=== PATIENT | male | born 1940 | race Caucasian/White ===

== ENCOUNTER 2017-01-05 07:19 | Inpatient (IN) | payer OTHER ==
[~2017-01-05] VITALS: Ht 172.7 cm; Wt 103.6 kg
[2017-01-05] VITALS (10 sets, daily range): BP systolic 135–153; BP diastolic 66–75; PULSE 73–107; TEMP 36.3–36.9; O2SAT 92–98; Ht 172.7 cm; Wt 103.6 kg
[~2017-01-05 07:19] MED LIST: ALLO100T PO; ASPI81TA28 PO; AZIT-57 PO; AZITTAB PO; CHOL100010 PO; GLIP-197 PO; HYDR25TA4 PO; IPRA1AER2 INH; IPRASOL4 INH; LEVE500T13 PO; LISI10TA PO; METO50TA16 PO; OMEP20CA9 PO; PRED10TA PO; SIMV20TA5 PO; SITA1TAB27 PO; SYMIN/8045 INH
[2017-01-05] MEDS ORDERED: DILTIAZEM HCL 5 MG/ML 5 ML VIAL ONE (07:28)
[2017-01-05] MEDS ORDERED: ALBUT/IPRATROP 3MG/0.5MG NEB 3 ML VIAL INH STA (07:29)
[2017-01-05] MEDS ORDERED: DILTIAZEM HCL 5 MG/ML 5 ML VIAL IV STA (07:39)
[2017-01-05] MEDS ORDERED: ASPIRIN 81 MG CHEW PO STA (07:39)
--- NOTE | 2017-01-05 07:42 | EMERGENCY ROOM VISIT NOTE ---
History Report prepared by Jack: Tamara Cortes Under the Supervision of: Dr. Cassandra Bocanegra M.D. 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 He typically wears O2 at night. He is feeling short of breath despite wearing oxygen. He called an ambulance and was brought to the ED for further evaluation. He received 7 nitro en route. He is still feeling short of breath. The patient denies any chest pain. He denies any history of previous AL. 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 A total of 10 systems reviewed and were otherwise negative. Past Medical & Surgical Medical Problems: (1) CKD (chronic kidney disease), stage III (2) COPD, moderate (3) CVA (cerebral vascular accident) (4) Diabetes mellitus (5) GERD (gastroesophageal reflux disease) (6) Gout (7) HTN (hypertension) (8) New onset atrial fibrillation (9) Seizure Surgical Problems: (1) Aneurysm of common iliac artery (2) Hx of appendectomy (3) Left renal thromboendarterectomy (4) S/P AAA repair Family History Non-pertinent due to advanced age. Social History Smoking Status: Current Every Day Smoker Marital Status: Housing Status: lives with family Occupation Status: retired Current/Historical Medications Scheduled Allopurinol (Zyloprim), 100 MG PO DAILY Aspirin (Aspirin Ec), 81 MG PO DAILY Furosemide (Furosemide), 20 MG PO DAILY Glipizide (Glipizide Er), 10 MG PO DAILYBB Glipizide (Glipizide), 5 MG PO DAILYBD Levetiracetam (Keppra), 500 MG PO BID Lisinopril (Prinivil), 10 MG PO DAILY Metoprolol Tartrate (Lopressor), 0.5 TAB PO DAILY Omeprazole (Prilosec), 20 MG PO BID Potassium Chloride Microencaps (Potassium Chloride Er), 10 MEQ PO DAILY Simvastatin (Zocor), 20 MG PO QPM Sitagliptin (Januvia), 100 MG PO QAM Scheduled PRN Ipratropium-Albuterol (Duoneb), 1 VIAL INH QID PRN for SOB/Wheezing Ipratropium-Albuterol (Combivent Respimat), 1 PUFFS INH QID PRN for SOB/Wheezing Allergies Coded Allergies: Sulfa Antibiotics (Verified Allergy, Unknown, HIVES, 01/05/17) Physical Exam Vital Signs Date Time Temp Pulse Resp B/P (MAP) Pulse Ox O2 Delivery O2 Flow Rate FiO2 01/05/17 10:16 135/67 BiPAP 01/05/17 10:11 96 25 98 01/05/17 10:01 116/61 01/05/17 09:56 99 22 98 BiPAP 01/05/17 09:46 136/63 01/05/17 09:41 103 19 99 01/05/17 09:36 105 26 98 BiPAP 01/05/17 09:31 134/73 BiPAP 01/05/17 09:21 98 29 97 01/05/17 09:16 123/64 01/05/17 09:06 106 27 89 BiPAP 01/05/17 09:01 126/65 01/05/17 08:51 98 23 99 01/05/17 08:46 131/56 01/05/17 08:36 94 24 98 BiPAP 01/05/17 08:31 125/60 01/05/17 08:21 101 25 98 01/05/17 08:16 132/52 BiPAP 01/05/17 08:14 102 30 98 BiPAP 01/05/17 08:09 104 33 99 01/05/17 08:05 107 18 98 BiPAP/CPAP 60 01/05/17 08:04 92 20 98 01/05/17 08:01 118/71 BiPAP 01/05/17 07:59 107 27 98 01/05/17 07:55 105 98 60 01/05/17 07:54 112 19 94 01/05/17 07:49 120 26 93 01/05/17 07:46 184/71 01/05/17 07:44 112 24 89 01/05/17 07:41 168/81 01/05/17 07:40 87 Room Air 01/05/17 07:40 121 01/05/17 07:40 91 Nasal Cannula 4.0 01/05/17 07:39 90 Nasal Cannula 4.0 01/05/17 07:39 115 35 91 01/05/17 07:36 90 Nasal Cannula 4.0 01/05/17 07:36 182/86 01/05/17 07:34 105 30 88 01/05/17 07:33 163/84 01/05/17 07:29 139 32 93 01/05/17 07:24 121 43 95 01/05/17 07:24 36.7 148 40 150/91 90 Nasal Cannula 01/05/17 07:19 150/91 Physical Exam Vital signs reviewed. General: Chronically ill appearing 76 year old male, in some respiratory discomfort HEENT: No scleral icterus, PERRLA, neck supple. Atraumatic. Cardiovascular: Regular rate and rhythm, no extra sounds. Pulmonary: Diminished air movement bilaterally with occasional wheezing. Increased work of breathing, tachypnea Abdomen: Soft, nontender, nondistended, positive bowel sounds. Musculoskeletal: Atraumatic, no peripheral edema. Neurologic: Patient awake alert and oriented x 3 Skin: Warm, dry, no rash Medical Decision & Procedures ER Provider Diagnostic Interpretation: Radiology results as stated below per my review and radiologist interpretation: CHEST ONE VIEW PORTABLE HISTORY: Short of breath. COMPARISON: Chest 02/27/2015. FINDINGS: No pneumothorax. The heart is mildly enlarged. Diffuse interstitial and vascular thickening has slightly progressed. This consistent with mild pulmonary edema. Trace bilateral pleural effusions. Left basilar calcified pleural plaque, unchanged. IMPRESSION: Slight progression of the mild interstitial pulmonary edema, cardiomegaly, trace bilateral pleural effusions. Electronically signed by: Chris Garcia M.D. 01/05/2017 8:03 AM Dictated Date/Time: 01/05/2017 7:53 AM Laboratory Results 01/05/17 06:40 Red Blood Count 5.09, Mean Corpuscular Volume 92.9, Mean Corpuscular Hemoglobin 28.5, Mean Corpuscular Hemoglobin Concent 30.7, Mean Platelet Volume 10.0, Neutrophils (%) (Auto) 79.5, Lymphocytes (%) (Auto) 8.7, Monocytes (%) (Auto) 10.1, Eosinophils (%) (Auto) 1.1, Basophils (%) (Auto) 0.2, Neutrophils # (Auto ) 10.92, Lymphocytes # (Auto) 1.20, Monocytes # (Auto) 1.39, Eosinophils # (Auto ) 0.15, Basophils # (Auto) 0.03 01/05/17 06:40 Test 01/05/17 06:40 01/05/17 09:37 White Blood Count 13.75 K/uL (4.8-10.8) Red Blood Count 5.09 M/uL (4.7-6.1) Hemoglobin 14.5 g/dL (14.0-18.0) Hematocrit 47.3 % (42-52) Mean Corpuscular Volume 92.9 fL (80-100) Mean Corpuscular Hemoglobin 28.5 pg (25-34) Mean Corpuscular Hemoglobin Concent 30.7 g/dl (32-36) Platelet Count 158 K/uL (130-400) Mean Platelet Volume 10.0 fL (7.4-10.4) Neutrophils (%) (Auto) 79.5 % Lymphocytes (%) (Auto) 8.7 % Monocytes (%) (Auto) 10.1 % Eosinophils (%) (Auto) 1.1 % Basophils (%) (Auto) 0.2 % Neutrophils # (Auto) 10.92 K/uL (1.4-6.5) Lymphocytes # (Auto) 1.20 K/uL (1.2-3.4) Monocytes # (Auto) 1.39 K/uL (0.11-0.59) Eosinophils # (Auto) 0.15 K/uL (0-0.5) Basophils # (Auto) 0.03 K/uL (0-0.2) RDW Standard Deviation 53.1 fL (36.4-46.3) RDW Coefficient of Variation 15.6 % (11.5-14.5) Immature Granulocyte % (Auto) 0.4 % Immature Granulocyte # (Auto) 0.06 K/uL (0.00-0.02) Prothrombin Time 11.5 SECONDS (9.0-12.0) Prothromb Time International Ratio 1.1 (0.9-1.1) Activated Partial Thromboplast Time 29.7 SECONDS (21.0-31.0) Partial Thromboplastin Ratio 1.1 Anion Gap 3.0 mmol/L (3-11) Est Creatinine Clear Calc Drug Dose 55.5 ml/min Estimated GFR () 58.8 Estimated GFR (Non- 50.7 BUN/Creatinine Ratio 14.8 (10-20) Calcium Level 8.7 mg/dl (8.5-10.1) Magnesium Level 2.1 mg/dl (1.8-2.4) Total Bilirubin 0.6 mg/dl (0.2-1) Direct Bilirubin 0.1 mg/dl (0-0.2) Aspartate Amino Transf (AST/SGOT) 25 U/L (15-37) Alanine Aminotransferase (ALT/SGPT) 31 U/L (12-78) Alkaline Phosphatase 89 U/L (45-117) Total Creatine Kinase 179 U/L (39-308) Creatine Kinase MB 5.2 ng/ml (0.5-3.6) Creatine Kinase MB Ratio 2.9 (0-3.0) Total Protein 7.9 gm/dl (6.4-8.2) Albumin 4.1 gm/dl (3.4-5.0) Thyroid Stimulating Hormone (TSH) 1.270 uIu/ml (0.300-4.500) Arterial Blood pH 7.30 (7.35-7.45) Arterial Blood Partial Pressure CO2 75 mmHg (35-46) Arterial Blood Partial Pressure O2 146 mm/Hg (80-95) Arterial Blood HCO3 36 mmol/L (19-24) Arterial Blood Oxygen Saturation 98.8 % (90-95) Arterial Blood Base Excess 6.4 mEq/L (-9-1.8) Arterial Blood Gas Delivery 60% Isra Test POS (POS) Laboratory results per my review. Medications Administered Medications (Trade) Dose Ordered Sig/Naeem Route Start Time Stop Time Status Last Admin Dose Admin Diltiazem HCl (Cardizem Inj) 25 mg STK-MED ONCE .ROUTE 01/05/17 07:28 01/05/17 07:29 DC 01/05/17 07:31 10 MG Albuterol/ Ipratropium (Duoneb) 3 ml NOW STAT INH 01/05/17 07:29 01/05/17 07:32 DC 01/05/17 07:33 3 ML Aspirin (Aspirin Chew) 324 mg NOW STAT PO 01/05/17 07:39 01/05/17 07:41 DC 01/05/17 07:49 324 MG Methylprednisolone Sodium Succinate (Solu-Medrol IV) 125 mg NOW STAT IV 01/05/17 07:46 01/05/17 07:49 DC 01/05/17 07:55 125 MG Albuterol/ Ipratropium (Duoneb) 12 ml ONE ONCE INH 01/05/17 08:00 01/05/17 08:01 DC 01/05/17 07:55 12 ML ECG Indication: SOB/dyspnea Rate (beats per minute): 126 Rhythm: atrial fibrillation (with RVR) Findings: nonspecific-ST abn, other (poor quality baseline) Comparison ECG Date: Repeat ECG after BiPAP 01/05/2017 Change: Repeat ECG reveals A-fib 88 BPM no ectopy no ischemia. ED Course 0721: Past medical records reviewed. The patient was evaluated in room B7. A complete history and physical examination was performed. 0728: Cardizem 10 mg IV 0729: Duoneb 3 ml INH 0739: Aspirin 324 mg PO 0746: Solu-Medrol 125 mg IV 0800: DuoNeb 12 ml INH 0819: I reassessed the patient at this time and he is doing better with BiPAP. 0918: I spoke with Hetal Soto PA-C. We discussed the patients case. The patient will be evaluated by the [facility] for further management. 0927: I reassessed the patient at this time. He is feeling better and resting comfortably. I discussed the results and treatment plan with the patient. I answered all pertaining questions that he had. He expressed understanding and verbalized agreement. Medical Decision The patient is a 76 year old male who presents to the ED with complaints of shortness of breath. Differentials include infections, reactive airway disease , pneumonia, pneumothorax, COPD, CHF, cardiac ischemia, pulmonary embolism, musculoskeletal, gastrointestinal, as well as others were entertained. This patient was evaluated and appeared to be in significant respiratory discomfort. Patient was given DuoNeb treatment with little improvement. IV Cardizem 10 mg was given with significant improvement in heart rate. The patient was placed on BiPAP with a continuous nebulizer treatment. He had significant resolution of his symptoms in a much calmer work of breathing. Laboratory work is fairly unrevealing. Chest x-ray reveals mild congestive change. Patient was given 125 mg of IV Solu-Medrol. At this time I suspect the patient's issues are twofold with rapid atrial fibrillation and a COPD exacerbation. He is case was discussed with the hospitalist service will evaluate the patient for further management. Medication Reconcilliation Current Medication List: was personally reviewed by me Blood Pressure Screening Patient's blood pressure: Elevated blood pressure Blood pressure disposition: Elevated BP felt to be situational Consults Time Called: 914 Consulting Physician: Hetal Soto PA-C Returned Call: 917 I spoke with Hetal Soto PA-C. We discussed the patients case. [facility]. Impression Primary Impression: COPD exacerbation Additional Impression: Rapid atrial fibrillation Critical Care I have personally spent greater than 35 minutes of critical care time in the direct management of this patient. This includes bedside care, interpretation of diagnostic studies, and testing, discussion with consultants, patient, and family members, and other required patient management activities. This 35 minutes is in excess of all separately billable procedures. Scribe Attestation The scribe's documentation has been prepared under my direction and personally reviewed by me in its entirety. I confirm that the note above accurately reflects all work, treatment, procedures, and medical decision making performed by me. Departure Information Dispostion Being Evaluated By Hospitalist Referrals Richar Lopez M.D. (PCP) Patient Instructions My [facility] Problem Qualifiers
[2017-01-05] MEDS ORDERED: METHYLPREDNISOLONE 125 MG VIAL IV STA (07:46)
[2017-01-05 07:51] LABS: BASO % 0.2 %; BASO ABS # 0.03 K/uL (0-0.2); COMPLETE YES; EOS % 1.1 %; HEMATOCRIT 47.3 % (42-52); IG% 0.4 %; LYMPH % 8.7 %; MEAN CELL VOLUME 92.9 fL (80-100); MEAN CORPUSCULAR HEMOGLOBIN 28.5 pg (25-34); MEAN CORPUSCULAR HGB CONC 30.7 g/dl (32-36); MONO % 10.1 %; NEUT % 79.5 %; PLATELET COUNT 158 K/uL (130-400); RED BLOOD COUNT 5.09 M/uL (4.7-6.1); WHITE BLOOD COUNT 13.75 K/uL (4.8-10.8)
[2017-01-05 08:00] LABS: INR 1.1 (0.9-1.1); PARTIAL THROMBOPLASTIN RATIO 1.1; PROTHROMBIN TIME (PATIENT) 11.5 SECONDS (9.0-12.0)
[2017-01-05] MEDS ORDERED: ALBUT/IPRATROP 3MG/0.5MG NEB 3 ML VIAL INH ONE (08:00)
--- NOTE | 2017-01-05 08:04 | DIAGNOSTIC IMAGING REPORT ---
CHEST ONE VIEW PORTABLE HISTORY: Short of breath. COMPARISON: Chest 02/27/2015. FINDINGS: No pneumothorax. The heart is mildly enlarged. Diffuse interstitial and vascular thickening has slightly progressed. This consistent with mild pulmonary edema. Trace bilateral pleural effusions. Left basilar calcified pleural plaque, unchanged. IMPRESSION: Slight progression of the mild interstitial pulmonary edema, cardiomegaly, trace bilateral pleural effusions. Electronically signed by: Chris Garcia M.D. 01/05/2017 8:03 AM Dictated Date/Time: 01/05/2017 7:53 AM
[2017-01-05 08:10] LABS: BUN/CREATININE RATIO 14.8 (10-20); CALCIUM 8.7 mg/dl (8.5-10.1); CREATININE 1.34 mg/dl (0.60-1.40); MAGNESIUM 2.1 mg/dl (1.8-2.4); POTASSIUM 4.4 mmol/L (3.5-5.1)
[2017-01-05 08:20] LABS: CKMB/CK RATIO 2.9 (0-3.0); THYROID STIMULATING HORMONE 1.27 uIu/ml (0.300-4.500)
[2017-01-05] MEDS ORDERED: LSX20 PO (09:36)
[2017-01-05] MEDS ORDERED: POTA10TA32 PO (09:36)
[2017-01-05 09:57] LABS: ARTERIAL BLD GAS O2 SATURATION 98.8 % (90-95); ARTERIAL BLOOD GAS BASE EXCESS 6.4 mEq/L (-9-1.8); ARTERIAL BLOOD GAS HCO3 36 mmol/L (19-24); ARTERIAL BLOOD GAS PO2 146 mm/Hg (80-95)
[2017-01-05] MEDS ORDERED: GLC5 PO (10:05)
[2017-01-05] MEDS ORDERED: GLUCOSE 40% GEL 15 GM TUBE PO PRN (10:30)
[2017-01-05] MEDS ORDERED: ONDANSETRON INJ 2 MG/ML 2 ML VIAL IV PRN (10:30)
[2017-01-05] MEDS ORDERED: GLUCOSE 10 TABS/TUBE PO PRN (10:30)
[2017-01-05] MEDS ORDERED: GLUCAGON FOR INJ 1 MG VIAL SQ PRN (10:30)
[2017-01-05] MEDS ORDERED: DEXTROSE 50% 50 ML SYR IV PRN (10:30)
[2017-01-05 10:31] LABS: ALLEN TEST POS (POS); O2 ADMINISTRATION 60%
[2017-01-05] MEDS ORDERED: METO-551 PO (10:51)
[2017-01-05] MEDS ORDERED: HEPARIN IV LOW DOSE NO BOLUS SCH (10:56)
[2017-01-05] MEDS ORDERED: METOPROLOL TARTRATE 25 MG TAB PO SCH (11:00)
--- NOTE | 2017-01-05 11:43 | History and Physical ---
History & Physical Date & Time of Service: Jan 05, 2017 at 11:19 Chief Complaint: Shortness Of Breath Primary Care Physician: Richar Lopez M.D. History of Present Illness Source: patient, clinic records, hospital records This is a 76yo M with a PMH of COPD, DM II, HTN, CKD III and remote h/o CVA who presents with worsening shortness of breath beginning last night. Patient wears O2 at night but started to notice SOB while ambulating around his home, which is not his baseline. This morning, patient was SOB at rest, despite wearing O2 and called an ambulance to come to ER for further evaluation. Patient endorses URI symptoms that started 5 days ago, including subjective fever, chills, nasal congestion and productive sputum with white/adams sputum. Was found to be hypoxic in high 80s on 4L O2, so bipap was initiated. Patient's respiratory status has improved and he is alert and conversational, with an O2 saturation of 98%. In the ER, patient was found to be in A Fib with RVR at a rate of 126bpm. Denies any history of A Fib, arrhythmias or heart disease but states that sometimes his heart "skips beats". Is unsure whether or not he takes Lopressor 25mg at home (on his med list), because his manages his medications and she is currently admitted at the hospital. Was given 10mg IV Lopressor in the ER and rate reduced to 90s. Endorses SOB, nasal congestion, cough and fatigue. Denies lightheadedness, headache, visual changes, rhinorrhea, sore throat, palpitations, CP, abd pain, nausea, vomiting or worsening LE swelling. Had a large MCA stroke in 1989. Denies any residual deficits. Takes baby aspirin. Denies any history of DVT/PE or abnormal bleeding. Did not take any of his medications this morning prior to arrival. Past Medical/Surgical History Medical Problems: (1) CKD (chronic kidney disease), stage III Status: Chronic (2) COPD, moderate Status: Chronic (3) CVA (cerebral vascular accident) Status: Chronic (4) Diabetes mellitus Status: Chronic (5) GERD (gastroesophageal reflux disease) Status: Chronic (6) Gout Status: Chronic (7) HTN (hypertension) Status: Chronic (8) Seizure Status: Chronic Surgical Problems: (1) Aneurysm of common iliac artery Permanent Comment: left, s/p repair Status: Chronic (2) Hx of appendectomy Status: Chronic (3) Left renal thromboendarterectomy Status: Chronic (4) S/P AAA repair Status: Chronic Family History Patient unsure of family history. Social History Smoking Status: Current Every Day Smoker (Currently smokes less than 1/2 ppd. Endorses >50 pack years.) Alcohol Use: none Marital Status: Housing status: lives with family Occupational Status: retired Immunizations History of Influenza Vaccine: Yes Influenza Vaccine Date: Nov 13, 2014 History of Tetanus Vaccine?: Yes Tetanus Immunization Date: Aug 20, 2012 History of Pneumococcal: Yes Pneumococcal Date: Jan 12, 2006 Allergies Coded Allergies: Sulfa Antibiotics (Verified Allergy, Unknown, HIVES, 01/05/17) Home Medications Scheduled Allopurinol (Zyloprim), 100 MG PO DAILY Aspirin (Aspirin Ec), 81 MG PO DAILY Furosemide (Furosemide), 20 MG PO DAILY Glipizide (Glipizide Er), 10 MG PO DAILYBB Glipizide (Glipizide), 5 MG PO DAILYBD Levetiracetam (Keppra), 500 MG PO BID Lisinopril (Prinivil), 10 MG PO DAILY Metoprolol Tartrate (Lopressor), 0.5 TAB PO DAILY Omeprazole (Prilosec), 20 MG PO BID Potassium Chloride Microencaps (Potassium Chloride Er), 10 MEQ PO DAILY Simvastatin (Zocor), 20 MG PO QPM Sitagliptin (Januvia), 100 MG PO QAM Scheduled PRN Ipratropium-Albuterol (Duoneb), 1 VIAL INH QID PRN for SOB/Wheezing Ipratropium-Albuterol (Combivent Respimat), 1 PUFFS INH QID PRN for SOB/Wheezing Review of Systems Ten systems reviewed and negative except as noted in the HPI. Physical Exam Vital Signs Date Time Temp Pulse Resp B/P (MAP) Pulse Ox O2 Delivery O2 Flow Rate FiO2 01/05/17 10:44 91 01/05/17 10:41 107 30 99 BiPAP 01/05/17 10:31 141/79 01/05/17 10:26 108 22 01/05/17 10:16 135/67 BiPAP 01/05/17 10:11 96 25 98 01/05/17 10:01 116/61 01/05/17 09:56 99 22 98 BiPAP 01/05/17 09:46 136/63 01/05/17 09:41 103 19 99 01/05/17 09:36 105 26 98 BiPAP 01/05/17 09:31 134/73 BiPAP 01/05/17 09:21 98 29 97 01/05/17 09:16 123/64 01/05/17 09:06 106 27 89 BiPAP 01/05/17 09:01 126/65 01/05/17 08:51 98 23 99 01/05/17 08:46 131/56 01/05/17 08:36 94 24 98 BiPAP 01/05/17 08:31 125/60 01/05/17 08:21 101 25 98 01/05/17 08:16 132/52 BiPAP 01/05/17 08:14 102 30 98 BiPAP 01/05/17 08:09 104 33 99 01/05/17 08:05 107 18 98 BiPAP/CPAP 60 01/05/17 08:04 92 20 98 01/05/17 08:01 118/71 BiPAP 01/05/17 07:59 107 27 98 01/05/17 07:55 105 98 60 01/05/17 07:54 112 19 94 01/05/17 07:49 120 26 93 01/05/17 07:46 184/71 01/05/17 07:44 112 24 89 01/05/17 07:41 168/81 01/05/17 07:40 87 Room Air 01/05/17 07:40 121 01/05/17 07:40 91 Nasal Cannula 4.0 01/05/17 07:39 90 Nasal Cannula 4.0 01/05/17 07:39 115 35 91 01/05/17 07:36 90 Nasal Cannula 4.0 01/05/17 07:36 182/86 01/05/17 07:34 105 30 88 01/05/17 07:33 163/84 01/05/17 07:29 139 32 93 01/05/17 07:24 121 43 95 01/05/17 07:24 36.7 148 40 150/91 90 Nasal Cannula 01/05/17 07:19 150/91 General Appearance: + mild distress (on bipap ) Head: normocephalic, atraumatic Eyes: normal inspection, PERRL, EOMI, sclerae normal (conjunctiva normal ) ENT: hearing grossly normal, + nasal congestion Neck: supple, trachea midline Respiratory/Chest: chest non-tender, no respiratory distress, no accessory muscle use, + decreased breath sounds, + wheezing (Diffiuse wheezing bilaterally ) Cardiovascular: + irregularly irregular, + pertinent finding (Diminished DP and PT pulses ) Abdomen/GI: normal bowel sounds, non tender, soft, no organomegaly Extremities/Musculoskelatal: no calf tenderness, non-tender, + swelling (Trace edema bilateral to knee (chronic). No skin breakdown.) Neurologic/Psych: no motor/sensory deficits, alert, normal mood/affect, oriented x 3 Skin: normal color, warm/dry, no rash Diagnostics Laboratory Results Results Past 24 Hours Test 01/05/17 06:40 01/05/17 09:37 Range/Units White Blood Count 13.75 4.8-10.8 K/uL Red Blood Count 5.09 4.7-6.1 M/uL Hemoglobin 14.5 14.0-18.0 g/dL Hematocrit 47.3 42-52 % Mean Corpuscular Volume 92.9 80-100 fL Mean Corpuscular Hemoglobin 28.5 25-34 pg Mean Corpuscular Hemoglobin Concent 30.7 32-36 g/dl Platelet Count 158 130-400 K/uL Mean Platelet Volume 10.0 7.4-10.4 fL Neutrophils (%) (Auto) 79.5 % Lymphocytes (%) (Auto) 8.7 % Monocytes (%) (Auto) 10.1 % Eosinophils (%) (Auto) 1.1 % Basophils (%) (Auto) 0.2 % Neutrophils # (Auto) 10.92 1.4-6.5 K/uL Lymphocytes # (Auto) 1.20 1.2-3.4 K/uL Monocytes # (Auto) 1.39 0.11-0.59 K/uL Eosinophils # (Auto) 0.15 0-0.5 K/uL Basophils # (Auto) 0.03 0-0.2 K/uL RDW Standard Deviation 53.1 36.4-46.3 fL RDW Coefficient of Variation 15.6 11.5-14.5 % Immature Granulocyte % (Auto) 0.4 % Immature Granulocyte # (Auto) 0.06 0.00-0.02 K/uL Prothrombin Time 11.5 9.0-12.0 SECONDS Prothromb Time International Ratio 1.1 0.9-1.1 Activated Partial Thromboplast Time 29.7 21.0-31.0 SECONDS Partial Thromboplastin Ratio 1.1 Sodium Level 139 136-145 mmol/L Potassium Level 4.4 3.5-5.1 mmol/L Chloride Level 101 98-107 mmol/L Carbon Dioxide Level 35 21-32 mmol/L Anion Gap 3.0 3-11 mmol/L Blood Urea Nitrogen 20 7-18 mg/dl Creatinine 1.34 0.60-1.40 mg/dl Est Creatinine Clear Calc Drug Dose 55.5 ml/min Estimated GFR () 58.8 Estimated GFR (Non- 50.7 BUN/Creatinine Ratio 14.8 10-20 Random Glucose 165 70-99 mg/dl Calcium Level 8.7 8.5-10.1 mg/dl Magnesium Level 2.1 1.8-2.4 mg/dl Total Bilirubin 0.6 0.2-1 mg/dl Direct Bilirubin 0.1 0-0.2 mg/dl Aspartate Amino Transf (AST/SGOT) 25 15-37 U/L Alanine Aminotransferase (ALT/SGPT) 31 12-78 U/L Alkaline Phosphatase 89 45-117 U/L Total Creatine Kinase 179 39-308 U/L Creatine Kinase MB 5.2 0.5-3.6 ng/ml Creatine Kinase MB Ratio 2.9 0-3.0 Total Protein 7.9 6.4-8.2 gm/dl Albumin 4.1 3.4-5.0 gm/dl Thyroid Stimulating Hormone (TSH) 1.270 0.300-4.500 uIu/ml Arterial Blood pH 7.30 7.35-7.45 Arterial Blood Partial Pressure CO2 75 35-46 mmHg Arterial Blood Partial Pressure O2 146 80-95 mm/Hg Arterial Blood HCO3 36 19-24 mmol/L Arterial Blood Oxygen Saturation 98.8 90-95 % Arterial Blood Base Excess 6.4 -9-1.8 mEq/L Arterial Blood Gas Delivery 60% Isra Test POS POS Diagnostic Radiology CXR: IMPRESSION: Slight progression of the mild interstitial pulmonary edema, cardiomegaly, trace bilateral pleural effusions. EKG Initial EKG: Atrial fibrillation with rapid ventricular response with premature ventricular or aberrantly conducted complexes at [address] abnormality Repeat EKG: Atrial fibrillation at 88 bpm. Impression Assessment and Plan This is a 76yo M with a PMH of COPD, DM II, HTN, CKD III and remote h/o CVA who presents with worsening shortness of breath beginning last night. Acute on chronic hypoxic and hypercapnic respiratory failure: -2/2 COPD exacerbation -Respiratory acidosis with appropriate compensation pH of 7.3, pco2 of 75, HCO3 of 36 -Respiratory status improved on bipap -O2 saturation in high 90s -Switch to high flow O2 when able to tolerate COPD exacerbation: -Likely from recent URI -Solu-medrol 60mg Q6 -Scheduled Xopenex/Atrovent nebs -Doxycycline -Supplemental O2 -Pulm consult if respiratory status worsens A fib with RVR: improving -Unclear if new onset or not; patient poor historian -No previous diagnosis of A fib -No CP, palpitations, lightheadedness -Initially in A fib with RVR--> given 10mg IV diltiazem --> rate down to 80s-90s -CHADvasc score of 6 -Initiated low dose IV heparin -Continued home dose Lopressor 25mg daily -Cardio consult DM II: -A1c of 6.8 on 09/12 -Repeat hgb a1c -Held home agents -SSI while in-patient -BSG checks AC HS HTN: -Continue home lisinopril, lasix, metoprolol CKD III: -Cr 1.34, GFR 50.7 -At baseline HLD: -Continue statin H/o seizures: -Stable -Cont home keppra H/o CVA: -Large MCA in 1989 -No residual deficits Tobacco use disorder: -Currently smokes ~ 1/2 ppd -Over 50 pack years -Smoking cessation consult -Nicotine patch GERD: -Cont PPI DVT Ppx: Low dose heparin Code status: FULL PCP: Jessica Dispo: Admitted to tele. Patient seen in collaboration with Dr. Lomeli. Please see addendum. Level of Care Telemetry Resuscitation Status FULL RESUSCITATION VTE Prophylaxis VTE Risk Assessment Done? Y/N: Yes Risk Level: Moderate Given or contraindicated: Other Anticoagulation (On low dose heparin )
[2017-01-05] MEDS: HEPARIN 25,000 UNIT/500ML D5W 500 ML IV PRN (13:48)
[2017-01-05] MEDS: INSULIN ASPART 100 UNITS/ML 3 ML PEN SC SCH ×3 (13:49→20:10)
[2017-01-05] MEDS: LEVETIRACETAM 500 MG TAB PO SCH ×2 (13:50→20:11)
[2017-01-05] MEDS: POTASSIUM CHLORIDE 10 MEQ TABCR PO SCH (13:54)
[2017-01-05] MEDS: FUROSEMIDE 20 MG TAB PO SCH (13:57)
[2017-01-05] MEDS: LISINOPRIL 10 MG TAB PO SCH (13:58)
[2017-01-05] MEDS: ALLOPURINOL 100 MG TAB PO SCH (13:59)
[2017-01-05] MEDS: DOXYCYCLINE HYCLATE 100 MG CAP PO SCH ×2 (13:59→20:12)
[2017-01-05] MEDS: METHYLPREDNISOLONE IV 60 MG in SYRINGE 0 ML IV SCH ×2 (14:00→20:04)
[2017-01-05] MEDS: IPRATROPIUM BROMIDE NEB SOLN 0.02% 2.5 ML VIAL INH SCH ×2 (14:14→19:44)
[2017-01-05] MEDS: LEVALBUTEROL 1.25MG/0.5ML NEB INH SCH ×2 (14:14→19:44)
[2017-01-05] MEDS ORDERED: LEVALBUTEROL/IPRATROPIUM NEB INH SCH (15:00)
[2017-01-05] MEDS ORDERED: FUROSEMIDE INJ 20 MG in SYRINGE 0 ML IV ONE (16:00)
--- NOTE | 2017-01-05 16:04 | CARDIOLOGY CONSULTATION ---
DATE OF CONSULTATION: 01/05/2017 DATE OF CONSULTATION: 01/05/2017 REFERRING: Dr. Lomeli. PRIMARY CARE PHYSICIAN: Dr. Lopez. INDICATIONS: Newly noted atrial fibrillation, COPD exacerbation. HISTORY OF PRESENT ILLNESS: The patient is a 76-year-old male whose past medical history per discussion with the patient and review of records is notable for chronic obstructive lung disease, history of Shabazz esophagus, history of remote TIA/stroke, history of type 2 diabetes mellitus, hypertension, atherosclerotic peripheral vascular disease with prior abdominal aortic aneurysm and left common iliac aneurysm repair, history of dyslipidemia. The patient presents this admission noting having felt poorly for approximately 3-4 days prior to presentation with worsening wheezing, cough and shortness of breath. Symptoms progressed to the point where he was markedly dyspneic despite wearing usual oxygen available for nocturnal use only. He was found to be hypoxic on initial presentation. He was begun on BiPAP and patient clinically improved. Initially in ER, patient was found to be in atrial fibrillation with rapid ventricular response, was given a single dose of IV diltiazem. The patient denies any prior history of atrial arrhythmias other than skipping heartbeats. Notes no prior history of myocardial infarction, angina or congestive heart failure. Notes no exertional angina or claudication. He is limited slightly by dyspneic at home, though remains moderately active by his description. Appetite and weight have been stable. He denies any difficulty with bleeding or abdominal pain or back pain. Notes no dysuria or hematuria. Appetite is generally good. He does continue to smoke approximately 2-4 cigarettes per day. Does wear his oxygen at night. Notes no signs or symptoms to suggest he has been aware of atrial fibrillation or irregular heart rate prior to complaints. Notes no recent neurologic events though carries a history of middle cerebral artery stroke in 1989 per records. Last hospitalization at [facility] was in January 2015 with chronic obstructive pulmonary disease exacerbation at that time. REVIEW OF SYSTEMS: As per HPI and otherwise negative. ALLERGIES: SULFA. MEDICATIONS: Prior to hospitalization were allopurinol 100 mg daily, aspirin 81 mg daily, furosemide 20 grams p.o. daily, glipizide 10 mg p.o. daily, DuoNeb nebulizers p.r.n., Keppra 500 mg b.i.d., lisinopril 10 mg p.o. day, metoprolol 25 mg daily, Prilosec 20 mg p.o. daily, potassium chloride 10 mg daily, simvastatin 20 grams p.o. daily, Januvia 100 mg p.o. every day. PAST SURGICAL HISTORY: Notable for as described. Status post abdominal aortic aneurysm repair, left internal iliac aneurysm repair and left renal artery thromboendarterectomy on 05/24/2012, past appendectomy, cholecystectomy, blepharoplasty. FAMILY HISTORY: Not specifically notable for cardiac disease. 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 He does carry approximately [id number]-vifs history of tobacco use, continues to smoke 2-10 cigarettes per day. Uses no significant alcohol or over the counter medications. PHYSICAL EXAMINATION: GENERAL: The patient appears relatively comfortable at time of exam. VITAL SIGNS: Heart rates 94, blood pressure is 136/73 and equal in both arms. HEAD, EYES, EARS, NOSE, AND THROAT: Normocephalic, atraumatic. Nares without discharge. Throat was clear. NECK: Supple without thyromegaly or lymphadenopathy. There are no carotid bruits audible. LUNGS: Reveal diffuse wheezing and markedly diminished breath sounds in all lung garcia. CARDIOVASCULAR EXAMINATION: Irregular, irregular. There is a grade 2/6 holosystolic murmur at the apex. There is no diastolic murmur. There is no distinct S3 gallop. ABDOMEN: Soft with moderate distention. EXTREMITIES: Without cyanosis or clubbing. There is 1-2+ pedal edema. NEUROLOGIC: The patient is answering questions appropriately. DATA: EKG reveals atrial fibrillation with elevated ventricular response rate. No acute ST segment changes or Q-waves. Chest x-ray reveals diffuse increase in interstitial markings. Cardiac silhouette upper limits of normal in size. LABORATORY DATA: White cell count 13.7, hemoglobin is 14.5, hematocrit is 47.3. Sodium is 139, potassium is 4.4, chloride is 101, bicarb is 35, BUN is 20, creatinine is 1.3. CK-MB notable for mild elevation of MB fraction. TSH is 1.27. AST and ALT are normal. Review of the EKG on patient initially presented demonstrated atrial fibrillation, rate [address] segment changes, poor baseline. Review of outpatient data last echocardiogram was done in June of 2013 which demonstrated normal left ventricular systolic function with mild aortic stenosis and mild aortic insufficiency and mild mitral insufficiency. IMPRESSION: 1. A 76-year-old male presented with acute respiratory distress and underlying history of known obstructive lung disease, hypercarbia, marked worsening dyspnea over several days and newly observed atrial fibrillation, duration of onset uncertain. Issues are as follows, respiratory distress appears to be secondary obstructive lung disease. Chest x-ray does demonstrate diffuse increased interstitial markings. Will give single dose of IV furosemide as part of initial management. I agree with antibiotic and corticosteroid usage. 2. Atrial fibrillation with elevated ventricular response rate, uncertain duration and newly observed. PLAN: Echocardiogram will be ordered to assess valvular structures and cardiac function. Will increase metoprolol to 25 mg a day for rate control. Agree with anticoagulation with heparin. I have discussed this in detail with the patient. He is leery of ongoing chronic anticoagulation but by history is extremely high risk for embolic stroke with high CHADS2-VASc score with risk factors including age greater than 75, prior history of stroke, hypertension, diabetes mellitus and vascular disease. Will continue IV heparin with initiation of oral anticoagulation after further assessment obtained. Will continue to follow patient in the hospital. Plans and recommendations discussed in detail with the patient.
[2017-01-05] MEDS: METOPROLOL TARTRATE 25 MG TAB PO SCH (16:25)
[2017-01-05 17:28] LABS: CKMB/CK RATIO 2.5 (0-3.0)
[2017-01-05] MEDS: SIMVASTATIN 20 MG TAB PO SCH (20:11)
[2017-01-05] MEDS: PANTOprazole SOD 40 MG TAB PO SCH (20:11)
[2017-01-05 21:20] LABS: PARTIAL THROMBOPLASTIN RATIO 1.3
[2017-01-05] MEDS ORDERED: HEPARIN IV BOLUS 4,500 UNIT in SYRINGE 0 ML IV SCH (22:00)
[2017-01-06] VITALS (12 sets, daily range): BP systolic 104–137; BP diastolic 61–73; PULSE 76–112; TEMP 36.4–36.9; O2SAT 90–96
[2017-01-06 00:02] LABS: CKMB/CK RATIO 2.2 (0-3.0)
[2017-01-06] MEDS: METHYLPREDNISOLONE IV 60 MG in SYRINGE 0 ML IV SCH ×4 (01:26→21:06)
[2017-01-06] MEDS: IPRATROPIUM BROMIDE NEB SOLN 0.02% 2.5 ML VIAL INH SCH ×4 (01:37→20:35)
[2017-01-06] MEDS: LEVALBUTEROL 1.25MG/0.5ML NEB INH SCH ×4 (01:38→20:35)
[2017-01-06 04:38] LABS: PARTIAL THROMBOPLASTIN RATIO 1.6
[2017-01-06 04:53] LABS: CKMB/CK RATIO 2.6 (0-3.0)
[2017-01-06] MEDS ORDERED: HEPARIN IV BOLUS 3,000 UNIT in SYRINGE 0 ML IV ONE ×2 (05:15→19:15)
[2017-01-06 06:16] LABS: ESTIMATED AVERAGE GLUCOSE 154 mg/dl; HA1C FLAG Normal (Normal)
[2017-01-06] MEDS: LISINOPRIL 10 MG TAB PO SCH (07:29)
[2017-01-06] MEDS: POTASSIUM CHLORIDE 10 MEQ TABCR PO SCH (07:29)
[2017-01-06] MEDS: LEVETIRACETAM 500 MG TAB PO SCH ×2 (07:29→21:06)
[2017-01-06] MEDS: FUROSEMIDE 20 MG TAB PO SCH (07:30)
[2017-01-06] MEDS: ALLOPURINOL 100 MG TAB PO SCH (07:30)
[2017-01-06] MEDS: ASPIRIN 81 MG ECTAB PO SCH (07:30)
[2017-01-06] MEDS: METOPROLOL TARTRATE 25 MG TAB PO SCH ×2 (07:31→18:13)
[2017-01-06] MEDS: PANTOprazole SOD 40 MG TAB PO SCH ×2 (07:32→21:07)
[2017-01-06] MEDS: NICOTINE 14 MG/24 HR TDSY TD SCH (07:33)
[2017-01-06] MEDS: INSULIN ASPART 100 UNITS/ML 3 ML PEN SC SCH ×4 (07:36→21:09)
[2017-01-06] MEDS: DOXYCYCLINE HYCLATE 100 MG CAP PO SCH ×2 (09:01→21:07)
--- NOTE | 2017-01-06 10:50 | ECHOCARDIOGRAM REPORT ---
*NOTICE TO RECEIVING LIBERTARIAN AGENCY This information is strictly Confidential and protected under [place] law. [place] law prohibits you from making any further disclosure of this information unless further disclosure is expressly permitted by the written consent of the person to whom it pertains or is authorized by law. A general authorization for the release of medical or other information is not sufficient for this purpose. Hospital accepts no responsibility if the information is made available to any other person, INCLUDING THE PATIENT. Interpretation Summary * Name: JACKI DUNLAP Study Date: 01/06/2017 06:28 AM BP: 123/65 mmHg * Patient Location: [facility] HR: 88 * : 1940 (M/d/yyyy) Gender: Male Height: 68 in * Age: 76 yrs Ethnicity: CA Weight: 231 lb * Ordering Physician: Alexis Gupta MD, [facility] * Performed By: Mayi Hess RDCS * * Reason For Study: A-FIB * BSA: 2.2 m2 * -- Conclusions -- * The left ventricle is normal in size. * There is moderate concentric left ventricular hypertrophy. * No regional wall motion abnormalities noted. * Ejection Fraction = 55-60%. * Moderate valvular aortic stenosis. * Mild aortic regurgitation. * There is moderate sclerocalcifc changes of the mitral valve leaflets. * There is mild mitral regurgitation. Procedure Details * A complete two-dimensional transthoracic echocardiogram was performed (2D, M-mode, Doppler and color flow Doppler). * A contrast injection of Definity was performed to improve assessment of LV function. * Contrast was injected into an intravenous site in the left arm. * One vial of Definity ultrasound contrast was diluted in normal saline to a total volume of 10 ml. A total of '3' ml of solution was administered during imaging. * Lot # [id number] of Definity utilized for procedure. * Expiration date 02/13. Left Ventricle * The left ventricle is normal in size. * There is moderate concentric left ventricular hypertrophy. * Ejection Fraction = 55-60%. * Left ventricular systolic function is normal. * No regional wall motion abnormalities noted. Right Ventricle * The right ventricle is normal in size and function. Atria * The left atrium is moderately dilated. * Right atrial size is normal. * No ASD detected; PFO is not assessed. Mitral Valve * There is mild to moderate mitral annular calcification. * There is moderate sclerocalcifc changes of the mitral valve leaflets. * There is no mitral valve stenosis. * There is mild mitral regurgitation. Tricuspid Valve * The tricuspid valve anatomy is normal. * There is no tricuspid stenosis. * There is trace tricuspid regurgitation. Aortic Valve * The aortic valve is trileaflet. * Moderate valvular aortic stenosis. * Mild aortic regurgitation. Pulmonic Valve * The pulmonic valve is not well visualized. Great Vessels * The aortic root is normal size. Pericardium/Pleural * There is no pericardial effusion. Great Vessels * Normal inferior vena cava diameter and respiratory variation suggests normal central venous pressure. MMode 2D Measurements and Calculations IVSd 1.4 cm IVSs 2.4 cm LVIDd 5.6 cm LVIDs 3.9 cm LVPWd 1.2 cm LVPWs 1.6 cm IVS/LVPW 1.2 FS 30.2 % EDV(Teich) 152.6 ml ESV(Teich) 65.8 ml EF(Teich) 56.9 % EDV(cubed) 174.0 ml ESV(cubed) 59.2 ml EF(cubed) 66.0 % % IVS thick 75.3 % % LVPW thick 38.8 % LV mass(C)d 299.9 grams LV mass(C)dI 138.0 grams/m\S\2 LV mass(C)s 361.9 grams LV mass(C)sI 166.6 grams/m\S\2 SV(Teich) 86.8 ml SI(Teich) 39.9 ml/m\S\2 SV(cubed) 114.8 ml SI(cubed) 52.8 ml/m\S\2 ACS 1.2 cm LA dimension 4.5 cm asc Aorta Diam 3.3 cm LVOT diam 2.5 cm LVOT area 4.8 cm\S\2 LVAd ap4 44.2 cm\S\2 LVLd ap4 9.6 cm EDV(MOD-sp4) 163.3 ml EDV(sp4-el) 173.2 ml LVAs ap4 26.7 cm\S\2 LVLs ap4 8.0 cm ESV(MOD-sp4) 72.1 ml ESV(sp4-el) 75.3 ml EF(MOD-sp4) 55.8 % EF(sp4-el) 56.5 % LVAd ap2 40.1 cm\S\2 LVLd ap2 9.6 cm EDV(MOD-sp2) 137.9 ml EDV(sp2-el) 142.5 ml LVAs ap2 23.3 cm\S\2 LVLs ap2 7.7 cm ESV(MOD-sp2) 59.4 ml ESV(sp2-el) 59.8 ml EF(MOD-sp2) 56.9 % EF(sp2-el) 58.0 % LVLd %diff 0.02 % EDV(MOD-bp) 152.0 ml LVLs %diff -4.25 % ESV(MOD-bp) 66.8 ml EF(MOD-bp) 56.1 % SV(MOD-sp4) 91.2 ml SI(MOD-sp4) 42.0 ml/m\S\2 SV(MOD-sp2) 78.5 ml SI(MOD-sp2) 36.1 ml/m\S\2 SV(MOD-bp) 85.2 ml SI(MOD-bp) 39.2 ml/m\S\2 SV(sp4-el) 97.9 ml SI(sp4-el) 45.1 ml/m\S\2 SV(sp2-el) 82.7 ml SI(sp2-el) 38.0 ml/m\S\2 Doppler Measurements and Calculations MV E max neymar 197.2 cm/sec MV dec time 0.22 sec Ao V2 max 243.6 cm/sec Ao max PG 23.7 mmHg Ao max PG (full) 20.1 mmHg PERLA(V,A) 1.9 cm\S\2 PERLA(V,D) 1.9 cm\S\2 AI max neymar 347.2 cm/sec AI max PG 48.4 mmHg AI dec slope 248.5 cm/sec\S\2 AI P1/2t 409.2 msec LV V1 max PG 3.6 mmHg LV V1 max 95.3 cm/sec MR max neymar 446.1 cm/sec MR max PG 79.7 mmHg PA V2 max 62.3 cm/sec PA max PG 1.6 mmHg PI end-d neymar 90.6 cm/sec TR max neymar 266.6 cm/sec
[2017-01-06] MEDS ORDERED: SIMETHICONE 80 MG CHEW PO PRN (11:00)
[2017-01-06 11:20] LABS: PARTIAL THROMBOPLASTIN RATIO 1.6
[2017-01-06] MEDS: HEPARIN 25,000 UNIT/500ML D5W 500 ML IV PRN ×3 (11:20→19:22)
[2017-01-06] MEDS ORDERED: FUROSEMIDE 40 MG TAB PO ONE (12:15)
[2017-01-06] MEDS ORDERED: HEPARIN IV BOLUS 4,500 UNIT in SYRINGE 0 ML IV ONE (12:30)
--- NOTE | 2017-01-06 13:52 | CARDIOLOGY PROGRESS NOTE ---
DATE: 01/06/2017 DATE: 01/06/2017 The patient seen and examined. Chart, medications, telemetry reviewed. SUBJECTIVE: The patient clinically appears improved this morning, did have transient hypoxia overnight when off oxygen supplementation. Denies any chest pains. Not aware of any tachypalpitations. Heart rate has improved to the 80s and 90s on current dosing of therapies. He is frustrated by frequent blood draws. Notes breathing has improved. Notes no productive cough. OBJECTIVE: VITAL SIGNS: Heart rate is 83, blood pressure is 137/66. HEAD, EYES, EARS, NOSE, AND THROAT: Normocephalic, atraumatic. NECK: Thick. There is no distinct jugular venous distention. LUNGS: Reveals fine crackles bibasilar, with diffuse wheezes. CARDIOVASCULAR: Irregularly irregular with a grade 2/6 systolic murmur heard best at the lower left sternal border. There is no S3 gallop. ABDOMEN: Obese, soft. EXTREMITIES: Reveal 1+ lower extremity edema. NEUROLOGIC: The patient is answering questions appropriately. DATA: Echocardiogram this morning demonstrates moderate left ventricular hypertrophy without wall motion abnormalities. Estimated ejection fraction 55-60%. There is calcific disease of the aortic valve with moderate aortic stenosis and mild aortic insufficiency and mild tricuspid insufficiency. IMPRESSION: A 76-year-old male presented with chronic obstructive pulmonary disease exacerbation, worsening wheeze and cough now responding to clinical therapies. Did receive additional dose of furosemide by myself yesterday. Has mild signs of volume overload noted. His underlying history is notable for aortic valve disease now documented as moderate aortic stenosis and mild aortic insufficiency with preserved LV systolic function. Rhythms continue to demonstrate newly observed atrial fibrillation. Rates are coming under better control with current therapy. RECOMMENDATIONS: Would continue metoprolol 25 mg twice per day. Would continue IV heparin. I would recommend transitioning to warfarin on this patient, though uncertain whether he would be willing to do this as long-term management. Will resume furosemide, he previously took this 20 mg once daily. Would increase that dose to 40 mg per day at least while in the hospital. Would follow electrolytes with lab work ordered to be performed next PTT draw.
[2017-01-06 18:28] LABS: PARTIAL THROMBOPLASTIN RATIO 1.7
--- NOTE | 2017-01-06 19:26 | Progress Note ---
Medicine Progress Note Date & Time of Visit: Jan 06, 2017 at 19:20. Subjective Patient reports feeling some improvement in his breathing, but does not feel back to baseline yet. Still requiring oxygen supplement. No overnight events noted. Tolerating medications. No complaints other than cough/SOB/chest tightness. Objective Last 8 Hrs Date Time Temp Pulse Resp B/P (MAP) Pulse Ox O2 Delivery O2 Flow Rate FiO2 01/06/17 18:14 88 134/67 (89) 01/06/17 15:28 36.9 85 19 104/61 (75) 92 Nasal Cannula 3.0 01/06/17 14:54 95 20 95 Nasal Cannula 3.0 01/06/17 13:16 36.7 97 18 113/67 (82) 96 01/06/17 12:00 Nasal Cannula 5.0 Physical Exam: GENERAL: Patient is in no acute distress. HEENT: No acute trauma, normocephalic, mucous membranes moist, no nasal congestion, no scleral icterus. Conjunctivae clear NECK: No stridor, trachea is midline. LUNGS: Bilateral wheeze, diminished breath sounds bilaterally, no rhonchi, breath sounds equal. HEART: Without murmurs gallops or rubs, irregularly irregular ABDOMEN: Soft, nontender, bowel sounds positive. EXTREMITIES: No cyanosis; B/L LE edema, full range of motion of all the joints without pain or difficulty, no signs for acute trauma. NEUROLOGIC: Oriented x 3, no acute motor or sensory deficits, no focal weakness. SKIN: No rash, no jaundice, no diaphoresis. Laboratory Results: Last 24 Hours Test 01/05/17 20:01 01/05/17 20:17 01/05/17 23:30 01/06/17 04:13 Bedside Glucose 238 mg/dl Activated Partial Thromboplast Time 32.5 SECONDS 42.6 SECONDS Partial Thromboplastin Ratio 1.3 1.6 Total Creatine Kinase 238 U/L 213 U/L Creatine Kinase MB 5.3 ng/ml 5.5 ng/ml Creatine Kinase MB Ratio 2.2 2.6 Troponin I 0.050 ng/ml 0.032 ng/ml Estimated Average Glucose 154 mg/dl Hemoglobin A1c 7.0 % Test 01/06/17 06:48 01/06/17 10:54 01/06/17 11:27 01/06/17 16:23 Bedside Glucose 229 mg/dl 236 mg/dl 271 mg/dl Activated Partial Thromboplast Time 40.6 SECONDS Partial Thromboplastin Ratio 1.6 Test 01/06/17 17:26 Activated Partial Thromboplast Time 43.9 SECONDS Partial Thromboplastin Ratio 1.7 Assessment & Plan Acute on chronic hypoxic and hypercapnic respiratory failure: -likely secondary to COPD exacerbation and probable bronchitis -Respiratory acidosis with appropriate compensation pH of 7.3, pco2 of 75, HCO3 of 36 -improved on bipap, then switched to NC -O2 saturation in high 90s now; wean oxygen as tolerated -continued on Lasix as well COPD exacerbation: -Likely from recent URI -Solu-medrol 60mg Q6 for now, taper tomorrow -Scheduled Xopenex/Atrovent nebs -Doxycycline day#2 -Supplemental O2 -Pulm consult if respiratory status worsens A fib with RVR: improving -unclear onset; patient poor historian, but no prior history of a fib per records -no CP, palpitations, lightheadedness -Initially in A fib with RVR--> given 10mg IV diltiazem --> rate down to 80s- 90s where it has remained -on low dose IV heparin drip -continued home dose Lopressor 25mg daily -Cardio consulted, appreciate recs -TTE: EF 55-60%, moderate DM Type II: -HbA1c: 7% -hold home PO meds -SSI while in hospital -BSG AC HS -add lantus as well HTN: -Continue home lisinopril, lasix, metoprolol CKD Stage III: -Cr 1-1.5 at baseline -currently at baseline HYPERLIPIDEMIA: -continue statin Hx of Seizures: -stable -continue keppra Prior CVA: -Large MCA territory ischemic CVA in 1989 -No residual deficits Tobacco use disorder: -Currently smokes ~ 1/2 ppd -Over 50 pack years -Smoking cessation consult -Nicotine patch GERD: -continue PPI Current Inpatient Medications: Current Inpatient Medications Medications (Trade) Dose Ordered Sig/Naeem Route Start Time Stop Time Status Last Admin Dose Admin Ondansetron HCl (Zofran Inj) 4 mg Q6H PRN IV 01/05/17 10:30 02/04/17 10:29 Insulin Aspart (novoLOG ASPART) SLIDING SCALE If C... ACHS SC 01/05/17 16:15 02/04/17 16:14 01/06/17 18:11 12 UNITS Glucose (Glucose 40% Gel) 15-30 GRAMS 15 GRAMS... UD PRN PO 01/05/17 10:30 02/04/17 10:29 Glucose (Glucose Chew Tab) 4-8 Tablets 4 Tabl... UD PRN PO 01/05/17 10:30 02/04/17 10:29 Dextrose (Dextrose 50% 50ML Syringe) 25-50ML OF 50% DW IV FOR... UD PRN IV 01/05/17 10:30 02/04/17 10:29 Glucagon (Glucagon Inj) 1 mg UD PRN SQ 01/05/17 10:30 02/04/17 10:29 Methylprednisolone Sodium Succinate 60 mg/Syringe 0.96 ml @ 1.5 mls/min Q6H IV 01/05/17 14:00 02/04/17 13:59 01/06/17 13:58 1.5 MLS/MIN Nicotine (Nicoderm Cq 14MG Patch) 1 patch QAM TD 01/06/17 09:00 02/05/17 08:59 Miscellaneous (Remove Nicoderm Patch) 1 ea HS N/A 01/05/17 21:00 02/04/17 20:59 Doxycycline Hyclate (Vibramycin Cap) 100 mg BID PO 01/05/17 14:00 01/12/17 13:59 01/06/17 09:01 100 MG Allopurinol (Zyloprim Tab) 100 mg DAILY PO 01/05/17 11:00 02/04/17 10:59 01/06/17 07:30 100 MG Aspirin (Ecotrin Tab) 81 mg DAILY PO 01/06/17 09:00 02/05/17 08:59 01/06/17 07:30 81 MG Levetiracetam (Keppra Tab) 500 mg BID PO 01/05/17 11:00 02/04/17 10:59 01/06/17 07:29 500 MG Lisinopril (Zestril Tab) 10 mg DAILY PO 01/05/17 11:00 02/04/17 10:59 01/06/17 07:29 10 MG Potassium Chloride (Klor-Con M10) 10 meq DAILY PO 01/05/17 11:00 02/04/17 10:59 01/06/17 07:29 10 MEQ Simvastatin (Zocor Tab) 20 mg QPM PO 01/05/17 21:00 02/04/17 20:59 01/05/17 20:11 20 MG Pantoprazole Sodium (Protonix Tab) 40 mg BID PO 01/05/17 21:00 02/04/17 20:59 01/06/17 07:32 40 MG Ipratropium Arnett (Atrovent 0.02% 0.5MG/2.5ML Neb) 0.5 mg Q6R INH 01/05/17 15:00 02/04/17 14:59 01/06/17 14:54 0.5 MG Levalbuterol (Xopenex 1.25MG/ 0.5ML Neb) 1.25 mg Q6R INH 01/05/17 15:00 02/04/17 14:59 01/06/17 14:54 1.25 MG Heparin Sodium/ Dextrose 500 ml @ 30 mls/hr [id number] PRN IV 01/05/17 13:30 02/04/17 13:29 01/06/17 12:36 28 MLS/HR Metoprolol Tartrate (Lopressor Tab) 25 mg BID17 PO 01/05/17 17:00 02/04/17 10:59 01/06/17 18:13 25 MG Simethicone (Mylicon Chew Tab) 80 mg Q6H PRN PO 01/06/17 11:00 02/05/17 10:59 Furosemide (Lasix Tab) 40 mg QAM PO 01/07/17 09:00 02/06/17 08:59
[2017-01-06] MEDS: SIMVASTATIN 20 MG TAB PO SCH (21:07)
[2017-01-07] VITALS (14 sets, daily range): BP systolic 109–144; BP diastolic 54–74; PULSE 64–103; TEMP 36.3–36.6; O2SAT 91–97
[2017-01-07] MEDS: LEVALBUTEROL 1.25MG/0.5ML NEB INH SCH ×4 (02:16→20:09)
[2017-01-07] MEDS: IPRATROPIUM BROMIDE NEB SOLN 0.02% 2.5 ML VIAL INH SCH ×4 (02:16→20:08)
[2017-01-07] MEDS: METHYLPREDNISOLONE IV 60 MG in SYRINGE 0 ML IV SCH ×3 (02:34→20:58)
[2017-01-07] MEDS: HEPARIN 25,000 UNIT/500ML D5W 500 ML IV PRN ×4 (05:48→23:14)
[2017-01-07] MEDS: PANTOprazole SOD 40 MG TAB PO SCH ×2 (07:48→20:59)
[2017-01-07] MEDS: INSULIN ASPART 100 UNITS/ML 3 ML PEN SC SCH ×4 (07:48→21:08)
[2017-01-07] MEDS: NICOTINE 14 MG/24 HR TDSY TD SCH (07:49)
[2017-01-07] MEDS: LISINOPRIL 10 MG TAB PO SCH (07:49)
[2017-01-07] MEDS: POTASSIUM CHLORIDE 10 MEQ TABCR PO SCH (07:49)
[2017-01-07] MEDS: ASPIRIN 81 MG ECTAB PO SCH (07:49)
[2017-01-07] MEDS: ALLOPURINOL 100 MG TAB PO SCH (07:49)
[2017-01-07] MEDS: METOPROLOL TARTRATE 25 MG TAB PO SCH ×2 (07:49→17:37)
[2017-01-07] MEDS: LEVETIRACETAM 500 MG TAB PO SCH ×2 (07:49→20:59)
[2017-01-07] MEDS: DOXYCYCLINE HYCLATE 100 MG CAP PO SCH ×2 (07:49→20:59)
[2017-01-07] MEDS: FUROSEMIDE 40 MG TAB PO SCH (07:50)
[2017-01-07 08:07] LABS: INR 1.1 (0.9-1.1); PARTIAL THROMBOPLASTIN RATIO 1.1; PROTHROMBIN TIME (PATIENT) 11.8 SECONDS (9.0-12.0)
[2017-01-07] MEDS ORDERED: HEPARIN IV BOLUS 4,500 UNIT in SYRINGE 0 ML IV SCH (09:00)
[2017-01-07 09:26] LABS: HEMATOCRIT 43.3 % (42-52); MEAN CELL VOLUME 91.5 fL (80-100); MEAN CORPUSCULAR HEMOGLOBIN 28.3 pg (25-34); MEAN CORPUSCULAR HGB CONC 30.9 g/dl (32-36); MEAN PLATELET VOLUME 10.8 fL (7.4-10.4); PLATELET COUNT 154 K/uL (130-400); RED BLOOD COUNT 4.73 M/uL (4.7-6.1); WHITE BLOOD COUNT 16.56 K/uL (4.8-10.8)
[2017-01-07 10:03] LABS: BUN/CREATININE RATIO 27.2 (10-20); CALCIUM 8.9 mg/dl (8.5-10.1); CREATININE 1.76 mg/dl (0.60-1.40); POTASSIUM 4.4 mmol/L (3.5-5.1)
--- NOTE | 2017-01-07 12:13 | Cardiology Follow-Up ---
Subjective Subjective Date of Service: Jan 07, 2017. Pt evaluation today including: conversation w/ patient, physical exam, chart review, lab review, review of studies, review of inpatient medication list Additional Details: Pt seen and examined, ambulating in room. States that breathing has improved with addition of oxygen. Denies cp, palpitations, lightheadedness or dizziness. Tele reviewed: atrial fibrillation, rates relatively well controlled. Problem List Medical Problems: (1) Acute bronchitis Status: Acute (2) COPD exacerbation Status: Acute (3) COPD exacerbation Status: Acute (4) Hypoxia Status: Acute (5) Rapid atrial fibrillation Status: Acute Review of Systems Respiratory: + shortness of breath, + dyspnea on exertion, No see HPI, No cough , No sputum, No wheezing, No dyspnea at rest, No hemoptysis, No problem reported Cardiac: No see HPI, No chest pain, No orthopnea, No PND, No edema, No claudication, No palpitations, No problem reported Objective Vital Signs Last Vital Signs Documentation Date Time Temp Pulse Resp B/P (MAP) Pulse Ox O2 Delivery O2 Flow Rate FiO2 01/07/17 12:00 95 Nasal Cannula 3.0 01/07/17 07:41 36.4 96 18 144/74 (97) 01/05/17 11:21 60 Physical Exam: General Appearance: WD/WN, no apparent distress Eyes: bilateral eyes normal inspection, bilateral eyes PERRL, bilateral eyes EOMI ENT: normal ENT inspection, hearing grossly normal, pharynx normal Neck: supple, no adenopathy, thyroid normal, no JVD, no carotid bruits, trachea midline Respiratory/Chest: chest non-tender, + crackles, + rhonchi Cardiovascular: no JVD, no murmur, + irregularly irregular Abdomen: normal bowel sounds, non tender, soft, no organomegaly Extremities: normal inspection, no pedal edema, no calf tenderness Neurologic/Psychiatric: demo specialist II-XII nml as tested, no motor/sensory deficits, alert, normal mood/affect, oriented x 3 Skin: normal color, warm/dry, no rash Lymphatic: no adenopathy Assessment and Plan 1. atrial fibrillation rates improving tolerating heparin well will start coumadin cont metoprolol succinate 25mg bid 2. acute decompensated diastolic dysfunction diuresing cont lasix 40mg po
[2017-01-07] MEDS: WARFARIN SOD 5 MG TAB PO SCH (15:53)
--- NOTE | 2017-01-07 19:04 | Progress Note ---
Medicine Progress Note Date & Time of Visit: Jan 07, 2017 at 19:04. Subjective Patient reports feeling his cough and breathing are improving. Is anxious to go home. Is agreeable to taking coumadin but does not want to wait in the hospital just for the INR to become therapeutic. No overnight events noted. No other complaints at this time. Objective Last 8 Hrs Date Time Temp Pulse Resp B/P (MAP) Pulse Ox O2 Delivery O2 Flow Rate FiO2 01/07/17 17:35 64 131/63 (85) 01/07/17 15:57 36.3 103 18 109/63 (78) 94 Nasal Cannula 3.0 01/07/17 15:45 95 Nasal Cannula 2.0 01/07/17 14:14 85 18 95 Nasal Cannula 3.0 01/07/17 12:00 95 Nasal Cannula 3.0 01/07/17 12:00 36.6 95 18 113/61 (78) 95 Nasal Cannula 2.0 Physical Exam: GENERAL: Patient is in no acute distress. HEENT: No acute trauma, normocephalic, mucous membranes moist, no nasal congestion, no scleral icterus. Conjunctivae clear NECK: No stridor, trachea is midline. LUNGS: Diminished breath sounds bilaterally, no rhonchi, breath sounds equal. HEART: Without murmurs gallops or rubs, irregularly irregular ABDOMEN: Soft, nontender, bowel sounds positive. EXTREMITIES: No cyanosis; B/L LE edema, full range of motion of all the joints without pain or difficulty, no signs for acute trauma. NEUROLOGIC: Oriented x 3, no acute motor or sensory deficits, no focal weakness. SKIN: No rash, no jaundice, no diaphoresis. Laboratory Results: Last 24 Hours Test 01/06/17 20:12 01/07/17 07:08 01/07/17 07:36 01/07/17 09:17 Bedside Glucose 280 mg/dl 249 mg/dl Prothrombin Time 11.8 SECONDS Prothromb Time International Ratio 1.1 Activated Partial Thromboplast Time 28.9 SECONDS Partial Thromboplastin Ratio 1.1 White Blood Count 16.56 K/uL Red Blood Count 4.73 M/uL Hemoglobin 13.4 g/dL Hematocrit 43.3 % Mean Corpuscular Volume 91.5 fL Mean Corpuscular Hemoglobin 28.3 pg Mean Corpuscular Hemoglobin Concent 30.9 g/dl RDW Standard Deviation 52.1 fL RDW Coefficient of Variation 15.5 % Platelet Count 154 K/uL Mean Platelet Volume 10.8 fL Sodium Level 135 mmol/L Potassium Level 4.4 mmol/L Chloride Level 97 mmol/L Carbon Dioxide Level 32 mmol/L Anion Gap 7.0 mmol/L Blood Urea Nitrogen 48 mg/dl Creatinine 1.76 mg/dl Est Creatinine Clear Calc Drug Dose 41.3 ml/min Estimated GFR () 42.3 Estimated GFR (Non- 36.5 BUN/Creatinine Ratio 27.2 Random Glucose 299 mg/dl Calcium Level 8.9 mg/dl Test 01/07/17 11:39 01/07/17 16:52 01/07/17 19:00 Bedside Glucose 268 mg/dl 293 mg/dl Assessment & Plan Acute on chronic hypoxic and hypercapnic respiratory failure: -likely secondary to COPD exacerbation and probable bronchitis -ABG on admission: pH: 7.3, pCO2: 75, HCO3: 36 pO2: 146 -improved on bipap, then switched to NC; now weaning down to 3 L today -O2 saturation in high 90s now; wean oxygen as tolerated -continued on Lasix as well COPD exacerbation: -Likely from recent URI -Solu-medrol 60mg Q6, will taper to q12 hours -Scheduled Xopenex/Atrovent nebs -Doxycycline day#3 -Supplemental O2 -less wheezing/coughing today A fib with RVR: improving -unclear onset; patient poor historian, but no prior history of a fib per records -no CP, palpitations, lightheadedness -Initially in A fib with RVR--> given 10mg IV diltiazem --> rate down to 80s- 90s where it has remained -on low dose IV heparin drip -continued home dose Lopressor 25mg daily -Cardio consulted, appreciate recs -TTE: EF 55-60%, moderate DM Type II: -HbA1c: 7% -hold home PO meds -SSI while in hospital -BSG AC HS -add lantus as well HTN: -Continue home lisinopril, lasix, metoprolol CKD Stage III: -Cr 1-1.5 at baseline -currently at baseline Hyperlipidemia: -continue statin Hx of Seizures: -stable -continue keppra Prior CVA: -Large MCA territory ischemic CVA in 1989 -No residual deficits Tobacco use disorder: -Currently smokes ~ 1/2 ppd -Over 50 pack years -Smoking cessation consult -Nicotine patch GERD: -continue PPI Current Inpatient Medications: Current Inpatient Medications Medications (Trade) Dose Ordered Sig/Naeem Route Start Time Stop Time Status Last Admin Dose Admin Ondansetron HCl (Zofran Inj) 4 mg Q6H PRN IV 01/05/17 10:30 02/04/17 10:29 Insulin Aspart (novoLOG ASPART) SLIDING SCALE If C... ACHS SC 01/05/17 16:15 02/04/17 16:14 01/07/17 16:58 16 UNITS Glucose (Glucose 40% Gel) 15-30 GRAMS 15 GRAMS... UD PRN PO 01/05/17 10:30 02/04/17 10:29 Glucose (Glucose Chew Tab) 4-8 Tablets 4 Tabl... UD PRN PO 01/05/17 10:30 02/04/17 10:29 Dextrose (Dextrose 50% 50ML Syringe) 25-50ML OF 50% DW IV FOR... UD PRN IV 01/05/17 10:30 02/04/17 10:29 Glucagon (Glucagon Inj) 1 mg UD PRN SQ 01/05/17 10:30 02/04/17 10:29 Nicotine (Nicoderm Cq 14MG Patch) 1 patch QAM TD 01/06/17 09:00 02/05/17 08:59 Miscellaneous (Remove Nicoderm Patch) 1 ea HS N/A 01/05/17 21:00 02/04/17 20:59 01/06/17 21:06 1 EA Doxycycline Hyclate (Vibramycin Cap) 100 mg BID PO 01/05/17 14:00 01/12/17 13:59 01/07/17 07:49 100 MG Allopurinol (Zyloprim Tab) 100 mg DAILY PO 01/05/17 11:00 02/04/17 10:59 01/07/17 07:49 100 MG Aspirin (Ecotrin Tab) 81 mg DAILY PO 01/06/17 09:00 02/05/17 08:59 01/07/17 07:49 81 MG Levetiracetam (Keppra Tab) 500 mg BID PO 01/05/17 11:00 02/04/17 10:59 01/07/17 07:49 500 MG Lisinopril (Zestril Tab) 10 mg DAILY PO 01/05/17 11:00 02/04/17 10:59 01/07/17 07:49 10 MG Potassium Chloride (Klor-Con M10) 10 meq DAILY PO 01/05/17 11:00 02/04/17 10:59 01/07/17 07:49 10 MEQ Simvastatin (Zocor Tab) 20 mg QPM PO 01/05/17 21:00 02/04/17 20:59 01/06/17 21:07 20 MG Pantoprazole Sodium (Protonix Tab) 40 mg BID PO 01/05/17 21:00 02/04/17 20:59 01/07/17 07:48 40 MG Ipratropium [place] (Atrovent 0.02% 0.5MG/2.5ML Neb) 0.5 mg Q6R INH 01/05/17 15:00 02/04/17 14:59 01/07/17 14:14 0.5 MG Levalbuterol (Xopenex 1.25MG/ 0.5ML Neb) 1.25 mg Q6R INH 01/05/17 15:00 02/04/17 14:59 01/07/17 14:14 1.25 MG Heparin Sodium/ Dextrose 500 ml @ 33 mls/hr [id number] PRN IV 01/05/17 13:30 02/04/17 13:29 01/07/17 09:30 33 MLS/HR Metoprolol Tartrate (Lopressor Tab) 25 mg BID17 PO 01/05/17 17:00 02/04/17 10:59 01/07/17 17:37 25 MG Simethicone (Mylicon Chew Tab) 80 mg Q6H PRN PO 01/06/17 11:00 02/05/17 10:59 Furosemide (Lasix Tab) 40 mg QAM PO 01/07/17 09:00 02/06/17 08:59 01/07/17 07:50 40 MG Warfarin Sodium (Coumadin Tab) 5 mg DAILY@16 PO 01/07/17 16:00 02/06/17 15:59 01/07/17 15:53 5 MG Methylprednisolone Sodium Succinate 60 mg/Syringe 0.96 ml @ 1.5 mls/min Q12 IV 01/07/17 21:00 02/04/17 13:59 Insulin Glargine (Lantus Solostar Pen) 7 units BID SC 01/07/17 21:00 02/06/17 20:59
[2017-01-07 19:44] LABS: PARTIAL THROMBOPLASTIN RATIO 1.8
[2017-01-07] MEDS ORDERED: HEPARIN IV BOLUS 3,000 UNIT in SYRINGE 0 ML IV ONE (20:30)
[2017-01-07] MEDS: SIMVASTATIN 20 MG TAB PO SCH (20:59)
[2017-01-07] MEDS: INSULIN GLARGINE SOLOSTAR 100 UNITS/ML 3 ML PEN SC SCH (21:08)
[2017-01-08] VITALS (10 sets, daily range): BP systolic 125–144; BP diastolic 64–78; PULSE 80–94; TEMP 36.2–36.6; O2SAT 94–97
[2017-01-08] MEDS: IPRATROPIUM BROMIDE NEB SOLN 0.02% 2.5 ML VIAL INH SCH ×4 (02:22→19:30)
[2017-01-08] MEDS: LEVALBUTEROL 1.25MG/0.5ML NEB INH SCH ×4 (02:22→19:30)
[2017-01-08] MEDS: INSULIN ASPART 100 UNITS/ML 3 ML PEN SC SCH ×4 (07:52→21:12)
[2017-01-08] MEDS: INSULIN GLARGINE SOLOSTAR 100 UNITS/ML 3 ML PEN SC SCH ×2 (07:53→21:11)
[2017-01-08] MEDS: METHYLPREDNISOLONE IV 60 MG in SYRINGE 0 ML IV SCH ×2 (08:08→21:07)
[2017-01-08] MEDS: NICOTINE 14 MG/24 HR TDSY TD SCH ×2 (08:08→08:16)
[2017-01-08] MEDS: LEVETIRACETAM 500 MG TAB PO SCH ×2 (08:08→21:07)
[2017-01-08] MEDS: FUROSEMIDE 40 MG TAB PO SCH (08:09)
[2017-01-08] MEDS: LISINOPRIL 10 MG TAB PO SCH (08:09)
[2017-01-08] MEDS: ASPIRIN 81 MG ECTAB PO SCH (08:09)
[2017-01-08] MEDS: DOXYCYCLINE HYCLATE 100 MG CAP PO SCH ×2 (08:09→21:06)
[2017-01-08] MEDS: METOPROLOL TARTRATE 25 MG TAB PO SCH ×2 (08:09→16:37)
[2017-01-08] MEDS: POTASSIUM CHLORIDE 10 MEQ TABCR PO SCH (08:09)
[2017-01-08] MEDS: PANTOprazole SOD 40 MG TAB PO SCH ×2 (08:09→21:06)
[2017-01-08] MEDS: ALLOPURINOL 100 MG TAB PO SCH (08:10)
[2017-01-08 11:10] LABS: MEAN CELL VOLUME 91.6 fL (80-100); MEAN CORPUSCULAR HEMOGLOBIN 28.1 pg (25-34); MEAN CORPUSCULAR HGB CONC 30.7 g/dl (32-36); MEAN PLATELET VOLUME 10.5 fL (7.4-10.4); PLATELET COUNT 153 K/uL (130-400); RED BLOOD COUNT 4.91 M/uL (4.7-6.1); WHITE BLOOD COUNT 12.38 K/uL (4.8-10.8)
[2017-01-08 11:37] LABS: BUN/CREATININE RATIO 29.7 (10-20); CALCIUM 8.9 mg/dl (8.5-10.1); CREATININE 1.42 mg/dl (0.60-1.40); POTASSIUM 4.2 mmol/L (3.5-5.1)
[2017-01-08 11:41] LABS: INR 1.1 (0.9-1.1); PARTIAL THROMBOPLASTIN RATIO 2.1
[2017-01-08] MEDS: HEPARIN 25,000 UNIT/500ML D5W 500 ML IV PRN (14:49)
--- NOTE | 2017-01-08 15:57 | Progress Note ---
Medicine Progress Note Date & Time of Visit: Jan 08, 2017 at 15:57. Subjective Patient is unsure about being on coumadin, is frustrated by the frequent blood draws in the hospital and about having to be here. He is adamant about going home. No overnight events noted. Breathing has improved. Had a long discussion with the patient and his daughter in the evening regarding the anticoagulation, the risks, the benefits, and the alternatives. The patient is angry about being here but says "fine, I'll stay, but only for 3 days!" Objective Last 8 Hrs Date Time Temp Pulse Resp B/P (MAP) Pulse Ox O2 Delivery O2 Flow Rate FiO2 01/08/17 14:28 90 18 96 Nasal Cannula 3.0 01/08/17 12:27 36.2 87 20 134/64 (87) 95 Room Air 01/08/17 12:00 Nasal Cannula 2.0 01/08/17 08:00 Nasal Cannula 2.0 Physical Exam: GENERAL: Patient is in no acute distress. HEENT: No acute trauma, normocephalic, mucous membranes moist, no nasal congestion, no scleral icterus. Conjunctivae clear NECK: No stridor, trachea is midline. LUNGS: Diminished breath sounds bilaterally, no wheezes, no rhonchi, breath sounds equal. HEART: Without murmurs gallops or rubs, irregularly irregular ABDOMEN: Soft, nontender, bowel sounds positive. EXTREMITIES: No cyanosis; B/L LE edema, full range of motion of all the joints without pain or difficulty, no signs for acute trauma. NEUROLOGIC: Oriented x 3, no acute motor or sensory deficits, no focal weakness. SKIN: No rash, no jaundice, no diaphoresis. Laboratory Results: Last 24 Hours Test 01/07/17 16:52 01/07/17 19:00 01/07/17 20:50 01/08/17 06:47 Bedside Glucose 293 mg/dl 259 mg/dl 270 mg/dl Activated Partial Thromboplast Time 46.1 SECONDS Partial Thromboplastin Ratio 1.8 Test 01/08/17 11:00 01/08/17 11:13 White Blood Count 12.38 K/uL Red Blood Count 4.91 M/uL Hemoglobin 13.8 g/dL Hematocrit 45.0 % Mean Corpuscular Volume 91.6 fL Mean Corpuscular Hemoglobin 28.1 pg Mean Corpuscular Hemoglobin Concent 30.7 g/dl RDW Standard Deviation 52.0 fL RDW Coefficient of Variation 15.5 % Platelet Count 153 K/uL Mean Platelet Volume 10.5 fL Prothrombin Time 12.0 SECONDS Prothromb Time International Ratio 1.1 Activated Partial Thromboplast Time 55.3 SECONDS Partial Thromboplastin Ratio 2.1 Sodium Level 137 mmol/L Potassium Level 4.2 mmol/L Chloride Level 98 mmol/L Carbon Dioxide Level 34 mmol/L Anion Gap 5.0 mmol/L Blood Urea Nitrogen 42 mg/dl Creatinine 1.42 mg/dl Est Creatinine Clear Calc Drug Dose 51.4 ml/min Estimated GFR () 54.8 Estimated GFR (Non- 47.3 BUN/Creatinine Ratio 29.7 Random Glucose 234 mg/dl Calcium Level 8.9 mg/dl Bedside Glucose 222 mg/dl Assessment & Plan Acute on chronic hypoxic and hypercapnic respiratory failure: -likely secondary to COPD exacerbation and probable bronchitis -ABG on admission: pH: 7.3, pCO2: 75, HCO3: 36 pO2: 146 -improved on bipap, then switched to NC; now weaning down to 2-3 L -O2 saturation in high 90s now; wean oxygen as tolerated; was 85% at rest without oxygen -continued on Lasix as well COPD exacerbation: -Likely from recent URI -Solu-medrol 60mg Q6, will taper to q12 hours -Scheduled Xopenex/Atrovent nebs -Doxycycline day#4 -Supplemental O2 -less wheezing/coughing A fib with RVR: improving -unclear onset; patient poor historian, but no prior history of a fib per records -no CP, palpitations, lightheadedness -Initially in A fib with RVR--> given 10mg IV diltiazem --> rate down to 80s- 90s where it has remained -on low dose IV heparin drip -continued home dose Lopressor 25mg daily -Cardio consulted, appreciate recs -TTE: EF 55-60%, moderate DM Type II: -HbA1c: 7% -hold home PO meds -SSI while in hospital -BSG AC HS -add lantus as well HTN: -Continue home lisinopril, lasix, metoprolol CKD Stage III: -Cr 1-1.5 at baseline -currently at baseline Hyperlipidemia: -continue statin Hx of Seizures: -stable -continue keppra Prior CVA: -Large MCA territory ischemic CVA in 1989 -No residual deficits Tobacco use disorder: -Currently smokes ~ 1/2 ppd -Over 50 pack years -Smoking cessation consult -Nicotine patch GERD: -continue PPI Current Inpatient Medications: Current Inpatient Medications Medications (Trade) Dose Ordered Sig/Naeem Route Start Time Stop Time Status Last Admin Dose Admin Ondansetron HCl (Zofran Inj) 4 mg Q6H PRN IV 01/05/17 10:30 02/04/17 10:29 Insulin Aspart (novoLOG ASPART) SLIDING SCALE If C... ACHS SC 01/05/17 16:15 02/04/17 16:14 01/08/17 11:56 10 UNITS Glucose (Glucose 40% Gel) 15-30 GRAMS 15 GRAMS... UD PRN PO 01/05/17 10:30 02/04/17 10:29 Glucose (Glucose Chew Tab) 4-8 Tablets 4 Tabl... UD PRN PO 01/05/17 10:30 02/04/17 10:29 Dextrose (Dextrose 50% 50ML Syringe) 25-50ML OF 50% DW IV FOR... UD PRN IV 01/05/17 10:30 02/04/17 10:29 Glucagon (Glucagon Inj) 1 mg UD PRN SQ 01/05/17 10:30 02/04/17 10:29 Nicotine (Nicoderm Cq 14MG Patch) 1 patch QAM TD 01/06/17 09:00 02/05/17 08:59 Miscellaneous (Remove Nicoderm Patch) 1 ea HS N/A 01/05/17 21:00 02/04/17 20:59 01/06/17 21:06 1 EA Doxycycline Hyclate (Vibramycin Cap) 100 mg BID PO 01/05/17 14:00 01/12/17 13:59 01/08/17 08:09 100 MG Allopurinol (Zyloprim Tab) 100 mg DAILY PO 01/05/17 11:00 02/04/17 10:59 01/08/17 08:10 100 MG Aspirin (Ecotrin Tab) 81 mg DAILY PO 01/06/17 09:00 02/05/17 08:59 01/08/17 08:09 81 MG Levetiracetam (Keppra Tab) 500 mg BID PO 01/05/17 11:00 02/04/17 10:59 01/08/17 08:08 500 MG Lisinopril (Zestril Tab) 10 mg DAILY PO 01/05/17 11:00 02/04/17 10:59 01/08/17 08:09 10 MG Potassium Chloride (Klor-Con M10) 10 meq DAILY PO 01/05/17 11:00 02/04/17 10:59 01/08/17 08:09 10 MEQ Simvastatin (Zocor Tab) 20 mg QPM PO 01/05/17 21:00 02/04/17 20:59 01/07/17 20:59 20 MG Pantoprazole Sodium (Protonix Tab) 40 mg BID PO 01/05/17 21:00 02/04/17 20:59 01/08/17 08:09 40 MG Ipratropium [place] (Atrovent 0.02% 0.5MG/2.5ML Neb) 0.5 mg Q6R INH 01/05/17 15:00 02/04/17 14:59 01/08/17 14:28 0.5 MG Levalbuterol (Xopenex 1.25MG/ 0.5ML Neb) 1.25 mg Q6R INH 01/05/17 15:00 02/04/17 14:59 01/08/17 14:28 1.25 MG Heparin Sodium/ Dextrose 500 ml @ 35 mls/hr [id number] PRN IV 01/05/17 13:30 02/04/17 13:29 01/08/17 14:49 35 MLS/HR Metoprolol Tartrate (Lopressor Tab) 25 mg BID17 PO 01/05/17 17:00 02/04/17 10:59 01/08/17 08:09 25 MG Simethicone (Mylicon Chew Tab) 80 mg Q6H PRN PO 01/06/17 11:00 02/05/17 10:59 Furosemide (Lasix Tab) 40 mg QAM PO 01/07/17 09:00 02/06/17 08:59 01/08/17 08:09 40 MG Warfarin Sodium (Coumadin Tab) 5 mg DAILY@16 PO 01/07/17 16:00 02/06/17 15:59 01/07/17 15:53 5 MG Methylprednisolone Sodium Succinate 60 mg/Syringe 0.96 ml @ 1.5 mls/min Q12 IV 01/07/17 21:00 02/04/17 13:59 01/08/17 08:08 1.5 MLS/MIN Insulin Glargine (Lantus Solostar Pen) 7 units BID SC 01/07/17 21:00 02/06/17 20:59 01/08/17 07:53 7 UNITS
[2017-01-08] MEDS ORDERED: SODIUM CHLORIDE 0.65% NA SOLN 45 ML (OCEAN) ONE (16:18)
[2017-01-08] MEDS: WARFARIN SOD 5 MG TAB PO SCH (16:37)
[2017-01-08] MEDS: SIMVASTATIN 20 MG TAB PO SCH (21:06)
[2017-01-09] VITALS (9 sets, daily range): BP systolic 121–138; BP diastolic 62–78; PULSE 74–89; TEMP 36.3–36.7; O2SAT 92–98
[2017-01-09 05:34] LABS: INR 1.3 (0.9-1.1); PROTHROMBIN TIME (PATIENT) 13.7 SECONDS (9.0-12.0)
[2017-01-09] MEDS: HEPARIN 25,000 UNIT/500ML D5W 500 ML IV PRN ×2 (05:40→21:40)
[2017-01-09] MEDS: LEVALBUTEROL 1.25MG/0.5ML NEB INH SCH ×3 (06:57→20:25)
[2017-01-09] MEDS: IPRATROPIUM BROMIDE NEB SOLN 0.02% 2.5 ML VIAL INH SCH ×3 (06:57→20:25)
[2017-01-09 07:28] LABS: PARTIAL THROMBOPLASTIN RATIO 2.4
[2017-01-09] MEDS: INSULIN ASPART 100 UNITS/ML 3 ML PEN SC SCH ×4 (07:54→20:26)
[2017-01-09] MEDS: INSULIN GLARGINE SOLOSTAR 100 UNITS/ML 3 ML PEN SC SCH ×2 (07:55→20:27)
[2017-01-09] MEDS: METHYLPREDNISOLONE IV 60 MG in SYRINGE 0 ML IV SCH (07:58)
[2017-01-09] MEDS: LEVETIRACETAM 500 MG TAB PO SCH ×2 (07:58→20:23)
[2017-01-09] MEDS: DOXYCYCLINE HYCLATE 100 MG CAP PO SCH ×2 (07:58→20:23)
[2017-01-09] MEDS: LISINOPRIL 10 MG TAB PO SCH (07:58)
[2017-01-09] MEDS: FUROSEMIDE 40 MG TAB PO SCH (07:59)
[2017-01-09] MEDS: ALLOPURINOL 100 MG TAB PO SCH (07:59)
[2017-01-09] MEDS: PANTOprazole SOD 40 MG TAB PO SCH ×2 (07:59→20:23)
[2017-01-09] MEDS: ASPIRIN 81 MG ECTAB PO SCH (07:59)
[2017-01-09] MEDS: METOPROLOL TARTRATE 25 MG TAB PO SCH ×2 (08:00→16:12)
[2017-01-09] MEDS: POTASSIUM CHLORIDE 10 MEQ TABCR PO SCH (08:00)
[2017-01-09] MEDS: NICOTINE 14 MG/24 HR TDSY TD SCH (08:01)
--- NOTE | 2017-01-09 12:32 | Clinical Documentation Query ---
CLINICAL DOCUMENTATION QUERY 76yo M with a PMH of COPD, DM II, HTN, CKD III and remote h/o CVA who presents with worsening shortness of breath beginning last night In your clinical opinion is this patient being managed for: ( ) Acute kidney failure, resolving ( ) Not Agree ( ) Other explanation of clinical findings (Please Explain) ( ) Unable to determine (Please Define) ( ) Need to Discuss The medical record reflects the following clinical findings, treatment, and risk factors. Clinical Indicators: Creatinine 1.34 trending up to 1.76, GFR 50.7 trending down to 36.5 Treatment: IV hydration, I&O, PRPs Risk Factors: Age, CKD 3, HTN, acute respiratory failure Please clarify and document your clinical opinion in the progress notes and discharge summary. Terms such as "probable", "suspected", "likely", "questionable", "possible", or "still to be ruled out" are acceptable. IF IN AGREEMENT, YOU MUST DOCUMENT ABOVE DIAGNOSTIC STATEMENT IN DAILY PROGRESS NOTES AND DISCHARGE SUMMARY. This document is not part of the patient's record. Thank You, Yesenia Garcia RN [phone]
[2017-01-09] MEDS: WARFARIN SOD 5 MG TAB PO SCH (16:12)
--- NOTE | 2017-01-09 17:02 | Progress Note ---
Medicine Progress Note Date & Time of Visit: Jan 09, 2017 at 17:02. Subjective Patient states his breathing has improved, denies any new symptoms. Cough is improving. Is dissatisfied with the food. No overnight events noted. States he slept better last night. Objective Last 8 Hrs Date Time Temp Pulse Resp B/P (MAP) Pulse Ox O2 Delivery O2 Flow Rate FiO2 01/09/17 15:56 36.4 85 20 129/64 (85) 92 Nasal Cannula 2.0 01/09/17 15:05 Nasal Cannula 2.0 01/09/17 14:17 74 18 96 Nasal Cannula 2.0 01/09/17 12:28 36.7 83 20 129/66 (87) 95 Nasal Cannula 2.0 01/09/17 12:00 Nasal Cannula 2.0 Physical Exam: GENERAL: Patient is in no acute distress. HEENT: No acute trauma, normocephalic, mucous membranes moist, no nasal congestion, no scleral icterus. Conjunctivae clear NECK: No stridor, trachea is midline. LUNGS: Diminished breath sounds bilaterally, no wheezes, no rhonchi, breath sounds equal. HEART: Without murmurs gallops or rubs, irregularly irregular ABDOMEN: Soft, nontender, bowel sounds positive. EXTREMITIES: No cyanosis; B/L LE edema, full range of motion of all the joints without pain or difficulty, no signs for acute trauma. NEUROLOGIC: Oriented x 3, no acute motor or sensory deficits, no focal weakness. SKIN: No rash, no jaundice, no diaphoresis. Laboratory Results: Last 24 Hours Test 01/08/17 20:26 01/09/17 05:09 01/09/17 06:50 Bedside Glucose 215 mg/dl 228 mg/dl Prothrombin Time 13.7 SECONDS Prothromb Time International Ratio 1.3 Activated Partial Thromboplast Time 62.4 SECONDS Partial Thromboplastin Ratio 2.4 Assessment & Plan Acute on chronic hypoxic and hypercapnic respiratory failure: -likely secondary to COPD exacerbation and probable bronchitis -ABG on admission: pH: 7.3, pCO2: 75, HCO3: 36 pO2: 146 -improved on bipap, then switched to NC; now weaning down to 2-3 L -O2 saturation in high 90s now; wean oxygen as tolerated; was 85% at rest without oxygen -continued on Lasix as well -will need a 2 step evaluation prior to discharge COPD exacerbation: -Likely from recent URI -Solu-medrol 60mg Q6, will taper to q12 hours, and switch to PO in AM -Scheduled Xopenex/Atrovent nebs -Doxycycline day#5 -Supplemental O2 -less wheezing/coughing A fib with RVR: improving -unclear onset; patient poor historian, but no prior history of a fib per records -no CP, palpitations, lightheadedness -Initially in A fib with RVR--> given 10mg IV diltiazem --> rate down to 80s- 90s where it has remained -on low dose IV heparin drip -continued home dose Lopressor 25mg daily -Cardio consulted, appreciate recs -TTE: EF 55-60%, moderate -patient started on coumadin, INR 1.3, continue bridging with IV heparin until INR > 2 DM Type II: -HbA1c: 7% -hold home PO meds -SSI while in hospital -BSG AC HS -add lantus as well HTN: -Continue home lisinopril, lasix, metoprolol CKD Stage III: -Cr 1-1.5 at baseline -currently at baseline Hyperlipidemia: -continue statin Hx of Seizures: -stable -continue keppra Prior CVA: -Large MCA territory ischemic CVA in 1989 -No residual deficits Tobacco use disorder: -Currently smokes ~ 1/2 ppd -Over 50 pack years -Smoking cessation consult -Nicotine patch GERD: -continue PPI Current Inpatient Medications: Current Inpatient Medications Medications (Trade) Dose Ordered Sig/Naeem Route Start Time Stop Time Status Last Admin Dose Admin Ondansetron HCl (Zofran Inj) 4 mg Q6H PRN IV 01/05/17 10:30 02/04/17 10:29 Insulin Aspart (novoLOG ASPART) SLIDING SCALE If C... ACHS SC 01/05/17 16:15 02/04/17 16:14 01/09/17 11:50 14 UNITS Glucose (Glucose 40% Gel) 15-30 GRAMS 15 GRAMS... UD PRN PO 01/05/17 10:30 02/04/17 10:29 Glucose (Glucose Chew Tab) 4-8 Tablets 4 Tabl... UD PRN PO 01/05/17 10:30 02/04/17 10:29 Dextrose (Dextrose 50% 50ML Syringe) 25-50ML OF 50% DW IV FOR... UD PRN IV 01/05/17 10:30 02/04/17 10:29 Glucagon (Glucagon Inj) 1 mg UD PRN SQ 01/05/17 10:30 02/04/17 10:29 Nicotine (Nicoderm Cq 14MG Patch) 1 patch QAM TD 01/06/17 09:00 02/05/17 08:59 Miscellaneous (Remove Nicoderm Patch) 1 ea HS N/A 01/05/17 21:00 02/04/17 20:59 01/06/17 21:06 1 EA Doxycycline Hyclate (Vibramycin Cap) 100 mg BID PO 01/05/17 14:00 01/12/17 13:59 01/09/17 07:58 100 MG Allopurinol (Zyloprim Tab) 100 mg DAILY PO 01/05/17 11:00 02/04/17 10:59 01/09/17 07:59 100 MG Aspirin (Ecotrin Tab) 81 mg DAILY PO 01/06/17 09:00 02/05/17 08:59 01/09/17 07:59 81 MG Levetiracetam (Keppra Tab) 500 mg BID PO 01/05/17 11:00 02/04/17 10:59 01/09/17 07:58 500 MG Lisinopril (Zestril Tab) 10 mg DAILY PO 01/05/17 11:00 02/04/17 10:59 01/09/17 07:58 10 MG Potassium Chloride (Klor-Con M10) 10 meq DAILY PO 01/05/17 11:00 02/04/17 10:59 01/09/17 08:00 10 MEQ Simvastatin (Zocor Tab) 20 mg QPM PO 01/05/17 21:00 02/04/17 20:59 01/08/17 21:06 20 MG Pantoprazole Sodium (Protonix Tab) 40 mg BID PO 01/05/17 21:00 02/04/17 20:59 01/09/17 07:59 40 MG Ipratropium [place] (Atrovent 0.02% 0.5MG/2.5ML Neb) 0.5 mg Q6R INH 01/05/17 15:00 02/04/17 14:59 01/09/17 14:16 0.5 MG Levalbuterol (Xopenex 1.25MG/ 0.5ML Neb) 1.25 mg Q6R INH 01/05/17 15:00 02/04/17 14:59 01/09/17 14:17 1.25 MG Heparin Sodium/ Dextrose 500 ml @ 35 mls/hr [id number] PRN IV 01/05/17 13:30 02/04/17 13:29 01/09/17 05:40 35 MLS/HR Metoprolol Tartrate (Lopressor Tab) 25 mg BID17 PO 01/05/17 17:00 02/04/17 10:59 01/09/17 16:12 25 MG Simethicone (Mylicon Chew Tab) 80 mg Q6H PRN PO 01/06/17 11:00 02/05/17 10:59 Furosemide (Lasix Tab) 40 mg QAM PO 01/07/17 09:00 02/06/17 08:59 01/09/17 07:59 40 MG Insulin Glargine (Lantus Solostar Pen) 7 units BID SC 01/07/17 21:00 02/06/17 20:59 01/09/17 07:55 7 UNITS Warfarin Sodium (Coumadin Tab) 7.5 mg DAILY@16 PO 01/09/17 16:00 02/06/17 15:59 01/09/17 16:12 7.5 MG Prednisone (PredniSONE TAB) 40 mg DAILY PO 01/10/17 09:00 02/09/17 08:59
[2017-01-09] MEDS: SIMVASTATIN 20 MG TAB PO SCH (20:23)
[2017-01-10] MEDS: LEVALBUTEROL 1.25MG/0.5ML NEB INH SCH ×4 (03:00→19:39)
[2017-01-10] MEDS: IPRATROPIUM BROMIDE NEB SOLN 0.02% 2.5 ML VIAL INH SCH ×4 (03:00→19:39)
[2017-01-10 04:43] LABS: MEAN CELL VOLUME 90.2 fL (80-100); MEAN CORPUSCULAR HEMOGLOBIN 28.1 pg (25-34); MEAN CORPUSCULAR HGB CONC 31.1 g/dl (32-36); MEAN PLATELET VOLUME 10.8 fL (7.4-10.4); PLATELET COUNT 147 K/uL (130-400); RED BLOOD COUNT 4.88 M/uL (4.7-6.1)
[2017-01-10 05:01] LABS: BUN/CREATININE RATIO 28.6 (10-20); CALCIUM 8.6 mg/dl (8.5-10.1); CREATININE 1.36 mg/dl (0.60-1.40)
[2017-01-10 05:08] LABS: INR 1.7 (0.9-1.1); PARTIAL THROMBOPLASTIN RATIO 3.2; PROTHROMBIN TIME (PATIENT) 19.1 SECONDS (9.0-12.0)
[2017-01-10] MEDS: HEPARIN 25,000 UNIT/500ML D5W 500 ML IV PRN (06:01)
[2017-01-10 06:59] VITALS: BP 127/65; PULSE 83; TEMP 36.7; O2SAT 98
[2017-01-10 07:10] VITALS: PULSE 72; O2SAT 97
[2017-01-10] MEDS: POTASSIUM CHLORIDE 10 MEQ TABCR PO SCH (08:51)
[2017-01-10] MEDS: ASPIRIN 81 MG ECTAB PO SCH (08:51)
[2017-01-10] MEDS: LEVETIRACETAM 500 MG TAB PO SCH ×2 (08:51→21:11)
[2017-01-10] MEDS: NICOTINE 14 MG/24 HR TDSY TD SCH (08:51)
[2017-01-10] MEDS: LISINOPRIL 10 MG TAB PO SCH (08:52)
[2017-01-10] MEDS: ALLOPURINOL 100 MG TAB PO SCH (08:52)
[2017-01-10] MEDS: PANTOprazole SOD 40 MG TAB PO SCH ×2 (08:52→21:12)
[2017-01-10] MEDS: METOPROLOL TARTRATE 25 MG TAB PO SCH ×2 (08:52→16:25)
[2017-01-10] MEDS: FUROSEMIDE 40 MG TAB PO SCH (08:52)
[2017-01-10] MEDS: DOXYCYCLINE HYCLATE 100 MG CAP PO SCH (08:52)
[2017-01-10] MEDS: INSULIN GLARGINE SOLOSTAR 100 UNITS/ML 3 ML PEN SC SCH ×2 (08:55→21:17)
[2017-01-10] MEDS: INSULIN ASPART 100 UNITS/ML 3 ML PEN SC SCH ×5 (08:55→21:17)
[2017-01-10 14:18] VITALS: PULSE 96; O2SAT 80
--- NOTE | 2017-01-10 15:10 | Progress Note ---
Subjective Date of Service: Jan 10, 2017. Subjective Pt evaluation today including: conversation w/ patient, physical exam, lab review, review of studies, review of inpatient medication list Saw/examined the patient in room 461 refusing IV heparin this morning wants to get out of the hospital by tomorrow tells me he has no shortness of breath or chest pain/palpitations saturating in the 80s after exertion Problem List Medical Problems: (1) Acute bronchitis Status: Acute (2) COPD exacerbation Status: Acute (3) COPD exacerbation Status: Acute (4) Hypoxia Status: Acute (5) Rapid atrial fibrillation Status: Acute Review of Systems Constitutional: No fever, No chills Respiratory: No cough, No sputum, No wheezing, No shortness of breath, No dyspnea on exertion, No dyspnea at rest Cardiac: No chest pain, No edema, No palpitations Medications Current Inpatient Medications Medications (Trade) Dose Ordered Sig/Naeem Route Start Time Stop Time Status Last Admin Dose Admin Ondansetron HCl (Zofran Inj) 4 mg Q6H PRN IV 01/05/17 10:30 02/04/17 10:29 Insulin Aspart (novoLOG ASPART) SLIDING SCALE If C... ACHS SC 01/05/17 16:15 02/04/17 16:14 01/10/17 12:57 7 UNITS Glucose (Glucose 40% Gel) 15-30 GRAMS 15 GRAMS... UD PRN PO 01/05/17 10:30 02/04/17 10:29 Glucose (Glucose Chew Tab) 4-8 Tablets 4 Tabl... UD PRN PO 01/05/17 10:30 02/04/17 10:29 Dextrose (Dextrose 50% 50ML Syringe) 25-50ML OF 50% DW IV FOR... UD PRN IV 01/05/17 10:30 02/04/17 10:29 Glucagon (Glucagon Inj) 1 mg UD PRN SQ 01/05/17 10:30 02/04/17 10:29 Nicotine (Nicoderm Cq 14MG Patch) 1 patch QAM TD 01/06/17 09:00 02/05/17 08:59 Miscellaneous (Remove Nicoderm Patch) 1 ea HS N/A 01/05/17 21:00 02/04/17 20:59 01/09/17 20:27 1 EA Doxycycline Hyclate (Vibramycin Cap) 100 mg BID PO 01/05/17 14:00 01/12/17 13:59 01/10/17 08:52 100 MG Allopurinol (Zyloprim Tab) 100 mg DAILY PO 01/05/17 11:00 02/04/17 10:59 01/10/17 08:52 100 MG Aspirin (Ecotrin Tab) 81 mg DAILY PO 01/06/17 09:00 02/05/17 08:59 01/10/17 08:51 81 MG Levetiracetam (Keppra Tab) 500 mg BID PO 01/05/17 11:00 02/04/17 10:59 01/10/17 08:51 500 MG Lisinopril (Zestril Tab) 10 mg DAILY PO 01/05/17 11:00 02/04/17 10:59 01/10/17 08:52 10 MG Potassium Chloride (Klor-Con M10) 10 meq DAILY PO 01/05/17 11:00 02/04/17 10:59 01/10/17 08:51 10 MEQ Simvastatin (Zocor Tab) 20 mg QPM PO 01/05/17 21:00 02/04/17 20:59 01/09/17 20:23 20 MG Pantoprazole Sodium (Protonix Tab) 40 mg BID PO 01/05/17 21:00 02/04/17 20:59 01/10/17 08:52 40 MG Ipratropium [place] (Atrovent 0.02% 0.5MG/2.5ML Neb) 0.5 mg Q6R INH 01/05/17 15:00 02/04/17 14:59 01/10/17 14:18 0.5 MG Levalbuterol (Xopenex 1.25MG/ 0.5ML Neb) 1.25 mg Q6R INH 01/05/17 15:00 02/04/17 14:59 01/10/17 14:18 1.25 MG Heparin Sodium/ Dextrose 500 ml @ 32 mls/hr [id number] PRN IV 01/05/17 13:30 02/04/17 13:29 01/10/17 06:01 32 MLS/HR Metoprolol Tartrate (Lopressor Tab) 25 mg BID17 PO 01/05/17 17:00 02/04/17 10:59 01/10/17 08:52 25 MG Simethicone (Mylicon Chew Tab) 80 mg Q6H PRN PO 01/06/17 11:00 02/05/17 10:59 Furosemide (Lasix Tab) 40 mg QAM PO 01/07/17 09:00 02/06/17 08:59 01/10/17 08:52 40 MG Insulin Glargine (Lantus Solostar Pen) 7 units BID SC 01/07/17 21:00 02/06/17 20:59 01/10/17 08:55 7 UNITS Warfarin Sodium (Coumadin Tab) 7.5 mg DAILY@16 PO 01/09/17 16:00 02/06/17 15:59 01/09/17 16:12 7.5 MG Prednisone (PredniSONE TAB) 40 mg DAILY PO 01/10/17 08:00 02/09/17 08:59 01/10/17 08:52 40 MG Objective Vital Signs Date Time Temp Pulse Resp B/P (MAP) Pulse Ox O2 Delivery O2 Flow Rate FiO2 01/10/17 14:18 96 18 80 Room Air 01/10/17 08:00 Room Air 01/10/17 07:10 72 18 97 Nasal Cannula 2.0 01/10/17 06:59 36.7 83 20 127/65 (85) 98 Nasal Cannula 2.0 01/10/17 01:00 Nasal Cannula 1.0 01/09/17 20:25 85 18 98 Nasal Cannula 2.0 01/09/17 20:18 36.3 84 20 138/67 (90) 97 Nasal Cannula 2.0 01/09/17 19:34 36.4 85 20 92 2.0 01/09/17 15:56 36.4 85 20 129/64 (85) 92 Nasal Cannula 2.0 01/09/17 15:05 Nasal Cannula 2.0 Physical Exam General Appearance: no apparent distress Respiratory/Chest: chest non-tender, lungs clear, normal breath sounds, no respiratory distress, no accessory muscle use Cardiovascular: no murmur, + irregularly irregular Abdomen: normal bowel sounds, non tender, soft Extremities: + pertinent finding (trace LE edema) Laboratory Results Last 24 Hours Test 01/09/17 16:16 01/09/17 20:17 01/10/17 04:33 01/10/17 07:23 Bedside Glucose 261 mg/dl 196 mg/dl 149 mg/dl White Blood Count 11.90 K/uL Red Blood Count 4.88 M/uL Hemoglobin 13.7 g/dL Hematocrit 44.0 % Mean Corpuscular Volume 90.2 fL Mean Corpuscular Hemoglobin 28.1 pg Mean Corpuscular Hemoglobin Concent 31.1 g/dl RDW Standard Deviation 50.4 fL RDW Coefficient of Variation 15.3 % Platelet Count 147 K/uL Mean Platelet Volume 10.8 fL Prothrombin Time 19.1 SECONDS Prothromb Time International Ratio 1.7 Activated Partial Thromboplast Time 84.3 SECONDS Partial Thromboplastin Ratio 3.2 Sodium Level 137 mmol/L Potassium Level 4.0 mmol/L Chloride Level 95 mmol/L Carbon Dioxide Level 38 mmol/L Anion Gap 4.0 mmol/L Blood Urea Nitrogen 39 mg/dl Creatinine 1.36 mg/dl Est Creatinine Clear Calc Drug Dose 53.4 ml/min Estimated GFR () 57.8 Estimated GFR (Non- 49.8 BUN/Creatinine Ratio 28.6 Random Glucose 191 mg/dl Calcium Level 8.6 mg/dl Test 01/10/17 11:23 01/10/17 12:00 Bedside Glucose 152 mg/dl Assessment and Plan Acute on chronic hypoxic and hypercapnic respiratory failure: 01/10 patient denies shortness of breath still saturating in the low 80s after exertion will continue Prednisone for the COPD exacerbation can stop abx. -likely secondary to COPD exacerbation and probable bronchitis -ABG on admission: pH: 7.3, pCO2: 75, HCO3: 36 pO2: 146 -improved on bipap, then switched to NC; now weaning down to 2-3 L -O2 saturation in high 90s now; wean oxygen as tolerated; was 85% at rest without oxygen -continued on Lasix as well -will need a 2 step evaluation prior to discharge COPD exacerbation: -Likely from recent URI -Solu-medrol 60mg Q6, will taper to q12 hours, and switch to PO in AM -Scheduled Xopenex/Atrovent nebs -Doxycycline day#5 -Supplemental O2 -less wheezing/coughing A fib with RVR: improving 01/10 refusing IV heparin will continue Coumadin, recheck in AM with goal INR of 2-3, currently it is 1.7 he knows risks of stroke is higher, but refuses the IV heparin anyway -unclear onset; patient poor historian, but no prior history of a fib per records -no CP, palpitations, lightheadedness -Initially in A fib with RVR--> given 10mg IV diltiazem --> rate down to 80s- 90s where it has remained -on low dose IV heparin drip -continued home dose Lopressor 25mg daily -Cardio consulted, appreciate recs -TTE: EF 55-60%, moderate -patient started on coumadin, INR 1.3, continue bridging with IV heparin until INR > 2 DM Type II: -HbA1c: 7% -hold home PO meds -SSI while in hospital -BSG AC HS -add lantus as well HTN: -Continue home lisinopril, lasix, metoprolol CKD Stage III: -Cr 1-1.5 at baseline -currently at baseline Hyperlipidemia: -continue statin Hx of Seizures: -stable -continue keppra Prior CVA: -Large MCA territory ischemic CVA in 1989 -No residual deficits Tobacco use disorder: -Currently smokes ~ 1/2 ppd -Over 50 pack years -Smoking cessation consult -Nicotine patch GERD: -continue PPI
[2017-01-10 15:28] VITALS: BP 141/72; PULSE 97; TEMP 36.5; O2SAT 96
[2017-01-10] MEDS: WARFARIN SOD 5 MG TAB PO SCH (16:26)
[2017-01-10 16:30] VITALS: O2SAT 96
[2017-01-10] MEDS ORDERED: NURSING VERBAL MED ORDER ONE (18:00)
[2017-01-10] MEDS ORDERED: INSULIN ASPART 100 UNITS/ML 3 ML PEN SC ONE (18:15)
[2017-01-10 19:39] VITALS: PULSE 84; O2SAT 93
[2017-01-10] MEDS: SIMVASTATIN 20 MG TAB PO SCH (21:11)
[2017-01-11] MEDS: IPRATROPIUM BROMIDE NEB SOLN 0.02% 2.5 ML VIAL INH SCH ×3 (03:00→14:04)
[2017-01-11] MEDS: LEVALBUTEROL 1.25MG/0.5ML NEB INH SCH ×3 (03:00→14:05)
[2017-01-11 05:09] LABS: HEMATOCRIT 46.1 % (42-52); MEAN CORPUSCULAR HEMOGLOBIN 28.4 pg (25-34); MEAN CORPUSCULAR HGB CONC 31.9 g/dl (32-36); MEAN PLATELET VOLUME 10.6 fL (7.4-10.4); PLATELET COUNT 136 K/uL (130-400); RED BLOOD COUNT 5.18 M/uL (4.7-6.1)
[2017-01-11 05:20] LABS: INR 2.8 (0.9-1.1); PARTIAL THROMBOPLASTIN RATIO 1.3; PROTHROMBIN TIME (PATIENT) 31.6 SECONDS (9.0-12.0)
[2017-01-11 05:34] LABS: BUN/CREATININE RATIO 30.4 (10-20); CALCIUM 8.7 mg/dl (8.5-10.1); CREATININE 1.31 mg/dl (0.60-1.40); MAGNESIUM 2.3 mg/dl (1.8-2.4); POTASSIUM 3.9 mmol/L (3.5-5.1)
[2017-01-11 06:55] VITALS: PULSE 68; O2SAT 97
[2017-01-11 06:56] VITALS: BP 136/57; PULSE 86; TEMP 36.3; O2SAT 97
[2017-01-11] MEDS: NICOTINE 14 MG/24 HR TDSY TD SCH (08:35)
[2017-01-11] MEDS: ASPIRIN 81 MG ECTAB PO SCH (08:38)
[2017-01-11] MEDS: ALLOPURINOL 100 MG TAB PO SCH (08:38)
[2017-01-11] MEDS: POTASSIUM CHLORIDE 10 MEQ TABCR PO SCH (08:38)
[2017-01-11] MEDS: FUROSEMIDE 40 MG TAB PO SCH (08:38)
[2017-01-11] MEDS: PANTOprazole SOD 40 MG TAB PO SCH (08:38)
[2017-01-11] MEDS: LEVETIRACETAM 500 MG TAB PO SCH (08:38)
[2017-01-11] MEDS: LISINOPRIL 10 MG TAB PO SCH (08:38)
[2017-01-11] MEDS: METOPROLOL TARTRATE 25 MG TAB PO SCH (08:38)
[2017-01-11] MEDS: INSULIN ASPART 100 UNITS/ML 3 ML PEN SC SCH ×2 (08:40→12:36)
[2017-01-11] MEDS: INSULIN GLARGINE SOLOSTAR 100 UNITS/ML 3 ML PEN SC SCH (08:41)
--- NOTE | 2017-01-11 11:58 | Progress Note ---
Subjective Date of Service: Jan 11, 2017. Subjective Pt evaluation today including: conversation w/ patient, physical exam, lab review, review of studies, review of inpatient medication list Saw/examined the patient in room 461 Patient is doing well, denies shortness of breath/chest pain/palpitations Problem List Medical Problems: (1) Acute bronchitis Status: Acute (2) COPD exacerbation Status: Acute (3) COPD exacerbation Status: Acute (4) Hypoxia Status: Acute (5) Rapid atrial fibrillation Status: Acute Review of Systems Constitutional: No fever, No chills Respiratory: No cough, No sputum, No wheezing, No shortness of breath, No dyspnea on exertion, No dyspnea at rest, No hemoptysis Cardiac: No chest pain, No edema, No palpitations Medications Current Inpatient Medications Medications (Trade) Dose Ordered Sig/Naeem Route Start Time Stop Time Status Last Admin Dose Admin Ondansetron HCl (Zofran Inj) 4 mg Q6H PRN IV 01/05/17 10:30 02/04/17 10:29 Insulin Aspart (novoLOG ASPART) SLIDING SCALE If C... ACHS SC 01/05/17 16:15 02/04/17 16:14 01/11/17 08:40 7 UNITS Glucose (Glucose 40% Gel) 15-30 GRAMS 15 GRAMS... UD PRN PO 01/05/17 10:30 02/04/17 10:29 Glucose (Glucose Chew Tab) 4-8 Tablets 4 Tabl... UD PRN PO 01/05/17 10:30 02/04/17 10:29 Dextrose (Dextrose 50% 50ML Syringe) 25-50ML OF 50% DW IV FOR... UD PRN IV 01/05/17 10:30 02/04/17 10:29 Glucagon (Glucagon Inj) 1 mg UD PRN SQ 01/05/17 10:30 02/04/17 10:29 Nicotine (Nicoderm Cq 14MG Patch) 1 patch QAM TD 01/06/17 09:00 02/05/17 08:59 Miscellaneous (Remove Nicoderm Patch) 1 ea HS N/A 01/05/17 21:00 02/04/17 20:59 01/09/17 20:27 1 EA Allopurinol (Zyloprim Tab) 100 mg DAILY PO 01/05/17 11:00 02/04/17 10:59 01/11/17 08:38 100 MG Aspirin (Ecotrin Tab) 81 mg DAILY PO 01/06/17 09:00 02/05/17 08:59 01/11/17 08:38 81 MG Levetiracetam (Keppra Tab) 500 mg BID PO 01/05/17 11:00 02/04/17 10:59 01/11/17 08:38 500 MG Lisinopril (Zestril Tab) 10 mg DAILY PO 01/05/17 11:00 02/04/17 10:59 01/11/17 08:38 10 MG Potassium Chloride (Klor-Con M10) 10 meq DAILY PO 01/05/17 11:00 02/04/17 10:59 01/11/17 08:38 10 MEQ Simvastatin (Zocor Tab) 20 mg QPM PO 01/05/17 21:00 02/04/17 20:59 01/10/17 21:11 20 MG Pantoprazole Sodium (Protonix Tab) 40 mg BID PO 01/05/17 21:00 02/04/17 20:59 01/11/17 08:38 40 MG Ipratropium [place] (Atrovent 0.02% 0.5MG/2.5ML Neb) 0.5 mg Q6R INH 01/05/17 15:00 02/04/17 14:59 01/11/17 06:51 0.5 MG Levalbuterol (Xopenex 1.25MG/ 0.5ML Neb) 1.25 mg Q6R INH 01/05/17 15:00 02/04/17 14:59 01/11/17 06:51 1.25 MG Heparin Sodium/ Dextrose 500 ml @ 32 mls/hr [id number] PRN IV 01/05/17 13:30 02/04/17 13:29 01/10/17 06:01 32 MLS/HR Metoprolol Tartrate (Lopressor Tab) 25 mg BID17 PO 01/05/17 17:00 02/04/17 10:59 01/11/17 08:38 25 MG Simethicone (Mylicon Chew Tab) 80 mg Q6H PRN PO 01/06/17 11:00 02/05/17 10:59 Furosemide (Lasix Tab) 40 mg QAM PO 01/07/17 09:00 02/06/17 08:59 01/11/17 08:38 40 MG Insulin Glargine (Lantus Solostar Pen) 7 units BID SC 01/07/17 21:00 02/06/17 20:59 01/11/17 08:41 7 UNITS Warfarin Sodium (Coumadin Tab) 7.5 mg DAILY@16 PO 01/09/17 16:00 02/06/17 15:59 01/10/17 16:26 7.5 MG Prednisone (PredniSONE TAB) 40 mg DAILY PO 01/10/17 08:00 02/09/17 08:59 01/11/17 08:38 40 MG Objective Vital Signs Date Time Temp Pulse Resp B/P (MAP) Pulse Ox O2 Delivery O2 Flow Rate FiO2 01/11/17 08:00 Nasal Cannula 2.0 01/11/17 06:56 36.3 86 20 136/57 (83) 97 Nasal Cannula 2.0 01/11/17 06:55 68 16 97 Nasal Cannula 2.0 01/11/17 00:00 Room Air 2.0 Nasal Cannula Humidified Oxygen 01/10/17 19:39 84 18 93 Room Air 01/10/17 16:30 96 Nasal Cannula 2.0 01/10/17 15:28 36.5 97 20 141/72 (95) 96 Nasal Cannula 2.0 01/10/17 14:18 96 18 80 Room Air Physical Exam General Appearance: no apparent distress Respiratory/Chest: lungs clear, normal breath sounds, no respiratory distress, no accessory muscle use Cardiovascular: + irregularly irregular Abdomen: normal bowel sounds, non tender, soft Extremities: normal inspection, no pedal edema Neurologic/Psychiatric: no motor/sensory deficits, alert, normal mood/affect Laboratory Results Last 24 Hours Test 01/10/17 16:33 01/10/17 20:06 01/11/17 04:53 Bedside Glucose 266 mg/dl 239 mg/dl White Blood Count 9.90 K/uL Red Blood Count 5.18 M/uL Hemoglobin 14.7 g/dL Hematocrit 46.1 % Mean Corpuscular Volume 89.0 fL Mean Corpuscular Hemoglobin 28.4 pg Mean Corpuscular Hemoglobin Concent 31.9 g/dl RDW Standard Deviation 49.3 fL RDW Coefficient of Variation 15.1 % Platelet Count 136 K/uL Mean Platelet Volume 10.6 fL Prothrombin Time 31.6 SECONDS Prothromb Time International Ratio 2.8 Activated Partial Thromboplast Time 32.6 SECONDS Partial Thromboplastin Ratio 1.3 Sodium Level 139 mmol/L Potassium Level 3.9 mmol/L Chloride Level 98 mmol/L Carbon Dioxide Level 36 mmol/L Anion Gap 5.0 mmol/L Blood Urea Nitrogen 40 mg/dl Creatinine 1.31 mg/dl Est Creatinine Clear Calc Drug Dose 55.2 ml/min Estimated GFR () 60.4 Estimated GFR (Non- 52.1 BUN/Creatinine Ratio 30.4 Random Glucose 125 mg/dl Calcium Level 8.7 mg/dl Magnesium Level 2.3 mg/dl Assessment and Plan Acute on chronic hypoxic and hypercapnic respiratory failure: Secondary to COPD exacerbation 01/11 prednisone taper on discharge two step done, no supplemental oxygen needed 01/10 patient denies shortness of breath still saturating in the low 80s after exertion will continue Prednisone for the COPD exacerbation can stop abx. -likely secondary to COPD exacerbation and probable bronchitis -ABG on admission: pH: 7.3, pCO2: 75, HCO3: 36 pO2: 146 -improved on bipap, then switched to NC; now weaning down to 2-3 L -O2 saturation in high 90s now; wean oxygen as tolerated; was 85% at rest without oxygen -continued on Lasix as well -will need a 2 step evaluation prior to discharge COPD exacerbation: -Likely from recent URI -Solu-medrol 60mg Q6, will taper to q12 hours, and switch to PO in AM -Scheduled Xopenex/Atrovent nebs -Doxycycline day#5 -Supplemental O2 -less wheezing/coughing A fib with RVR: improving 01/11 continue Coumadin, INR is 2.8 to see Coumadin clinic in AM 01/10 refusing IV heparin will continue Coumadin, recheck in AM with goal INR of 2-3, currently it is 1.7 he knows risks of stroke is higher, but refuses the IV heparin anyway -unclear onset; patient poor historian, but no prior history of a fib per records -no CP, palpitations, lightheadedness -Initially in A fib with RVR--> given 10mg IV diltiazem --> rate down to 80s- 90s where it has remained -on low dose IV heparin drip -continued home dose Lopressor 25mg daily -Cardio consulted, appreciate recs -TTE: EF 55-60%, moderate -patient started on coumadin, INR 1.3, continue bridging with IV heparin until INR > 2 DM Type II: -HbA1c: 7% -hold home PO meds -SSI while in hospital -BSG AC HS -add lantus as well HTN: -Continue home lisinopril, lasix, metoprolol CKD Stage III: -Cr 1-1.5 at baseline -currently at baseline Hyperlipidemia: -continue statin Hx of Seizures: -stable -continue keppra Prior CVA: -Large MCA territory ischemic CVA in 1989 -No residual deficits Tobacco use disorder: -Currently smokes ~ 1/2 ppd -Over 50 pack years -Smoking cessation consult -Nicotine patch GERD: -continue PPI
[2017-01-11] MEDS ORDERED: PRED10TA PO (12:01)
[2017-01-11] MEDS ORDERED: CMD5 PO (12:01)
[2017-01-11] MEDS ORDERED: LSX40 PO (12:01)
[2017-01-11] MEDS ORDERED: NICO14DI5 TD (12:01)
--- NOTE | 2017-01-11 12:10 | Discharge Instructions ---
Discharge Instructions Date of Service Jan 11, 2017. Admission Reason for Admission: Copd Excerbation,New Onset Afib Discharge Discharge Diagnosis / Problem: Acute COPD Exacerbation, new Onset A. Fib Discharge Goals Goal(s): Decrease discomfort, Improve function, Diagnostic testing, Therapeutic intervention Activity Recommendations Activity Limitations: resume your previous activity . Instructions / Follow-Up Instructions / Follow-Up Please follow-up with Dr. Lopez on January 18 at 11:00AM * You will be on prednisone (steroids) * Take 4 tablets on 01/12 and 01/13 * Take 3 tablets on 01/14 and 01/15 * Take 2 tablets on 01/16 and 01/17 * Take 1 tablet on 01/18 and 01/19 * You are started on Coumadin (blood thinner) - take 5mg today and see the Coumadin clinic either or Monday to recheck blood work (INR) Current Hospital Diet Patient's current hospital diet: Diabetes Type 2 Diet, AHA Diet (Heart Healthy) Discharge Diet Recommended Diet: AHA Diet (Heart Healthy), Diabetes Type 2 Diet Pending Studies Studies pending at discharge: no Laboratory Results Hemoglobin A1c Test 01/06/17 04:13 Range/Units Estimated Average Glucose 154 mg/dl Hemoglobin A1c 7.0 H 4.5-5.6 % Medical Emergencies . Who to Call and When: Medical Emergencies: If at any time you feel your situation is an emergency, please call 911 immediately. . Non-Emergent Contact Non-Emergency issues call your: Primary Care Provider . . "Provider Documentation" section prepared by Binta Kent. . VTE Core Measure Inpt VTE Proph given/why not?: Other Anticoagulation (On low dose heparin )
--- NOTE | 2017-01-11 12:12 | Discharge Summary ---
Discharge Summary Date of Service Jan 11, 2017. Discharge Summary Admission Date: Jan 05, 2017 at 10:17 Discharge Date: Jan 11, 2017 Discharge Disposition: Home Principal Diagnosis: Acute Respiratory Failure secondary to Acute COPD exacerbation New Onset A. Fib Medication Reconciliation New Medications: Prednisone Tab (Prednisone) 10 Mg Tab 10 MG PO UD for 8 Days, #20 TAB Furosemide (Furosemide) 40 Mg Tab 40 MG PO QAM for 30 Days, #30 TAB Nicotine (Nicoderm Cq 14MG Patch) 14 Mg/24 Hr Dis 14 MG TD QAM, #1 BOX Warfarin Sod (Coumadin) 5 Mg Tab 5 MG PO DAILY@16 for 30 Days, #30 TAB Continued Medications: Allopurinol (Zyloprim) 100 Mg Tab 100 MG PO DAILY for 30 Days, #30 TAB 5 Refills Aspirin (Aspirin Ec) 81 Mg Tab 81 MG PO DAILY Glipizide (Glipizide Er) 5 Mg Tab 10 MG PO DAILYBB, TAB TAKE THIS MEDICATION ONCE DAILY 30 MINUTES BEFORE A MEAL. Glipizide (Glipizide) 5 Mg Tab 5 MG PO DAILYBD Ipratropium-Albuterol (Duoneb) 3 Ml Nebu 1 VIAL INH QID PRN for SOB/Wheezing, INHA Ipratropium-Albuterol (Combivent Respimat) 1 Aer Aer 1 PUFFS INH QID PRN for SOB/Wheezing, INH Levetiracetam (Keppra) 500 Mg Tab 500 MG PO BID, TAB Lisinopril (Prinivil) 10 Mg Tab 10 MG PO DAILY, TAB Metoprolol Tartrate (Lopressor) 50 Mg Tab 0.5 TAB PO DAILY for 30 Days, #15 TAB 5 Refills Omeprazole (Prilosec) 20 Mg Cap 20 MG PO BID, CAP Potassium Chloride Microencaps (Potassium Chloride Er) 10 Meq Tab 10 MEQ PO DAILY Simvastatin (Zocor) 20 Mg Tab 20 MG PO QPM, TAB Sitagliptin (Januvia) 100 Mg Tab 100 MG PO QAM, TAB Discontinued Medications: Furosemide (Furosemide) 20 Mg Tab 20 MG PO DAILY Admission Information HPI (per Admitting provider): This is a 76yo M with a PMH of COPD, DM II, HTN, CKD III and remote h/o CVA who presents with worsening shortness of breath beginning last night. Patient wears O2 at night but started to notice SOB while ambulating around his home, which is not his baseline. This morning, patient was SOB at rest, despite wearing O2 and called an ambulance to come to ER for further evaluation. Patient endorses URI symptoms that started 5 days ago, including subjective fever, chills, nasal congestion and productive sputum with white/adams sputum. Was found to be hypoxic in high 80s on 4L O2, so bipap was initiated. Patient's respiratory status has improved and he is alert and conversational, with an O2 saturation of 98%. In the ER, patient was found to be in A Fib with RVR at a rate of 126bpm. Denies any history of A Fib, arrhythmias or heart disease but states that sometimes his heart "skips beats". Is unsure whether or not he takes Lopressor 25mg at home (on his med list), because his manages his medications and she is currently admitted at the hospital. Was given 10mg IV Lopressor in the ER and rate reduced to 90s. Endorses SOB, nasal congestion, cough and fatigue. Denies lightheadedness, headache, visual changes, rhinorrhea, sore throat, palpitations, CP, abd pain, nausea, vomiting or worsening LE swelling. Had a large MCA stroke in 1989. Denies any residual deficits. Takes baby aspirin. Denies any history of DVT/PE or abnormal bleeding. Did not take any of his medications this morning prior to arrival. Physical Exam (per Admitting): General Appearance: + mild distress (on bipap ) Head: normocephalic, atraumatic Eyes: normal inspection, PERRL, EOMI, sclerae normal (conjunctiva normal ) ENT: hearing grossly normal, + nasal congestion Neck: supple, trachea midline Respiratory/Chest: chest non-tender, no respiratory distress, no accessory muscle use, + decreased breath sounds, + wheezing (Diffiuse wheezing bilaterally ) Cardiovascular: + irregularly irregular, + pertinent finding (Diminished DP and PT pulses ) Abdomen/GI: normal bowel sounds, non tender, soft, no organomegaly Extremities/Musculoskelatal: no calf tenderness, non-tender, + swelling ( Trace edema bilateral to knee (chronic). No skin breakdown.) Neurologic/Psych: no motor/sensory deficits, alert, normal mood/affect, oriented x 3 Skin: normal color, warm/dry, no rash Hospital Course Acute on chronic hypoxic and hypercapnic respiratory failure: 11/14 patient denies shortness of breath still saturating in the low 80s after exertion will continue Prednisone for the COPD exacerbation can stop abx. -likely secondary to COPD exacerbation and probable bronchitis -ABG on admission: pH: 7.3, pCO2: 75, HCO3: 36 pO2: 146 -improved on bipap, then switched to NC; now weaning down to 2-3 L -O2 saturation in high 90s now; wean oxygen as tolerated; was 85% at rest without oxygen -continued on Lasix as well -will need a 2 step evaluation prior to discharge COPD exacerbation: -Likely from recent URI -Solu-medrol 60mg Q6, will taper to q12 hours, and switch to PO in AM -Scheduled Xopenex/Atrovent nebs -Doxycycline day#5 -Supplemental O2 -less wheezing/coughing A fib with RVR: improving 01/10 refusing IV heparin will continue Coumadin, recheck in AM with goal INR of 2-3, currently it is 1.7 he knows risks of stroke is higher, but refuses the IV heparin anyway -unclear onset; patient poor historian, but no prior history of a fib per records -no CP, palpitations, lightheadedness -Initially in A fib with RVR--> given 10mg IV diltiazem --> rate down to 80s- 90s where it has remained -on low dose IV heparin drip -continued home dose Lopressor 25mg daily -Cardio consulted, appreciate recs -TTE: EF 55-60%, moderate -patient started on coumadin, INR 1.3, continue bridging with IV heparin until INR > 2 DM Type II: -HbA1c: 7% -hold home PO meds -SSI while in hospital -BSG AC HS -add lantus as well HTN: -Continue home lisinopril, lasix, metoprolol CKD Stage III: -Cr 1-1.5 at baseline -currently at baseline Hyperlipidemia: -continue statin Hx of Seizures: -stable -continue keppra Prior CVA: -Large MCA territory ischemic CVA in 1989 -No residual deficits Tobacco use disorder: -Currently smokes ~ 1/2 ppd -Over 50 pack years -Smoking cessation consult -Nicotine patch GERD: -continue PPI Total time spent on discharge = 45 minutes This includes examination of the patient, discharge planning, medication reconciliation, and communication with other providers. Discharge Instructions Please follow-up with Dr. Lopez on January 18 at 11:00AM * You will be on prednisone (steroids) * Take 4 tablets on 01/12 and 01/13 * Take 3 tablets on 01/14 and 01/15 * Take 2 tablets on 01/16 and 01/17 * Take 1 tablet on 01/18 and 01/19 * You are started on Coumadin (blood thinner) - take 5mg today and see the Coumadin clinic either or Monday to recheck blood work (INR)
[2017-01-11 13:18] VITALS: BP 136/57; PULSE 86; TEMP 36.3; O2SAT 97
== END 2017-01-11 14:40 | disposition home or self-care (01) | DRG 308 ==
LOC: EDBD 07:19 → C.EDB 07:19 → C.2T 10:17 → ENRESERV 11:11 → C.MS4W 01-09 18:29 → ENRESERV 01-09 19:22
PROVIDERS: ADMIT Internal Medicine; ATTEND Family Medicine
DX: I48.91 Unspecified atrial fibrillation (principal); J96.21 Acute and chronic respiratory failure with hypoxia; J96.22 Acute and chronic respiratory failure with hypercapnia; J44.1 Chronic obstructive pulmonary disease with (acute) exacerbation; J40 Bronchitis, not specified as acute or chronic; N18.3 Chronic kidney disease, stage 3 (moderate); E11.22 Type 2 diabetes mellitus with diabetic chronic kidney disease; I12.9 Hypertensive chronic kidney disease with stage 1 through stage 4 chronic kidney disease, or unspecified chronic kidney disease; K21.9 Gastro-esophageal reflux disease without esophagitis; M10.9 Gout, unspecified; R56.9 Unspecified convulsions; F17.210 Nicotine dependence, cigarettes, uncomplicated; Z51.81 Encounter for therapeutic drug level monitoring; Z79.899 Other long term (current) drug therapy; Z79.84 Long term (current) use of oral hypoglycemic drugs; Z79.82 Long term (current) use of aspirin; Z86.73 Personal history of transient ischemic attack (TIA), and cerebral infarction without residual deficits

== ENCOUNTER 2019-12-01 19:01 | Inpatient (IN) ==
[~2019-12-01 19:01] MED LIST changes: -ALLO100T PO; -ASPI81TA28 PO; -AZIT-57 PO; -AZITTAB PO; -CHOL100010 PO; +ETOMIDATE 2 MG/ML 20 ML VIAL IV ONE; -GLIP-197 PO; -HYDR25TA4 PO; -IPRA1AER2 INH; -IPRASOL4 INH; -LEVE500T13 PO; -LISI10TA PO; -METO50TA16 PO; -OMEP20CA9 PO; -PRED10TA PO; -SIMV20TA5 PO; -SITA1TAB27 PO; +SUCCINYLCHOLINE CHLORIDE 20 MG/ML 10 ML VIAL IV ONE; -SYMIN/8045 INH
--- OUTSIDE RECORDS SUMMARY | 2019-12-01 19:08 | External Medical Summary | Continuity of Care Document ---
:1940 Author Name Agusto Johnson, Provider Address Unavailable Unavailable , Care Team Providers Name Role Phone Mayi Escalona M.D. Unavailable [email or web address] MAI DIXON Unavailable Unavailable Problems Active medical history not documented Allergies and Adverse Reactions Allergy history not documented Medications Medications not documented Procedures Procedures not documented Immunizations Immunizations not documented Plan of Treatment Planned Observations Planned Goals not documented Results No Known Results Results not documented
[2019-12-01] MEDS ORDERED: ALBUT/IPRATROP 3MG/0.5MG NEB 3 ML VIAL INH STA (19:21)
[2019-12-01] MEDS ORDERED: methylPREDNISolone 125 MG/2 ML VIAL IV STA (19:21)
[2019-12-01] MEDS ORDERED: dilTIAZem HCl 5 MG/ML 5 ML VIAL IV ONE (19:23)
[2019-12-01] MEDS ORDERED: dilTIAZem HCl 5 MG/ML 5 ML VIAL IV STA (19:23)
--- NOTE | 2019-12-01 19:34 | Emergency Department Note ---
History of Present Illness General Chief complaint: Shortness of Breath/Dyspnea Stated complaint: BREATHING DIFF. Time Seen by Provider: 12/01/19 19:06 Source: EMS Mode of arrival: EMS Limitations: clinical acuity History of Present Illness Provider complaint: Shortness of breath Onset (ago): day(s) Location: chest Severity: severe Pain Consistency: + constant Quality: + other (Shortness of breath) Relieved By: + none Associated symptoms: no fever/chills This is an 79-year-old male brought in by EMS for shortness of breath. They state that he has been short of breath for a few days without any fevers. He does have a history of COPD. They did not give him any medication prior to arrival. They did make one attempt at IV access but he refused any further attempts. On arrival to the emergency department the nurses state that he was responsive but when I examined him after speaking to the broadcast operations technician he was completely unresponsive. Pulse ox was 92 on a oxygen mask at 6 L. He did not respond to sternal rub or opening his eyes or painful stimuli. He did retract when they attempted an IV. Further history is unobtainable due to the clinical acuity. Home Medications Home Medications Medication Instructions Recorded Confirmed Type Aspirin Low Dose 81 mg PO DAILY 12/01/19 12/01/19 History Vitamin D3 1,000 mg PO DAILY 12/01/19 12/01/19 History budesonide-formoterol [Symbicort] 2 puff INHALATION BID 12/01/19 12/01/19 History doxycycline hyclate 100 mg PO DIRECTED 12/01/19 12/01/19 History gabapentin 300 mg PO HS 12/01/19 12/01/19 History glipizide 5 mg PO DAILY 12/01/19 12/01/19 History ipratropium-albuterol [Combivent 1 puff INHALATION QID 12/01/19 12/01/19 History Respimat] levetiracetam 500 mg PO BID 12/01/19 12/01/19 History linagliptin [Tradjenta] 5 mg PO DAILY 12/01/19 12/01/19 History metoprolol tartrate 25 mg PO DAILY 12/01/19 12/01/19 History omeprazole 20 mg PO DAILY 12/01/19 12/01/19 History torsemide 40 mg PO DAILY 12/01/19 12/01/19 History warfarin [Coumadin] 2.5 mg PO DAILY 12/01/19 12/01/19 History Allergies Allergy/AdvReac Type Severity Reaction Status Date / Time Sulfa (Sulfonamide Allergy Unknown HIVES Verified 01/05/17 09:32 Antibiotics) Past Med/Surg History Medical History CKD (chronic kidney disease), stage III COPD, moderate CVA (cerebral vascular accident) Diabetes mellitus HTN (hypertension) Surgical History S/P AAA repair Social History Smoking Status: Unknown if ever smoked Preferred Language: Turkish Feels Safe at Home: Yes Review of Systems See HPI for pertinent positives & negatives. Unobtainable due to reduced consciousness Physical Exam Vital Signs Vital Signs - 24 hr 12/01/19 19:01 12/01/19 19:10 12/01/19 19:20 Temperature 37.1 C Temperature Source Oral Pulse Rate 55 L 63 104 H Pulse Rate [Forehead] Pulse Rate from SpO2 Sensor 130 H Pulse Rhythm Regular Respiratory Rate 35 H 21 33 H Respiratory Effort / Characteristics Accessory Muscle Use Labored Short of Breath Respiratory Depth Normal Respiratory Pattern Tachypnea Blood Pressure 142/78 H Blood Pressure Mean 99 Pulse Oximetry 96 94 Oxygen Delivery Method Oxymask BiPAP Oxygen Flow Rate 6 Fraction of Inspired Oxygen Sepsis Recent Fever Within 48 Hours No Sepsis New/Unexplained Change in Mental Status No Sepsis Action Taken by Nursing No Action Required End-Tidal CO2 12/01/19 19:22 12/01/19 19:25 12/01/19 19:27 Temperature Temperature Source Pulse Rate 145 H 153 H 130 H Pulse Rate [Forehead] Pulse Rate from SpO2 Sensor 126 H Pulse Rhythm Regular Respiratory Rate 25 H 26 H 35 H Respiratory Effort / Characteristics Spontaneous Labored Respiratory Depth Shallow Respiratory Pattern Tachypnea Blood Pressure 166/78 H Blood Pressure Mean 120 Pulse Oximetry 96 94 96 Oxygen Delivery Method BiPAP Oxymask Oxygen Flow Rate 6 Fraction of Inspired Oxygen 80 Sepsis Recent Fever Within 48 Hours Sepsis New/Unexplained Change in Mental Status Sepsis Action Taken by Nursing End-Tidal CO2 12/01/19 19:30 12/01/19 19:32 12/01/19 19:39 Temperature Temperature Source Pulse Rate 117 H 134 H 202 H Pulse Rate [Forehead] Pulse Rate from SpO2 Sensor 142 H 110 H 112 H Pulse Rhythm Respiratory Rate 24 39 H 37 H Respiratory Effort / Characteristics Respiratory Depth Respiratory Pattern Blood Pressure 105/79 106/81 Blood Pressure Mean 94 85 Pulse Oximetry 93 96 97 Oxygen Delivery Method BiPAP BiPAP BiPAP Oxygen Flow Rate Fraction of Inspired Oxygen Sepsis Recent Fever Within 48 Hours Sepsis New/Unexplained Change in Mental Status Sepsis Action Taken by Nursing End-Tidal CO2 12/01/19 19:40 12/01/19 19:46 12/01/19 19:50 Temperature Temperature Source Pulse Rate 135 H 114 H 100 H Pulse Rate [Forehead] Pulse Rate from SpO2 Sensor 108 H 104 H 119 H Pulse Rhythm Respiratory Rate 41 H 20 Respiratory Effort / Characteristics Respiratory Depth Respiratory Pattern Blood Pressure 159/68 H Blood Pressure Mean 81 Pulse Oximetry 96 96 95 Oxygen Delivery Method BiPAP BiPAP Oxygen Flow Rate Fraction of Inspired Oxygen 100 Sepsis Recent Fever Within 48 Hours Sepsis New/Unexplained Change in Mental Status Sepsis Action Taken by Nursing End-Tidal CO2 64 12/01/19 20:00 12/01/19 20:10 12/01/19 20:16 Temperature Temperature Source Pulse Rate 106 H 108 H 97 H Pulse Rate [Forehead] Pulse Rate from SpO2 Sensor 110 H 102 H 94 H Pulse Rhythm Respiratory Rate Respiratory Effort / Characteristics Respiratory Depth Respiratory Pattern Blood Pressure 171/64 H 114/50 L Blood Pressure Mean 79 91 Pulse Oximetry 95 100 100 Oxygen Delivery Method Mechanical Vent Mechanical Vent Oxygen Flow Rate Fraction of Inspired Oxygen 80 Sepsis Recent Fever Within 48 Hours Sepsis New/Unexplained Change in Mental Status Sepsis Action Taken by Nursing End-Tidal CO2 66 63 12/01/19 20:20 12/01/19 20:30 12/01/19 20:31 Temperature Temperature Source Pulse Rate 87 96 H 98 H Pulse Rate [Forehead] Pulse Rate from SpO2 Sensor 88 93 H 98 H Pulse Rhythm Respiratory Rate Respiratory Effort / Characteristics Respiratory Depth Respiratory Pattern Blood Pressure 127/73 Blood Pressure Mean 75 Pulse Oximetry 100 100 100 Oxygen Delivery Method Mechanical Vent Mechanical Vent Mechanical Vent Oxygen Flow Rate Fraction of Inspired Oxygen Sepsis Recent Fever Within 48 Hours Sepsis New/Unexplained Change in Mental Status Sepsis Action Taken by Nursing End-Tidal CO2 61 69 57 12/01/19 20:40 12/01/19 20:46 12/01/19 20:48 Temperature Temperature Source Pulse Rate 90 91 H Pulse Rate [Forehead] 96 H Pulse Rate from SpO2 Sensor 102 H 91 H Pulse Rhythm Respiratory Rate 20 Respiratory Effort / Characteristics Respiratory Depth Respiratory Pattern Blood Pressure 125/62 Blood Pressure Mean 80 Pulse Oximetry 100 100 100 Oxygen Delivery Method Mechanical Vent Mechanical Vent Mechanical Vent Oxygen Flow Rate Fraction of Inspired Oxygen 80 Sepsis Recent Fever Within 48 Hours Sepsis New/Unexplained Change in Mental Status Sepsis Action Taken by Nursing End-Tidal CO2 55 55 12/01/19 20:50 12/01/19 21:00 12/01/19 21:02 Temperature Temperature Source Pulse Rate 89 88 92 H Pulse Rate [Forehead] Pulse Rate from SpO2 Sensor 89 100 H 92 H Pulse Rhythm Respiratory Rate Respiratory Effort / Characteristics Respiratory Depth Respiratory Pattern Blood Pressure 126/54 L Blood Pressure Mean 66 Pulse Oximetry 97 100 100 Oxygen Delivery Method Mechanical Vent Mechanical Vent Mechanical Vent Oxygen Flow Rate Fraction of Inspired Oxygen 60 Sepsis Recent Fever Within 48 Hours Sepsis New/Unexplained Change in Mental Status Sepsis Action Taken by Nursing End-Tidal CO2 58 44 47 12/01/19 21:05 12/01/19 21:10 12/01/19 21:11 Temperature Temperature Source Pulse Rate 98 H 91 H 86 Pulse Rate [Forehead] Pulse Rate from SpO2 Sensor 100 H 90 84 Pulse Rhythm Respiratory Rate Respiratory Effort / Characteristics Respiratory Depth Respiratory Pattern Blood Pressure 115/56 L 104/57 L Blood Pressure Mean 76 61 Pulse Oximetry 100 98 100 Oxygen Delivery Method Mechanical Vent Mechanical Vent Oxygen Flow Rate Fraction of Inspired Oxygen Sepsis Recent Fever Within 48 Hours Sepsis New/Unexplained Change in Mental Status Sepsis Action Taken by Nursing End-Tidal CO2 48 49 57 12/01/19 21:15 12/01/19 21:20 12/01/19 21:25 Temperature Temperature Source Pulse Rate 95 H 99 H 93 H Pulse Rate [Forehead] Pulse Rate from SpO2 Sensor 98 H 102 H 91 H Pulse Rhythm Respiratory Rate Respiratory Effort / Characteristics Respiratory Depth Respiratory Pattern Blood Pressure 123/53 L 121/63 122/62 Blood Pressure Mean 59 80 75 Pulse Oximetry 99 97 99 Oxygen Delivery Method Mechanical Vent Mechanical Vent Mechanical Vent Oxygen Flow Rate Fraction of Inspired Oxygen Sepsis Recent Fever Within 48 Hours Sepsis New/Unexplained Change in Mental Status Sepsis Action Taken by Nursing End-Tidal CO2 42 12/01/19 21:30 12/01/19 21:35 12/01/19 21:40 Temperature Temperature Source Pulse Rate 92 H 96 H 95 H Pulse Rate [Forehead] Pulse Rate from SpO2 Sensor 92 H 100 H 96 H Pulse Rhythm Respiratory Rate Respiratory Effort / Characteristics Respiratory Depth Respiratory Pattern Blood Pressure 117/56 L 114/68 110/51 L Blood Pressure Mean 92 91 60 Pulse Oximetry 98 97 98 Oxygen Delivery Method Mechanical Vent Mechanical Vent Mechanical Vent Oxygen Flow Rate Fraction of Inspired Oxygen Sepsis Recent Fever Within 48 Hours Sepsis New/Unexplained Change in Mental Status Sepsis Action Taken by Nursing End-Tidal CO2 12/01/19 21:45 12/01/19 21:50 12/01/19 21:55 Temperature Temperature Source Pulse Rate 92 H 96 H 83 Pulse Rate [Forehead] Pulse Rate from SpO2 Sensor 93 H 91 H 87 Pulse Rhythm Respiratory Rate Respiratory Effort / Characteristics Respiratory Depth Respiratory Pattern Blood Pressure 109/61 95/49 L 100/45 L Blood Pressure Mean 80 60 63 Pulse Oximetry 99 100 99 Oxygen Delivery Method Mechanical Vent Mechanical Vent Mechanical Vent Oxygen Flow Rate Fraction of Inspired Oxygen Sepsis Recent Fever Within 48 Hours Sepsis New/Unexplained Change in Mental Status Sepsis Action Taken by Nursing End-Tidal CO2 12/01/19 22:00 12/01/19 22:05 12/01/19 22:10 Temperature Temperature Source Pulse Rate 83 87 90 Pulse Rate [Forehead] Pulse Rate from SpO2 Sensor 88 87 88 Pulse Rhythm Respiratory Rate Respiratory Effort / Characteristics Respiratory Depth Respiratory Pattern Blood Pressure 102/46 L 101/48 L 96/44 L Blood Pressure Mean 66 66 61 Pulse Oximetry 100 100 99 Oxygen Delivery Method Mechanical Vent Mechanical Vent Mechanical Vent Oxygen Flow Rate Fraction of Inspired Oxygen Sepsis Recent Fever Within 48 Hours Sepsis New/Unexplained Change in Mental Status Sepsis Action Taken by Nursing End-Tidal CO2 12/01/19 22:15 Temperature Temperature Source Pulse Rate 80 Pulse Rate [Forehead] Pulse Rate from SpO2 Sensor 78 Pulse Rhythm Respiratory Rate Respiratory Effort / Characteristics Respiratory Depth Respiratory Pattern Blood Pressure 100/48 L Blood Pressure Mean 65 Pulse Oximetry 99 Oxygen Delivery Method Mechanical Vent Oxygen Flow Rate Fraction of Inspired Oxygen Sepsis Recent Fever Within 48 Hours Sepsis New/Unexplained Change in Mental Status Sepsis Action Taken by Nursing End-Tidal CO2 The physical exam is limited due to the patient's condition. Constitutional: Vital signs reviewed. Eyes: Pupils are equal round reactive to light. Conjunctiva are noninjected. HENT: Normocephalic atraumatic. Respiratory: Poor air entry bilaterally. Breath sounds are present bilaterally. Diffuse expiratory wheezing. Cardiovascular: Irregularly irregular rhythm. Tachycardia. GI: Soft, nondistended and nontender. Bowel sounds are present. Musculoskeletal: Bilateral peripheral edema greater on the right side.. Integumentary: No cyanosis. Neurological: The patient is somnolent but arousable to painful stimuli. He will move his arms. The patient was initially unresponsive but suddenly opened his eyes and makes eye contact to voice. He remains nonverbal but follows some commands. Psychiatric: Unable to assess. Procedures Intubation Time out performed: Yes sedative: Etomidate Mg Given: 20 paralytic: Succinylcholine Mg Given: 150 Laryngoscope: other ([place] scope) ET Tube Size: 7.5 ET Tube Uncuffed: No Tube Secured Depth (cm): 24 Tube Secured Location: lips Tube Placement Confirmation: visualized tube passing through cords, equal breath sounds bilaterally, no breath sounds over epigastrium and confirmation by capnometry Patient Tolerated Procedure: no complications Course Administered Medications Discontinued Medications Albuterol (Albut/Ipratrop 3mg/0.5mg Neb 3 Ml Vial) 12 ml INH ONE STA Stop: 12/01/19 19:22 Last Admin: 12/01/19 20:47 Dose: 12 ml Documented by: [id number] Diltiazem HCl (Diltiazem Hcl 5 Mg/Ml 5 Ml Vial) 10 mg IV NOW STA Stop: 12/01/19 19:24 Last Admin: 12/01/19 19:25 Dose: 10 mg Documented by: [id number] Cosigned by: [id number] Diltiazem HCl (Diltiazem Hcl 5 Mg/Ml 5 Ml Vial) Confirm Administered Dose 25 mg IV .STK-MED ONE Stop: 12/01/19 19:24 Last Admin: 12/01/19 19:54 Dose: Not Given Documented by: [id number] Piperacillin Sod/Tazobactam Sod (Zosyn) 4.5 gm in 120 mls @ 240 mls/hr IV NOW ONE Stop: 12/01/19 20:44 Last Infusion: 12/01/19 21:52 Dose: 0 mls/hr Documented by: [id number] Admin: 12/01/19 20:55 Dose: 240 mls/hr Documented by: [id number] Lorazepam (Ativan) 1 mg in 2 mls @ 2 mls/min IV NOW STA Stop: 12/01/19 21:15 Last Admin: 12/01/19 21:19 Dose: 2 mls/min Documented by: [id number] Sodium Chloride (Nss 1000ml) 500 mls @ 999 mls/hr IV .Q31M ONE Stop: 12/01/19 21:44 Last Infusion: 12/01/19 21:52 Dose: 0 mls/hr Documented by: [id number] Admin: 12/01/19 21:22 Dose: 999 mls/hr Documented by: [id number] Methylprednisolone (Methylprednisolone 125 Mg/2 Ml Vial) 125 mg IV NOW STA Stop: 12/01/19 19:22 Last Admin: 12/01/19 20:11 Dose: 125 mg Documented by: [id number] Miscellaneous (Rapid Sequence Induction Bag) Confirm Administered Dose 1 ea .ROUTE .STK-MED ONE Stop: 12/01/19 19:38 Last Admin: 12/01/19 19:48 Dose: 1 ea Documented by: [id number] Propofol (Propofol Iv Emulsion 10 Mg/Ml 100 Ml Vial) Confirm Administered Dose 1,000 mg IV .STK-MED ONE Stop: 12/01/19 20:04 Last Admin: 12/01/19 20:10 Dose: 1,000 mg Documented by: [id number] Cosigned by: [id number] Critical Care Time Critical Care Time: Yes Total Critical Care Time: 80 I have personally spent approximately 80 minutes of critical care time in the direct management of this patient. This includes bedside care, interpretation of diagnostic studies, and testing, discussion with consultants, patient, and family members, and other required patient management activities. These minutes are in excess of all separately billable procedures. Medical Decision Making Differential Diagnosis Respiratory failure, hypercapnia, sepsis, pneumonia, A. fib with RVR, metabolic derangement Medical Records Attestation: I reviewed the patient's medical records. I did perform a limited focused review of portions of the patient's old chart on the electronic medical record. The patient has had no recent pertinent visits to this hospital. Home Medications Current Medication List: was personally reviewed by me Laboratory Data Attestation: I reviewed the patient's lab results. Result diagrams: 12/01/19 19:25 12/01/19 19:25 Lab Results 12/01/19 12/01/19 12/01/19 Range/Units 19:25 19:25 19:25 WBC 11.71 H (4.8-10.8) K/uL RBC 4.55 L (4.7-6.1) M/uL Hgb 10.2 L (14.0-18.0) g/dL Hct 37.2 L (42-52) % MCV 81.8 (80-100) fL MCH 22.4 L (25-34) pg MCHC 27.4 L (32-36) g/dL RDW Std Deviation 54.7 H (36.4-46.3) fL RDW Coeff of Robert 20.7 H (11.5-14.5) % Plt Count 307 (130-400) K/uL MPV 10.0 (7.4-10.4) fL Immature Gran % (Auto) 0.2 % Neut % (Auto) 79.4 % Lymph % (Auto) 8.8 % [place] % (Auto) 9.1 % Eos % (Auto) 2.2 % Baso % (Auto) 0.3 % Neut # (Auto) 9.29 H (1.4-6.5) K/uL Lymph # (Auto) 1.03 L (1.2-3.4) K/uL [place] # (Auto) 1.07 H (0.11-0.59) K/uL Eos # (Auto) 0.26 (0-0.5) K/uL Baso # (Auto) 0.04 (0-0.2) K/uL Immature Gran # (Auto) 0.02 (0.00-0.02) K/uL Giant Platelets 1+ Polychromasia 1+ Anisocytosis Present Ovalocytes 1+ PT 40.4 H (9.0-12.0) Seconds INR 4.1 H (0.9-1.1) APTT 47.3 H* (21.0-31.0) Seconds PTT Ratio 1.7 Sodium 143 (136-145) mmol/L Potassium 4.0 (3.5-5.1) mmol/L Chloride 103 (98-107) mmol/L Carbon Dioxide 34 H (21-32) mmol/L Anion Gap 6.0 (3-11) BUN 18 (7-18) mg/dl Creatinine 1.47 H (0.6-1.4) mg/dl Est Cr Clr Drug Dosing Not Reportable Est GFR ( Amer) 51.5 Est GFR (Non-Af Amer) 44.4 BUN/Creatinine Ratio 12.5 (10-20) Glucose 119 H (70-99) mg/dl Lactate (0.4-2.0) mmol/L Calcium 9.1 (8.5-10.1) mg/dl Total Bilirubin 1.2 H (0.2-1) mg/dl AST 14 L (15-37) U/L ALT 16 (12-78) U/L Alkaline Phosphatase 89 (45-117) U/L Troponin I < 0.015 (0-0.045) ng/ml Total Protein 8.2 (6.4-8.2) gm/dl Albumin 4.0 (3.4-5.0) gm/dl Globulin 4.2 H (2.5-4.0) gm/dl Albumin/Globulin Ratio 1.0 (0.9-2) COVID-19 Eval Order COVID-19 PCR (Negative) Influenza Type A (PCR) (Neg) Influenza Type B (PCR) (Neg) 12/01/19 12/01/19 12/01/19 Range/Units 19:25 20:13 20:13 WBC (4.8-10.8) K/uL RBC (4.7-6.1) M/uL Hgb (14.0-18.0) g/dL Hct (42-52) % MCV (80-100) fL MCH (25-34) pg MCHC (32-36) g/dL RDW Std Deviation (36.4-46.3) fL RDW Coeff of Robert (11.5-14.5) % Plt Count (130-400) K/uL MPV (7.4-10.4) fL Immature Gran % (Auto) % Neut % (Auto) % Lymph % (Auto) % [place] % (Auto) % Eos % (Auto) % Baso % (Auto) % Neut # (Auto) (1.4-6.5) K/uL Lymph # (Auto) (1.2-3.4) K/uL [place] # (Auto) (0.11-0.59) K/uL Eos # (Auto) (0-0.5) K/uL Baso # (Auto) (0-0.2) K/uL Immature Gran # (Auto) (0.00-0.02) K/uL Giant Platelets Polychromasia Anisocytosis Ovalocytes PT (9.0-12.0) Seconds INR (0.9-1.1) APTT (21.0-31.0) Seconds PTT Ratio Sodium (136-145) mmol/L Potassium (3.5-5.1) mmol/L Chloride (98-107) mmol/L Carbon Dioxide (21-32) mmol/L Anion Gap (3-11) BUN (7-18) mg/dl Creatinine (0.6-1.4) mg/dl Est Cr Clr Drug Dosing Est GFR ( Amer) Est GFR (Non-Af Amer) BUN/Creatinine Ratio (10-20) Glucose (70-99) mg/dl Lactate 4.0 H* (0.4-2.0) mmol/L Calcium (8.5-10.1) mg/dl Total Bilirubin (0.2-1) mg/dl AST (15-37) U/L ALT (12-78) U/L Alkaline Phosphatase (45-117) U/L Troponin I (0-0.045) ng/ml Total Protein (6.4-8.2) gm/dl Albumin (3.4-5.0) gm/dl Globulin (2.5-4.0) gm/dl Albumin/Globulin Ratio (0.9-2) COVID-19 Eval Order Covid19 Done at [facility] COVID-19 PCR (Negative) Influenza Type A (PCR) Neg for Influ A (Neg) Influenza Type B (PCR) Neg for Influ B (Neg) 12/01/19 Range/Units 20:13 WBC (4.8-10.8) K/uL RBC (4.7-6.1) M/uL Hgb (14.0-18.0) g/dL Hct (42-52) % MCV (80-100) fL MCH (25-34) pg MCHC (32-36) g/dL RDW Std Deviation (36.4-46.3) fL RDW Coeff of Robert (11.5-14.5) % Plt Count (130-400) K/uL MPV (7.4-10.4) fL Immature Gran % (Auto) % Neut % (Auto) % Lymph % (Auto) % [place] % (Auto) % Eos % (Auto) % Baso % (Auto) % Neut # (Auto) (1.4-6.5) K/uL Lymph # (Auto) (1.2-3.4) K/uL [place] # (Auto) (0.11-0.59) K/uL Eos # (Auto) (0-0.5) K/uL Baso # (Auto) (0-0.2) K/uL Immature Gran # (Auto) (0.00-0.02) K/uL Giant Platelets Polychromasia Anisocytosis Ovalocytes PT (9.0-12.0) Seconds INR (0.9-1.1) APTT (21.0-31.0) Seconds PTT Ratio Sodium (136-145) mmol/L Potassium (3.5-5.1) mmol/L Chloride (98-107) mmol/L Carbon Dioxide (21-32) mmol/L Anion Gap (3-11) BUN (7-18) mg/dl Creatinine (0.6-1.4) mg/dl Est Cr Clr Drug Dosing Est GFR ( Amer) Est GFR (Non-Af Amer) BUN/Creatinine Ratio (10-20) Glucose (70-99) mg/dl Lactate (0.4-2.0) mmol/L Calcium (8.5-10.1) mg/dl Total Bilirubin (0.2-1) mg/dl AST (15-37) U/L ALT (12-78) U/L Alkaline Phosphatase (45-117) U/L Troponin I (0-0.045) ng/ml Total Protein (6.4-8.2) gm/dl Albumin (3.4-5.0) gm/dl Globulin (2.5-4.0) gm/dl Albumin/Globulin Ratio (0.9-2) COVID-19 Eval Order COVID-19 PCR NEGATIVE (Negative) Influenza Type A (PCR) (Neg) Influenza Type B (PCR) (Neg) Imaging Data Radiologist's Impression: XR chest 1V portable CLINICAL HISTORY: Dyspnea COMPARISON STUDY: 01/05/2017 FINDINGS: The heart is enlarged. There is diffuse interstitial thickening, likely secondary to pulmonary vascular congestion although chronic interstitial lung disease or interstitial inflammatory processes could appear similar. There are subpulmonic bilateral pleural effusions. There are bilateral pleurodiaphragmatic calcifications. Although nonspecific this could indicate prior asbestos exposure. There is no lobar consolidation[ IMPRESSION: 1. Bilateral pleurodiaphragmatic calcifications 2. Cardiomegaly and interstitial thickening suggesting pulmonary vascular congestion, although an interstitial inflammatory process or chronic interstitial lung disease could appear similar 3. Bilateral subpulmonic pleural effusions ACT 112: Negative or not required by law. Electronically signed by: Thom Pino M.D. 12/01/2019 7:39 PM XR chest 1V portable CLINICAL HISTORY: Respiratory failure COMPARISON STUDY: 12/01/2019 FINDINGS: There is an endotracheal tube positioned 3.4 cm above the rosales. The heart is enlarged. There are bilateral pleural diaphragmatic calcifications. There are bilateral pulmonary airspace opacities, pulmonary edema versus infectious/inflammatory process. Bilateral pleural effusions are suspected[ IMPRESSION: Interval placement of an endotracheal tube 3.4 cm above the rosales. Bilateral pulmonary opacities, pulmonary edema versus infectious/inflammatory process. ACT 112: Negative or not required by law. Electronically signed by: Thom Pino M.D. 12/01/2019 8:02 PM Dictated: 12/01/192000 Transcribed: 12/01/192000 CT HEAD: Encephalomalacia left frontal lobe and insula. No ICH, mass effect, or edema. No skull fracture. Clear sinuses and mastoid air cells. Radiologist: Adelaida Molina M.D. Study ready at 23:14 and initial results transmitted at 23:19 Results also transmitted to 1st Floor ICU @ [phone] (Fax) ECG Data Attestation: I personally reviewed and interpreted this ECG as follows: Indication: + SOB/dyspnea Rate (beats per minute): 127 Rhythm: + atrial fibrillation ECG Intervals/blocks: + Normal QT ECG ST segments: + Nonspecific ST abnormalities ECG Findings: no PVCs MDM Narrative I did evaluate the patient as noted above. I did obtain history from the paramedics who stated that he has been short of breath for several days. Upon initial examination by myself the patient is completely obtunded. He has no reactions to sternal rub. Opening his eyes does not elicit any reaction. I did call his [id number] who stated he was not DNR/DNI. We were prepping for intubation and he suddenly opened his eyes. He followed very simple commands and made some slight eye contact. We did try him on BiPAP. He did seem to wake up a little bit but his breathing remained quite labored. IV access was established. I did treat him with Solu-Medrol IV. I did place an order for continuous cardiac monitoring. The monitor showed atrial fibrillation with RVR heart rate 140. I did order and personally review the patient's 12-lead EKG as described above. He has A. fib with RVR. I did treat him with Cardizem 10 mg IV. This did not improve his heart rate. Stat blood gas was obtained which showed respiratory acidosis with hypercapnia. I did tell the patient that he was going to be placed on a ventilator. It is unclear if he understood but he did seem to nod. Rapid sequence intubation was performed by myself as above. I did order and personally reviewed the images of the patient's chest x-ray as described above. Initial chest x-ray before intubation showed bilateral effusions and pulmonary vascular congestion. Post intubation chest x-ray shows bilateral pulmonary opacities concerning for pulmonary edema versus infectious/inflammatory process. Blood cultures were obtained. His heart rate improved after intubation. He was placed on a propofol drip. I did discuss his care with his [id number] who is now in the emergency department. She does state that they did discuss advanced directives previously and he had told her that it would be her decision. I did order and review the patient's blood work as noted in the electronic medical record. He has leukocytosis and anemia. Creatinine is 1.47. INR is supratherapeutic at 4.1. Lactate is 4. I did treat him with Zosyn IV. He was given an hour-long DuoNeb. He was placed in r espiratory isolation and COVID testing was obtained.COVID and influenza testing are both negative. He was taken off of respiratory isolation. I did discuss case with Dr. Crowder of critical care who accepted the patient to the ICU. I did discuss the case with the hospitalist and case management associate as well. The patient seemed to still be awake while on the propofol drip. His blood pressure dropped somewhat and so he was given a small bolus of normal saline IV. He was given Ativan 1 mg IV and this seemed to sedate him well. I did order a CT of the head. I did review the images myself as well as the radiology report. There is no evidence of intracranial hemorrhage. The patient was transferred to the ICU. Impression & Plan Acute hypercapnic respiratory failure, Asthma exacerbation in COPD, Supratherapeutic INR, CKD (chronic kidney disease), stage III, Pleural effusion, bilateral, Multifocal pneumonia Discharge Plan Visit Data Chief Complaint: Shortness of Breath/Dyspnea Stated Complaint: BREATHING DIFF. ED Provider: Vaibhav Chu Discharge Problem: Acute hypercapnic respiratory failure, Asthma exacerbation in COPD, Supratherapeutic INR, CKD (chronic kidney disease), stage III, Pleural effusion, bilateral, Multifocal pneumonia Patient Disposition: Admitted As Inpatient Discharge Instructions Interventions: ED Discharge Assessment Last Done: 12/01/19 22:31 Discharge Problem: CKD (chronic kidney disease), stage III Qualifiers: Chronic kidney disease stage 3 subtype: unspecified whether 3a or 3b Qualified Code(s): N18.30 - Chronic kidney disease, stage 3 unspecified
[2019-12-01] MEDS ORDERED: RAPID SEQUENCE INDUCTION BAG ONE (19:37)
--- NOTE | 2019-12-01 19:40 | XRay Report ---
XR chest 1V portable CLINICAL HISTORY: Dyspnea COMPARISON STUDY: 01/05/2017 FINDINGS: The heart is enlarged. There is diffuse interstitial thickening, likely secondary to pulmon frederick vascular congestion although chronic interstitial lung disease or interstitial inflammatory proce sses could appear similar. There are subpulmonic bilateral pleural effusions. There are bilateral ple urodiaphragmatic calcifications. Although nonspecific this could indicate prior asbestos exposure. Th ere is no lobar consolidation[ IMPRESSION: 1. Bilateral pleurodiaphragmatic calcifications 2. Cardiomegaly and interstitial thickening suggesting pulmonary vascular congestion, although an int erstitial inflammatory process or chronic interstitial lung disease could appear similar 3. Bilateral subpulmonic pleural effusions ACT 112: Negative or not required by law. Electronically signed by: Thom Pino M.D. 12/01/2019 7:39 PM
[2019-12-01 19:57] LABS: Alanine Aminotransferase 16 U/L (12-78); Aspartate Aminotransferase 14 U/L (15-37); BUN Creatinine Ratio 12.5 (10-20); Blood Urea Nitrogen 18 mg/dl (7-18); Calcium 9.1 mg/dl (8.5-10.1); Carbon Dioxide 34 mmol/L (21-32); Chloride 103 mmol/L (98-107); Est GFR (African American) 51.5; Est GFR (Non-African American) 44.4; Glucose 119 mg/dl (70-99); Sodium 143 mmol/L (136-145)
[2019-12-01 19:59] LABS: INR 4.1 (0.9-1.1); Partial Thromboplastin Ratio 1.7; Prothrombin Time 40.4 Seconds (9.0-12.0)
[2019-12-01 20:01] LABS: Alkaline Phosphatase 89 U/L (45-117); Bilirubin,Total 1.2 mg/dl (0.2-1); Globulin 4.2 gm/dl (2.5-4.0); Partial Thromboplastin Time 47.3 Seconds (21.0-31.0); Total Protein 8.2 gm/dl (6.4-8.2); Troponin I < 0.015 ng/ml (0-0.045)
[2019-12-01] MEDS ORDERED: PROPOFOL BOLUS FROM BAG IV PRN (20:02)
[2019-12-01] MEDS ORDERED: STAT IV Infusion **Titration per Protocol STA (20:02)
[2019-12-01] MEDS ORDERED: PROPOFOL IV EMULSION 10 MG/ML 100 ML VIAL IV ONE (20:03)
--- NOTE | 2019-12-01 20:03 | XRay Report ---
XR chest 1V portable CLINICAL HISTORY: Respiratory failure COMPARISON STUDY: 12/01/2019 FINDINGS: There is an endotracheal tube positioned 3.4 cm above the rosales. The heart is enlarged. Th ere are bilateral pleural diaphragmatic calcifications. There are bilateral pulmonary airspace opacit ies, pulmonary edema versus infectious/inflammatory process. Bilateral pleural effusions are suspecte d[ IMPRESSION: Interval placement of an endotracheal tube 3.4 cm above the rosales. Bilateral pulmonary o pacities, pulmonary edema versus infectious/inflammatory process. ACT 112: Negative or not required by law. Electronically signed by: Thom Pino M.D. 12/01/2019 8:02 PM
[2019-12-01] MEDS ORDERED: PIPERACILLIN/TAZOBACTAM 4.5 GM/120 ML BAG IV ONE (20:15)
[2019-12-01] MEDS ORDERED: PIPERACILL/TAZOBAC CONSULT ACTIVE PRN (20:15)
[2019-12-01 20:23] LABS: Hematocrit (blood only) 37.2 % (42-52); Hemoglobin 10.2 g/dL (14.0-18.0); Mean Corpuscular Hemoglobin 22.4 pg (25-34); Mean Corpuscular Hgb Conc 27.4 g/dL (32-36); Mean Corpuscular Volume 81.8 fL (80-100); Platelet Count 307 K/uL (130-400); RDW Coefficient of Variation 20.7 % (11.5-14.5); RDW Standard Deviation 54.7 fL (36.4-46.3); Red Blood Count 4.55 M/uL (4.7-6.1); White Blood Count 11.71 K/uL (4.8-10.8)
[2019-12-01 20:26] LABS: Anisocytosis Present; Basophils # (auto) 0.04 K/uL (0-0.2); Basophils % (auto) 0.3 %; Eosinophils # (auto) 0.26 K/uL (0-0.5); Eosinophils % (auto) 2.2 %; Giant Platelets 1+; Immature Granulocytes # (auto) 0.02 K/uL (0.00-0.02); Immature Granulocytes % (auto) 0.2 %; Lymphocytes # (auto) 1.03 K/uL (1.2-3.4); Lymphocytes % (auto) 8.8 %; Monocytes # (auto) 1.07 K/uL (0.11-0.59); Monocytes % (auto) 9.1 %; Neutrophils # (auto) 9.29 K/uL (1.4-6.5); Neutrophils % (auto) 79.4 %; Ovalocytes 1+; Polychromasia 1+
[2019-12-01 21:01] LABS: Influenza A virus by PCR Neg for Influ A (Neg); Influenza B virus by PCR Neg for Influ B (Neg)
[2019-12-01] MEDS ORDERED: LORazepam 1 MG/2 ML VIAL IV STA (21:14)
[2019-12-01] MEDS ORDERED: SODIUM CHLORIDE 0.9% 1000ML 500 ML IV ONE (21:14)
--- NOTE | 2019-12-01 21:43 | Critical Care Consultation ---
Date of Consultation December 01, 2019 Assessment & Plan (1) Admitted to intensive care unit: Reason Critically Ill: 79-year-old male with acute on chronic hypoxic respiratory failure with hypercapnia requiring emergent endotracheal intubation in the setting of worsening pulmonary edema and concerns for infiltrative change. NEURO - * CAM ICU: Unable to assess secondary to sedation. * Sedation: Propofol * Pain: Fentanyl * Altered mental status: * Became obtunded in the emergency department after answering questions in route to the emergency department. * Likely secondary to acute respiratory failure with hypercapnia. * CT the head unremarkable. * No focal neurological findings on exam. * Moves all extremities on exam. Appears to be improving on the ventilator. * Seizure disorder: * Continue home Keppra. CARDIAC/VASCULAR - * A. fib, hypertension: * Initially received Cardizem in the emergency department secondary to tachycardia. Likely compensatory in the setting of respiratory failure. * Resume patient's home medication doses as tolerated. * Troponin not elevated. * No acute ST or T wave abnormalities noted on EKG. * Monitor on telemetry. RESPIRATORY - * Acute on chronic hypoxic respiratory failure with hypercapnia: * Initially noted to be respiratory acidosis with elevated CO2. * Currently on minimal ventilator settings with a PEEP of 5 and FiO2 of 50%. * Continue to titrate down FiO2 as tolerated. * Serial ABGs as needed. * Concerns for pulmonary edema on chest CT. * Will add IV loop diuretic as needed. * Continue with positive pressure. * Currently covered with broad-spectrum antibiotics. * COVID-19 negative. GI/NUTRITION - * N.p.o. * OG tube in place. * Prophylaxis: Famotidine RENAL/LYTES - * CASH on CKDIII: * Patient clinically appears volume overloaded. * Received 500 cc normal saline secondary to hypotension in the emergency department. * Hold on further IV fluids at this time. * Aim for increased diuresis. - * Saez in place - Strict I&Os. ENDO - * History of diabetes. * BSGs per unit protocol. ISS --> gtt per unit policy. HEME - * Supratherapeutic INR: * Initial lab value of 4.0. * Without overt bleeding, continue to monitor INR and restart p.o. Coumadin as tolerated. * Hold on conversion to heparin drip at this time. ID - * Concerns for infiltrative change on chest x-ray: * Initially covered with broad-spectrum antibiotics in the form of Zosyn. * Doxycycline per hospitalist order. * Will likely be able to de-escalate to Rocephin. * Will check procalcitonin. * Lactate trending down. LINES/IV ACCESS - * PIVs x3 * ET tube * Saez catheter * OG DVT PROPHYLAXIS - * Hold on chemoprophylaxis in the setting of supratherapeutic INR. * SCDs I have personally spent 45 minutes of critical care time in the direct management of this patient. This is a life/limb threatening event. This includes time spent evaluating patient, direct bedside care, chart review, placing orders, interpretation of diagnostic studies, discussion with consultants, patient, and family members, as well as other required patient management activities. This time is exclusive of all separately billable procedures, and teaching time and separate from and in addition to any other critical care service time. Thank you for allowing us to participate in the care of this patient. Please refer to my attending physician's documentation for any further recommendations. (2) Acute hypercapnic respiratory failure: (3) Asthma exacerbation in COPD: (4) Atrial fibrillation: (5) Supratherapeutic INR: (6) Pleural effusion, bilateral: (7) Multifocal pneumonia: (8) Pulmonary edema: (9) S/P AAA repair: (10) HTN (hypertension): (11) Diabetes mellitus: (12) CKD (chronic kidney disease), stage III: (13) Seizure: History of Present Illness History of Present Illness Patient is an 79-year-old male with a significant past medical history of prior CVA, seizures, A. fib, hypertension, status post AAA repair, diabetes, CKD 3, and COPD who presented to the emergency department with complaints of shortness of breath. Apparently, per conversation with colleagues, the patient was complaining of shortness of breath over the last 48 hours. Patient was placed on oxygen in route to the emergency department with oxygen saturations in the low 90s. Apparently, while attempting to start IVs in the ambulance, the patient declined after initial unsuccessful attempt. Upon arrival, the patient was awake, alert, and semi-oriented. During provider evaluation, however, the patient was obtunded and unresponsive to painful stimuli. The patient was noted to have acute respiratory acidosis with elevated CO2. Emergent endotracheal intubation was performed. Laboratory assessment demonstrates a mild leukocytosis as well as CASH on CKD 3. Lactate was found to be 4.0. Chest x-ray concerning for bilateral patchy infiltrates. COVID-19 testing was negative. No reported history of fevers or recent other exposures per prior history. Upon evaluation in the emergency department, the patient is intubated and sedated. He is saturating well on ventilator settings with an FiO2 of 50%. He is sedated with propofol. He received broad-spectrum antibiotics in the form of Zosyn. Orders placed for CT of the head and chest. Patient unable to provide historical information secondary to current state of intubation with sedation. Allergies Allergy/AdvReac Type Severity Reaction Status Date / Time Sulfa (Sulfonamide Allergy Unknown HIVES Verified 01/05/17 09:32 Antibiotics) Home Medications Home Medications Medication Instructions Recorded Confirmed Type Aspirin Low Dose 81 mg PO DAILY 12/01/19 12/01/19 History Vitamin D3 1,000 mg PO DAILY 12/01/19 12/01/19 History budesonide-formoterol [Symbicort] 2 puff INHALATION BID 12/01/19 12/01/19 History doxycycline hyclate 100 mg PO DIRECTED 12/01/19 12/01/19 History gabapentin 300 mg PO HS 12/01/19 12/01/19 History glipizide 5 mg PO DAILY 12/01/19 12/01/19 History ipratropium-albuterol [Combivent 1 puff INHALATION QID 12/01/19 12/01/19 History Respimat] levetiracetam 500 mg PO BID 12/01/19 12/01/19 History linagliptin [Tradjenta] 5 mg PO DAILY 12/01/19 12/01/19 History metoprolol tartrate 25 mg PO DAILY 12/01/19 12/01/19 History omeprazole 20 mg PO DAILY 12/01/19 12/01/19 History torsemide 40 mg PO DAILY 12/01/19 12/01/19 History warfarin [Coumadin] 2.5 mg PO DAILY 12/01/19 12/01/19 History Patient History Medical History CKD (chronic kidney disease), stage III COPD, moderate CVA (cerebral vascular accident) Diabetes mellitus HTN (hypertension) Surgical History S/P AAA repair Social History Smoking Status: Unknown if ever smoked Preferred Language: Chilean Feels Safe at Home: Yes Review of Systems Review of Systems: Unobtainable due to endotracheal tube and Unobtainable due to reduced consciousness Physical Exam Physical Exam: VITAL SIGNS - Vital signs and nursing notes were reviewed. GENERAL - 79-year-old male appearing his stated age who is in no acute distress. Intubated and sedated. SKIN - Without rashes. HEAD - NC/AT. EYES - PERRL with EOMI bilaterally. Sclera anicteric. EARS - No deformities of external structures noted on gross examination bilaterally. NOSE - Midline and without cyanosis. No epistaxis or purulent drainage noted. MOUTH/OROPHARYNX - ET Tube in place. Without perioral cyanosis. Buccal mucosa pink and moist and without leukoplakia. NECK - Neck with FROM. Supple to palpation. No nuchal rigidity. LUNGS -diffuse wheezing throughout all lung garcia with diminished bases. Poor air movement. CARDIAC - RRR with S1/S2. No murmur, rubs, or gallops appreciated. ABDOMEN - Abdominal contour obese without pulsations or visible masses. BS normoactive all four quadrants. No tenderness, palpable masses, hepatosplenomegaly, or ascites noted. EXTREMITIES - No clubbing or peripheral cyanosis. No pretibial edema present. +3/5 radial and dorsalis pedis pulses palpated throughout. NEUROLOGIC - No focal neurological deficits appreciated. Unable to fully assess secondary to level of sedation. Results & Data Results & Data ([facility]) Vital Signs (Past 12 Hours) Vital Signs Temp Pulse Pulse Resp BP Pulse Ox 12/01/19 21:10 91 H 98 12/01/19 21:05 98 H 115/56 L 100 12/01/19 21:02 92 H 126/54 L 100 12/01/19 21:00 88 100 12/01/19 20:50 89 97 12/01/19 20:48 96 H 20 100 12/01/19 20:46 91 H 125/62 100 12/01/19 20:40 90 100 12/01/19 20:31 98 H 127/73 100 12/01/19 20:30 96 H 100 12/01/19 20:20 87 100 12/01/19 20:16 97 H 114/50 L 100 12/01/19 20:10 108 H 100 12/01/19 20:00 106 H 171/64 H 95 12/01/19 19:50 100 H 20 95 12/01/19 19:46 114 H 159/68 H 96 12/01/19 19:40 135 H 41 H 96 12/01/19 19:39 202 H 37 H 106/81 97 12/01/19 19:32 134 H 39 H 105/79 96 12/01/19 19:30 117 H 24 93 12/01/19 19:27 130 H 35 H 96 12/01/19 19:25 153 H 26 H 94 12/01/19 19:22 145 H 25 H 166/78 H 96 12/01/19 19:20 104 H 33 H 94 12/01/19 19:10 63 21 12/01/19 19:01 37.1 C 55 L 35 H 142/78 H 96 Coding Level of Care Code Critical Care 1st 30-74 mins Diagnoses Admitted to intensive care unit Z78.9 Acute hypercapnic respiratory failure J96.02 Asthma exacerbation in COPD J44.1; J45.901 Atrial fibrillation I48.91 Supratherapeutic INR R79.1 Pleural effusion, bilateral J90 Multifocal pneumonia J18.9 Pulmonary edema J81.1 S/P AAA repair Z98.890; Z86.79 HTN (hypertension) I10 Diabetes mellitus E11.9 CKD (chronic kidney disease), stage III N18.30 Chronic kidney disease stage 3 subtype: unspecified whether 3a or 3b Seizure R56.9 Time Spent (min) 45 (1) CKD (chronic kidney disease), stage III Chronic kidney disease stage 3 subtype: unspecified whether 3a or 3b Qualified Code(s): N18.30 - Chronic kidney disease, stage 3 unspecified
[2019-12-01] MEDS ORDERED: ICU PROTOCOL FOR HYPERGLYCEMIA PRN (23:33)
[2019-12-01] MEDS ORDERED: METOPROLOL TARTRATE 1 MG/ML VIAL IV PRN (23:33)
[2019-12-01] MEDS ORDERED: CARBOHYDRATES FOR HYPOGLYCEMIA PO PRN (23:45)
[2019-12-01] MEDS ORDERED: GLUCAGON FOR INJ 1 MG VIAL SQ PRN (23:45)
[2019-12-01] MEDS ORDERED: DEXTROSE 50% 50 ML SYRINGE IV PRN (23:45)
[2019-12-01] MEDS ORDERED: GLUCOSE 40% GEL 15 GM TUBE PO PRN (23:45)
[2019-12-01] MEDS ORDERED: GLUCOSE 10 TABS/TUBE PO PRN (23:45)
[2019-12-02] MEDS ORDERED: fentaNYL citrate 100 MCG/2 ML VIAL IV PRN (00:17)
[2019-12-02] MEDS ORDERED: ICU PROTOCOL FOR HYPERGLYCEMIA PRN (00:17)
--- NOTE | 2019-12-02 00:18 | History and Physical Report ---
DATE OF ADMISSION: 12/01/2019 CHIEF COMPLAINT: Acute respiratory failure. HISTORY OF PRESENT ILLNESS: This is an 79-year-old male with past medical history significant for type 2 diabetes, nocturnal hypoxemia due to chronic bronchitis, severe COPD, diaphragmatic hernia, chronic kidney disease stage III, chronic atrial fibrillation, history of CVA, abdominal aortic aneurysm, aneurysm of internal iliac artery, hypertension, nonrheumatic aortic valve stenosis, reflux esophagitis, history of convulsions, tobacco use disorder, who lives alone, ambulates without any support, on regular diet as per the daughter. Daughter lives close by. Daughter helps with his cleaning and laundry. He is having some shortness of breath for last few days, but today he got more short of breath. He complained of some back pain and shortness of breath to the EMS. His pulse ox was 92% on OxyMask 6 liters. When he came to the ER, he was obtunded. They tried to intubate, but he opened eyes. ER tried BiPAP, but ABG came back aand he was in respiratory acidosis and he is status post intubation. On sedation currently. Daughter is in the room. Apparently was doing fine before this happened. His COVID-19 PCR is negative in the ER. He has lower extremity edema and daughter says they swell on and off. Chest x-ray shows bilateral infiltrates with congestion. Currently his hemodynamics are stable on vent. As per daughter, no recent fever or chills. No complaints of any pain. No nausea, no vomiting, no diarrhea. His appetite was okay. Could not get any other history currently. ALLERGIES: SULFA ANTIBIOTICS. PAST MEDICAL HISTORY: As mentioned above. PAST SURGICAL HISTORY: Status post abdominal aortic aneurysm, left common iliac aneurysm repair with aorto right common iliac, left external iliac bypass, left internal iliac aneurysm repair, aorto left renal thromboendarterectomy on 05/24/2012, colonoscopy with biopsy, EGD with biopsies, removal of appendix, removal of cataract lens bilaterally, revision of the upper eyelids bilaterally. MEDICATIONS: The patient is on doxycycline 100 mg p.o. b.i.d., torsemide 40 mg p.o. daily, glipizide 5 mg p.o. at breakfast, Keppra 500 mg p.o. b.i.d., Tradjenta 5 mg p.o. daily, Coumadin 2.5 mg as directed, prednisone tapering dose, gabapentin 300 mg p.o. at bedtime, metoprolol tartrate 25 mg p.o. daily, nystatin p.r.n., Combivent Respimat 1 puff q.i.d., Symbicort 160/4.5 mcg 2 puffs b.i.d., oxygen 2 liters during sleep, omeprazole 20 mg p.o. daily, aspirin 81 mg p.o. daily, vitamin D 1000 units p.o. daily. FAMILY HISTORY: Significant for father had diabetes and heart disorder; mother has hypertension, diabetes; brother has diabetes; sister has diabetes. SOCIAL HISTORY: . Smoked average 1 pack a day for last 55 years, currently smokes half pack a day. No alcohol use, no drug use. REVIEW OF SYSTEMS: As per HPI. Rest of the review of systems could not be obtained as the patient is status post intubation. PHYSICAL EXAMINATION: GENERAL: The patient is status post intubation and sedation. VITAL SIGNS: Temperature 37.1, pulse 83, respiratory rate 20s, oxygen 100% on mechanical vent. HEENT: Head atraumatic. Pupils, pinpoint and sluggish to reaction. NECK: No JVD, no neck masses seen. CARDIOVASCULAR: S1, S2 heard. Mild bibasilar crackles. No wheezing. RESPIRATORY: No respiratory accessory muscle use. No wheezing. ABDOMEN: Soft, bowel sounds present. No distention. CENTRAL NERVOUS SYSTEM: Status post intubation and sedated. EXTREMITIES: Bilateral lower extremity gross edema present, no obvious erythema seen. LABORATORY DATA: WBC 11.7, hemoglobin 10.2, hematocrit 37.2, platelets 307. PT 14.4, INR 4.1, APTT 47.3. Sodium 143, potassium 4, chloride 103, bicarbonate 34, BUN 18, creatinine 1.47, serum glucose 119, lactate 4, calcium 9.1, total bilirubin 1.2, AST 14, ALT 16, alkaline phosphatase 89. Troponin I less than 0.015. Influenza A and B PCR negative. COVID-19 PCR negative. IMAGING DATA: Chest x-ray shows endotracheal tube 3.4 cm above rosales, bilateral pulmonary opacities, pulmonary edema versus infectious inflammatory process. EKG: AFib with RVR at a rate of 127. ST depression in lateral leads. ASSESSMENT AND PLAN: This is an 79-year-old male who presents with acute respiratory failure. 1. Acute respiratory failure, most likely secondary to chronic obstructive pulmonary disease exacerbation, [id number] diastolic congestive heart failure. His echo in May 2019 showed EF of 50% to 54% and grade 2 diastolic dysfunction with moderate to borderline severe aortic stenosis and moderate to severe mitral insufficiency.Will treat for COPD exacerbation and possible pneumonia with Zosyn and doxycycline. Nebs atc and IV steroids.Vent management as per Critical care. 2. Cyvnr-dw-jkxhyoz diastolic congestive heart failure secondary to valvular heart disease. IV diuretics as per the critical care and vent management as per critical care. Repeat ABGs and closely monitor in the ICU. 3. Rapid atrial fibrillation, history of atrial fibrillation. The patient is on metoprolol at home. Will place on IV Lopressor p.r.n. He is on Coumadin. INR is supratherapeutic at 4. Will follow the PT/INR and follow the echocardiogram. 4. Chronic kidney disease, stage III, baseline creatinine 1.3, currently creatinine 1.4, close to baseline. Will follow the repeat labs. 5. History of cerebrovascular accident, on aspirin. 6. History of diabetes. Hold his glipizide. Will place him on insulin sliding scale. Follow the blood sugars and steroids. 7. History of convulsion, on Keppra. 8. History of abdominal aortic aneurysm status post repair. 9. Deep venous thrombosis prophylaxis, on Coumadin. INR is supratherapeutic. We will follow PT/INR. 10. History of tobacco abuse, seems to be still smoking. Needs counseling when stable. 11. Anemia Hb 10.2. Follow stool for Hemoccult. Follow labs.Needs followup 12. Disposition, closely monitor in the ICU. PT and OT prior to discharge. Social service to help with discharge planning. Full code. MTDD
[2019-12-02] MEDS ORDERED: XOPENEX/ATROVENT 1.25mg/0.5MG NEB COMBO NEB SCH (01:00)
[2019-12-02] MEDS: LEVALBUTEROL 1.25MG/0.5ML NEB INH SCH ×4 (01:13→19:32)
[2019-12-02] MEDS: IPRATROPIUM BROMIDE NEB SOLN 0.02% 2.5 ML VIAL INH SCH ×4 (01:13→19:31)
[2019-12-02 01:18] LABS: Appearance Urine Turbid (Clear); Bilirubin Urine Negative (Negative); Blood Urine 2+ (Negative); Color Urine Yellow; Epithelial Cell Urine Auto >30 /lpf (0-5); Glucose Urine UA Negative (Negative); Ketones Urine Negative (Negative); Leukocyte Esterase Urine Negative (Negative); Nitrite Urine Negative (Negative); Protein Urine 3+ (Negative); Specific Gravity Urine 1.024 (1.000-1.030); Urobilinogen Urine Negative (Negative)
[2019-12-02 01:22] LABS: Cast Urine Automated 0 /lpf (0-5)
[2019-12-02 01:23] LABS: Amorphous Sediment Urine Present (None Prsent); Bacteria Urine Automated 1+ (Negative)
[2019-12-02] MEDS: propofoL 1,000 MG/100 ML VIAL IV SCH ×2 (01:49→19:30)
[2019-12-02] MEDS ORDERED: PIPERACILLIN/TAZOBACTAM 3.375 GM in DEXTROSE 5% 100 ML IV SCH (02:00)
[2019-12-02] MEDS ORDERED: DOXYCYCLINE HYCLATE 100 MG in DEXTROSE 5% 100 ML IV SCH (02:00)
[2019-12-02 04:23] LABS: Hematocrit (blood only) 31.1 % (42-52); Hemoglobin 8.6 g/dL (14.0-18.0); Mean Corpuscular Hemoglobin 22.2 pg (25-34); Mean Corpuscular Hgb Conc 27.7 g/dL (32-36); Mean Corpuscular Volume 80.2 fL (80-100); Platelet Count 222 K/uL (130-400); Red Blood Count 3.88 M/uL (4.7-6.1); White Blood Count 8.14 K/uL (4.8-10.8)
[2019-12-02 04:33] LABS: BUN Creatinine Ratio 14.9 (10-20); Calcium 8.6 mg/dl (8.5-10.1); Creatinine Clr Calc Pharmacy 48.6 ml/min; Est GFR (African American) 53.7; Est GFR (Non-African American) 46.3; Phosphorus 2.5 mg/dl (2.5-4.9)
[2019-12-02 04:39] LABS: INR 4.2 (0.9-1.1); Prothrombin Time 41.1 Seconds (9.0-12.0)
[2019-12-02] MEDS ORDERED: FUROSEMIDE 40 MG in SYRINGE 0 ML IV ONE (04:52)
[2019-12-02 04:54] LABS: Basophils # (auto) 0.01 K/uL (0-0.2); Basophils % (auto) 0.1 %; Hypochromasia Present; Immature Granulocytes # (auto) 0.03 K/uL (0.00-0.02); Immature Granulocytes % (auto) 0.4 %; Lymphocytes # (auto) 0.25 K/uL (1.2-3.4); Lymphocytes % (auto) 3.1 %; Monocytes # (auto) 0.15 K/uL (0.11-0.59); Monocytes % (auto) 1.8 %; Neutrophils % (auto) 94.6 %; Ovalocytes 1+
[2019-12-02 06:11] LABS: iSTAT Allen Test Pass; iSTAT Art Bld Gas pCO2 Correct 46 mmHg (35-46); iSTAT Art Bld Gas pH Corrected 7.446 (7.35-7.45); iSTAT Arterial Blood Gas HCO3 32 meg/L (19-24); iSTAT Arterial Blood Gas pCO2 46 mmHg (35-46); iSTAT Arterial Blood Gas pH 7.45 (7.35-7.45); iSTAT Arterial Blood Gas pO2 71 mmHg (80-95); iSTAT Arterial Blood Gas pO2 C 71; iSTAT Carbon Dioxide 33 mmol/L (24-31); iSTAT FiO2 30 %; iSTAT Hematocrit 30 % (42-52); iSTAT Hemoglobin 10.2 g/dl (14.0-18.0); iSTAT Potassium 3.7 mmol/L (3.3-5.0); iSTAT Site R Radial; iSTAT Sodium 142 mmol/L (135-144)
--- NOTE | 2019-12-02 07:30 | CT Scan Report ---
CT OF THE HEAD WITHOUT CONTRAST CLINICAL HISTORY: Altered mental status. Evaluate for bleed. COMPARISON STUDY: No previous studies for comparison. TECHNIQUE: Helical axial images of the head were obtained without IV contrast. Automated exposure con trol was utilized for the study. A dose lowering technique was utilized adhering to the principles o f ALARA. FINDINGS: No acute intracranial hemorrhage, midline shift or mass effect is present. Encephalomalacia within the left frontal lobe represents an old infarct. The ventricular system is unremarkable. The basilar cisterns are patent. No extra-axial collections are present. There are no findings to suggest acute dural sinus thrombosis or acute territorial infarct. No significant calvarial abnormalities ar e present. Visualized portions of the sinuses and mastoid air cells are clear. IMPRESSION: 1. No acute intracranial findings. 2. Old left frontal lobe infarct. ACT 112: Negative or not required by law. Electronically signed by: Geo Hayes M.D. 12/02/2019 7:29 AM
--- NOTE | 2019-12-02 08:03 | XRay Report ---
SINGLE VIEW CHEST CLINICAL HISTORY: Respiratory failure. FINDINGS: An AP, portable, upright chest radiograph is compared to chest x-ray and chest CT dated 12/01/2019. The examination is degraded by portable technique and patient rotation. An endotracheal tube is unchanged in position. An enteric tube is new from previous. The tip projects below the diaphragm and is not visualized. The heart is enlarged noting atherosclerotic calcification of the thoracic aor ta. There is pulmonary vascular congestion. There are layering pleural effusions with bibasilar conso lidation. Bilateral calcified pleural plaques are similar to previous. There are bilateral airspace o pacities. No pneumothorax is seen. The skeletal structures are osteopenic. The bony thorax is grossly intact. IMPRESSION: 1. An enteric tube is new from previous. 2. And Endotracheal tube is unchanged in position. 3. Cardiomegaly with evidence of congestive failure. 4. Layering pleural effusions with bibasilar consolidation. 5. Bilateral airspace opacities are again noted. This could represent pulmonary edema and/or an infec tious/inflammatory pneumonitis. This appears modestly improved from yesterday. ACT 112: Negative or not required by law. Electronically signed by: Alec Shepherd M.D. 12/02/2019 8:02 AM
--- NOTE | 2019-12-02 08:27 | CT Scan Report ---
CT OF THE CHEST WITHOUT IV CONTRAST CLINICAL HISTORY: Respiratory failure. COMPARISON STUDY: Chest radiograph January 05, 2017 and December 01, 2019. CT DOSE: 1334.54 mGy.cm TECHNIQUE: Axial images of the chest were obtained without IV contrast. Images were reviewed in the axial, sagittal, and coronal planes. IV contrast was not administered for this examination. Automat ed exposure control was utilized for the study. A dose lowering technique was utilized adhering to t he principles of ALARA. FINDINGS: The tip of the endotracheal tube is 3.5 cm above the rosales. There are multiple mildly enl arged mediastinal lymph nodes. Index right paratracheal node on image 97 of 296 measures 1.5 cm. Mode rate cardiomegaly is noted. There is extensive coronary artery calcification. There are calcified and noncalcified pleural plaques. There is no pneumothorax. Rdqhw-sz-bqttbrlw bilateral pleural effusion s are noted with associated airspace opacity favors atelectasis. Central airways are patent. There is moderate upper lobe predominant centrilobular and paraseptal emphysema. Interlobular septal thickeni ng is noted. There is a 1 cm nodular left upper lobe opacity on image 53 of 296. A few nodular opacit ies within the right middle lobe measure up to 7 mm. Groundglass opacities within the lungs are noted . Water attenuation lesions within visualized portions of the right kidney favor cysts. There is a ri ght adrenal adenoma. This is unchanged since prior abdominal CT of February 26, 2015. IMPRESSION: 1. Small to moderate bilateral pleural effusions with associated airspace opacities favor atelectasis . 2. Interstitial pulmonary edema. Ground glass opacities within lungs favor alveolar edema however an infectious process could appear similar. 3. Several nodular opacities within the right middle lobe and left lung apex. A follow-up chest CT is to ensure resolution is recommended. 4. Mild mediastinal lymphadenopathy which is likely reactive/related to pulmonary edema. This can be assessed on follow-up chest CT. 5. Mild cardiomegaly. Extensive coronary artery calcification. ACT 112: Negative or not required by law. Electronically signed by: Geo Hayes M.D. 12/02/2019 8:25 AM
--- NOTE | 2019-12-02 08:47 | Critical Care Progress Note ---
Date of Service December 02, 2019 Assessment & Plan (1) Admitted to intensive care unit: Impression: 79-year-old male with known valvular heart disease and obstructive lung disease admitted with hypoxemic hypercarbic respiratory failure requiring intubation mechanical ventilation. 24-hour events: Patient was intubated in the emergency room and transferred to the ICU. He was placed on diuretics. Blood pressure control was achieved. He maintained A. fib but appeared rate controlled. Hemodynamics were adequate. He tolerated an SBT this morning and has been extubated to nasal cannula. Recommendations: 1. Neurologic: No current issues. Continue to follow. 2. Pulmonary: Acute on chronic hypoxemic and hypercarbic respiratory failure. Suspect this is related to valvular heart disease. Underlying obstructive lung disease may also. Continue attempts at diuresis and aggressive blood pressure control. Follow-up with echocardiogram. He does not appear bronchospastic currently so we will hold on steroids. We will continue bronchodilators with as needed duo nebs as well as scheduled Breo and Incruse. Pulmonary function tests are not available in our system. Would be reasonable to pursue these in the outpatient setting. 3. 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 Repeat echo is pending. Continue attempts at diuresis. Formal cardiology consultation is pending. He has a history of atrial fibrillation and we will continue his metoprolol. He is anticoagulated on Coumadin. Hold additional doses as he may require invasive procedures. Continue aspirin. 4. GI: No current issues. If he does well extubated, can likely advance his diet to liquids this afternoon and to cardiac diet if he does well. 5. Renal: Chronic kidney disease present on admission. Will follow with diuresis. Does not appear far off from his baseline. 6. Endo: Ischemic control per protocol. With discontinuation of steroids hope is that blood glucose will improve. Add oral agents when taking PO. 7. Heme-onc: Mild anemia: No indication for transfusion. Will follow for now. 8. ID: The patient was started on doxycycline and Zosyn on presentation. Do not appreciate an infiltrate on his chest x-ray and has been afebrile. Procal citonin was negative. Will discontinue antibiotics and follow clinically at this point time. Patient will require PT and OT evaluations with. If he does well, he can likely transfer out of the ICU to the floor later this afternoon or tomorrow. (2) Acute hypercapnic respiratory failure: (3) Pulmonary edema: Admission and Anticipated Discharge Date Admission Date: December 01, 2019 Subjective Patient intubated and sedated. Discussed with critical care YURY overnight as we ll as with bedside ICU nurse and on multidisciplinary rounds. The patient is awake and following commands. Has been breathing spontaneously on CPAP. He denies chest pain or palpitations Review of Systems Review of Systems: Unobtainable due to endotracheal tube Physical Exam Constitutional: + frail appearing and + mechanically ventilated; no acute distress Neck: trachea midline, no thyromegaly Respiratory: normal respiratory effort, lungs clear to auscultation Cardiovascular: Heart Sounds: normal S1, normal S2 and + murmur Gastrointestinal (Abdomen): normal bowel sounds, soft, nontender, no hepatosplenomegaly Musculoskeletal: Extremities: extremities normal to inspection Skin: no rashes, warm and dry Neurologic: Nonfocal exam Lymphatic: no cervical lymphadenopathy Results & Data Results & Data ([facility]) Vital Signs (Past 12 Hours) Vital Signs Temp Pulse Pulse Resp BP Pulse Ox 12/02/19 08:03 92 H 28 H 92 12/02/19 06:04 37.1 C 85 122/57 L 92 12/02/19 05:49 37.0 C 84 111/54 L 92 12/02/19 05:34 37.0 C 79 116/60 96 12/02/19 05:30 82 23 94 12/02/19 05:19 37.0 C 85 112/54 L 92 12/02/19 05:04 37.0 C 79 102/51 L 93 12/02/19 04:49 37.0 C 81 101/51 L 93 12/02/19 04:34 37.0 C 82 100/47 L 92 12/02/19 04:19 37.0 C 76 113/50 L 93 12/02/19 04:04 37.0 C 80 99/55 L 93 12/02/19 03:49 37.1 C 84 98/48 L 92 12/02/19 03:35 78 20 95 12/02/19 03:34 37.1 C 78 102/51 L 96 12/02/19 03:19 37.1 C 83 102/52 L 97 12/02/19 03:04 37.1 C 81 98/55 L 96 12/02/19 02:49 37.1 C 85 104/52 L 96 12/02/19 02:34 37.1 C 79 104/55 L 96 12/02/19 02:19 37.1 C 73 106/65 96 12/02/19 02:04 37.2 C 80 106/45 L 96 12/02/19 01:49 37.2 C 81 105/53 L 96 12/02/19 01:34 37.1 C 80 107/53 L 95 12/02/19 01:19 37.1 C 80 105/56 L 97 12/02/19 01:15 75 22 99 12/02/19 01:04 37.2 C 81 109/56 L 99 12/02/19 00:48 37.2 C 73 112/51 L 99 12/02/19 00:34 37.2 C 86 103/55 L 98 12/02/19 00:19 37.2 C 74 102/59 L 98 12/02/19 00:04 37.3 C 84 97/50 L 97 12/02/19 00:00 88 12/01/19 23:49 37.2 C 83 98/50 L 97 12/01/19 23:34 37.4 C 74 100/51 L 97 12/01/19 23:19 37.0 C 81 120/64 98 12/01/19 23:15 36.6 C 93 H 126/52 L 95 12/01/19 23:05 85 20 94 12/01/19 23:02 20 121/70 95 12/01/19 22:31 83 100 H 115/37 L 100 12/01/19 22:15 80 100/48 L 99 12/01/19 22:10 90 96/44 L 99 12/01/19 22:05 87 101/48 L 100 12/01/19 22:00 83 102/46 L 100 12/01/19 21:55 83 100/45 L 99 12/01/19 21:50 96 H 95/49 L 100 12/01/19 21:45 92 H 109/61 99 12/01/19 21:40 95 H 110/51 L 98 12/01/19 21:35 96 H 114/68 97 12/01/19 21:30 92 H 117/56 L 98 12/01/19 21:25 93 H 122/62 99 12/01/19 21:20 99 H 121/63 97 12/01/19 21:15 95 H 123/53 L 99 12/01/19 21:11 86 104/57 L 100 12/01/19 21:10 91 H 98 12/01/19 21:05 98 H 115/56 L 100 12/01/19 21:02 92 H 126/54 L 100 12/01/19 21:00 88 100 12/01/19 20:50 89 97 12/01/19 20:48 96 H 20 100 12/01/19 20:46 91 H 125/62 100 12/01/19 20:40 90 100 Laboratory Results 12/02/19 04:02 12/02/19 04:02 Diagnostic Findings Chest x-ray from today was independently reviewed. There are hazy opacities in the bilateral apices as well as small bilateral pleural effusions right greater than left. Coding Level of Care Code 42127 Subseq [facility] 3 Diagnoses Admitted to intensive care unit Z78.9 Acute hypercapnic respiratory failure J96.02 Pulmonary edema J81.1
[2019-12-02] MEDS: INSULIN ASPART 100 UNITS/ML 3 ML PEN SC SCH ×4 (08:55→20:40)
[2019-12-02] MEDS ORDERED: methylPREDNISolone 40 MG in SYRINGE 0 ML IV SCH (09:00)
[2019-12-02] MEDS ORDERED: METOPROLOL TARTRATE 25 MG TAB PO SCH (09:00)
[2019-12-02] MEDS: FUROSEMIDE 40 MG in SYRINGE 0 ML IV SCH (09:44)
[2019-12-02] MEDS: FLUTICASONE/VILANTEROL 100/25MCG 14 PUFFS/INHALER INH SCH (09:46)
[2019-12-02] MEDS: UMECLIDINIUM BROMIDE 62.5MCG/BLISTER 7 PUFFS/INHALER INH SCH (09:46)
[2019-12-02] MEDS ORDERED: ACETAMINOPHEN 500 MG TAB PO PRN (10:03)
[2019-12-02] MEDS: levETIRAcetam 500 MG TAB PO SCH ×2 (11:43→20:39)
--- NOTE | 2019-12-02 12:16 | Cardiology Consultation ---
Date of Consultation December 02, 2019 Assessment & Plan (1) Acute hypercapnic respiratory failure: (2) Asthma exacerbation in COPD: (3) Atrial fibrillation: (4) PVD (peripheral vascular disease): (5) Ischemic cardiomyopathy: This is an 79-year-old male patient with diffuse vascular disease and COPD related to tobacco. He developed respiratory failure and was intubated for short time. The respiratory failure was most likely multifactorial including his COPD but also due to congestive heart failure. He is currently clinically stable. I would continue the IV Lasix for now. Restart his home medications when appropriate. He can be transferred from the ICU to telemetry floor. History of Present Illness Attending Physician: Harriett Recio MD History of Present Illness The patient is an 79-year-old male with the history as outlined below. He has severe tobacco associated COPD, ischemic heart disease, peripheral vascular disease and atrial fibrillation. He became progressively short of breath yesterday and developed respiratory distress requiring intubation and admission to the ICU. He has since been extubated. He is alert and oriented. Expressing no cardiac complaints today. History includes: 1. 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 Atherosclerotic peripheral vascular disease, status post open abdominal aortic aneurysm and left common iliac artery aneurysm repair, left renal thromboendarterectomy 2012 3. Hypertension 4. Type 2 diabetes mellitus with elevated hemoglobin A1c 5. Atherosclerotic cerebrovascular disease with remote stroke 6. Persistent Atrial fibrillation/flutter on chronic anticoagulation, diagnosed 2016 7. Mixed calcific valvular disease with moderately severe aortic stenosis, moderate to severe mitral insufficiency, mild aortic insufficiency 8. Atherosclerotic carotid disease, moderate, right 9. Partial complex seizure disorder on [facility] diagnosis 2010 10. Shabazz's esophagus, off surveillance 11. Chronic lower extremity edema with past stasis ulcers 12. Hyperlipidemia not on a statin by current list Allergies Allergy/AdvReac Type Severity Reaction Status Date / Time Sulfa (Sulfonamide Allergy Unknown HIVES Verified 01/05/17 09:32 Antibiotics) Home Medications Home Medications Medication Instructions Recorded Confirmed Type Aspirin Low Dose 81 mg PO DAILY 12/01/19 12/01/19 History Vitamin D3 1,000 mg PO DAILY 12/01/19 12/01/19 History budesonide-formoterol [Symbicort] 2 puff INHALATION BID 12/01/19 12/01/19 History doxycycline hyclate 100 mg PO DIRECTED 12/01/19 12/01/19 History gabapentin 300 mg PO HS 12/01/19 12/01/19 History glipizide 5 mg PO DAILY 12/01/19 12/01/19 History ipratropium-albuterol [Combivent 1 puff INHALATION QID 12/01/19 12/01/19 History Respimat] levetiracetam 500 mg PO BID 12/01/19 12/01/19 History linagliptin [Tradjenta] 5 mg PO DAILY 12/01/19 12/01/19 History metoprolol tartrate 25 mg PO DAILY 12/01/19 12/01/19 History omeprazole 20 mg PO DAILY 12/01/19 12/01/19 History torsemide 40 mg PO DAILY 12/01/19 12/01/19 History warfarin [Coumadin] 2.5 mg PO DAILY 12/01/19 12/01/19 History Patient History Medical History CKD (chronic kidney disease), stage III COPD, moderate CVA (cerebral vascular accident) Diabetes mellitus HTN (hypertension) Surgical History S/P AAA repair Social History Smoking Status: Unknown if ever smoked Preferred Language: Fijian Communication Ability Comment: Unable to complete patient sedated Current Living Situation Comment: Unable to complete patient sedated Feels Safe at Home: Yes Assistive Devices: Oxygen - Continuous Review of Systems Review of Systems: All systems reviewed & are unremarkable except as noted in HPI & below Nothing additional to add. Physical Exam Physical Exam: General: no acute distress and stated age Head: normocephalic, no masses, lesions, tenderness or abnormalities Eyes: conjunctiva are pink and non-injected, sclera clear Neck: supple, no adenopathy, no bruits, normal jugular venous pulse, no hepatojugular reflux Chest: normal shape and normal respiratory effort Lungs: clear to auscultation and percussion Cardiac Exam: - regular rate & rhythm, no murmurs gallops or rubs - normal S1, normal S2 Pulses: 2(+) throughout Abdomen: abdomen soft, non-tender, no abnormal masses and no hepatosplenomegaly Musculoskeletal: no gait disturbance, no joint inflammation, no deforming arthritis Extremities: no edema and no cyanosis Neuro: grossly normal exam Results & Data ([facility]) Vital Signs (Past 12 Hours) Vital Signs Temp Pulse Resp BP Pulse Ox 12/02/19 08:03 92 H 28 H 92 12/02/19 06:04 37.1 C 85 122/57 L 92 12/02/19 05:49 37.0 C 84 111/54 L 92 12/02/19 05:34 37.0 C 79 116/60 96 12/02/19 05:30 82 23 94 12/02/19 05:19 37.0 C 85 112/54 L 92 12/02/19 05:04 37.0 C 79 102/51 L 93 12/02/19 04:49 37.0 C 81 101/51 L 93 12/02/19 04:34 37.0 C 82 100/47 L 92 12/02/19 04:19 37.0 C 76 113/50 L 93 12/02/19 04:04 37.0 C 80 99/55 L 93 12/02/19 03:49 37.1 C 84 98/48 L 92 12/02/19 03:35 78 20 95 12/02/19 03:34 37.1 C 78 102/51 L 96 12/02/19 03:19 37.1 C 83 102/52 L 97 12/02/19 03:04 37.1 C 81 98/55 L 96 12/02/19 02:49 37.1 C 85 104/52 L 96 12/02/19 02:34 37.1 C 79 104/55 L 96 12/02/19 02:19 37.1 C 73 106/65 96 12/02/19 02:04 37.2 C 80 106/45 L 96 12/02/19 01:49 37.2 C 81 105/53 L 96 12/02/19 01:34 37.1 C 80 107/53 L 95 12/02/19 01:19 37.1 C 80 105/56 L 97 12/02/19 01:15 75 22 99 12/02/19 01:04 37.2 C 81 109/56 L 99 12/02/19 00:48 37.2 C 73 112/51 L 99 12/02/19 00:34 37.2 C 86 103/55 L 98 12/02/19 00:19 37.2 C 74 102/59 L 98 Laboratory Results Laboratory Results - last 24 hr 12/01/19 12/01/19 12/01/19 19:25 19:25 19:25 WBC 11.71 H RBC 4.55 L Hgb 10.2 L POC Hgb Hct 37.2 L POC Hct MCV 81.8 MCH 22.4 L MCHC 27.4 L RDW Std Deviation 54.7 H RDW Coeff of Robert 20.7 H Plt Count 307 MPV 10.0 Immature Gran % (Auto) 0.2 Neut % (Auto) 79.4 Lymph % (Auto) 8.8 Gila % (Auto) 9.1 Eos % (Auto) 2.2 Baso % (Auto) 0.3 Neut # (Auto) 9.29 H Lymph # (Auto) 1.03 L Gila # (Auto) 1.07 H Eos # (Auto) 0.26 Baso # (Auto) 0.04 Immature Gran # (Auto) 0.02 Giant Platelets 1+ Polychromasia 1+ Hypochromasia Anisocytosis Present Ovalocytes 1+ PT 40.4 H INR 4.1 H APTT 47.3 H* PTT Ratio 1.7 Sample Site POC pH POC pCO2 POC pO2 POC HCO3 POC Total CO2 POC Base Excess ABG pH (Temp Correct) ABG pCO2 (Temp Corrct POC ABG pO2 at Pt Temp POC ABG O2 Sat Isra Test O2 Delivery Device POC O2 Rate Minute Ventilation POC FiO2 Tidal Volume PEEP POC Sodium Sodium 143 POC Potassium Potassium 4.0 Chloride 103 Carbon Dioxide 34 H Anion Gap 6.0 BUN 18 Creatinine 1.47 H Est Cr Clr Drug Dosing Not Reportable Est GFR ( Amer) 51.5 Est GFR (Non-Af Amer) 44.4 BUN/Creatinine Ratio 12.5 Glucose 119 H POC Glucose Lactate Calcium 9.1 Phosphorus Magnesium Total Bilirubin 1.2 H AST 14 L ALT 16 Alkaline Phosphatase 89 Troponin I < 0.015 NT-Pro-B Natriuret Pep Total Protein 8.2 Albumin 4.0 Globulin 4.2 H Albumin/Globulin Ratio 1.0 Procalcitonin Urine Color Urine Appearance Urine pH Ur Specific [place] Urine Protein Urine Glucose (UA) Urine Ketones Urine Blood Urine Nitrite Urine Bilirubin Urine Urobilinogen Ur Leukocyte Esterase Urine WBC (Auto) Urine RBC (Auto) U Hyaline Cast (Auto) U Epithel Cells (Auto) Urine Bacteria (Auto) Ur Renal Epithelial Cell Amorphous Sediment Nasal Screen MRSA (PCR) COVID-19 Eval Order COVID-19 PCR Influenza Type A (PCR) Influenza Type B (PCR) 12/01/19 12/01/19 12/01/19 19:25 20:13 20:13 WBC RBC Hgb POC Hgb Hct POC Hct MCV MCH MCHC RDW Std Deviation RDW Coeff of Robert Plt Count MPV Immature Gran % (Auto) Neut % (Auto) Lymph % (Auto) Gila % (Auto) Eos % (Auto) Baso % (Auto) Neut # (Auto) Lymph # (Auto) Gila # (Auto) Eos # (Auto) Baso # (Auto) Immature Gran # (Auto) Giant Platelets Polychromasia Hypochromasia Anisocytosis Ovalocytes PT INR APTT PTT Ratio Sample Site POC pH POC pCO2 POC pO2 POC HCO3 POC Total CO2 POC Base Excess ABG pH (Temp Correct) ABG pCO2 (Temp Corrct POC ABG pO2 at Pt Temp POC ABG O2 Sat Isra Test O2 Delivery Device POC O2 Rate Minute Ventilation POC FiO2 Tidal Volume PEEP POC Sodium Sodium POC Potassium Potassium Chloride Carbon Dioxide Anion Gap BUN Creatinine Est Cr Clr Drug Dosing Est GFR ( Amer) Est GFR (Non-Af Amer) BUN/Creatinine Ratio Glucose POC Glucose Lactate 4.0 H* Calcium Phosphorus Magnesium Total Bilirubin AST ALT Alkaline Phosphatase Troponin I NT-Pro-B Natriuret Pep Total Protein Albumin Globulin Albumin/Globulin Ratio Procalcitonin Urine Color Urine Appearance Urine pH Ur Specific [place] Urine Protein Urine Glucose (UA) Urine Ketones Urine Blood Urine Nitrite Urine Bilirubin Urine Urobilinogen Ur Leukocyte Esterase Urine WBC (Auto) Urine RBC (Auto) U Hyaline Cast (Auto) U Epithel Cells (Auto) Urine Bacteria (Auto) Ur Renal Epithelial Cell Amorphous Sediment Nasal Screen MRSA (PCR) COVID-19 Eval Order Covid[address] [facility] COVID-19 PCR Influenza Type A (PCR) Neg for Influ A Influenza Type B (PCR) Neg for Influ B 12/01/19 12/01/19 12/02/19 20:13 23:15 00:00 WBC RBC Hgb POC Hgb Hct POC Hct MCV MCH MCHC RDW Std Deviation RDW Coeff of Robert Plt Count MPV Immature Gran % (Auto) Neut % (Auto) Lymph % (Auto) Gila % (Auto) Eos % (Auto) Baso % (Auto) Neut # (Auto) Lymph # (Auto) Gila # (Auto) Eos # (Auto) Baso # (Auto) Immature Gran # (Auto) Giant Platelets Polychromasia Hypochromasia Anisocytosis Ovalocytes PT INR APTT PTT Ratio Sample Site POC pH POC pCO2 POC pO2 POC HCO3 POC Total CO2 POC Base Excess ABG pH (Temp Correct) ABG pCO2 (Temp Corrct POC ABG pO2 at Pt Temp POC ABG O2 Sat Isra Test O2 Delivery Device POC O2 Rate Minute Ventilation POC FiO2 Tidal Volume PEEP POC Sodium Sodium POC Potassium Potassium Chloride Carbon Dioxide Anion Gap BUN Creatinine Est Cr Clr Drug Dosing Est GFR ( Amer) Est GFR (Non-Af Amer) BUN/Creatinine Ratio Glucose POC Glucose Lactate Calcium Phosphorus Magnesium Total Bilirubin AST ALT Alkaline Phosphatase Troponin I NT-Pro-B Natriuret Pep Total Protein Albumin Globulin Albumin/Globulin Ratio Procalcitonin Urine Color Yellow Urine Appearance Turbid A Urine pH 5.0 Ur Specific [place] 1.024 Urine Protein 3+ H Urine Glucose (UA) Negative Urine Ketones Negative Urine Blood 2+ H Urine Nitrite Negative Urine Bilirubin Negative Urine Urobilinogen Negative Ur Leukocyte Esterase Negative Urine WBC (Auto) 5-10 H Urine RBC (Auto) 10-30 H U Hyaline Cast (Auto) 0 U Epithel Cells (Auto) >30 H Urine Bacteria (Auto) 1+ H Ur Renal Epithelial Cell Not Reportable Amorphous Sediment Present A Nasal Screen MRSA (PCR) Negative COVID-19 Eval Order COVID-19 PCR NEGATIVE Influenza Type A (PCR) Influenza Type B (PCR) 12/02/19 12/02/19 12/02/19 00:15 00:15 00:15 WBC RBC Hgb POC Hgb Hct POC Hct MCV MCH MCHC RDW Std Deviation RDW Coeff of Robert Plt Count MPV Immature Gran % (Auto) Neut % (Auto) Lymph % (Auto) Gila % (Auto) Eos % (Auto) Baso % (Auto) Neut # (Auto) Lymph # (Auto) Gila # (Auto) Eos # (Auto) Baso # (Auto) Immature Gran # (Auto) Giant Platelets Polychromasia Hypochromasia Anisocytosis Ovalocytes PT INR APTT PTT Ratio Sample Site POC pH POC pCO2 POC pO2 POC HCO3 POC Total CO2 POC Base Excess ABG pH (Temp Correct) ABG pCO2 (Temp Corrct POC ABG pO2 at Pt Temp POC ABG O2 Sat Isra Test O2 Delivery Device POC O2 Rate Minute Ventilation POC FiO2 Tidal Volume PEEP POC Sodium Sodium POC Potassium Potassium Chloride Carbon Dioxide Anion Gap BUN Creatinine Est Cr Clr Drug Dosing Est GFR ( Amer) Est GFR (Non-Af Amer) BUN/Creatinine Ratio Glucose POC Glucose Lactate 1.6 Calcium Phosphorus Magnesium Total Bilirubin AST ALT Alkaline Phosphatase Troponin I NT-Pro-B Natriuret Pep 2620 H Total Protein Albumin Globulin Albumin/Globulin Ratio Procalcitonin 0.43 Urine Color Urine Appearance Urine pH Ur Specific [place] Urine Protein Urine Glucose (UA) Urine Ketones Urine Blood Urine Nitrite Urine Bilirubin Urine Urobilinogen Ur Leukocyte Esterase Urine WBC (Auto) Urine RBC (Auto) U Hyaline Cast (Auto) U Epithel Cells (Auto) Urine Bacteria (Auto) Ur Renal Epithelial Cell Amorphous Sediment Nasal Screen MRSA (PCR) COVID-19 Eval Order COVID-19 PCR Influenza Type A (PCR) Influenza Type B (PCR) 12/02/19 12/02/19 12/02/19 00:19 04:02 04:02 WBC 8.14 RBC 3.88 L Hgb 8.6 L POC Hgb Hct 31.1 L POC Hct MCV 80.2 MCH 22.2 L MCHC 27.7 L RDW Std Deviation RDW Coeff of Robert Plt Count 222 MPV Immature Gran % (Auto) 0.4 Neut % (Auto) 94.6 Lymph % (Auto) 3.1 Gila % (Auto) 1.8 Eos % (Auto) 0.0 Baso % (Auto) 0.1 Neut # (Auto) 7.70 H Lymph # (Auto) 0.25 L Gila # (Auto) 0.15 Eos # (Auto) 0.00 Baso # (Auto) 0.01 Immature Gran # (Auto) 0.03 H Giant Platelets Polychromasia Hypochromasia Present Anisocytosis Ovalocytes 1+ PT 41.1 H INR 4.2 H APTT PTT Ratio Sample Site POC pH POC pCO2 POC pO2 POC HCO3 POC Total CO2 POC Base Excess ABG pH (Temp Correct) ABG pCO2 (Temp Corrct POC ABG pO2 at Pt Temp POC ABG O2 Sat Isra Test O2 Delivery Device POC O2 Rate Minute Ventilation POC FiO2 Tidal Volume PEEP POC Sodium Sodium POC Potassium Potassium Chloride Carbon Dioxide Anion Gap BUN Creatinine Est Cr Clr Drug Dosing Est GFR ( Amer) Est GFR (Non-Af Amer) BUN/Creatinine Ratio Glucose POC Glucose 182 H Lactate Calcium Phosphorus Magnesium Total Bilirubin AST ALT Alkaline Phosphatase Troponin I NT-Pro-B Natriuret Pep Total Protein Albumin Globulin Albumin/Globulin Ratio Procalcitonin Urine Color Urine Appearance Urine pH Ur Specific [place] Urine Protein Urine Glucose (UA) Urine Ketones Urine Blood Urine Nitrite Urine Bilirubin Urine Urobilinogen Ur Leukocyte Esterase Urine WBC (Auto) Urine RBC (Auto) U Hyaline Cast (Auto) U Epithel Cells (Auto) Urine Bacteria (Auto) Ur Renal Epithelial Cell Amorphous Sediment Nasal Screen MRSA (PCR) COVID-19 Eval Order COVID-19 PCR Influenza Type A (PCR) Influenza Type B (PCR) 12/02/19 12/02/19 12/02/19 04:02 05:30 06:30 WBC RBC Hgb POC Hgb 10.2 L Hct POC Hct 30 L MCV MCH MCHC RDW Std Deviation RDW Coeff of Robert Plt Count MPV Immature Gran % (Auto) Neut % (Auto) Lymph % (Auto) Gila % (Auto) Eos % (Auto) Baso % (Auto) Neut # (Auto) Lymph # (Auto) Gila # (Auto) Eos # (Auto) Baso # (Auto) Immature Gran # (Auto) Giant Platelets Polychromasia Hypochromasia Anisocytosis Ovalocytes PT INR APTT PTT Ratio Sample Site R Radial POC pH 7.45 POC pCO2 46 POC pO2 71 L POC HCO3 32 H POC Total CO2 33 H POC Base Excess 8.0 H ABG pH (Temp Correct) 7.446 ABG pCO2 (Temp Corrct 46 POC ABG pO2 at Pt Temp 71 POC ABG O2 Sat 94.0 Isra Test Pass O2 Delivery Device Ventilator POC O2 Rate 20 Minute Ventilation 10 POC FiO2 30 Tidal Volume 500 PEEP 5 POC Sodium 142 Sodium 141 POC Potassium 3.7 Potassium 4.0 Chloride 104 Carbon Dioxide 33 H Anion Gap 4.0 BUN 21 H Creatinine 1.42 H Est Cr Clr Drug Dosing 48.6 Est GFR ( Amer) 53.7 Est GFR (Non-Af Amer) 46.3 BUN/Creatinine Ratio 14.9 Glucose 215 H POC Glucose 239 H Lactate Calcium 8.6 Phosphorus 2.5 Magnesium 2.0 Total Bilirubin AST ALT Alkaline Phosphatase Troponin I NT-Pro-B Natriuret Pep Total Protein Albumin Globulin Albumin/Globulin Ratio Procalcitonin Urine Color Urine Appearance Urine pH Ur Specific [place] Urine Protein Urine Glucose (UA) Urine Ketones Urine Blood Urine Nitrite Urine Bilirubin Urine Urobilinogen Ur Leukocyte Esterase Urine WBC (Auto) Urine RBC (Auto) U Hyaline Cast (Auto) U Epithel Cells (Auto) Urine Bacteria (Auto) Ur Renal Epithelial Cell Amorphous Sediment Nasal Screen MRSA (PCR) COVID-19 Eval Order COVID-19 PCR Influenza Type A (PCR) Influenza Type B (PCR) 12/02/19 12/02/19 08:42 11:38 WBC RBC Hgb POC Hgb Hct POC Hct MCV MCH MCHC RDW Std Deviation RDW Coeff of Robert Plt Count MPV Immature Gran % (Auto) Neut % (Auto) Lymph % (Auto) Gila % (Auto) Eos % (Auto) Baso % (Auto) Neut # (Auto) Lymph # (Auto) Gila # (Auto) Eos # (Auto) Baso # (Auto) Immature Gran # (Auto) Giant Platelets Polychromasia Hypochromasia Anisocytosis Ovalocytes PT INR APTT PTT Ratio Sample Site POC pH POC pCO2 POC pO2 POC HCO3 POC Total CO2 POC Base Excess ABG pH (Temp Correct) ABG pCO2 (Temp Corrct POC ABG pO2 at Pt Temp POC ABG O2 Sat Isra Test O2 Delivery Device POC O2 Rate Minute Ventilation POC FiO2 Tidal Volume PEEP POC Sodium Sodium POC Potassium Potassium Chloride Carbon Dioxide Anion Gap BUN Creatinine Est Cr Clr Drug Dosing Est GFR ( Amer) Est GFR (Non-Af Amer) BUN/Creatinine Ratio Glucose POC Glucose 244 H 226 H Lactate Calcium Phosphorus Magnesium Total Bilirubin AST ALT Alkaline Phosphatase Troponin I NT-Pro-B Natriuret Pep Total Protein Albumin Globulin Albumin/Globulin Ratio Procalcitonin Urine Color Urine Appearance Urine pH Ur Specific [place] Urine Protein Urine Glucose (UA) Urine Ketones Urine Blood Urine Nitrite Urine Bilirubin Urine Urobilinogen Ur Leukocyte Esterase Urine WBC (Auto) Urine RBC (Auto) U Hyaline Cast (Auto) U Epithel Cells (Auto) Urine Bacteria (Auto) Ur Renal Epithelial Cell Amorphous Sediment Nasal Screen MRSA (PCR) COVID-19 Eval Order COVID-19 PCR Influenza Type A (PCR) Influenza Type B (PCR) Medications Administered Current Inpatient Medications Acetaminophen (Acetaminophen 500 Mg Tab) 1,000 mg PO Q8H PRN PRN Reason: Pain Stop: 01/01/20 10:02 Last Admin: 12/02/19 10:12 Dose: 1,000 mg Documented by: Dextrose (Dextrose 50% 50 Ml Syringe) 25 - 50 ml IV UD PRN; Protocol PRN Reason: Hypoglycemia Protocol Stop: 12/31/19 23:44 Fluticasone/Vilanterol (Fluticasone/Vilanterol 100/25mcg 14 Puffs/Inhaler) 1 puffs INH DAILY JIMMY Stop: 01/01/20 08:59 Last Admin: 12/02/19 09:46 Dose: 1 puffs Documented by: Glucagon (Glucagon For Inj 1 Mg Vial) 1 mg SQ UD PRN; Protocol PRN Reason: Hypoglycemia Protocol Stop: 12/31/19 23:44 Glucose (Glucose 40% Gel 15 Gm Tube) 15 - 30 gm PO UD PRN; Protocol PRN Reason: Hypoglycemia Protocol Stop: 12/31/19 23:44 Glucose (Glucose 10 Tabs/Tube) 4 - 8 tabs PO UD PRN; Protocol PRN Reason: Hypoglycemia Protocol Stop: 12/31/19 23:44 Furosemide 40 mg/ Syringe 4 mls @ 4 mls/min IV DAILY JIMMY Stop: 01/01/20 08:59 Last Admin: 12/02/19 09:44 Dose: 4 mls/min Documented by: Insulin Aspart (Insulin Aspart 100 Units/Ml 3 Ml Pen) 0 units SC ACHS JIMMY Stop: 01/01/20 07:29 Last Admin: 12/02/19 12:05 Dose: 8 units Documented by: Ipratropium [place] (Ipratropium [place] Neb Soln 0.02% 2.5 Ml Vial) 0.5 mg INH Q6R JIMMY Stop: 01/01/20 00:59 Last Admin: 12/02/19 07:33 Dose: 0.5 mg Documented by: Levalbuterol HCl (Levalbuterol 1.25mg/0.5ml Neb) 1.25 mg INH Q6R JIMMY Stop: 01/01/20 00:59 Last Admin: 12/02/19 07:33 Dose: 1.25 mg Documented by: Levetiracetam (Levetiracetam 500 Mg Tab) 500 mg PO BID JIMMY Stop: 01/01/20 09:59 Last Admin: 12/02/19 11:43 Dose: 500 mg Documented by: Metoprolol Tartrate (Metoprolol Tartrate 1 Mg/Ml Vial) 2.5 mg IV Q6 PRN PRN Reason: Hypertension Stop: 12/31/19 23:32 Metoprolol Tartrate (Metoprolol Tartrate 25 Mg Tab) 12.5 mg PO BID JIMMY Stop: 01/01/20 08:59 Last Admin: 12/02/19 09:44 Dose: 12.5 mg Documented by: Miscellaneous (Icu Protocol For Hyperglycemia) 1 ea N/A PRN PRN; Protocol PRN Reason: Hyperglycemia Protocol Stop: 12/03/19 23:32 Miscellaneous (Carbohydrates For Hypoglycemia ) 15 - 30 gm PO UD PRN PRN Reason: Hypoglycemia Treatment Stop: 12/31/19 23:44 Miscellaneous ([facility] Protocol For Hyperglycemia) 1 ea N/A PRN PRN; Protocol PRN Reason: Hyperglycemia Protocol Stop: 12/04/19 00:16 Umeclidinium [place] (Umeclidinium [place] 62.5mcg/Blister 7 Puffs/Inhaler) 1 puffs INH DAILY JIMMY Stop: 01/01/20 08:59 Last Admin: 12/02/19 09:46 Dose: 1 puffs Documented by:
--- NOTE | 2019-12-02 16:50 | Electrocardiogram Report ---
Test Reason : Blood Pressure : / mmHG Vent. Rate : 127 BPM Atrial Rate : 147 BPM P-R Int : 000 ms QRS Dur : 098 ms QT Int : 280 ms P-R-T Axes : 000 -12 100 degrees QTc Int : 406 ms Atrial fibrillation with rapid ventricular response Marked ST abnormality, possible lateral subendocardial injury Abnormal ECG When compared with ECG of 05-JAN-2017 13:55, ST now depressed in Lateral leads T wave inversion now evident in Lateral leads Confirmed by Jozef Rubin ([id number]) on 12/02/2019 4:50:10 PM Referred By: REFERRED SELF Confirmed By:Skyler Rubin
--- NOTE | 2019-12-02 17:00 | Hospitalist Progress Note ---
Date of Service December 02, 2019 Assessment & Plan (1) Acute hypercapnic respiratory failure: Possibly secondary to acute decompensated CHF with systolic dysfunction, repeat exacerbation Required mechanical ventilation for short period of time Extubated, respiratory status remained stable Appreciate input from cardiology, continue IV Lasix diuresis, monitor daily weight input and output Continue nebulizer treatment and outpatient inhalers Appreciate input from pulmonary/critical care Stable to be transferred out of ICU Obtundation/decreased responsiveness: Metabolic encephalopathy secondary to hypoxia, respiratory failure Mental status improved to baseline (2) Ischemic cardiomyopathy: History of ischemic cardiomyopathy with systolic dysfunction ejection fraction 55%, with valvular heart disease Presented with acute decompensated CHF leading to respiratory failure, volume status improved with diuresis Cardiology following (3) Atrial fibrillation: Chronic A. fib, continue on beta-kemar Coumadin on hold for elevated INR Anemia of chronic disease Hemoglobin drop noted 10-> 8 No evidence of any GI bleed On oral PPI monitor H&H, stool Hemoccult ordered GI consult requested, as patient will need to be on chronic anticoagulation with Coumadin CKD stage III: Continue to monitor renal function, while patient getting diuresis Type 2 diabetes: Insulin sliding scale, CODE STATUS: Full code Disposition: Expected to be discharged home when medically stable, PT OT blanca requested Admission and Anticipated Discharge Date Admission Date: December 01, 2019 Subjective Patient extubated earlier today, awake and alert, on 2 L oxygen via nasal ca nnula which is patient's baseline, no fever chills denies of any shortness of breath no cough no orthopnea Vitals stable Review of Systems Review of Systems: All systems reviewed & are unremarkable except as noted in HPI & below Physical Exam Constitutional: WD/WN, vitals as above Eyes: PERRL, conjunctivae normal, anicteric sclerae ENMT: external ear and nose normal, oropharynx normal Neck: trachea midline, no thyromegaly Respiratory: normal respiratory effort and + cough; no respiratory distress Auscultation: + crackles, + rales and + wheezes Cardiovascular: RRR, no murmur, no edema Gastrointestinal (Abdomen): normal bowel sounds, soft, nontender, no hepatosplenomegaly Musculoskeletal: no cyanosis or clubbing, extremities motor strength 5/5 Skin: no rashes, warm and dry Neurologic: PERRL, EOMI, accommodation nl, no face palsy, no dysarthria Psychiatric: A+Ox3, euthymic affect Results & Data Results & Data ([facility]) Vital Signs (Past 12 Hours) Vital Signs Temp Pulse Pulse Resp BP Pulse Ox 12/02/19 13:20 81 20 94 12/02/19 12:00 37 C 86 96 12/02/19 11:35 78 20 100/42 L 97 12/02/19 11:00 90 20 97 12/02/19 10:35 84 20 108/42 L 94 12/02/19 10:00 37.2 C 86 18 93 12/02/19 09:35 90 18 117/53 L 95 12/02/19 09:00 86 16 93 12/02/19 08:35 92 H 22 115/47 L 93 12/02/19 08:03 92 H 28 H 92 12/02/19 08:00 89 92 12/02/19 07:35 85 117/51 L 93 12/02/19 07:00 37 C 87 91 12/02/19 06:04 37.1 C 85 122/57 L 92 12/02/19 05:49 37.0 C 84 111/54 L 92 12/02/19 05:34 37.0 C 79 116/60 96 12/02/19 05:30 82 23 94 12/02/19 05:19 37.0 C 85 112/54 L 92 12/02/19 05:04 37.0 C 79 102/51 L 93
[2019-12-02] MEDS ORDERED: IPRATROPIUM BROMIDE/ALBUTEROL respimat INH INH SCH (19:28)
[2019-12-02] MEDS: SIMETHICONE 80 MG CHEW PO PRN (20:02)
[2019-12-02] MEDS: GABAPENTIN 300 MG CAP PO SCH (20:39)
[2019-12-02] MEDS: IPRATROPIUM BROMIDE HFA INHALER INH SCH (20:59)
[2019-12-02] MEDS: ALBUTEROL HFA 8 GM INHALER INH SCH (20:59)
[2019-12-02] MEDS ORDERED: levETIRAcetam 500 MG TAB PO SCH (21:00)
[2019-12-02] MEDS ORDERED: BUDESONIDE/FORMOTEROL FUMARATE 160/4.5 60 PUFFS/INHALER INH SCH (21:00)
[2019-12-03] MEDS: LEVALBUTEROL 1.25MG/0.5ML NEB INH SCH ×4 (00:19→20:01)
[2019-12-03] MEDS: IPRATROPIUM BROMIDE NEB SOLN 0.02% 2.5 ML VIAL NEB SCH ×4 (00:19→20:01)
[2019-12-03 06:57] LABS: Hematocrit (blood only) 33.3 % (42-52); Hemoglobin 9.1 g/dL (14.0-18.0); Mean Corpuscular Hemoglobin 22.2 pg (25-34); Mean Corpuscular Hgb Conc 27.3 g/dL (32-36); Mean Corpuscular Volume 81.4 fL (80-100); Mean Platelet Volume 9.7 fL (7.4-10.4); Platelet Count 276 K/uL (130-400); RDW Coefficient of Variation 21.4 % (11.5-14.5); RDW Standard Deviation 56.8 fL (36.4-46.3); Red Blood Count 4.09 M/uL (4.7-6.1)
[2019-12-03 07:04] LABS: Prothrombin Time 29.8 Seconds (9.0-12.0)
[2019-12-03 07:16] LABS: BUN Creatinine Ratio 22.2 (10-20); Calcium 8.9 mg/dl (8.5-10.1); Creatinine Clr Calc Pharmacy 45.6 ml/min; Est GFR (African American) 49.4; Est GFR (Non-African American) 42.7; Potassium 4.3 mmol/L (3.5-5.1)
[2019-12-03 07:17] LABS: Anisocytosis Present; Immature Granulocytes # (auto) 0.04 K/uL (0.00-0.02); Immature Granulocytes % (auto) 0.3 %; Lymphocytes # (auto) 0.93 K/uL (1.2-3.4); Lymphocytes % (auto) 5.9 %; Monocytes # (auto) 0.57 K/uL (0.11-0.59); Monocytes % (auto) 3.6 %; Neutrophils # (auto) 14.16 K/uL (1.4-6.5); Neutrophils % (auto) 90.2 %; Ovalocytes 1+; Polychromasia 1+; Spherocytes 1+
[2019-12-03] MEDS: UMECLIDINIUM BROMIDE 62.5MCG/BLISTER 7 PUFFS/INHALER INH SCH (08:18)
[2019-12-03] MEDS: levETIRAcetam 500 MG TAB PO SCH ×2 (08:19→21:27)
[2019-12-03] MEDS: FLUTICASONE/VILANTEROL 100/25MCG 14 PUFFS/INHALER INH SCH (08:19)
[2019-12-03] MEDS: CHOLECALCIFEROL 1,000 UNITS 25 MCG TAB PO SCH (08:20)
[2019-12-03] MEDS: METOPROLOL TARTRATE 25 MG TAB PO SCH (08:20)
[2019-12-03] MEDS: PANTOprazole 40 MG TAB PO SCH (08:21)
[2019-12-03] MEDS: ASPIRIN 81 MG ECTAB PO SCH (08:21)
[2019-12-03] MEDS: FUROSEMIDE 40 MG in SYRINGE 0 ML IV SCH (08:21)
[2019-12-03] MEDS: INSULIN ASPART 100 UNITS/ML 3 ML PEN SC SCH ×4 (08:52→21:28)
--- NOTE | 2019-12-03 09:25 | Gastrointestinal Consultation ---
Date of Consultation December 03, 2019 Assessment & Plan (1) Anemia: Pt is a 79 y/o male admitted for acute respiratory failure 2/2 CHF, seen today for evaluation of anemia. He is on Coumadin for Afib, INR 4 on admission now down to 3. He is not displaying conner s/s of GI bleeding. - Hx of gastric ulcer in 2008. He smokes, no ETOH or NSAIDs. Continue PPI. Discussed EGD evaluation after INR down to around <2. He is agreeable. Please hold Coumadin, and we will plan for EGD eval on 12/04. NPO after midnight on 12/04 00:01. - He is not agreeable to repeat colonoscopy eval - Monitor H/H and transfuse prn Supervising Physician Co-Signing Physician Notes I performed a history and physical examination of the patient today, including specifically on physical exam - soft abdomen. I have discussed the patient's management with the advanced practitioner. Please refer to the nurse practitioner's note for the documented findings and plan of care. Anemia without overt GI bleeding. EGD on after holding Coumadin. History of Present Illness Reason for Consultation: Anemia in setting of anticoagulant use Requesting Physician: Dr. Harriett Recio Attending Physician: Dr. Blue Flannery History of Present Illness Pt is a 79 y/o male admitted for heart failure, acute respiratory distress requiring short term intubation. GI consulted to evaluate him for anemia. H/H dropped from to . He is on Coumadin for Afib, INR on presentation was 4. He denies symptoms of PATRICK, light headedness, CP, SOB above baseline (smoker). Denies abd pain, n/v. He reports taking iron w Vit C supplement and stools are black in color but no conner rectal bleeding. Hx of gastric ulcer noted in 2008. Last colonoscopy in 2009 showed adenomatous polyp, recommended for repeat in 5 yrs. He denies NSAIDs, ETOH. But does smoke tobacco. Allergies Allergy/AdvReac Type Severity Reaction Status Date / Time Sulfa (Sulfonamide Allergy Unknown HIVES Verified 01/05/17 09:32 Antibiotics) Home Medications Home Medications Medication Instructions Recorded Confirmed Type Aspirin Low Dose 81 mg PO DAILY 12/01/19 12/01/19 History Vitamin D3 1,000 mg PO DAILY 12/01/19 12/01/19 History budesonide-formoterol [Symbicort] 2 puff INHALATION BID 12/01/19 12/01/19 History doxycycline hyclate 100 mg PO DIRECTED 12/01/19 12/01/19 History gabapentin 300 mg PO HS 12/01/19 12/01/19 History glipizide 5 mg PO DAILY 12/01/19 12/01/19 History ipratropium-albuterol [Combivent 1 puff INHALATION QID 12/01/19 12/01/19 History Respimat] levetiracetam 500 mg PO BID 12/01/19 12/01/19 History linagliptin [Tradjenta] 5 mg PO DAILY 12/01/19 12/01/19 History metoprolol tartrate 25 mg PO DAILY 12/01/19 12/01/19 History omeprazole 20 mg PO DAILY 12/01/19 12/01/19 History torsemide 40 mg PO DAILY 12/01/19 12/01/19 History warfarin [Coumadin] 2.5 mg PO DAILY 12/01/19 12/01/19 History Patient History Medical History CKD (chronic kidney disease), stage III COPD, moderate CVA (cerebral vascular accident) Diabetes mellitus HTN (hypertension) Surgical History S/P AAA repair Social History Smoking Status: Unknown if ever smoked Preferred Language: Sami Communication Ability Comment: Unable to complete patient sedated Current Living Situation Comment: Unable to complete patient sedated Feels Safe at Home: Yes Assistive Devices: Oxygen - Continuous Review of Systems Review of Systems: All systems reviewed & are unremarkable except as noted in HPI & below Physical Exam Constitutional: WD/WN, vitals as above well groomed, cooperative and comfortable Eyes: PERRL, conjunctivae normal, anicteric sclerae ENMT: external ear and nose normal, oropharynx normal Respiratory: normal respiratory effort, lungs clear to auscultation Cardiovascular: RRR, no murmur, no edema Gastrointestinal (Abdomen): normal bowel sounds, soft, nontender, no hepatosplenomegaly Skin: no rashes, warm and dry no jaundice Psychiatric: A+Ox3, euthymic affect Lymphatic: no lymphedema Results & Data ([facility]) Vital Signs (Past 12 Hours) Vital Signs Temp Pulse Pulse Pulse Resp BP Pulse Ox 12/03/19 08:25 89 124/68 12/03/19 07:18 36.9 C 93 H 19 120/70 100 12/03/19 07:03 91 H 91 H 22 100 12/03/19 03:30 97 H 24 98 12/03/19 03:10 36.6 C 90 19 123/68 97 12/03/19 00:21 102 H 23 95 12/03/19 00:00 92 H 12/02/19 23:30 116 H 29 H 100 12/02/19 23:18 36.6 C 113 H 28 H 146/80 H 91
[2019-12-03] MEDS: ALBUTEROL HFA 8 GM INHALER INH SCH (09:26)
[2019-12-03] MEDS: IPRATROPIUM BROMIDE HFA INHALER INH SCH (09:26)
--- NOTE | 2019-12-03 09:54 | Cardiology Progress Note ---
Date of Service December 03, 2019 Assessment & Plan (1) Acute hypercapnic respiratory failure: (2) Asthma exacerbation in COPD: (3) Atrial fibrillation: (4) PVD (peripheral vascular disease): (5) Ischemic cardiomyopathy: The patient is clinically doing well. He has no new complaints and is less short of breath today. I will stop his IV Lasix and place him back on torsemide 20 mg twice daily. Admission and Anticipated Discharge Date Admission Date: December 01, 2019 Subjective The patient is alert today. No new complaints. States he is less short of breath. Review of Systems Review of Systems: All systems reviewed & are unremarkable except as noted in HPI & below Nothing additional to add. Physical Exam Physical Exam: General: no acute distress and stated age Head: normocephalic, no masses, lesions, tenderness or abnormalities Eyes: conjunctiva are pink and non-injected, sclera clear Neck: supple, no adenopathy, no bruits, normal jugular venous pulse, no hepa tojugular reflux Chest: normal shape and normal respiratory effort Lungs: clear to auscultation and percussion Cardiac Exam: - irregular rate & rhythm, no murmurs gallops or rubs - normal S1, normal S2 Pulses: 2(+) throughout Abdomen: abdomen soft, non-tender, no abnormal masses and no hepatosplenomegaly Musculoskeletal: no gait disturbance, no joint inflammation, no deforming arthritis Extremities: no edema and no cyanosis Neuro: grossly normal exam Results & Data ([facility]) Vital Signs (Past 12 Hours) Vital Signs Temp Pulse Pulse Pulse Resp BP Pulse Ox 12/03/19 08:25 89 124/68 12/03/19 07:18 36.9 C 93 H 19 120/70 100 12/03/19 07:03 91 H 91 H 22 100 12/03/19 03:30 97 H 24 98 12/03/19 03:10 36.6 C 90 19 123/68 97 12/03/19 00:21 102 H 23 95 12/03/19 00:00 92 H 12/02/19 23:30 116 H 29 H 100 12/02/19 23:18 36.6 C 113 H 28 H 146/80 H 91 Laboratory Results Laboratory Results - last 24 hr 12/02/19 12/02/19 12/02/19 11:38 16:45 20:34 WBC RBC Hgb Hct MCV MCH MCHC RDW Std Deviation RDW Coeff of Robert Plt Count MPV Immature Gran % (Auto) Neut % (Auto) Lymph % (Auto) [place] % (Auto) Eos % (Auto) Baso % (Auto) Neut # (Auto) Lymph # (Auto) [place] # (Auto) Eos # (Auto) Baso # (Auto) Immature Gran # (Auto) Polychromasia Anisocytosis Spherocytes Ovalocytes PT INR Sodium Potassium Chloride Carbon Dioxide Anion Gap BUN Creatinine Est Cr Clr Drug Dosing Est GFR ( Amer) Est GFR (Non-Af Amer) BUN/Creatinine Ratio Glucose POC Glucose 226 H 202 H 211 H Calcium 12/02/19 12/03/19 12/03/19 23:28 06:23 06:23 WBC 15.70 H RBC 4.09 L Hgb 9.1 L Hct 33.3 L MCV 81.4 MCH 22.2 L MCHC 27.3 L RDW Std Deviation 56.8 H RDW Coeff of Robert 21.4 H Plt Count 276 MPV 9.7 Immature Gran % (Auto) 0.3 Neut % (Auto) 90.2 Lymph % (Auto) 5.9 [place] % (Auto) 3.6 Eos % (Auto) 0.0 Baso % (Auto) 0.0 Neut # (Auto) 14.16 H Lymph # (Auto) 0.93 L [place] # (Auto) 0.57 Eos # (Auto) 0.00 Baso # (Auto) 0.00 Immature Gran # (Auto) 0.04 H Polychromasia 1+ Anisocytosis Present Spherocytes 1+ Ovalocytes 1+ PT INR Sodium 139 Potassium 4.3 Chloride 101 Carbon Dioxide 36 H Anion Gap 2.0 L BUN 34 H D Creatinine 1.52 H Est Cr Clr Drug Dosing 45.6 Est GFR ( Amer) 49.4 Est GFR (Non-Af Amer) 42.7 BUN/Creatinine Ratio 22.2 H Glucose 146 H POC Glucose 139 H Calcium 8.9 12/03/19 06:23 WBC RBC Hgb Hct MCV MCH MCHC RDW Std Deviation RDW Coeff of Robert Plt Count MPV Immature Gran % (Auto) Neut % (Auto) Lymph % (Auto) [place] % (Auto) Eos % (Auto) Baso % (Auto) Neut # (Auto) Lymph # (Auto) [place] # (Auto) Eos # (Auto) Baso # (Auto) Immature Gran # (Auto) Polychromasia Anisocytosis Spherocytes Ovalocytes PT 29.8 H INR 3.0 H Sodium Potassium Chloride Carbon Dioxide Anion Gap BUN Creatinine Est Cr Clr Drug Dosing Est GFR ( Amer) Est GFR (Non-Af Amer) BUN/Creatinine Ratio Glucose POC Glucose Calcium Medications Administered Current Inpatient Medications Acetaminophen (Acetaminophen 500 Mg Tab) 1,000 mg PO Q8H PRN PRN Reason: Pain Stop: 01/01/20 10:02 Last Admin: 12/02/19 10:12 Dose: 1,000 mg Documented by: Aspirin (Aspirin 81 Mg Ectab) 81 mg PO DAILY JIMMY Stop: 01/02/20 08:59 Last Admin: 12/03/19 08:21 Dose: 81 mg Documented by: Dextrose (Dextrose 50% 50 Ml Syringe) 25 - 50 ml IV UD PRN; Protocol PRN Reason: Hypoglycemia Protocol Stop: 12/31/19 23:44 Fluticasone/Vilanterol (Fluticasone/Vilanterol 100/25mcg 14 Puffs/Inhaler) 1 puffs INH DAILY JIMMY Stop: 01/01/20 08:59 Last Admin: 12/03/19 08:19 Dose: 1 puffs Documented by: Gabapentin (Gabapentin 300 Mg Cap) 300 mg PO HS JIMMY Stop: 01/01/20 20:59 Last Admin: 12/02/19 20:39 Dose: 300 mg Documented by: Glucagon (Glucagon For Inj 1 Mg Vial) 1 mg SQ UD PRN; Protocol PRN Reason: Hypoglycemia Protocol Stop: 12/31/19 23:44 Glucose (Glucose 40% Gel 15 Gm Tube) 15 - 30 gm PO UD PRN; Protocol PRN Reason: Hypoglycemia Protocol Stop: 12/31/19 23:44 Glucose (Glucose 10 Tabs/Tube) 4 - 8 tabs PO UD PRN; Protocol PRN Reason: Hypoglycemia Protocol Stop: 12/31/19 23:44 Furosemide 40 mg/ Syringe 4 mls @ 4 mls/min IV DAILY JIMMY Stop: 01/01/20 08:59 Last Admin: 12/03/19 08:21 Dose: 4 mls/min Documented by: Insulin Aspart (Insulin Aspart 100 Units/Ml 3 Ml Pen) 0 units SC ACHS JIMMY Stop: 01/01/20 07:29 Last Admin: 12/03/19 08:52 Dose: 4 units Documented by: Ipratropium [place] (Ipratropium [place] Neb Soln 0.02% 2.5 Ml Vial) 0.5 mg NEB Q6R JIMMY Stop: 01/02/20 00:59 Last Admin: 12/03/19 07:02 Dose: 0.5 mg Documented by: Levalbuterol HCl (Levalbuterol 1.25mg/0.5ml Neb) 1.25 mg INH Q6R JIMMY Stop: 01/01/20 00:59 Last Admin: 12/03/19 07:02 Dose: 1.25 mg Documented by: Levetiracetam (Levetiracetam 500 Mg Tab) 500 mg PO BID JIMMY Stop: 01/01/20 09:59 Last Admin: 12/03/19 08:19 Dose: 500 mg Documented by: Metoprolol Tartrate (Metoprolol Tartrate 1 Mg/Ml Vial) 2.5 mg IV Q6 PRN PRN Reason: Hypertension Stop: 12/31/19 23:32 Metoprolol Tartrate (Metoprolol Tartrate 25 Mg Tab) 25 mg PO DAILY JIMMY Stop: 01/02/20 08:59 Last Admin: 12/03/19 08:20 Dose: 25 mg Documented by: Miscellaneous (Carbohydrates For Hypoglycemia ) 15 - 30 gm PO UD PRN PRN Reason: Hypoglycemia Treatment Stop: 12/31/19 23:44 Pantoprazole Sodium (Pantoprazole 40 Mg Tab) 40 mg PO DAILY JIMMY Stop: 01/02/20 08:59 Last Admin: 12/03/19 08:21 Dose: 40 mg Documented by: Simethicone (Simethicone 80 Mg Chew) 80 mg PO Q6H PRN PRN Reason: Heartburn Stop: 01/01/20 19:28 Last Admin: 12/02/19 20:02 Dose: 80 mg Documented by: Umeclidinium [place] (Umeclidinium [place] 62.5mcg/Blister 7 Puffs/Inhaler) 1 puffs INH DAILY JIMMY Stop: 01/01/20 08:59 Last Admin: 12/03/19 08:18 Dose: 1 puffs Documented by: Vitamin D (Cholecalciferol 1,000 Units 25 Mcg Tab) 1,000 units PO DAILY JIMMY Stop: 01/02/20 08:59 Last Admin: 12/03/19 08:20 Dose: 1,000 units Documented by:
[2019-12-03] MEDS: SIMETHICONE 80 MG CHEW PO PRN (10:22)
[2019-12-03] MEDS ORDERED: ALBUT/IPRATROP 3MG/0.5MG NEB 3 ML VIAL NEB STA (11:58)
[2019-12-03] MEDS ORDERED: ALBUT/IPRATROP 3MG/0.5MG NEB 3 ML VIAL NEB PRN (11:58)
[2019-12-03] MEDS ORDERED: LEVALBUTEROL 1.25MG/0.5ML NEB INH PRN (12:11)
--- NOTE | 2019-12-03 16:59 | Hospitalist Progress Note ---
Date of Service December 03, 2019 Assessment & Plan (1) Acute hypercapnic respiratory failure: Possibly secondary to acute decompensated CHF with systolic dysfunction, repeat exacerbation Required mechanical ventilation for short period of time Extubated, respiratory status remained stable Appreciate input from cardiology, adequate diuresis with IV Lasix clinically doing well. IV Lasix D/maxx by cardiology resume home dose of torsemide 20 mg twice daily. Obtundation/decreased responsiveness: resolved Metabolic encephalopathy secondary to hypoxia, respiratory failure Mental status improved to baseline (2) Ischemic cardiomyopathy: History of ischemic cardiomyopathy with systolic dysfunction ejection fraction 55%, with valvular heart disease Presented with acute decompensated CHF leading to respiratory failure, volume status improved with diuresis Cardiology following (3) Atrial fibrillation: Chronic A. fib, continue on beta-kemar Coumadin on hold for elevated INR Anemia of chronic disease Hemoglobin drop noted 10-> 8 No evidence of any GI bleed On oral PPI monitor H&H, stool Hemoccult ordered GI consult requested, plan for EGD on 12/05/19 CKD stage III: Continue to monitor renal function, while patient getting diuresis Type 2 diabetes: Insulin sliding scale, CODE STATUS: Full code Disposition: Expected to be discharged home when medically stable, PT OT bettyal requested Admission and Anticipated Discharge Date Admission Date: December 01, 2019 Subjective SOB has improved no chest pain , no fever or chills Physical Exam Constitutional: WD/WN, vitals as above Eyes: PERRL, conjunctivae normal, anicteric sclerae ENMT: external ear and nose normal, oropharynx normal Neck: trachea midline, no thyromegaly Respiratory: normal respiratory effort and + cough; no respiratory distress Auscultation: + crackles, + rales and + wheezes Cardiovascular: RRR, no murmur, no edema Gastrointestinal (Abdomen): normal bowel sounds, soft, nontender, no hepatosplenomegaly Musculoskeletal: no cyanosis or clubbing, extremities motor strength 5/5 Skin: no rashes, warm and dry Neurologic: PERRL, EOMI, accommodation nl, no face palsy, no dysarthria Psychiatric: A+Ox3, euthymic affect Results & Data Results & Data ([facility]) Vital Signs (Past 12 Hours) Vital Signs Temp Pulse Pulse Pulse Pulse Pulse Resp 12/03/19 14:52 12/03/19 14:00 37 C 88 22 12/03/19 12:09 92 H 18 12/03/19 11:30 12/03/19 10:58 36.7 C 95 H 18 12/03/19 08:25 89 12/03/19 07:18 36.9 C 93 H 19 12/03/19 07:03 91 H 91 H 22 BP Pulse Ox Pulse Ox 12/03/19 14:52 98 12/03/19 14:00 112/60 100 12/03/19 12:09 96 12/03/19 11:30 95 12/03/19 10:58 133/71 98 12/03/19 08:25 124/68 12/03/19 07:18 120/70 100 12/03/19 07:03 100
[2019-12-03] MEDS: TORSEMIDE 10 MG TAB PO SCH (21:27)
[2019-12-03] MEDS: GABAPENTIN 300 MG CAP PO SCH (21:27)
[2019-12-04] MEDS: IPRATROPIUM BROMIDE NEB SOLN 0.02% 2.5 ML VIAL NEB SCH ×4 (01:17→19:48)
[2019-12-04] MEDS: LEVALBUTEROL 1.25MG/0.5ML NEB INH SCH ×4 (01:17→19:48)
[2019-12-04 06:54] LABS: INR 2.2 (0.9-1.1); Prothrombin Time 22.5 Seconds (9.0-12.0)
[2019-12-04 07:26] LABS: Calcium 9.1 mg/dl (8.5-10.1); Est GFR (African American) 55.1; Est GFR (Non-African American) 47.5; Potassium 3.7 mmol/L (3.5-5.1)
[2019-12-04] MEDS ORDERED: SIMETHICONE 80 MG CHEW PO PRN (08:35)
[2019-12-04] MEDS: FLUTICASONE/VILANTEROL 100/25MCG 14 PUFFS/INHALER INH SCH (08:56)
[2019-12-04] MEDS: TORSEMIDE 10 MG TAB PO SCH ×2 (08:56→20:47)
[2019-12-04] MEDS: METOPROLOL TARTRATE 25 MG TAB PO SCH (08:57)
[2019-12-04] MEDS: levETIRAcetam 500 MG TAB PO SCH ×2 (08:57→20:48)
[2019-12-04] MEDS: UMECLIDINIUM BROMIDE 62.5MCG/BLISTER 7 PUFFS/INHALER INH SCH (08:57)
[2019-12-04] MEDS: PANTOprazole 40 MG TAB PO SCH (08:58)
[2019-12-04] MEDS: CHOLECALCIFEROL 1,000 UNITS 25 MCG TAB PO SCH (08:58)
[2019-12-04] MEDS: INSULIN ASPART 100 UNITS/ML 3 ML PEN SC SCH ×4 (09:00→21:45)
[2019-12-04 09:15] LABS: Hematocrit (blood only) 33.3 % (42-52); Hemoglobin 8.8 g/dL (14.0-18.0); Mean Corpuscular Hemoglobin 21.9 pg (25-34); Mean Corpuscular Hgb Conc 26.4 g/dL (32-36); Mean Corpuscular Volume 82.8 fL (80-100); Mean Platelet Volume 9.6 fL (7.4-10.4); Platelet Count 278 K/uL (130-400); RDW Coefficient of Variation 21.8 % (11.5-14.5); RDW Standard Deviation 61.7 fL (36.4-46.3); Red Blood Count 4.02 M/uL (4.7-6.1); White Blood Count 9.79 K/uL (4.8-10.8)
[2019-12-04 09:34] LABS: Anisocytosis Present; Basophilic Stippling 1+; Basophils # (auto) 0.01 K/uL (0-0.2); Basophils % (auto) 0.1 %; Eosinophils # (auto) 0.14 K/uL (0-0.5); Eosinophils % (auto) 1.4 %; Hypochromasia Present; Immature Granulocytes # (auto) 0.01 K/uL (0.00-0.02); Immature Granulocytes % (auto) 0.1 %; Lymphocytes # (auto) 0.68 K/uL (1.2-3.4); Lymphocytes % (auto) 6.9 %; Monocytes # (auto) 1.09 K/uL (0.11-0.59); Monocytes % (auto) 11.1 %; Neutrophils # (auto) 7.86 K/uL (1.4-6.5); Neutrophils % (auto) 80.4 %; Ovalocytes 1+
--- NOTE | 2019-12-04 10:02 | Gastroenterology Progress Note ---
Date of Service December 04, 2019 Assessment & Plan (1) Anemia: Pt is a 79 y/o male admitted for acute respiratory failure 2/2 CHF, seenfor evaluation of anemia. He is on Coumadin for Afib, INR 4 on admission now down to 2. He is not displaying conner s/s of GI bleeding. - Hx of gastric ulcer in 2008. He smokes, no ETOH or NSAIDs. Continue PPI. Discussed EGD evaluation after INR down to around <2. He is agreeable. Please hold Coumadin, and we will plan for EGD eval on 12/04. NPO after midnight on 12/04 00:01. - He is not agreeable to repeat colonoscopy eval - Monitor H/H and transfuse prn Admission and Anticipated Discharge Date Admission Date: December 01, 2019 Supervising Physician Co-Signing Physician Notes I have seen and examined the patient and discussed the management with TEODORO Downs. 79 yo male with a history of icm, copd, on coumadin - holding now. GI consulted for normocytic anemia- coumadin being held given INR of 4. PE - elderly male in nad, HEENT - perrla, CV- rrr no mrg, Pulm - ctab, Abd - soft nt nd +bs, Ext - no cali Labs reviewed Npo after midnite for egd tomorrow for evaluation fo anemia- patient in agr eement. Continue to hold coumadin until egd completed. Subjective Pt denies black or tarry stools. Reports abd bloating, gas, some discomfort, no n/v. Review of Systems Review of Systems: All systems reviewed & are unremarkable except as noted in HPI & below Physical Exam Constitutional: WD/WN, vitals as above well groomed, cooperative and comfortable Eyes: PERRL, conjunctivae normal, anicteric sclerae ENMT: external ear and nose normal, oropharynx normal Respiratory: normal respiratory effort, lungs clear to auscultation Cardiovascular: RRR, no murmur, no edema Gastrointestinal (Abdomen): Inspection/Auscultation: + abdomen distended (mild) and normal bowel sounds Percussion/Palpation: + abdomen tender (generalized discomfort when palpated) Skin: no rashes, warm and dry no jaundice Psychiatric: A+Ox3, euthymic affect Lymphatic: no lymphedema Results & Data ([facility]) Vital Signs (Past 12 Hours) Vital Signs Temp Pulse Pulse Pulse Resp BP Pulse Ox 12/04/19 07:52 36.8 C 98 H 18 117/48 L 93 12/04/19 07:41 81 21 98 12/04/19 07:03 81 21 98 12/04/19 05:50 90 20 96 12/04/19 04:36 36.5 C 91 H 16 115/61 97 12/04/19 01:16 103 H 20 93 12/04/19 01:15 103 H 20 93 12/04/19 00:00 93 H 12/03/19 23:24 36.9 C 85 19 109/61 98
--- NOTE | 2019-12-04 10:05 | XRay Report ---
KUB CLINICAL HISTORY: Abdominal distention. FINDINGS: 3 AP supine abdominal radiographs are correlated with abdominal CT dated 02/26/2015. There is a nonobstructed abdominal bowel gas pattern noting mild to moderate colonic fecal retention. No ev idence of intraperitoneal free air is seen on these supine images. There are 2 large nonobstructing l eft renal calculi measuring 14 mm and 12 mm. No right renal calculi are clearly identified. Phlebolit hs are seen in the pelvis. Calcified pleural plaques are present at the lung bases. The skeletal stru ctures are osteopenic and appear intact. IMPRESSION: 1. Nonobstructed abdominal bowel gas pattern noting mild to moderate colonic fecal retention. 2. Left-sided nephrolithiasis. Electronically signed by: Alec Shepherd M.D. 12/04/2019 10:04 AM
--- NOTE | 2019-12-04 11:59 | Cardiology Progress Note ---
Date of Service December 04, 2019 Assessment & Plan (1) Acute hypercapnic respiratory failure: (2) Asthma exacerbation in COPD: (3) Atrial fibrillation: (4) PVD (peripheral vascular disease): (5) Ischemic cardiomyopathy: The patient is doing well clinically. No additional cardiac testing at this time. Restarting warfarin today. Admission and Anticipated Discharge Date Admission Date: December 01, 2019 Subjective The patient is comfortable, sitting in a chair and having lunch. No new cardiac complaints today. Review of Systems Review of Systems: All systems reviewed & are unremarkable except as noted in Subjective Physical Exam Physical Exam: General: no acute distress and stated age Head: normocephalic, no masses, lesions, tenderness or abnormalities Eyes: conjunctiva are pink and non-injected, sclera clear Neck: supple, no adenopathy, no bruits, normal jugular venous pulse, no hepatojugular reflux Chest: normal shape and normal respiratory effort Lungs: clear to auscultation and percussion Cardiac Exam: - irregular rate & rhythm, no murmurs gallops or rubs - normal S1, normal S2 Pulses: 2(+) throughout Abdomen: abdomen soft, non-tender, no abnormal masses and no hepatosplenomegaly Musculoskeletal: no gait disturbance, no joint inflammation, no deforming arthritis Extremities: no edema and no cyanosis Neuro: grossly normal exam Results & Data ([facility]) Vital Signs (Past 12 Hours) Vital Signs Temp Pulse Pulse Pulse Resp BP Pulse Ox 12/04/19 11:33 36.5 C 92 H 18 107/62 100 12/04/19 07:52 36.8 C 98 H 18 117/48 L 93 12/04/19 07:41 81 21 98 12/04/19 07:03 81 21 98 12/04/19 05:50 90 20 96 12/04/19 04:36 36.5 C 91 H 16 115/61 97 12/04/19 01:16 103 H 20 93 12/04/19 01:15 103 H 20 93 12/04/19 00:00 93 H Laboratory Results Laboratory Results - last 24 hr 12/03/19 12/03/19 12/04/19 16:25 20:12 06:30 WBC RBC Hgb Hct MCV MCH MCHC RDW Std Deviation RDW Coeff of Robert Plt Count MPV Immature Gran % (Auto) Neut % (Auto) Lymph % (Auto) Bond % (Auto) Eos % (Auto) Baso % (Auto) Neut # (Auto) Lymph # (Auto) Bond # (Auto) Eos # (Auto) Baso # (Auto) Immature Gran # (Auto) Hypochromasia Basophilic Stippling Anisocytosis Ovalocytes PT INR Sodium 141 Potassium 3.7 Chloride 100 Carbon Dioxide 39 H Anion Gap 2.0 L BUN 36 H Creatinine 1.39 Est Cr Clr Drug Dosing 50.0 Est GFR ( Amer) 55.1 Est GFR (Non-Af Amer) 47.5 BUN/Creatinine Ratio 26.0 H Glucose 118 H POC Glucose 123 H 152 H Calcium 9.1 12/04/19 12/04/19 12/04/19 06:30 06:30 07:31 WBC 9.79 RBC 4.02 L Hgb 8.8 L Hct 33.3 L MCV 82.8 MCH 21.9 L MCHC 26.4 L RDW Std Deviation 61.7 H RDW Coeff of Robert 21.8 H Plt Count 278 MPV 9.6 Immature Gran % (Auto) 0.1 Neut % (Auto) 80.4 Lymph % (Auto) 6.9 Bond % (Auto) 11.1 Eos % (Auto) 1.4 Baso % (Auto) 0.1 Neut # (Auto) 7.86 H Lymph # (Auto) 0.68 L Bond # (Auto) 1.09 H Eos # (Auto) 0.14 Baso # (Auto) 0.01 Immature Gran # (Auto) 0.01 Hypochromasia Present Basophilic Stippling 1+ Anisocytosis Present Ovalocytes 1+ PT 22.5 H INR 2.2 H Sodium Potassium Chloride Carbon Dioxide Anion Gap BUN Creatinine Est Cr Clr Drug Dosing Est GFR ( Amer) Est GFR (Non-Af Amer) BUN/Creatinine Ratio Glucose POC Glucose 131 H Calcium 12/04/19 11:31 WBC RBC Hgb Hct MCV MCH MCHC RDW Std Deviation RDW Coeff of Robert Plt Count MPV Immature Gran % (Auto) Neut % (Auto) Lymph % (Auto) Bond % (Auto) Eos % (Auto) Baso % (Auto) Neut # (Auto) Lymph # (Auto) Bond # (Auto) Eos # (Auto) Baso # (Auto) Immature Gran # (Auto) Hypochromasia Basophilic Stippling Anisocytosis Ovalocytes PT INR Sodium Potassium Chloride Carbon Dioxide Anion Gap BUN Creatinine Est Cr Clr Drug Dosing Est GFR ( Amer) Est GFR (Non-Af Amer) BUN/Creatinine Ratio Glucose POC Glucose 180 H Calcium Medications Administered Current Inpatient Medications Acetaminophen (Acetaminophen 500 Mg Tab) 1,000 mg PO Q8H PRN PRN Reason: Pain Stop: 01/01/20 10:02 Last Admin: 12/02/19 10:12 Dose: 1,000 mg Documented by: Aspirin (Aspirin 81 Mg Ectab) 81 mg PO DAILY JIMMY Stop: 01/02/20 08:59 Last Admin: 12/03/19 08:21 Dose: 81 mg Documented by: Dextrose (Dextrose 50% 50 Ml Syringe) 25 - 50 ml IV UD PRN; Protocol PRN Reason: Hypoglycemia Protocol Stop: 12/31/19 23:44 Fluticasone/Vilanterol (Fluticasone/Vilanterol 100/25mcg 14 Puffs/Inhaler) 1 puffs INH DAILY JIMMY Stop: 01/01/20 08:59 Last Admin: 12/04/19 08:56 Dose: 1 puffs Documented by: Gabapentin (Gabapentin 300 Mg Cap) 300 mg PO HS JIMMY Stop: 01/01/20 20:59 Last Admin: 12/03/19 21:27 Dose: 300 mg Documented by: Glucagon (Glucagon For Inj 1 Mg Vial) 1 mg SQ UD PRN; Protocol PRN Reason: Hypoglycemia Protocol Stop: 12/31/19 23:44 Glucose (Glucose 40% Gel 15 Gm Tube) 15 - 30 gm PO UD PRN; Protocol PRN Reason: Hypoglycemia Protocol Stop: 12/31/19 23:44 Glucose (Glucose 10 Tabs/Tube) 4 - 8 tabs PO UD PRN; Protocol PRN Reason: Hypoglycemia Protocol Stop: 12/31/19 23:44 Insulin Aspart (Insulin Aspart 100 Units/Ml 3 Ml Pen) 0 units SC ACHS JIMMY Stop: 01/01/20 07:29 Last Admin: 12/04/19 09:00 Dose: 6 units Documented by: Ipratropium [place] (Ipratropium [place] Neb Soln 0.02% 2.5 Ml Vial) 0.5 mg NEB Q6R JIMMY Stop: 01/02/20 00:59 Last Admin: 12/04/19 07:03 Dose: 0.5 mg Documented by: Levalbuterol HCl (Levalbuterol 1.25mg/0.5ml Neb) 1.25 mg INH Q6R JIMMY Stop: 01/01/20 00:59 Last Admin: 12/04/19 07:03 Dose: 1.25 mg Documented by: Levalbuterol HCl (Levalbuterol 1.25mg/0.5ml Neb) 1.25 mg INH Q2R PRN PRN Reason: SOB/wheezing Stop: 01/02/20 12:10 Levetiracetam (Levetiracetam 500 Mg Tab) 500 mg PO BID JIMMY Stop: 01/01/20 09:59 Last Admin: 12/04/19 08:57 Dose: 500 mg Documented by: Metoprolol Tartrate (Metoprolol Tartrate 1 Mg/Ml Vial) 2.5 mg IV Q6 PRN PRN Reason: Hypertension Stop: 12/31/19 23:32 Metoprolol Tartrate (Metoprolol Tartrate 25 Mg Tab) 25 mg PO DAILY JIMMY Stop: 01/02/20 08:59 Last Admin: 12/04/19 08:57 Dose: 25 mg Documented by: Miscellaneous (Carbohydrates For Hypoglycemia ) 15 - 30 gm PO UD PRN PRN Reason: Hypoglycemia Treatment Stop: 12/31/19 23:44 Pantoprazole Sodium (Pantoprazole 40 Mg Tab) 40 mg PO DAILY JIMMY Stop: 01/02/20 08:59 Last Admin: 12/04/19 08:58 Dose: 40 mg Documented by: Simethicone (Simethicone 80 Mg Chew) 80 mg PO Q6H PRN PRN Reason: Heartburn Stop: 01/01/20 19:28 Last Admin: 12/03/19 10:22 Dose: 80 mg Documented by: Simethicone (Simethicone 80 Mg Chew) 80 mg PO Q6H PRN PRN Reason: Gas or Constipation Stop: 01/03/20 08:34 Torsemide (Torsemide 10 Mg Tab) 20 mg PO BID JIMMY Stop: 01/02/20 20:59 Last Admin: 12/04/19 08:56 Dose: 20 mg Documented by: Umeclidinium [place] (Umeclidinium [place] 62.5mcg/Blister 7 Puffs/Inhaler) 1 puffs INH DAILY JIMMY Stop: 01/01/20 08:59 Last Admin: 12/04/19 08:57 Dose: 1 puffs Documented by: Vitamin D (Cholecalciferol 1,000 Units 25 Mcg Tab) 1,000 units PO DAILY JIMMY Stop: 01/02/20 08:59 Last Admin: 12/04/19 08:58 Dose: 1,000 units Documented by:
[2019-12-04] MEDS ORDERED: WARFARIN SOD 2.5 MG TAB PO SCH (16:00)
--- NOTE | 2019-12-04 16:09 | Hospitalist Progress Note ---
Date of Service December 04, 2019 Assessment & Plan (1) Acute hypercapnic respiratory failure: Possibly secondary to acute decompensated CHF with systolic dysfunction CT chest showed small to moderate bilateral pleural effusions with associated airspace opacities favor atelectasis. Interstitial pulmonary edema. Ground glass opacities within lungs favor alveolar edema however an infectious process could appear similar. CXR showed Cardiomegaly and interstitial thickening suggesting pulmonary vascular congestion S/P intubation with mechanical ventilation for short period of time IV lasix transition to Oral Torsemide 20mg BID Extubated, respiratory status remained stable Cardiology on board and for further cardiac testing required Continue monitor closely (2) Ischemic cardiomyopathy: History of ischemic cardiomyopathy with systolic dysfunction ejection fraction 55%, with valvular heart disease Presented with acute decompensated CHF leading to respiratory failure, volume status improved with diuresis Continue metoprolol and torsemide Stable (3) Atrial fibrillation: Chronic A. fib Rate control with metoprolol Will continue to hold coumadin today Plan to get an EGD tomorrow with GI Will resume coumadin tomorrow after the EGD Anemia of chronic disease Hemoglobin dropped to 8.8 today No active GI bleed Continue PPI GI on board and plan for EGD tomorrow Continue monitor H/H Will hold coumadin for today NPO after midnight Metabolic encephalopathy Secondary to hypoxia due to respiratory failure Mental status improved to baseline resolved CKD stage III: Creatinine 1.3 today Continue to monitor renal function Stable Type 2 diabetes: Continue Insulin sliding scale Monitor BS CODE STATUS: Full code Disposition: PT/OT eval Will discharge once medically stable Admission and Anticipated Discharge Date Admission Date: December 01, 2019 Subjective Pt was seen and examined Sitting in chair with no distress Pt said that his breathing is much better compare to when he came He said that he is having a lot of gas in his abdomen He said that sometimes he has SOB from the gas Denies any chest pain, palpitation and fever Physical Exam Physical Exam: General- No acute distress Head- atraumatic Eyes- PERRL, EOMI, ENT- oropharynx clear Neck- supple, no JVD Lungs- diminished BS Heart- irregular rhythm; no murmur Abdomen- normal bowel sounds, soft, nontender Extremities- no calf tenderness Neuro- alert, oriented x 3; PERRL, EOMI; no facial palsy; no dysarthria Skin- warm & dry Results & Data Results & Data ([facility]) Vital Signs (Past 12 Hours) Vital Signs Temp Pulse Pulse Pulse Resp BP Pulse Ox 12/04/19 15:46 36.8 C 80 16 109/62 99 12/04/19 15:35 89 12/04/19 13:08 80 20 94 12/04/19 11:33 36.5 C 92 H 18 107/62 100 12/04/19 08:00 81 12/04/19 07:52 36.8 C 98 H 18 117/48 L 93 12/04/19 07:41 81 21 98 12/04/19 07:03 81 21 98 12/04/19 05:50 90 20 96 12/04/19 04:36 36.5 C 91 H 16 115/61 97
[2019-12-04] MEDS: GABAPENTIN 300 MG CAP PO SCH (20:47)
[2019-12-05] MEDS: LEVALBUTEROL 1.25MG/0.5ML NEB INH SCH ×4 (00:34→18:56)
[2019-12-05] MEDS: IPRATROPIUM BROMIDE NEB SOLN 0.02% 2.5 ML VIAL NEB SCH ×4 (00:34→18:56)
[2019-12-05 06:12] LABS: Hematocrit (blood only) 32.5 % (42-52); Hemoglobin 8.9 g/dL (14.0-18.0); INR 1.6 (0.9-1.1); Mean Corpuscular Hemoglobin 22.6 pg (25-34); Mean Corpuscular Hgb Conc 27.4 g/dL (32-36); Mean Corpuscular Volume 82.7 fL (80-100); Platelet Count 258 K/uL (130-400); Prothrombin Time 16.7 Seconds (9.0-12.0); RDW Coefficient of Variation 21.5 % (11.5-14.5); RDW Standard Deviation 61.9 fL (36.4-46.3); Red Blood Count 3.93 M/uL (4.7-6.1); White Blood Count 7.23 K/uL (4.8-10.8)
[2019-12-05 06:35] LABS: BUN Creatinine Ratio 24.4 (10-20); Calcium 8.7 mg/dl (8.5-10.1); Creatinine Clr Calc Pharmacy 46.4 ml/min; Est GFR (African American) 50.6; Est GFR (Non-African American) 43.7; Potassium 3.4 mmol/L (3.5-5.1)
--- NOTE | 2019-12-05 08:54 | Anesthesiology Consultation ---
Date of Service December 05, 2019 Assessment & Plan (1) Encounter for pre-operative examination: Chart Review Chart Review: Acceptable Risk for Surgery Consults Requested none ASA ASA4 Proposed Anesthesia Anesthesia Type: MAC Risk / Benefits Reviewed With: PT / POA / Parent / Guardian, Accepts Plan and Informed Consent Obtained History Surgery Operation Date: 12/05/19 09:30 Proposed Procedures p Esophagogastroduodenoscopy Dr Flannery - Blue Flannery MD Height/Weight Height: 5 ft 11 in Weight: 94.3 kg Allergies Allergy/AdvReac Type Severity Reaction Status Date / Time Sulfa (Sulfonamide Allergy Unknown HIVES Verified 12/05/19 08:53 Antibiotics) Medications Home Medications Medication Instructions Recorded Confirmed Last Taken Aspirin Low Dose 81 mg PO DAILY 12/01/19 12/01/19 Unknown Vitamin D3 1,000 mg PO DAILY 12/01/19 12/01/19 Unknown budesonide-formoterol [Symbicort] 2 puff INHALATION BID 12/01/19 12/01/19 Unk nown doxycycline hyclate 100 mg PO DIRECTED 12/01/19 12/01/19 Unknown gabapentin 300 mg PO HS 12/01/19 12/01/19 Unknown glipizide 5 mg PO DAILY 12/01/19 12/01/19 Unknown ipratropium-albuterol [Combivent 1 puff INHALATION QID 12/01/19 12/01/19 Unknown Respimat] levetiracetam 500 mg PO BID 12/01/19 12/01/19 Unknown linagliptin [Tradjenta] 5 mg PO DAILY 12/01/19 12/01/19 Unknown metoprolol tartrate 25 mg PO DAILY 12/01/19 12/01/19 Unknown omeprazole 20 mg PO DAILY 12/01/19 12/01/19 Unknown torsemide 40 mg PO DAILY 12/01/19 12/01/19 Unknown warfarin [Coumadin] 2.5 mg PO DAILY 12/01/19 12/01/19 Unknown Active Medications Generic Name Dose Route Start Last Admin Trade Name Freq PRN Reason Stop Dose Admin Acetaminophen 1,000 mg 12/02/19 10:03 12/02/19 10:12 Acetaminophen 500 Mg Tab PO 01/01/20 10:02 1,000 mg Q8H PRN Administration Pain Aspirin 81 mg 12/03/19 09:00 12/03/19 08:21 Aspirin 81 Mg Ectab PO 01/02/20 08:59 81 mg DAILY JIMMY Administration Fluticasone/Vilanterol 1 puffs 12/02/19 09:00 12/04/19 08:56 Fluticasone/Vilanterol 100/25mcg 14 Puffs/Inhaler INH 01/01/20 08:59 1 puf fs DAILY JIMMY Administration Gabapentin 300 mg 12/02/19 21:00 12/04/19 20:47 Gabapentin 300 Mg Cap PO 01/01/20 20:59 300 mg HS JIMMY Administration Insulin Aspart 0 units 12/02/19 07:30 12/04/19 21:45 Insulin Aspart 100 Units/Ml 3 Ml Pen SC 01/01/20 07:29 Not Given ACHS JIMMY Ipratropium [place] 0.5 mg 12/03/19 01:00 12/05/19 07:04 Ipratropium [place] Neb Soln 0.02% 2.5 Ml Vial NEB 01/02/20 00:59 0.5 mg Q6R JIMMY Administration Levalbuterol HCl 1.25 mg 12/02/19 01:00 12/05/19 07:04 Levalbuterol 1.25mg/0.5ml Neb INH 01/01/20 00:59 1.25 mg Q6R JIMMY Administration Levetiracetam 500 mg 12/02/19 10:00 12/04/19 20:48 Levetiracetam 500 Mg Tab PO 01/01/20 09:59 500 mg BID JIMMY Administration Metoprolol Tartrate 25 mg 12/03/19 09:00 12/04/19 08:57 Metoprolol Tartrate 25 Mg Tab PO 01/02/20 08:59 25 mg DAILY JIMMY Administration Pantoprazole Sodium 40 mg 12/03/19 09:00 12/04/19 08:58 Pantoprazole 40 Mg Tab PO 01/02/20 08:59 40 mg DAILY JIMMY Administration Simethicone 80 mg 12/02/19 19:29 12/03/19 10:22 Simethicone 80 Mg Chew PO 01/01/20 19:28 80 mg Q6H PRN Administration Heartburn Torsemide 20 mg 12/03/19 21:00 12/04/19 20:47 Torsemide 10 Mg Tab PO 01/02/20 20:59 20 mg BID JIMMY Administration Umeclidinium [place] 1 puffs 12/02/19 09:00 12/04/19 08:57 Umeclidinium [place] 62.5mcg/Blister 7 Puffs/Inhaler INH 01/01/20 08:59 1 puffs DAILY JIMMY Administration Vitamin D 1,000 units 12/03/19 09:00 12/04/19 08:58 Cholecalciferol 1,000 Units 25 Mcg Tab PO 01/02/20 08:59 1,000 units DAILY JIMMY Administration NPO Date Last Intake of Fluids: 12/04/19 Time Last Intake of Fluids: 23:00 Date Last Intake of Solids: 12/04/19 Time Last Intake of Solids: 17:00 Past Medical History Medical History CKD (chronic kidney disease), stage III COPD, moderate CVA (cerebral vascular accident) Diabetes mellitus HTN (hypertension) Exercise / Class Metabolic Activity III < 4 Walking/Shop/Light housework Past Surgical History Surgical History S/P AAA repair Past Anesthesia History No Hx of Anesthesia Complications and No Family Hx of Anesthesia Complications History of PONV No Hx of PONV and No Hx of Motion Sickness Social History Smoking Status: Unknown if ever smoked Physical Exam Vital Signs Last Vital Signs Temp 97.9 F 12/05/19 07:57 Pulse 102 H 12/05/19 07:57 Resp 20 12/05/19 07:57 BP 137/63 12/05/19 07:57 Pulse Ox 95 12/05/19 07:57 ENMT Mouth: + edentulous Thyromental Distance: > or= 3.5 Finger Breadths Mallampati Class: II Neck normal visual inspection Respiratory normal respiratory effort Auscultation: lungs clear to auscultation bilaterally Cardiovascular Rate/Rhythm: + abnormal rate and + abnormal rhythm Heart Sounds: + murmur (3/6 EDEN) Testing Laboratory Results 12/05/19 05:31 12/05/19 05:31 PT 16.7 Seconds (9.0-12.0) H 12/05/19 05:31 INR 1.6 (0.9-1.1) H 12/05/19 05:31 APTT 47.3 Seconds (21.0-31.0) H* 12/01/19 19:25 Urine Color Yellow 12/02/19 00:00 Urine Appearance Turbid (Clear) A 12/02/19 00:00 Urine pH 5.0 (4.5-7.5) 12/02/19 00:00 Ur Specific [place] 1.024 (1.000-1.030) 12/02/19 00:00 Urine Protein 3+ (Negative) H 12/02/19 00:00 Urine Glucose (UA) Negative (Negative) 12/02/19 00:00 Urine Ketones Negative (Negative) 12/02/19 00:00 Urine Nitrite Negative (Negative) 12/02/19 00:00 Ur Leukocyte Esterase Negative (Negative) 12/02/19 00:00 Urine WBC (Auto) 5-10 /hpf (0-5) H 12/02/19 00:00 Urine RBC (Auto) 10-30 /hpf (0-4) H 12/02/19 00:00 U Hyaline Cast (Auto) 0 /lpf (0-5) 12/02/19 00:00 U Epithel Cells (Auto) >30 /lpf (0-5) H 12/02/19 00:00 Urine Bacteria (Auto) 1+ (Negative) H 12/02/19 00:00 12/02/19 00:00 Urine Culture - Final Urine,Clean Catch No growth - less than 1,000 colonies/mL. 12/01/19 19:26 Aerobic Blood Culture - Preliminary Blood No growth in Aerobic bottle after 48 hours. Anaerobic Blood Culture - Preliminary No growth in Anaerobic bottle after 48 hours. 12/01/19 19:25 Aerobic Blood Culture - Preliminary Blood No growth in Aerobic bottle after 48 hours. Anaerobic Blood Culture - Preliminary No growth in Anaerobic bottle after 48 hours. 12/05/19 12/05/19 07:54 05:55 POC Glucose 176 H 154 H Electrocardiogram Date: 12/01/19 Atrial fibrillation with rapid ventricular response Marked ST abnormality, possible lateral subendocardial injury Abnormal ECG When compared with ECG of 05-JAN-2017 13:55, ST now depressed in Lateral leads T wave inversion now evident in Lateral leads Confirmed by Jozef Rubin ([id number]) on 12/02/2019 4:50:10 PM Echocardiogram Date: 12/02/19 Mod LVH EF 50-55% LA/RA moderately dilated Mod aortic stenosis Mod to severe MR
--- NOTE | 2019-12-05 09:10 | History & Physical Bridge Note ---
Date of Service December 05, 2019 History & Physical Bridge Note I have examined the patient, reviewed the History & Physical and in the interval since the performance of the History & Physical I have noted the following changes of clinical significance: no changes noted EGD today for anemia
[2019-12-05] MEDS ORDERED: LIDOCAINE HCL 2% 2 ML VIAL/AMP(20MG/ML) INFIL ONE ×2 (09:13)
[2019-12-05] MEDS ORDERED: PROPOFOL IV EMULSION 10 MG/ML 20 ML VIAL IV ONE (09:13)
--- NOTE | 2019-12-05 09:43 | GI REPORT ---
Patient Name: Joe Rosario Procedure Date: 12/05/2019 9:17 AM Date of : 1940 Admit Type: Inpatient Age: 79 Gender: Male Attending MD: Blue Flannery MD Procedure: Upper GI endoscopy Providers: Blue Flannery MD Referring MD: ABRAN AZEVEDO Indications: Anemia Medicines: Propofol per Anesthesia Complications: No immediate complications. Estimated Blood Loss: Estimated blood loss: none. Procedure: Pre-Anesthesia Assessment: - Prior to the procedure, a History and Physical was performed, and patient medications, allergies and sensitivities were reviewed. The patient's tolerance of previous anesthesia was reviewed. - The risks and benefits of the procedure and the sedation options and risks were discussed with the patient. All questions were answered and informed consent was obtained. - Patient identification and proposed procedure were verified prior to the procedure by the physician and the nurse. The procedure was verified in the procedure room. - Pre-procedure physical examination revealed no contraindications to sedation. After obtaining informed consent, the endoscope was passed under direct vision. Throughout the procedure, the patient's blood pressure, pulse, and oxygen saturations were monitored continuously. The Endoscope was introduced through the mouth, and advanced to the second part of duodenum. The upper GI endoscopy was accomplished without difficulty. The patient tolerated the procedure well. Findings: The examined esophagus was normal. A small amount of food (residue) was found in the gastric body. The duodenal bulb and second portion of the duodenum were normal. Impression: - No evidence of upper GI bleeding. - Normal esophagus. - A small amount of food (residue) in the stomach. - Normal duodenal bulb and second portion of the duodenum. - No specimens collected. Recommendation: - [facility]. - Perform a colonoscopy at appointment to be scheduled as OP. - Resume anticoagulation. - Recall GI if needed. Blue Flannery MD 12/05/2019 9:43:24 AM This report has been signed electronically. Note Initiated On: 12/05/2019 9:17 AM Number of Addenda: 0 I attest to the content of the Intraoperative Record and orders documented therein, exceptions below {[id number]}
--- NOTE | 2019-12-05 10:04 | Anesthesiology Progress Note ---
Date of Service December 05, 2019 Anesthesia Post Procedure Vital Signs Vital Signs: Temp Pulse Pulse Pulse Resp BP Pulse Ox 12/05/19 09:59 103 H 18 124/61 91 12/05/19 09:44 16 98/49 L 90 12/05/19 08:54 97.9 F 108 H 20 138/65 91 12/05/19 07:57 97.9 F 102 H 20 137/63 95 12/05/19 07:06 103 H 20 88 L 12/05/19 04:33 93 12/05/19 04:25 98.1 F 97 H 97 H 14 118/62 93 12/05/19 00:35 92 H 14 98 12/05/19 00:00 93 H 12/04/19 23:34 98.1 F 88 89 14 94/49 L 94 12/04/19 19:49 80 18 93 12/04/19 19:20 97.9 F 94 H 20 116/49 L 90 12/04/19 16:20 90 12/04/19 16:19 86 L 12/04/19 16:04 92 12/04/19 16:03 97 12/04/19 15:46 98.2 F 80 16 109/62 99 12/04/19 15:35 89 12/04/19 13:08 80 20 94 12/04/19 11:33 97.7 F 92 H 18 107/62 100 Transfer of Care Handoff Completed per policy Notes Mental Status: alert / awake / arousable and participated in evaluation Patient Amnestic to Procedure: Yes Nausea / Vomiting: adequately controlled Pain: adequately controlled Airway Patency, RR, SpO2: stable & adequate BP & HR: stable & adequate Hydration State: stable & adequate Anesthetic Complications: no major complications apparent and Pt Satisfied with anesthetic care
[2019-12-05] MEDS: UMECLIDINIUM BROMIDE 62.5MCG/BLISTER 7 PUFFS/INHALER INH SCH (11:09)
[2019-12-05] MEDS: FLUTICASONE/VILANTEROL 100/25MCG 14 PUFFS/INHALER INH SCH (11:09)
[2019-12-05] MEDS: TORSEMIDE 10 MG TAB PO SCH ×2 (11:10→21:01)
[2019-12-05] MEDS: METOPROLOL TARTRATE 25 MG TAB PO SCH (11:10)
[2019-12-05] MEDS: CHOLECALCIFEROL 1,000 UNITS 25 MCG TAB PO SCH (11:11)
[2019-12-05] MEDS: PANTOprazole 40 MG TAB PO SCH (11:12)
[2019-12-05] MEDS: levETIRAcetam 500 MG TAB PO SCH ×2 (11:13→21:01)
[2019-12-05] MEDS: INSULIN ASPART 100 UNITS/ML 3 ML PEN SC SCH ×4 (11:35→21:29)
--- NOTE | 2019-12-05 12:02 | Hospitalist Progress Note ---
Date of Service December 05, 2019 Assessment & Plan (1) Acute hypercapnic respiratory failure: Possibly secondary to acute decompensated CHF with systolic dysfunction CT chest showed small to moderate bilateral pleural effusions with associated airspace opacities favor atelectasis. Interstitial pulmonary edema. Ground glass opacities within lungs favor alveolar edema however an infectious process could appear similar. CXR showed Cardiomegaly and interstitial thickening suggesting pulmonary vascular congestion S/P intubation with mechanical ventilation for short period of time IV lasix transition to Oral Torsemide 20mg BID Extubated, respiratory status remained stable Continue Torsemide 20mg BID Cardiology on board and for further cardiac testing required Consider to get a 2 step exercise Will monitor BMP (2) Ischemic cardiomyopathy: History of ischemic cardiomyopathy with systolic dysfunction ejection fraction 55%, with valvular heart disease Presented with acute decompensated CHF leading to respiratory failure, volume status improved with diuresis Continue metoprolol and torsemide Stable (3) Atrial fibrillation: Chronic A. fib Rate control with metoprolol Coumadin was on hold due to EGD Coumadin resume Anemia of chronic disease Hemoglobin dropped to 8.9 today No active GI bleed S/P EGD showed no active upper GI bleeding Continue PPI Coumadin resumed Metabolic encephalopathy Secondary to hypoxia due to respiratory failure Mental status improved to baseline resolved CKD stage III: Creatinine 1.4 today Continue to monitor renal function Stable Type 2 diabetes: Continue Insulin sliding scale Monitor BS CODE STATUS: Full code Disposition: PT/OT eval Will discharge once medically stable Admission and Anticipated Discharge Date Admission Date: December 01, 2019 Subjective Pt was seen and examined Sitting in chair with no distress eating lunch Pt said that he feels a little better today Denies any chest pain, palpitation, dizziness and SOB Physical Exam Physical Exam: General- No acute distress Head- atraumatic Eyes- PERRL, EOMI, ENT- oropharynx clear Neck- supple, no JVD Lungs- diminished BS Heart- irregular rhythm; no murmur Abdomen- normal bowel sounds, soft, nontender Extremities- no calf tenderness Neuro- alert, oriented x 3; PERRL, EOMI; no facial palsy; no dysarthria Skin- warm & dry Results & Data Results & Data ([facility]) Vital Signs (Past 12 Hours) Vital Signs Temp Pulse Pulse Pulse Resp BP Pulse Ox 12/05/19 10:37 106 H 20 116/66 96 12/05/19 10:13 104 H 18 146/64 H 95 12/05/19 09:59 103 H 18 124/61 91 12/05/19 09:44 16 98/49 L 90 12/05/19 08:54 36.6 C 108 H 20 138/65 91 12/05/19 08:00 90 12/05/19 07:57 36.6 C 102 H 20 137/63 95 12/05/19 07:06 103 H 20 88 L 12/05/19 04:33 93 12/05/19 04:25 36.7 C 97 H 97 H 14 118/62 93 12/05/19 00:35 92 H 14 98
[2019-12-05] MEDS: POTASSIUM CHLORIDE / WTR 10 MEQ/100 ML PLCT IV SCH ×2 (12:43→15:15)
[2019-12-05] MEDS ORDERED: POTASSIUM CHLORIDE 20 MEQ TABCR PO STA (15:01)
[2019-12-05] MEDS: SIMETHICONE 80 MG CHEW PO PRN (15:16)
[2019-12-05] MEDS: POLYETHYLENE (MIRALAX) 17 GM PACK PO SCH (15:19)
[2019-12-05] MEDS ORDERED: WARFARIN SOD 2.5 MG TAB PO SCH (16:00)
[2019-12-05] MEDS: GABAPENTIN 300 MG CAP PO SCH (21:01)
[2019-12-06] MEDS: IPRATROPIUM BROMIDE NEB SOLN 0.02% 2.5 ML VIAL NEB SCH ×3 (00:15→13:24)
[2019-12-06] MEDS: LEVALBUTEROL 1.25MG/0.5ML NEB INH SCH ×3 (00:15→13:23)
[2019-12-06 07:04] LABS: INR 1.4 (0.9-1.1); Prothrombin Time 14.5 Seconds (9.0-12.0)
[2019-12-06] MEDS: FLUTICASONE/VILANTEROL 100/25MCG 14 PUFFS/INHALER INH SCH (07:52)
[2019-12-06] MEDS: TORSEMIDE 10 MG TAB PO SCH (07:53)
[2019-12-06] MEDS: levETIRAcetam 500 MG TAB PO SCH (07:53)
[2019-12-06] MEDS: METOPROLOL TARTRATE 25 MG TAB PO SCH (07:53)
[2019-12-06] MEDS: CHOLECALCIFEROL 1,000 UNITS 25 MCG TAB PO SCH (07:54)
[2019-12-06] MEDS: POLYETHYLENE (MIRALAX) 17 GM PACK PO SCH (07:54)
[2019-12-06] MEDS: UMECLIDINIUM BROMIDE 62.5MCG/BLISTER 7 PUFFS/INHALER INH SCH (07:55)
[2019-12-06] MEDS: PANTOprazole 40 MG TAB PO SCH (07:55)
[2019-12-06] MEDS: INSULIN ASPART 100 UNITS/ML 3 ML PEN SC SCH ×2 (07:57→12:07)
[2019-12-06 08:37] LABS: BUN Creatinine Ratio 24.4 (10-20); Calcium 9.3 mg/dl (8.5-10.1); Est GFR (African American) 51.5; Est GFR (Non-African American) 44.4; Potassium 3.3 mmol/L (3.5-5.1)
[2019-12-06] MEDS ORDERED: POTASSIUM CHLORIDE 10 MEQ TABCR PO STA (08:43)
[2019-12-06] MEDS ORDERED: METOPROLOL TARTRATE 25 MG TAB PO ONE (08:45)
[2019-12-06] MEDS: ASPIRIN 81 MG ECTAB PO SCH (09:21)
--- NOTE | 2019-12-06 10:12 | Cardiology Progress Note ---
Date of Service December 06, 2019 Assessment & Plan (1) Acute hypercapnic respiratory failure: (2) Asthma exacerbation in COPD: (3) Atrial fibrillation: (4) PVD (peripheral vascular disease): (5) Ischemic cardiomyopathy: The patient is doing well clinically. Potassium was supplemented this morning. I would continue his other medications. Admission and Anticipated Discharge Date Admission Date: December 01, 2019 Subjective The patient is working with physical and Occupational Therapy. He is doing well and ambulating. Review of Systems Review of Systems: All systems reviewed & are unremarkable except as noted in HPI & below Nothing additional to add. Physical Exam Physical Exam: General: no acute distress and stated age Head: normocephalic, no masses, lesions, tenderness or abnormalities Eyes: conjunctiva are pink and non-injected, sclera clear Neck: supple, no adenopathy, no bruits, normal jugular venous pulse, no hepatojugular reflux Chest: normal shape and normal respiratory effort Lungs: clear to auscultation and percussion Cardiac Exam: - regular rate & rhythm, no murmurs gallops or rubs - normal S1, normal S2 Pulses: 2(+) throughout Abdomen: abdomen soft, non-tender, no abnormal masses and no hepatosplenomegaly Musculoskeletal: no gait disturbance, no joint inflammation, no deforming arthritis Extremities: no edema and no cyanosis Neuro: grossly normal exam Results & Data ([facility]) Vital Signs (Past 12 Hours) Vital Signs Temp Pulse Pulse Pulse Resp BP Pulse Ox 12/06/19 08:09 99 H 12/06/19 08:00 36.8 C 114 H 18 142/72 H 96 12/06/19 07:01 105 H 18 98 12/06/19 03:13 36.7 C 97 H 20 139/67 92 12/06/19 00:17 87 18 98 12/05/19 23:04 36.8 C 87 18 112/50 L 97 Laboratory Results Laboratory Results - last 24 hr 12/05/19 12/05/19 12/05/19 11:46 15:52 20:33 PT INR Sodium Potassium Chloride Carbon Dioxide Anion Gap BUN Creatinine Est Cr Clr Drug Dosing Est GFR ( Amer) Est GFR (Non-Af Amer) BUN/Creatinine Ratio Glucose POC Glucose 256 H 98 109 H Calcium 12/06/19 12/06/19 12/06/19 06:16 06:17 07:31 PT 14.5 H INR 1.4 H Sodium 141 Potassium 3.3 L Chloride 96 L Carbon Dioxide 43 H* Anion Gap 3.0 BUN 36 H Creatinine 1.47 H Est Cr Clr Drug Dosing 47.0 Est GFR ( Amer) 51.5 Est GFR (Non-Af Amer) 44.4 BUN/Creatinine Ratio 24.4 H Glucose 127 H POC Glucose 164 H Calcium 9.3 Medications Administered Current Inpatient Medications Acetaminophen (Acetaminophen 500 Mg Tab) 1,000 mg PO Q8H PRN PRN Reason: Pain Stop: 01/01/20 10:02 Last Admin: 12/02/19 10:12 Dose: 1,000 mg Documented by: Aspirin (Aspirin 81 Mg Ectab) 81 mg PO DAILY JIMMY Stop: 01/02/20 08:59 Last Admin: 12/06/19 09:21 Dose: 81 mg Documented by: Dextrose (Dextrose 50% 50 Ml Syringe) 25 - 50 ml IV UD PRN; Protocol PRN Reason: Hypoglycemia Protocol Stop: 12/31/19 23:44 Fluticasone/Vilanterol (Fluticasone/Vilanterol 100/25mcg 14 Puffs/Inhaler) 1 puffs INH DAILY JIMMY Stop: 01/01/20 08:59 Last Admin: 12/06/19 07:52 Dose: 1 puffs Documented by: Gabapentin (Gabapentin 300 Mg Cap) 300 mg PO HS JIMMY Stop: 01/01/20 20:59 Last Admin: 12/05/19 21:01 Dose: 300 mg Documented by: Glucagon (Glucagon For Inj 1 Mg Vial) 1 mg SQ UD PRN; Protocol PRN Reason: Hypoglycemia Protocol Stop: 12/31/19 23:44 Glucose (Glucose 40% Gel 15 Gm Tube) 15 - 30 gm PO UD PRN; Protocol PRN Reason: Hypoglycemia Protocol Stop: 12/31/19 23:44 Glucose (Glucose 10 Tabs/Tube) 4 - 8 tabs PO UD PRN; Protocol PRN Reason: Hypoglycemia Protocol Stop: 12/31/19 23:44 Insulin Aspart (Insulin Aspart 100 Units/Ml 3 Ml Pen) 0 units SC ACHS JIMMY Stop: 01/01/20 07:29 Last Admin: 12/06/19 07:57 Dose: 7 units Documented by: Ipratropium [place] (Ipratropium [place] Neb Soln 0.02% 2.5 Ml Vial) 0.5 mg NEB Q6R JIMMY Stop: 01/02/20 00:59 Last Admin: 12/06/19 07:00 Dose: 0.5 mg Documented by: Levalbuterol HCl (Levalbuterol 1.25mg/0.5ml Neb) 1.25 mg INH Q6R JIMMY Stop: 01/01/20 00:59 Last Admin: 12/06/19 07:00 Dose: 1.25 mg Documented by: Levalbuterol HCl (Levalbuterol 1.25mg/0.5ml Neb) 1.25 mg INH Q2R PRN PRN Reason: SOB/wheezing Stop: 01/02/20 12:10 Levetiracetam (Levetiracetam 500 Mg Tab) 500 mg PO BID JIMMY Stop: 01/01/20 09:59 Last Admin: 12/06/19 07:53 Dose: 500 mg Documented by: Metoprolol Tartrate (Metoprolol Tartrate 1 Mg/Ml Vial) 2.5 mg IV Q6 PRN PRN Reason: Hypertension Stop: 12/31/19 23:32 Metoprolol Tartrate (Metoprolol Tartrate 25 Mg Tab) 25 mg PO DAILY JIMMY Stop: 01/02/20 08:59 Last Admin: 12/06/19 07:53 Dose: 25 mg Documented by: Miscellaneous (Carbohydrates For Hypoglycemia ) 15 - 30 gm PO UD PRN PRN Reason: Hypoglycemia Treatment Stop: 12/31/19 23:44 Pantoprazole Sodium (Pantoprazole 40 Mg Tab) 40 mg PO DAILY JIMMY Stop: 01/02/20 08:59 Last Admin: 12/06/19 07:55 Dose: 40 mg Documented by: Polyethylene Glycol (Polyethylene (Miralax) 17 Gm Pack) 17 gm PO DAILY JIMMY Stop: 01/04/20 13:14 Last Admin: 12/06/19 07:54 Dose: Not Given Documented by: Simethicone (Simethicone 80 Mg Chew) 80 mg PO Q6H PRN PRN Reason: Heartburn Stop: 01/01/20 19:28 Last Admin: 12/05/19 15:16 Dose: 80 mg Documented by: Simethicone (Simethicone 80 Mg Chew) 80 mg PO Q6H PRN PRN Reason: Gas or Constipation Stop: 01/03/20 08:34 Torsemide (Torsemide 10 Mg Tab) 20 mg PO BID JIMMY Stop: 01/02/20 20:59 Last Admin: 12/06/19 07:53 Dose: 20 mg Documented by: Umeclidinium [place] (Umeclidinium [place] 62.5mcg/Blister 7 Puffs/Inhaler) 1 puffs INH DAILY JIMMY Stop: 01/01/20 08:59 Last Admin: 12/06/19 07:55 Dose: 1 puffs Documented by: Vitamin D (Cholecalciferol 1,000 Units 25 Mcg Tab) 1,000 units PO DAILY JIMMY Stop: 01/02/20 08:59 Last Admin: 12/06/19 07:54 Dose: 1,000 units Documented by: Warfarin Sodium (Warfarin Sod 2.5 Mg Tab) 2.5 mg PO DAILY@1600 [facility] Stop: 01/04/20 15:59 Last Admin: 12/05/19 15:22 Dose: 2.5 mg Documented by:
--- NOTE | 2019-12-06 12:26 | Hospitalist Progress Note ---
Date of Service December 06, 2019 Assessment & Plan (1) Acute hypercapnic respiratory failure: Possibly secondary to acute decompensated CHF with systolic dysfunction CT chest showed small to moderate bilateral pleural effusions with associated airspace opacities favor atelectasis. Interstitial pulmonary edema. Ground glass opacities within lungs favor alveolar edema however an infectious process could appear similar. CXR showed Cardiomegaly and interstitial thickening suggesting pulmonary vascular congestion S/P intubation with mechanical ventilation for short period of time IV lasix transition to Oral Torsemide 20mg BID Extubated, respiratory status remained stable Continue Torsemide 20mg BID Cardiology on board and for further cardiac testing required 2 step exercise done today and pt need to be on 3L oxygen at all time Pt already has oxygen at home but very reluctant to use it Case management was notified and contacted his oxygen suply Script given to case management for oxygen supplement Counseling on smoking cessation (2) Ischemic cardiomyopathy: History of ischemic cardiomyopathy with systolic dysfunction ejection fraction 55%, with valvular heart disease Presented with acute decompensated CHF leading to respiratory failure, volume status improved with diuresis Continue metoprolol and torsemide Check BMP in 1 week Stable (3) Atrial fibrillation: Chronic A. fib Rate control with metoprolol Coumadin was on hold due to EGD Coumadin resume Follow up with the coumadin clinic Anemia of chronic disease Hemoglobin dropped to 8.9 today No active GI bleed S/P EGD showed no active upper GI bleeding Continue PPI Metabolic encephalopathy Secondary to hypoxia due to respiratory failure Mental status improved to baseline resolved CKD stage III: Creatinine 1.4 today Continue to monitor renal function Stable Type 2 diabetes: Continue Insulin sliding scale Monitor BS CODE STATUS: Full code Disposition: PT/OT eval Discharge home today Admission and Anticipated Discharge Date Admission Date: December 01, 2019 Subjective Pt was seen and examined Lying in bed with no distress Pt said that he feels alot better He said that he is ready to go home today He said that his breathing improves 2 step done today and pt needs to use 3L oxygen daily at all time Denies any chest pain, palpitation, dizziness and fever Physical Exam Physical Exam: General- No acute distress Head- atraumatic Eyes- PERRL, EOMI, ENT- oropharynx clear Neck- supple, no JVD Lungs- diminished BS Heart- irregular rhythm; no murmur Abdomen- normal bowel sounds, soft, nontender Extremities- no calf tenderness Neuro- alert, oriented x 3; PERRL, EOMI; no facial palsy; no dysarthria Skin- warm & dry Results & Data Results & Data ([facility] [place]) Vital Signs (Past 12 Hours) Vital Signs Temp Pulse Pulse Pulse Pulse Pulse Pulse 12/06/19 11:58 36.5 C 84 12/06/19 10:51 87 91 H 86 73 12/06/19 08:09 99 H 12/06/19 08:00 36.8 C 12/06/19 07:01 12/06/19 03:13 36.7 C 97 H 12/06/19 00:17 Pulse Pulse Resp Resp Resp Resp Resp 12/06/19 11:58 24 12/06/19 10:51 78 18 20 20 20 12/06/19 08:09 12/06/19 08:00 114 H 18 12/06/19 07:01 105 H 18 12/06/19 03:13 20 12/06/19 00:17 87 18 Resp BP Pulse Ox Pulse Ox Pulse Ox Pulse Ox Pulse Ox 12/06/19 11:58 109/43 L 96 12/06/19 10:51 18 82 L 90 91 92 12/06/19 08:09 12/06/19 08:00 142/72 H 96 12/06/19 07:01 98 12/06/19 03:13 139/67 92 12/06/19 00:17 98 Pulse Ox 12/06/19 11:58 12/06/19 10:51 86 L 12/06/19 08:09 12/06/19 08:00 12/06/19 07:01 12/06/19 03:13 12/06/19 00:17
--- NOTE | 2019-12-08 08:09 | Discharge Summary ---
Date of Service December 06, 2019 Admission HPI Per Admitting Provider CHIEF COMPLAINT: Acute respiratory failure. HISTORY OF PRESENT ILLNESS: This is an 79-year-old male with past medical history significant for type 2 diabetes, nocturnal hypoxemia due to chronic bronchitis, severe COPD, diaphragmatic hernia, chronic kidney disease stage III, chronic atrial fibrillation, history of CVA, abdominal aortic aneurysm, aneurysm of internal iliac artery, hypertension, nonrheumatic aortic valve stenosis, reflux esophagitis, history of convulsions, tobacco use disorder, who lives alone, ambulates without any support, on regular diet as per the daughter. Daughter lives close by. Daughter helps with his cleaning and laundry. He is having some shortness of breath for last few days, but today he got more short of breath. He complained of some back pain and shortness of breath to the EMS. His pulse ox was 92% on OxyMask 6 liters. When he came to the ER, he was obtunded. They tried to intubate, but he opened eyes. ER tried BiPAP, but ABG came back aand he was in respiratory acidosis and he is status post intubation. On sedation currently. Daughter is in the room. Apparently was doing fine before this happened. His COVID-19 PCR is negative in the ER. He has lower extremity edema and daughter says they swell on and off. Chest x-ray shows bilateral infiltrates with congestion. Currently his hemodynamics are stable on vent. As per daughter, no recent fever or chills. No complaints of any pain. No nausea, no vomiting, no diarrhea. His appetite was okay. Could not get any other history currently. Admission Exam Per Admitting Provider GENERAL: The patient is status post intubation and sedation. VITAL SIGNS: Temperature 37.1, pulse 83, respiratory rate 20s, oxygen 100% on mechanical vent. HEENT: Head atraumatic. Pupils, pinpoint and sluggish to reaction. NECK: No JVD, no neck masses seen. CARDIOVASCULAR: S1, S2 heard. Mild bibasilar crackles. No wheezing. RESPIRATORY: No respiratory accessory muscle use. No wheezing. ABDOMEN: Soft, bowel sounds present. No distention. CENTRAL NERVOUS SYSTEM: Status post intubation and sedated. EXTREMITIES: Bilateral lower extremity gross edema present, no obvious erythema seen. Principal Diagnosis Acute hypercapnic respiratory failure COPD Ischemic cardiomyopathy: Atrial fibrillation: Anemia of chronic disease Metabolic encephalopathy CKD stage III: Type 2 diabetes: Discharge Exam General- No acute distress Head- atraumatic Eyes- PERRL, EOMI, ENT- oropharynx clear Neck- supple, no JVD Lungs- diminished BS Heart- irregular rhythm; no murmur Abdomen- normal bowel sounds, soft, nontender Extremities- no calf tenderness Neuro- alert, oriented x 3; PERRL, EOMI; no facial palsy; no dysarthria Skin- warm & dry Discharge Data Allergies Allergy/AdvReac Type Severity Reaction Status Date / Time Sulfa (Sulfonamide Allergy Unknown HIVES Verified 12/05/19 08:53 Antibiotics) Consultations 12/01/19 20:16 ED Decision to Admit Stat 12/01/19 23:33 Consult Case Management - Discharge Planning Routine Consult Mortgage Sales Manager Routine 12/02/19 00:18 Consult Case Management - Discharge Planning Routine 12/02/19 08:46 Consult Cardiology Routine 12/02/19 19:28 Consult Gastroenterology Routine Procedures Performed Operation Date: 12/05/19 09:30 Actual Procedures p Esophagogastroduodenoscopy - Blue Flannery MD Ordered Studies 12/01/19 20:08 CT head/brain wo con Urgent 12/01/19 21:00 CT chest wo con [facility]gent [place], [place] [phone] XRay Report Patient: JACKI DUNLAP Date: 12/01/19 MR#: [id number] Acct ID:[id number]: Date: 1940[facility] Zip: [place] [address] Age: 79Location: 2E Sex: MRoom/Bed: [facility] Att Phy: Erick Clemente M.D.Diagnosis: ACUTE RESP FAILURE Fidelia Phy: Richar Lopez MDService Date: 12/04/19 Fam Phy:Interpreting Phy: Alec Shepherd MD Admit Phy: Bon Mario MD Ordering Phy: Taryn Rankin CRNP cc: ~ DEX CLINICAL HISTORY: Abdominal distention. FINDINGS: 3 AP supine abdominal radiographs are correlated with abdominal CT dated 02/26/2015. There is a nonobstructed abdominal bowel gas pattern noting mild to moderate colonic fecal retention. No evidence of intraperitoneal free air is seen on these supine images. There are 2 large nonobstructing left renal calculi measuring 14 mm and 12 mm. No right renal calculi are clearly identified. Phleboliths are seen in the pelvis. Calcified pleural plaques are present at the lung bases. The skeletal structures are osteopenic and appear intact. IMPRESSION: 1. Nonobstructed abdominal bowel gas pattern noting mild to moderate colonic fecal retention. 2. Left-sided nephrolithiasis. Electronically signed by: Alec Shepherd M.D. 12/04/2019 10:04 AM Dictated: 12/04/19 0957 Transcribed: 12/04/19956 SINGLE VIEW CHEST CLINICAL HISTORY: Respiratory failure. FINDINGS: An AP, portable, upright chest radiograph is compared to chest x-ray and chest CT dated 12/01/2019. The examination is degraded by portable technique and patient rotation. An endotracheal tube is unchanged in position. An enteric tube is new from previous. The tip projects below the diaphragm and is not visualized. The heart is enlarged noting atherosclerotic calcification of the thoracic aorta. There is pulmonary vascular congestion. There are layering pleural effusions with bibasilar consolidation. Bilateral calcified pleural plaques are similar to previous. There are bilateral airspace opacities. No pneumothorax is seen. The skeletal structures are osteopenic. The bony thorax is grossly intact. IMPRESSION: 1. An enteric tube is new from previous. 2. And Endotracheal tube is unchanged in position. 3. Cardiomegaly with evidence of congestive failure. 4. Layering pleural effusions with bibasilar consolidation. 5. Bilateral airspace opacities are again noted. This could represent pulmonary edema and/or an infectious/inflammatory pneumonitis. This appears modestly improved from yesterday. ACT 112: Negative or not required by law. Electronically signed by: Alec Shepherd M.D. 12/02/2019 8:02 AM Dictated: 12/02/19 0759 Transcribed: 12/02/[address] OF THE CHEST WITHOUT IV CONTRAST CLINICAL HISTORY: Respiratory failure. COMPARISON STUDY: Chest radiograph January 05, 2017 and December 01, 2019. CT DOSE: 1334.54 mGy.cm TECHNIQUE: Axial images of the chest were obtained without IV contrast. Images were reviewed in the axial, sagittal, and coronal planes. IV contrast was not administered for this examination. Automated exposure control was utilized for the study. A dose lowering technique was utilized adhering to the principles of ALARA. FINDINGS: The tip of the endotracheal tube is 3.5 cm above the rosales. There are multiple mildly enlarged mediastinal lymph nodes. Index right paratracheal node on image 97 of 296 measures 1.5 cm. Moderate cardiomegaly is noted. There is extensive coronary artery calcification. There are calcified and noncalcified pleural plaques. There is no pneumothorax. Lstev-hd-[id number] bilateral pleural effusions are noted with associated airspace opacity favors atelectasis. Central airways are patent. There is moderate upper lobe predominant centrilobular and paraseptal emphysema. Interlobular septal thickening is noted. There is a 1 cm nodular left upper lobe opacity on image 53 of 296. A few nodular opacities within the right middle lobe measure up to 7 mm. Groundglass opacities within the lungs are noted. Water attenuation lesions within visualized portions of the right kidney favor cysts. There is a right adrenal adenoma. This is unchanged since prior abdominal CT of February 26, 2015. IMPRESSION: 1. Small to moderate bilateral pleural effusions with associated airspace opacities favor atelectasis. 2. Interstitial pulmonary edema. Ground glass opacities within lungs favor alveolar edema however an infectious process could appear similar. 3. Several nodular opacities within the right middle lobe and left lung apex. A follow-up chest CT is to ensure resolution is recommended. 4. Mild mediastinal lymphadenopathy which is likely reactive/related to pulmonary edema. This can be assessed on follow-up chest CT. 5. Mild cardiomegaly. Extensive coronary artery calcification. ACT 112: Negative or not required by law. Electronically signed by: Geo Hayes M.D. 12/02/2019 8:25 AM Dictated: 12/02/19816 Transcribed: 12/02/19816 CT OF THE HEAD WITHOUT CONTRAST CLINICAL HISTORY: Altered mental status. Evaluate for bleed. COMPARISON STUDY: No previous studies for comparison. TECHNIQUE: Helical axial images of the head were obtained without IV contrast. Automated exposure control was utilized for the study. A dose lowering technique was utilized adhering to the principles of ALARA. FINDINGS: No acute intracranial hemorrhage, midline shift or mass effect is present. Encephalomalacia within the left frontal lobe represents an old infarct. The ventricular system is unremarkable. The basilar cisterns are patent. No extra-axial collections are present. There are no findings to suggest acute dural sinus thrombosis or acute territorial infarct. No significant calvarial abnormalities are present. Visualized portions of the sinuses and mastoid air cells are clear. IMPRESSION: 1. No acute intracranial findings. 2. Old left frontal lobe infarct. ACT 112: Negative or not required by law. Electronically signed by: Geo Hayes M.D. 12/02/2019 7:29 AM Dictated: 12/02/19726 Transcribed: 12/02/19726 XR chest 1V portable CLINICAL HISTORY: Respiratory failure COMPARISON STUDY: 12/01/2019 FINDINGS: There is an endotracheal tube positioned 3.4 cm above the rosales. The heart is enlarged. There are bilateral pleural diaphragmatic calcifications. There are bilateral pulmonary airspace opacities, pulmonary edema versus infectious/inflammatory process. Bilateral pleural effusions are suspected[ IMPRESSION: Interval placement of an endotracheal tube 3.4 cm above the rosales. Bilateral pulmonary opacities, pulmonary edema versus infectious/inflammatory process. ACT 112: Negative or not required by law. Electronically signed by: Thom Pino M.D. 12/01/2019 8:02 PM Dictated: 12/01/192000 Transcribed: 12/01/192000 XR chest 1V portable CLINICAL HISTORY: Dyspnea COMPARISON STUDY: 01/05/2017 FINDINGS: The heart is enlarged. There is diffuse interstitial thickening, likely secondary to pulmonary vascular congestion although chronic interstitial lung disease or interstitial inflammatory processes could appear similar. There are subpulmonic bilateral pleural effusions. There are bilateral pleurodiaphragmatic calcifications. Although nonspecific this could indicate prior asbestos exposure. There is no lobar consolidation[ IMPRESSION: 1. Bilateral pleurodiaphragmatic calcifications 2. Cardiomegaly and interstitial thickening suggesting pulmonary vascular congestion, although an interstitial inflammatory process or chronic interstitial lung disease could appear similar 3. Bilateral subpulmonic pleural effusions ACT 112: Negative or not required by law. Electronically signed by: Thom Pino M.D. 12/01/2019 7:39 PM Dictated: 12/01/191936 Transcribed: 12/01/191936 Hospital Course (1) Acute hypercapnic respiratory failure: Possibly secondary to acute decompensated CHF with systolic dysfunction CT chest showed small to moderate bilateral pleural effusions with associated airspace opacities favor atelectasis. Interstitial pulmonary edema. Ground glass opacities within lungs favor alveolar edema however an infectious process could appear similar. CXR showed Cardiomegaly and interstitial thickening suggesting pulmonary vascular congestion S/P intubation with mechanical ventilation for short period of time IV lasix transition to Oral Torsemide 20mg BID Extubated, respiratory status remained stable Continue Torsemide 20mg BID Cardiology on board and for further cardiac testing required 2 step exercise done today and pt need to be on 3L oxygen at all time Pt already has oxygen at home but very reluctant to use it Case management was notified and contacted his oxygen suply Script given to case management for oxygen supplement Counseling on smoking cessation (2) Ischemic cardiomyopathy: History of ischemic cardiomyopathy with systolic dysfunction ejection fr action 55%, with valvular heart disease Presented with acute decompensated CHF leading to respiratory failure, volume status improved with diuresis Continue metoprolol and torsemide Check BMP in 1 week Stable (3) Atrial fibrillation: Chronic A. fib Rate control with metoprolol Coumadin was on hold due to EGD Coumadin resume Follow up with the coumadin clinic Anemia of chronic disease Hemoglobin dropped to 8.9 today No active GI bleed S/P EGD showed no active upper GI bleeding Continue PPI Metabolic encephalopathy Secondary to hypoxia due to respiratory failure Mental status improved to baseline resolved CKD stage III: Creatinine 1.4 today Continue to monitor renal function Stable Type 2 diabetes: Continue Insulin sliding scale Monitor BS CODE STATUS: Full code Disposition: PT/OT eval Discharge home today Total Time Total Time Spent Total Time Spent (In Minutes): 35 minutes Total Time Includes: Examination of the Patient, Discharge Planning, Medication Reconciliation, Communication With Other Providers and Other Discharge Plan Discharge Items Patient Disposition: Home - Home Health Services Reason For Visit: ACUTE RESP FAILURE Discharge Diagnosis: Acute hypercapnic respiratory failure COPD Ischemic cardiomyopathy: Atrial fibrillation: Anemia of chronic disease Metabolic encephalopathy CKD stage III: Type 2 diabetes: Activity: Resume your previous activity Non-emergency contact: Primary Care Provider Call non-emergency contact if: you have any medication questions Follow-up/Referrals: Richar Lopez MD [Primary Care Provider] - (Date & Time 12/13/2019 10:00 AM Provider Richar Lopez MD [facility] ) Diet: Carb Consistent or DM2 Addtl Attending Provider Instructions: Follow up with your primary care provider within 1 week Follow up with pulmonology (your primary care provider will refer you to one if you don't have a director it) Follow up with the coumadin clinic to monitor your PT/INR Continue oxygen supplement with 3L NC continuously Continue physical and occupational therapy with home health services Fall precaution Check BMP in 1 week to monitor your electrolytes and kidney function Pending Studies at Discharge: No Stand-Alone Forms: [facility], Smoking Cessation Medications and DC Order Prescriptions: New simethicone [Mi-Acid Gas Relief(simethicon)] 80 mg Tablet,Chewable 80 mg PO Q6H PRN (Reason: abdominal distention) Qty: 30 RF: 0 Breo Ellipta 100-25 mcg/dose Blister With Device 1 puff inhalation DAILY 30 Days Qty: 1 RF: 0 Incruse Ellipta 62.5 mcg/actuation Blister With Device 1 puff inhalation DAILY 30 Days Qty: 1 RF: 0 potassium chloride 20 mEq tablet extended release 20 meq PO DAILY Qty: 30 RF: 0 Continued levetiracetam 500 mg tablet 500 mg PO BID RF: 0 Tradjenta 5 mg tablet 5 mg PO DAILY RF: 0 Aspirin Low Dose 81 MG 81 mg PO DAILY RF: 0 glipizide 5 mg tablet extended release 24hr 5 mg PO DAILY RF: 0 warfarin 2.5 mg Tablet 2.5 mg PO DAILY RF: 0 omeprazole 20 mg Capsule,Delayed Release(Dr/Ec) 20 mg PO DAILY RF: 0 gabapentin 300 mg Tablet 300 mg PO HS RF: 0 Vitamin D3 1,000 MG 1,000 mg PO DAILY RF: 0 metoprolol tartrate 25 MG 25 mg PO DAILY RF: 0 Changed torsemide 20 mg tablet 40 mg PO BID 20 Days Qty: 80 RF: 0 Combivent Respimat 20-100 mcg/actuation mist 1 puff INHALATION QID PRN (Reason: SOB and wheezing) Qty: 0 RF: 0 Discontinued doxycycline hyclate 100 mg capsule 100 mg PO DIRECTED RF: 0 budesonide-formoterol [Symbicort] 160-4.5 mcg/actuation Hfa Aerosol Inhaler 2 puff INHALATION BID RF: 0 Discharge Orders: Discharge Order (Routine); Ordered 12/06/19 Ordered By: Erick Clemente Admission Data Admit Date/Time: 12/01/19 22:19 Attending Provider: Erick Clemente Admit Provider: Bon Mario Primary Care Provider: Richar Lopez Other Providers: Bon Mario ; Devonte Crowder ; Nii Ramsey ; Candi Esposito ; Lainey Mercado ; Abdon Melgar ; Emmanuelle Angeles ; Ruddy Boone ; Alcides Myrick ; Kiah Minor ; Desiree Blank ; Milton Bryant ; Carlos Smith ; Darlene Lemos ; Mayi Stover ; Taryn Rankin ; Whit Cancino ; Blue Flannery ; Harriett Recio. Other Interventions: Discharge Summary Assessment (RN) Last Done: 12/06/19 12:59
== END 2019-12-06 14:02 | disposition home health service (06) | DRG 208 ==
LOC: EDSEX → ED 19:01 → SUATTDRO 22:19 → 1E 22:19 → 2E 12-02 19:12

== ENCOUNTER 2019-12-20 03:32 | Inpatient (IN) ==
[2019-12-20] MEDS ORDERED: FUROSEMIDE 40 MG/4 ML VIAL IV STA (03:48)
[2019-12-20] MEDS ORDERED: NITROGLYCERIN 2% OINTMENT 30GM TUBE EXT ONE (03:48)
--- NOTE | 2019-12-20 04:02 | XRay Report ---
XR chest 1V portable CLINICAL HISTORY: Dyspnea COMPARISON STUDY: 12/02/2019 FINDINGS: The heart is enlarged. There are bilateral pleural effusions. There are bilateral calcified pleural plaques. There are progressive bilateral pulmonary airspace opacities. Endotracheal tube and nasogastric tubes have been removed.[ IMPRESSION: 1. Cardiomegaly, and bilateral pleural effusions 2. Progressive bilateral pulmonary airspace opacities, likely representing pulmonary edema although a bilateral infectious/inflammatory pneumonitis could appear similar. Clinical and radiographic follow -up is advocated ACT 112: Negative or not required by law. Electronically signed by: Thom Pino M.D. 12/20/2019 4:00 AM
[2019-12-20] MEDS ORDERED: AMIODARONE 150MG / 100ML D5W IV ONE (04:11)
[2019-12-20 04:14] LABS: Hematocrit (blood only) 37.3 % (42-52); Hemoglobin 10.1 g/dL (14.0-18.0); Mean Corpuscular Hemoglobin 22.8 pg (25-34); Mean Corpuscular Hgb Conc 27.1 g/dL (32-36); Mean Corpuscular Volume 84.2 fL (80-100); Mean Platelet Volume 9.4 fL (7.4-10.4); Platelet Count 382 K/uL (130-400); RDW Coefficient of Variation 21.2 % (11.5-14.5); Red Blood Count 4.43 M/uL (4.7-6.1); White Blood Count 14.96 K/uL (4.8-10.8)
[2019-12-20 04:15] LABS: iSTAT Arterial Blood Gas HCO3 43 meg/L (19-24); iSTAT Arterial Blood Gas pCO2 114 mmHg (35-46); iSTAT Arterial Blood Gas pH 7.18 (7.35-7.45); iSTAT Arterial Blood Gas pO2 84 mmHg (80-95); iSTAT Carbon Dioxide > 40 mmol/L (24-31); iSTAT Hematocrit 37 % (42-52); iSTAT Hemoglobin 12.6 g/dl (14.0-18.0); iSTAT Potassium 4.2 mmol/L (3.3-5.0); iSTAT Sodium 138 mmol/L (135-144)
[2019-12-20] MEDS ORDERED: 0.2 MICRON FILTER SET 1 EA IV ONE (04:15)
[2019-12-20] MEDS ORDERED: AMIODARONE / D5W 150 MG/100 ML BAG IV STA (04:15)
[2019-12-20 04:17] LABS: INR 2.7 (0.9-1.1); Partial Thromboplastin Ratio 1.4; Partial Thromboplastin Time 40.2 Seconds (21.0-31.0); Prothrombin Time 26.7 Seconds (9.0-12.0)
[2019-12-20 04:21] LABS: Basophils # (auto) 0.09 K/uL (0-0.2); Basophils % (auto) 0.6 %; Eosinophils # (auto) 0.51 K/uL (0-0.5); Eosinophils % (auto) 3.4 %; Hypochromasia Present; Immature Granulocytes # (auto) 0.09 K/uL (0.00-0.02); Immature Granulocytes % (auto) 0.6 %; Lymphocytes # (auto) 1.96 K/uL (1.2-3.4); Lymphocytes % (auto) 13.1 %; Monocytes # (auto) 1.71 K/uL (0.11-0.59); Monocytes % (auto) 11.4 %; Neutrophils % (auto) 70.9 %
--- NOTE | 2019-12-20 04:23 | Emergency Department Note ---
Impression & Plan Acute hypercapnic respiratory failure, Pulmonary edema, Hypoxia ED Provider Note NAME: JACKI DUNLAP AGE: 79 SEX: M ARRIVES VIA: Ambulance INFORMANT: EMS ED PROVIDER(S): Rajni Royal DO CHIEF COMPLAINT: Shortness of breath PLAN: Disposition: Admitted to ICU Condition: Critical MEDICAL DECISION MAKING: This is an 79-year-old male patient with a history of cardiomyopathy and COPD who called EMS tonight for severe shortness of breath. Upon their arrival, his O2 saturations were in the 70s on his usual 2 L of oxygen. The patient suffering acute respiratory failure secondary to pulmonary edema and hypercapnia. He was maintained on BiPAP and had slight improvement in his ABG, mental status and vital signs. The case was discussed with the [facility] hospitalist and they will admit to the ICU. The patient had a recent hospitalization, endotracheal intubation with ICU stay. His presentation tonight is very similar. I was hopeful that we could avoid endotracheal intubation and given his slight improvement on BiPAP, I have opted not to intubate him at this time. His mental status has significantly improved on the BiPAP. He is able to answer questions at this time. He certainly seems to understand more fully the questions I am asking him and participate in c onversation. Triage Nursing notes reviewed and agree them. Prior medical records reviewed Vital Signs: reviewed and remarkable for hypertension, tachycardia and hypoxia Differential diagnosis: Hypercapnic respiratory failure; pulmonary edema; COPD exacerbation; pneumothorax; pneumonia ER treatment provided: BiPAP placement IV Lasix Nitropaste IV amiodarone Diagnostics interpreted by me: ECG: SVT at a rate of [address] segment depression in V4, V5, V6 and leads I and aVL Cardiac Monitoring: A. fib with RVR with multiple PVCs including runs of V. tach. Laboratory studies: See below Imaging studies: Portable chest x-ray: Flash pulmonary edema with bilateral pleural effusions; cardiomegaly as per my interpretation HPI: 79/M arrives for evaluation of shortness of breath. According to EMS, the patient called tonight because he awoke from sleep with severe shortness of breath and left-sided chest pain. Upon EMS arrival, the patient was in severe respiratory distress with extreme diaphoresis. O2 saturations were in the mid 70s on his usual 2 L of O2 by nasal cannula. ROS: See above HPI for pertinent positives & negatives. A total of 10 systems reviewed and were otherwise negative. PAST MEDICAL HISTORY:See Below PAST SURGICAL HISTORY:See Below FAMILY HISTORY:See Below SOCIAL HISTORY:See Below HOME MEDICATIONS:See list ALLERGIES:See list VITALS:See Below PHYSICAL EXAMINATION: General: The patient was on CPAP by EMS; he was semiresponsive. He was tachypneic and slightly diaphoretic HEENT: Head - normocephalic and atraumatic Pupils are equal, round, and r eactive to light. Extraocular eye muscles are intact, and sclera are anicteric. Nose - moist nasal mucosa without discharge. Mouth - moist buccal mucosa. Oropharynx is nonerythematous and there is no tonsillar exudate or edema noted. Neck: Supple; JVD. Heart: Tachycardic rate and rhythm. There is a normal S1 and S2 with no murmurs, clicks, or gallops appreciated. Lungs: Diminished breath sounds in all lung garcia with rales throughout all lung garcia. Abdomen: Soft, extremely distended and protuberant with good bowel sounds. There are no palpable pulsatile masses or hepatosplenomegaly. There is no guarding, rigidity, or rebound noted. Extremities: 3+ pitting edema both lower extremities with some skin breakdown Skin: warm and diaphoretic with good turgor and no rashes. ED COURSE: The patient was emergently evaluated in room B1. Previous electronic medical records have been reviewed. Nurses sami labs and obtained a second IV line. Patient was placed on a clinical research monitor and pulse oximeter. An order was placed for continuous cardiac monitoring. The patient was in A. fib with RVR at a rate of 140. The patient was switched from prehospital CPAP to BiPAP A twelve-lead EKG was obtained. A portable chest x-ray was obtained. The p [facility] had an inch of Nitropaste placed. A Saez catheter was placed. The patient was given 40 mg of IV Lasix. An ABG was obtained which showed respiratory acidosis with hypercapnia. pH was 7.18 a nd PCO2 of 113. The patient was noted to have runs of V. tach and was given 150 mg of IV amiodarone. Patient's heart rate came down slightly and ectopic beats decreased. Patient's mental status was improving slightly. A repeat ABG was performed. pH had increased to 7.21 and PCO2 had decreased to 105. The patient did have an episode of hypotension. The Nitropaste was removed. I discussed the case with the [facility] hospitalist and they will evaluate for further management. I have personally spent greater than 120 minutes of critical care time in the direct management of this patient. This includes bedside care, interpretation of diagnostic studies, and testing, discussion with consultants, patient, and family members, and other required patient management activities. This 120 min utes is in excess of all separately billable procedures. Rajni Royal DO Past Med/Surg History Medical History (Updated 12/21/19 @ 15:51 by Rajni Royal DO) Acute hypercapnic respiratory failure Acute kidney injury Anemia Asthma exacerbation in COPD CKD (chronic kidney disease), stage III COPD, moderate CVA (cerebral vascular accident) Diabetes mellitus HTN (hypertension) Hyperkalemia Multifocal pneumonia Pleural effusion, bilateral Supratherapeutic INR Surgical History S/P AAA repair Social History Smoking Status: Former smoker Tobacco Type: Cigarettes Second Hand Exposure: No; Do You Dip or Chew Tobacco: No; Tobacco Cessation Education Requested by Patient: No Hx Alcohol Use: No Hx Substance Use: No Preferred Language: Maori Communication Ability: Effective Coke Inspector Required: No Beliefs That Will Affect Care: None Current Living Situation: Alone Current Living Situation Comment: Unable to complete patient sedated Other Information That Helps Us Care for You: No Feels Safe at Home: Yes Safety Concerns: Feels Safe At This Time Assistive Devices: BiPap Allergies Allergies Allergy/AdvReac Type Severity Reaction Status Date / Time Sulfa (Sulfonamide Allergy Unknown HIVES Verified 12/20/19 04:11 Antibiotics) Home Meds Home Medications Medication Instructions Recorded Confirmed Tradjenta 5 mg PO DAILY 12/01/19 12/20/19 glipizide 5 mg PO DAILY 12/01/19 12/20/19 levetiracetam 500 mg PO BID 12/01/19 12/20/19 metoprolol tartrate 25 mg PO DAILY 12/01/19 12/20/19 omeprazole 20 mg PO DAILY 12/01/19 12/20/19 warfarin 2.5 mg PO DAILY 12/01/19 12/20/19 aspirin [Aspirin Low Dose] 81 mg PO DAILY 12/20/19 12/20/19 cholecalciferol (vitamin D3) 25 mcg PO DAILY 12/20/19 12/20/19 [Vitamin D3] doxycycline hyclate 100 mg PO BID 12/20/19 12/20/19 fluticasone furoate-vilanterol 1 inh INHALATION DAILY 12/20/19 12/20/19 [Breo Ellipta] gabapentin 300 mg PO HS 12/20/19 12/20/19 umeclidinium [Incruse Ellipta] 1 inh INHALATION DAILY 12/20/19 12/20/19 Previous Rx's Medication Instructions Recorded Combivent Respimat 1 puff INHALATION QID PRN #0 g 12/06/19 potassium chloride 20 meq PO DAILY #30 tab 12/06/19 simethicone [Mi-Acid Gas 80 mg PO Q6H PRN #30 tab 12/06/19 Relief(simethicon)] torsemide 40 mg PO BID 20 Days #80 tab 12/06/19 Results & Data (ED) Vital Signs Vital Signs - 24 hr 12/20/19 03:37 12/20/19 03:40 12/20/19 03:54 Pulse Rate 143 H 142 H 149 H Pulse Rate from SpO2 Sensor 142 H Pulse Rhythm Regular Pulse Strength Normal Respiratory Rate 35 H 33 H Respiratory Effort / Characteristics Spontaneous Accessory Muscle Use Labored Spontaneous Accessory Muscle Use Labored Retracting Respiratory Depth Retractive Deep Respiratory Pattern Tachypnea Tachypnea Blood Pressure 173/82 H Blood Pressure Mean 112 Blood Pressure Position Sitting Pulse Oximetry 93 96 93 Oxygen Delivery Method CPAP CPAP Fraction of Inspired Oxygen 50 Sepsis Recent Fever Within 48 Hours No Sepsis New/Unexplained Change in Mental Status No Sepsis Action Taken by Nursing No Action Required 12/20/19 03:56 Pulse Rate 144 H Pulse Rate from SpO2 Sensor 151 H Pulse Rhythm Pulse Strength Respiratory Rate Respiratory Effort / Characteristics Respiratory Depth Respiratory Pattern Blood Pressure 177/118 H Blood Pressure Mean 126 Blood Pressure Position Pulse Oximetry 95 Oxygen Delivery Method CPAP Fraction of Inspired Oxygen Sepsis Recent Fever Within 48 Hours Sepsis New/Unexplained Change in Mental Status Sepsis Action Taken by Nursing Laboratory Data Result diagrams: 12/21/19 04:24 12/21/19 10:12 Lab Results 12/20/19 12/20/19 12/20/19 Range/Units 03:46 03:46 03:46 WBC 14.96 H (4.8-10.8) K/uL RBC 4.43 L (4.7-6.1) M/uL Hgb 10.1 L (14.0-18.0) g/dL POC Hgb (14.0-18.0) g/dl Hct 37.3 L (42-52) % POC Hct (42-52) % MCV 84.2 (80-100) fL MCH 22.8 L (25-34) pg MCHC 27.1 L (32-36) g/dL RDW Std Deviation 64.0 H (36.4-46.3) fL RDW Coeff of Robetr 21.2 H (11.5-14.5) % Plt Count 382 (130-400) K/uL MPV 9.4 (7.4-10.4) fL Immature Gran % (Auto) 0.6 % Neut % (Auto) 70.9 % Lymph % (Auto) 13.1 % [place] % (Auto) 11.4 % Eos % (Auto) 3.4 % Baso % (Auto) 0.6 % Neut # (Auto) 10.60 H (1.4-6.5) K/uL Lymph # (Auto) 1.96 (1.2-3.4) K/uL [place] # (Auto) 1.71 H (0.11-0.59) K/uL Eos # (Auto) 0.51 H (0-0.5) K/uL Baso # (Auto) 0.09 (0-0.2) K/uL Immature Gran # (Auto) 0.09 H (0.00-0.02) K/uL Hypochromasia Present Ovalocytes 1+ Stomatocytes 1+ PT 26.7 H (9.0-12.0) Seconds INR 2.7 H (0.9-1.1) APTT 40.2 H (21.0-31.0) Seconds PTT Ratio 1.4 POC pH (7.35-7.45) POC pCO2 (35-46) mmHg POC pO2 (80-95) mmHg POC HCO3 (19-24) ambrose/L POC Total CO2 (24-31) mmol/L POC Base Excess (-9-1.8) ambrose/L POC ABG O2 Sat (90-95) % POC Sodium (135-144) mmol/L Sodium 138 (136-145) mmol/L POC Potassium (3.3-5.0) mmol/L Potassium 4.3 (3.5-5.1) mmol/L Chloride 95 L (98-107) mmol/L Carbon Dioxide 42 H* (21-32) mmol/L Anion Gap 2.0 L (3-11) BUN 33 H (7-18) mg/dl Creatinine 1.55 H (0.6-1.4) mg/dl Est Cr Clr Drug Dosing 43.5 ml/min Est GFR ( Amer) 48.3 Est GFR (Non-Af Amer) 41.7 BUN/Creatinine Ratio 21.1 H (10-20) Glucose 225 H (70-99) mg/dl Estimat Average Glucose mg/dl Hemoglobin A1c (4.5-5.6) % Lactate (0.4-2.0) mmol/L Calcium 9.0 (8.5-10.1) mg/dl Magnesium (1.8-2.4) mg/dl Total Bilirubin 0.6 (0.2-1) mg/dl AST 15 (15-37) U/L ALT 20 (12-78) U/L Alkaline Phosphatase 90 (45-117) U/L Troponin I 0.034 (0-0.045) ng/ml Total Protein 8.1 (6.4-8.2) gm/dl Albumin 3.9 (3.4-5.0) gm/dl Globulin 4.2 H (2.5-4.0) gm/dl Albumin/Globulin Ratio 0.9 (0.9-2) Lipase 147 (73-393) U/L Procalcitonin (0-0.5) ng/ml TSH 2.900 (0.300-4.500) uIu/ml Urine Color Urine Appearance (Clear) Urine pH (4.5-7.5) Ur Specific [place] (1.000-1.030) Urine Protein (Negative) Urine Glucose (UA) (Negative) Urine Ketones (Negative) Urine Blood (Negative) Urine Nitrite (Negative) Urine Bilirubin (Negative) Urine Urobilinogen (Negative) Ur Leukocyte Esterase (Negative) Urine WBC (Auto) (0-5) /hpf Urine RBC (Auto) (0-4) /hpf U Hyaline Cast (Auto) (0-5) /lpf U Epithel Cells (Auto) (0-5) /lpf Urine Bacteria (Auto) (Negative) COVID-19 Eval Order COVID-19 PCR (Negative) 12/20/19 12/20/19 12/20/19 Range/Units 03:46 03:58 03:58 WBC (4.8-10.8) K/uL RBC (4.7-6.1) M/uL Hgb (14.0-18.0) g/dL POC Hgb (14.0-18.0) g/dl Hct (42-52) % POC Hct (42-52) % MCV (80-100) fL MCH (25-34) pg MCHC (32-36) g/dL RDW Std Deviation (36.4-46.3) fL RDW Coeff of Robert (11.5-14.5) % Plt Count (130-400) K/uL MPV (7.4-10.4) fL Immature Gran % (Auto) % Neut % (Auto) % Lymph % (Auto) % [place] % (Auto) % Eos % (Auto) % Baso % (Auto) % Neut # (Auto) (1.4-6.5) K/uL Lymph # (Auto) (1.2-3.4) K/uL [place] # (Auto) (0.11-0.59) K/uL Eos # (Auto) (0-0.5) K/uL Baso # (Auto) (0-0.2) K/uL Immature Gran # (Auto) (0.00-0.02) K/uL Hypochromasia Ovalocytes Stomatocytes PT (9.0-12.0) Seconds INR (0.9-1.1) APTT (21.0-31.0) Seconds PTT Ratio POC pH (7.35-7.45) POC pCO2 (35-46) mmHg POC pO2 (80-95) mmHg POC HCO3 (19-24) ambrose/L POC Total CO2 (24-31) mmol/L POC Base Excess (-9-1.8) ambrose/L POC ABG O2 Sat (90-95) % POC Sodium (135-144) mmol/L Sodium (136-145) mmol/L POC Potassium (3.3-5.0) mmol/L Potassium (3.5-5.1) mmol/L Chloride (98-107) mmol/L Carbon Dioxide (21-32) mmol/L Anion Gap (3-11) BUN (7-18) mg/dl Creatinine (0.6-1.4) mg/dl Est Cr Clr Drug Dosing ml/min Est GFR ( Amer) Est GFR (Non-Af Amer) BUN/Creatinine Ratio (10-20) Glucose (70-99) mg/dl Estimat Average Glucose 126 mg/dl Hemoglobin A1c 6.0 H (4.5-5.6) % Lactate 1.9 (0.4-2.0) mmol/L Calcium (8.5-10.1) mg/dl Magnesium 2.2 (1.8-2.4) mg/dl Total Bilirubin (0.2-1) mg/dl AST (15-37) U/L ALT (12-78) U/L Alkaline Phosphatase (45-117) U/L Troponin I (0-0.045) ng/ml Total Protein (6.4-8.2) gm/dl Albumin (3.4-5.0) gm/dl Globulin (2.5-4.0) gm/dl Albumin/Globulin Ratio (0.9-2) Lipase (73-393) U/L Procalcitonin (0-0.5) ng/ml TSH (0.300-4.500) uIu/ml Urine Color Urine Appearance (Clear) Urine pH (4.5-7.5) Ur Specific [place] (1.000-1.030) Urine Protein (Negative) Urine Glucose (UA) (Negative) Urine Ketones (Negative) Urine Blood (Negative) Urine Nitrite (Negative) Urine Bilirubin (Negative) Urine Urobilinogen (Negative) Ur Leukocyte Esterase (Negative) Urine WBC (Auto) (0-5) /hpf Urine RBC (Auto) (0-4) /hpf U Hyaline Cast (Auto) (0-5) /lpf U Epithel Cells (Auto) (0-5) /lpf Urine Bacteria (Auto) (Negative) COVID-19 Eval Order COVID-19 PCR (Negative) 10/23/20 10/23/20 10/23/20 Range/Units 03:58 04:01 04:15 WBC (4.8-10.8) K/uL RBC (4.7-6.1) M/uL Hgb (14.0-18.0) g/dL POC Hgb 12.6 L (14.0-18.0) g/dl Hct (42-52) % POC Hct 37 L (42-52) % MCV (80-100) fL MCH (25-34) pg MCHC (32-36) g/dL RDW Std Deviation (36.4-46.3) fL RDW Coeff of Robert (11.5-14.5) % Plt Count (130-400) K/uL MPV (7.4-10.4) fL Immature Gran % (Auto) % Neut % (Auto) % Lymph % (Auto) % Liberty % (Auto) % Eos % (Auto) % Baso % (Auto) % Neut # (Auto) (1.4-6.5) K/uL Lymph # (Auto) (1.2-3.4) K/uL [place] # (Auto) (0.11-0.59) K/uL Eos # (Auto) (0-0.5) K/uL Baso # (Auto) (0-0.2) K/uL Immature Gran # (Auto) (0.00-0.02) K/uL Hypochromasia Ovalocytes Stomatocytes PT (9.0-12.0) Seconds INR (0.9-1.1) APTT (21.0-31.0) Seconds PTT Ratio POC pH 7.18 L* (7.35-7.45) POC pCO2 114 H (35-46) mmHg POC pO2 84 (80-95) mmHg POC HCO3 43 H (19-24) ambrose/L POC Total CO2 > 40 H* (24-31) mmol/L POC Base Excess 14.0 H (-9-1.8) ambrose/L POC ABG O2 Sat 92.0 (90-95) % POC Sodium 138 (135-144) mmol/L Sodium (136-145) mmol/L POC Potassium 4.2 (3.3-5.0) mmol/L Potassium (3.5-5.1) mmol/L Chloride (98-107) mmol/L Carbon Dioxide (21-32) mmol/L Anion Gap (3-11) BUN (7-18) mg/dl Creatinine (0.6-1.4) mg/dl Est Cr Clr Drug Dosing ml/min Est GFR ( Amer) Est GFR (Non-Af Amer) BUN/Creatinine Ratio (10-20) Glucose (70-99) mg/dl Estimat Average Glucose mg/dl Hemoglobin A1c (4.5-5.6) % Lactate (0.4-2.0) mmol/L Calcium (8.5-10.1) mg/dl Magnesium (1.8-2.4) mg/dl Total Bilirubin (0.2-1) mg/dl AST (15-37) U/L ALT (12-78) U/L Alkaline Phosphatase (45-117) U/L Troponin I (0-0.045) ng/ml Total Protein (6.4-8.2) gm/dl Albumin (3.4-5.0) gm/dl Globulin (2.5-4.0) gm/dl Albumin/Globulin Ratio (0.9-2) Lipase (73-393) U/L Procalcitonin 0.05 (0-0.5) ng/ml TSH (0.300-4.500) uIu/ml Urine Color Yellow Urine Appearance Clear (Clear) Urine pH 5.0 (4.5-7.5) Ur Specific [place] 1.018 (1.000-1.030) Urine Protein 2+ H (Negative) Urine Glucose (UA) Negative (Negative) Urine Ketones Negative (Negative) Urine Blood 1+ H (Negative) Urine Nitrite Negative (Negative) Urine Bilirubin Negative (Negative) Urine Urobilinogen Negative (Negative) Ur Leukocyte Esterase Negative (Negative) Urine WBC (Auto) 1-5 (0-5) /hpf Urine RBC (Auto) 5-10 H (0-4) /hpf U Hyaline Cast (Auto) 1-5 (0-5) /lpf U Epithel Cells (Auto) 5-10 H (0-5) /lpf Urine Bacteria (Auto) Negative (Negative) COVID-19 Eval Order COVID-19 PCR (Negative) 12/20/19 12/20/19 12/20/19 Range/Units 04:28 04:28 04:38 WBC (4.8-10.8) K/uL RBC (4.7-6.1) M/uL Hgb (14.0-18.0) g/dL POC Hgb 12.2 L (14.0-18.0) g/dl Hct (42-52) % POC Hct 36 L (42-52) % MCV (80-100) fL MCH (25-34) pg MCHC (32-36) g/dL RDW Std Deviation (36.4-46.3) fL RDW Coeff of Robert (11.5-14.5) % Plt Count (130-400) K/uL MPV (7.4-10.4) fL Immature Gran % (Auto) % Neut % (Auto) % Lymph % (Auto) % [place] % (Auto) % Eos % (Auto) % Baso % (Auto) % Neut # (Auto) (1.4-6.5) K/uL Lymph # (Auto) (1.2-3.4) K/uL [place] # (Auto) (0.11-0.59) K/uL Eos # (Auto) (0-0.5) K/uL Baso # (Auto) (0-0.2) K/uL Immature Gran # (Auto) (0.00-0.02) K/uL Hypochromasia Ovalocytes Stomatocytes PT (9.0-12.0) Seconds INR (0.9-1.1) APTT (21.0-31.0) Seconds PTT Ratio POC pH 7.21 L (7.35-7.45) POC pCO2 106 H (35-46) mmHg POC pO2 154 H (80-95) mmHg POC HCO3 43 H (19-24) ambrose/L POC Total CO2 > 40 H* (24-31) mmol/L POC Base Excess 15.0 H (-9-1.8) ambrose/L POC ABG O2 Sat 99.0 H (90-95) % POC Sodium 138 (135-144) mmol/L Sodium (136-145) mmol/L POC Potassium 4.3 (3.3-5.0) mmol/L Potassium (3.5-5.1) mmol/L Chloride (98-107) mmol/L Carbon Dioxide (21-32) mmol/L Anion Gap (3-11) BUN (7-18) mg/dl Creatinine (0.6-1.4) mg/dl Est Cr Clr Drug Dosing ml/min Est GFR ( Amer) Est GFR (Non-Af Amer) BUN/Creatinine Ratio (10-20) Glucose (70-99) mg/dl Estimat Average Glucose mg/dl Hemoglobin A1c (4.5-5.6) % Lactate (0.4-2.0) mmol/L Calcium (8.5-10.1) mg/dl Magnesium (1.8-2.4) mg/dl Total Bilirubin (0.2-1) mg/dl AST (15-37) U/L ALT (12-78) U/L Alkaline Phosphatase (45-117) U/L Troponin I (0-0.045) ng/ml Total Protein (6.4-8.2) gm/dl Albumin (3.4-5.0) gm/dl Globulin (2.5-4.0) gm/dl Albumin/Globulin Ratio (0.9-2) Lipase (73-393) U/L Procalcitonin (0-0.5) ng/ml TSH (0.300-4.500) uIu/ml Urine Color Urine Appearance (Clear) Urine pH (4.5-7.5) Ur Specific [place] (1.000-1.030) Urine Protein (Negative) Urine Glucose (UA) (Negative) Urine Ketones (Negative) Urine Blood (Negative) Urine Nitrite (Negative) Urine Bilirubin (Negative) Urine Urobilinogen (Negative) Ur Leukocyte Esterase (Negative) Urine WBC (Auto) (0-5) /hpf Urine RBC (Auto) (0-4) /hpf U Hyaline Cast (Auto) (0-5) /lpf U Epithel Cells (Auto) (0-5) /lpf Urine Bacteria (Auto) (Negative) COVID-19 Eval Order Covid19 Done at [facility] COVID-19 PCR NEGATIVE (Negative) Administered Medications Ceftriaxone Sodium 2,000 mg/ (Dextrose) 70 mls @ 100 mls/hr IV DAILY@1600 JIMMY; Protocol Stop: 12/27/19 15:59 Last Infusion: 12/20/19 16:44 Dose: 0 mls/hr Documented by: [id number] Admin: 12/20/19 15:58 Dose: 100 mls/hr Documented by: [id number] Infusion: 12/20/19 15:58 Dose: 100 mls/hr Documented by: [id number] Admin: 12/20/19 15:56 Dose: 100 mls/hr Documented by: [id number] Doxycycline Hyclate 100 mg/ (Dextrose) 110 mls @ 50 mls/hr IV Q12H JIMMY Stop: 12/27/19 17:59 Last Infusion: 12/21/19 08:55 Dose: 0 mls/hr Documented by: [id number] Admin: 12/21/19 05:28 Dose: 50 mls/hr Documented by: [id number] Infusion: 12/20/19 21:02 Dose: 0 mls/hr Documented by: [id number] Admin: 12/20/19 18:49 Dose: 50 mls/hr Documented by: [id number] Levetiracetam 500 mg/ Sodium (Chloride) 105 mls @ 420 mls/hr IV Q12H JIMMY Stop: 01/19/20 20:59 Last Infusion: 12/21/19 08:25 Dose: 0 mls/hr Documented by: [id number] Admin: 12/21/19 08:08 Dose: 420 mls/hr Documented by: [id number] Infusion: 12/20/19 21:40 Dose: 0 mls/hr Documented by: [id number] Admin: 12/20/19 21:25 Dose: 420 mls/hr Documented by: [id number] Pantoprazole Sodium 40 mg/ (Syringe) 10 mls @ 5 mls/min IV DAILY@1100 JIMMY Stop: 01/20/20 10:59 Last Admin: 12/21/19 11:16 Dose: 5 mls/min Documented by: [id number] Dexmedetomidine HCl 200 mcg/ (Sodium Chloride) 50 mls @ 9.97 mls/hr IV .Q5H1M JIMMY; Protocol Stop: 12/24/19 21:44 Last Admin: 12/21/19 11:14 Dose: 0.04 mcg/kg/hr, 1 mls/hr Documented by: [id number] Cosigned by: [id number] Titration: 12/21/19 11:14 Dose: 0.04 mcg/kg/hr, 1 mls/hr Documented by: [id number] Cosigned by: [id number] Titration: 12/21/19 08:55 Dose: 0.04 mcg/kg/hr, 1 mls/hr Documented by: [id number] Admin: 12/21/19 06:46 Dose: 0.5 mcg/kg/hr, 12.5 mls/hr Documented by: [id number] Cosigned by: [id number] Titration: 12/21/19 06:46 Dose: 0.5 mcg/kg/hr, 12.5 mls/hr Documented by: [id number] Cosigned by: [id number] Titration: 12/21/19 04:21 Dose: 0.5 mcg/kg/hr, 12.5 mls/hr Documented by: [id number] Cosigned by: [id number] Admin: 12/21/19 04:21 Dose: 0.5 mcg/kg/hr, 12.5 mls/hr Documented by: [id number] Cosigned by: [id number] Titration: 12/21/19 01:45 Dose: 0.5 mcg/kg/hr, 12.5 mls/hr Documented by: [id number] Titration: 12/21/19 01:11 Dose: 0.4 mcg/kg/hr, 10 mls/hr Documented by: [id number] Titration: 12/21/19 00:53 Dose: 0.3 mcg/kg/hr, 7.5 mls/hr Documented by: [id number] Admin: 12/21/19 00:38 Dose: 0.2 mcg/kg/hr, 5 mls/hr Documented by: [id number] Cosigned by: [id number] Titration: 12/20/19 23:20 Dose: 0 mcg/kg/hr, 0 mls/hr Documented by: [id number] Titration: 12/20/19 23:01 Dose: 0 mcg/kg/hr, 0 mls/hr Documented by: [id number] Titration: 12/20/19 22:11 Dose: 0.3 mcg/kg/hr, 7.5 mls/hr Documented by: [id number] Admin: 12/20/19 21:56 Dose: 0.2 mcg/kg/hr, 5 mls/hr Documented by: [id number] Cosigned by: [id number] Fentanyl Citrate (Fentanyl Drip) 1,250 mcg in 250 mls @ 15 mls/hr IV .[id number] [facility]; Protocol Stop: 01/03/20 23:44 Last Admin: 12/21/19 11:15 Dose: 75 mcg/hr, 15 mls/hr Documented by: [id number] Cosigned by: [id number] Titration: 12/21/19 11:15 Dose: 75 mcg/hr, 15 mls/hr Documented by: [id number] Cosigned by: [id number] Titration: 12/21/19 08:55 Dose: 75 mcg/hr, 15 mls/hr Documented by: [id number] Cosigned by: [id number] Titration: 12/21/19 01:51 Dose: 125 mcg/hr, 25 mls/hr Documented by: [id number] Cosigned by: [id number] Admin: 12/21/19 00:23 Dose: 100 mcg/hr, 20 mls/hr Documented by: [id number] Cosigned by: [id number] Norepinephrine Bitartrate 8 mg (/ Dextrose) 508 mls @ 14.783 mls/hr IV .Q24H JIMMY; Protocol Stop: 01/20/20 09:29 Last Titration: 12/21/19 10:26 Dose: 0.04 mcg/kg/min, 14.8 mls/hr Documented by: [id number] Admin: 12/21/19 09:40 Dose: 0.05 mcg/kg/min, 18.5 mls/hr Documented by: [id number] Cosigned by: [id number] Sodium Chloride (Nss) 500 mls @ 80 mls/hr IV .Q6H15M JIMMY Stop: 01/20/20 11:29 Last Admin: 12/21/19 12:45 Dose: 80 mls/hr Documented by: [id number] Insulin Aspart (Insulin Aspart 100 Units/Ml 3 Ml Pen) 0 units SC Q6 JIMMY Stop: 01/19/20 07:59 Last Admin: 12/21/19 12:49 Dose: 1 units Documented by: [id number] Cosigned by: [id number] Admin: 12/21/19 05:28 Dose: 1 units Documented by: [id number] Cosigned by: [id number] Admin: 12/21/19 00:25 Dose: 1 units Documented by: [id number] Cosigned by: [id number] Admin: 12/20/19 18:54 Dose: 2 units Documented by: [id number] Cosigned by: [id number] Admin: 12/20/19 12:19 Dose: 4 units Documented by: [id number] Cosigned by: [id number] Admin: 12/20/19 08:13 Dose: 5 units Documented by: [id number] Cosigned by: [id number] Insulin Glargine (Insulin Glargine Solostar 100 Units/Ml 3 Ml Pen) 5 units SC DAILY JIMMY Stop: 01/20/20 08:59 Last Admin: 12/21/19 08:12 Dose: 5 units Documented by: [id number] Cosigned by: [id number] Ipratropium [place] (Ipratropium [place] Neb Soln 0.02% 2.5 Ml Vial) 0.5 mg INH Q4H PRN PRN Reason: SOB/WHEEZE Stop: 01/19/20 07:24 Last Admin: 12/20/19 14:58 Dose: 0.5 mg Documented by: [id number] Admin: 12/20/19 09:52 Dose: 0.5 mg Documented by: [id number] Levalbuterol HCl (Levalbuterol 1.25mg/0.5ml Neb) 1.25 mg INH Q4H PRN PRN Reason: SOB/WHEEZE Stop: 01/19/20 07:24 Last Admin: 12/20/19 14:58 Dose: 1.25 mg Documented by: [id number] Admin: 12/20/19 09:51 Dose: 1.25 mg Documented by: [id number] Metoprolol Tartrate (Metoprolol Tartrate 1 Mg/Ml Vial) 2.5 mg IV Q6H [facility] Stop: 01/19/20 20:59 Last Admin: 12/21/19 07:47 Dose: Not Given Documented by: [id number] Admin: 12/21/19 02:04 Dose: Not Given Documented by: [id number] Admin: 12/20/19 21:25 Dose: 2.5 mg Documented by: [id number] Discontinued Medications Amiodarone HCl/Dextrose (Amiodarone 150mg / 100ml D5w) Confirm Administered Dose 150 mg IV .STK-MED ONE Stop: 12/20/19 04:12 Last Admin: 12/20/19 04:15 Dose: 150 mg Documented by: [id number] Cosigned by: [id number] Dextrose (Dextrose 50% 50 Ml Syringe) 50 ml IV NOW STA Stop: 12/21/19 11:17 Last Admin: 12/21/19 12:49 Dose: 50 ml Documented by: [id number] Fentanyl Citrate (Fentanyl Citrate 1250mcg/250ml Nss) Confirm Administered Dose 1,250 mcg IV .STK-MED ONE Stop: 12/21/19 00:01 Last Admin: 12/21/19 00:23 Dose: Not Given Documented by: [id number] Furosemide (Furosemide 40 Mg/4 Ml Vial) 40 mg IV NOW STA Stop: 12/20/19 03:49 Last Admin: 12/20/19 03:53 Dose: 40 mg Documented by: [id number] Hydromorphone HCl (Hydromorphone Inj 0.5 Mg/0.5 Ml Syr) 0.25 mg IV Q4H PRN PRN Reason: Pain Stop: 01/03/20 07:24 Last Admin: 12/20/19 14:55 Dose: 0.25 mg Documented by: [id number] Admin: 12/20/19 10:32 Dose: 0.25 mg Documented by: [id number] Amiodarone HCl/Dextrose (Nexterone / D5w) 150 mg in 100 mls @ 600 mls/hr IV NOW STA Stop: 12/20/19 04:24 Last Admin: 12/20/19 04:33 Dose: Not Given Documented by: [id number] Magnesium Sulfate/Dextrose (Magnesium Sulfate / D5w) 1 gm in 100 mls @ 50 mls/hr IV ONE STA Stop: 12/20/19 07:03 Last Infusion: 12/20/19 08:28 Dose: 0 mls/hr Documented by: [id number] Admin: 12/20/19 05:43 Dose: 50 mls/hr Documented by: [id number] Albumin Human (Albumin 25%) 12.5 gm in 50 mls @ 50 mls/hr IV ONE STA Stop: 12/20/19 06:37 Last Infusion: 12/20/19 08:27 Dose: 0 mls/hr Documented by: [id number] Admin: 12/20/19 06:01 Dose: 50 mls/hr Documented by: [id number] Methylprednisolone 20 mg/ (Syringe) 0.32 mls @ 1.5 mls/min IV NOW STA Stop: 12/20/19 06:35 Last Admin: 12/20/19 06:43 Dose: Not Given Documented by: [id number] Albumin Human (Albumin 25%) 12.5 gm in 50 mls @ 50 mls/hr IV BID JIMMY Stop: 12/20/19 21:59 Last Infusion: 12/20/19 09:56 Dose: 0 mls/hr Documented by: [id number] Admin: 12/20/19 08:14 Dose: 50 mls/hr Documented by: [id number] Furosemide 60 mg/ Syringe 6 mls @ 4 mls/min IV BID@1000,2200 JIMMY Stop: 12/20/19 22:02 Last Admin: 12/20/19 21:26 Dose: 4 mls/min Documented by: [id number] Admin: 12/20/19 09:04 Dose: 4 mls/min Documented by: [id number] Furosemide 60 mg/ Syringe 6 mls @ 4 mls/min IV ONE ONE Stop: 12/20/19 12:01 Last Admin: 12/20/19 11:52 Dose: 4 mls/min Documented by: [id number] Propofol (Diprivan) 1,000 mg in 100 mls @ 8.973 mls/hr IV .Q11H9M [facility]; Protocol Stop: 12/23/19 23:14 Last Titration: 12/21/19 00:24 Dose: 0 mcg/kg/min, 0 mls/hr Documented by: [id number] Titration: 12/20/19 23:49 Dose: 15 mcg/kg/min, 9 mls/hr Documented by: [id number] Admin: 12/20/19 23:25 Dose: 20 mcg/kg/min, 12 mls/hr Documented by: [id number] Cosigned by: [id number] Sodium Chloride (Nss 1000ml) 1,000 mls @ 250 mls/hr IV .Q4H ONE Stop: 12/21/19 04:31 Last Infusion: 12/21/19 04:40 Dose: 0 mls/hr Documented by: [id number] Admin: 12/21/19 00:39 Dose: 250 mls/hr Documented by: [id number] Insulin Human Regular 10 units (/ Syringe) 9.9 mls @ 3 mls/sec IV 1130 ONE Stop: 12/21/19 11:31 Last Admin: 12/21/19 12:47 Dose: 3 mls/sec Documented by: [id number] Cosigned by: [id number] Insulin Glargine (Insulin Glargine Solostar 100 Units/Ml 3 Ml Pen) 10 units SC NOW STA Stop: 12/20/19 07:26 Last Admin: 12/20/19 08:07 Dose: 10 units Documented by: [id number] Cosigned by: [id number] Ipratropium [place] (Ipratropium [place] Neb Soln 0.02% 2.5 Ml Vial) 0.5 mg INH ONE STA Stop: 12/20/19 05:05 Last Admin: 12/20/19 05:45 Dose: 0.5 mg Documented by: [id number] Levalbuterol HCl (Levalbuterol 1.25mg/0.5ml Neb) 1.25 mg INH ONE STA Stop: 12/20/19 05:05 Last Admin: 12/20/19 05:46 Dose: 1.25 mg Documented by: [id number] Levetiracetam (Levetiracetam 500 Mg Tab) 500 mg PO BID JIMMY Stop: 01/19/20 08:59 Last Admin: 12/20/19 20:20 Dose: Not Given Documented by: [id number] Admin: 12/20/19 08:09 Dose: 500 mg Documented by: [id number] Methylprednisolone (Methylprednisolone 40 Mg/Ml Vial) Confirm Administered Dose 40 mg .ROUTE .STK-MED ONE Stop: 12/20/19 06:42 Last Admin: 12/20/19 06:42 Dose: 20 mg Documented by: [id number] Metolazone (Metolazone 5 Mg Tablet) 5 mg PO NOW ONE Stop: 12/20/19 10:50 Last Admin: 12/20/19 11:59 Dose: 5 mg Documented by: [id number] Metoprolol Tartrate (Metoprolol Tartrate 1 Mg/Ml Vial) 2.5 mg IV NOW STA Stop: 12/20/19 05:06 Last Admin: 12/20/19 06:19 Dose: Not Given Documented by: [id number] Metoprolol Tartrate (Metoprolol Tartrate 25 Mg Tab) 12.5 mg PO BID JIMMY Stop: 01/19/20 08:59 Last Admin: 12/20/19 20:20 Dose: Not Given Documented by: [id number] Admin: 12/20/19 08:09 Dose: 12.5 mg Documented by: [id number] Miscellaneous (Rapid Sequence Induction Bag) Confirm Administered Dose 1 ea .ROUTE .STK-MED ONE Stop: 12/20/19 22:40 Last Admin: 12/20/19 23:01 Dose: 1 ea Documented by: [id number] Morphine Sulfate (Morphine Sulfate 2 Mg/Ml Carp) 1 mg IV Q4H PRN PRN Reason: Pain Stop: 01/03/20 19:22 Last Admin: 12/20/19 19:35 Dose: 1 mg Documented by: [id number] Nitroglycerin (Nitroglycerin 2% Ointment 30gm Tube) 1 inch EXT NOW ONE Stop: 12/20/19 03:49 Last Admin: 12/20/19 03:53 Dose: 1 inch Documented by: [id number] Nitroglycerin (Nitroglycerin 2% Ointment 30gm Tube) 0.5 inch EXT Q6H JIMMY Stop: 01/19/20 12:59 Last Admin: 12/21/19 00:26 Dose: Not Given Documented by: [id number] Admin: 12/20/19 19:35 Dose: 0.5 inch Documented by: [id number] Admin: 12/20/19 13:53 Dose: 0.5 inch Documented by: [id number] Pantoprazole Sodium (Pantoprazole 40 Mg Tab) 40 mg PO DAILY JIMMY; Protocol Stop: 01/19/20 08:59 Last Admin: 12/20/19 08:07 Dose: 40 mg Documented by: [id number] Potassium Chloride (Potassium Chloride 20 Meq Tabcr) 20 meq PO DAILY JIMMY Stop: 01/19/20 08:59 Last Admin: 12/20/19 08:08 Dose: 20 meq Documented by: [id number] Propofol (Propofol Iv Emulsion 10 Mg/Ml 100 Ml Vial) Confirm Administered Dose 1,000 mg IV .STK-MED ONE Stop: 12/20/19 23:07 Last Admin: 12/20/19 23:25 Dose: Not Given Documented by: [id number] Sodium Polystyrene Sulfonate (Sodium Polystyrene Sulfonate 15g/60ml Susp) 30 gm PO NOW STA Stop: 12/21/19 05:14 Last Admin: 12/21/19 05:29 Dose: 30 gm Documented by: [id number] Discharge Plan Visit Data Chief Complaint: Respiratory Distress Stated Complaint: resp distress ED Provider: Rajni Royal Discharge Problem: Acute hypercapnic respiratory failure, Pulmonary edema, Hypoxia Patient Disposition: Admitted As Inpatient Discharge Instructions Interventions: ED Discharge Assessment Last Done: 12/20/19 06:51 Discharge Problem: Pulmonary edema Qualifiers: Chronicity: acute Qualified Code(s): J81.0 - Acute pulmonary edema
[2019-12-20 04:26] LABS: Troponin I 0.034 ng/ml (0-0.045)
[2019-12-20 04:31] LABS: Albumin Globulin Ratio 0.9 (0.9-2); Albumin Level 3.9 gm/dl (3.4-5.0); BUN Creatinine Ratio 21.1 (10-20); Bilirubin,Total 0.6 mg/dl (0.2-1); Creatinine Clr Calc Pharmacy 43.5 ml/min; Est GFR (African American) 48.3; Est GFR (Non-African American) 41.7; Globulin 4.2 gm/dl (2.5-4.0); Potassium 4.3 mmol/L (3.5-5.1); Total Protein 8.1 gm/dl (6.4-8.2)
[2019-12-20 04:38] LABS: Appearance Urine Clear (Clear); Bacteria Urine Automated Negative (Negative); Bilirubin Urine Negative (Negative); Blood Urine 1+ (Negative); Color Urine Yellow; Glucose Urine UA Negative (Negative); Ketones Urine Negative (Negative); Leukocyte Esterase Urine Negative (Negative); Nitrite Urine Negative (Negative); Protein Urine 2+ (Negative); Specific Gravity Urine 1.018 (1.000-1.030); Urobilinogen Urine Negative (Negative)
[2019-12-20 04:53] LABS: iSTAT Arterial Blood Gas HCO3 43 meg/L (19-24); iSTAT Arterial Blood Gas pCO2 106 mmHg (35-46); iSTAT Arterial Blood Gas pH 7.21 (7.35-7.45); iSTAT Arterial Blood Gas pO2 154 mmHg (80-95); iSTAT Carbon Dioxide > 40 mmol/L (24-31); iSTAT Hematocrit 36 % (42-52); iSTAT Hemoglobin 12.2 g/dl (14.0-18.0); iSTAT Potassium 4.3 mmol/L (3.3-5.0); iSTAT Sodium 138 mmol/L (135-144)
[2019-12-20] MEDS ORDERED: XOPENEX/ATROVENT 1.25mg/0.5MG NEB COMBO NEB STA (04:59)
[2019-12-20] MEDS ORDERED: MAGNESIUM SULFATE / D5W 1 GM/100 ML BAG IV STA (05:04)
[2019-12-20] MEDS ORDERED: LEVALBUTEROL 1.25MG/0.5ML NEB INH STA (05:04)
[2019-12-20] MEDS ORDERED: IPRATROPIUM BROMIDE NEB SOLN 0.02% 2.5 ML VIAL INH STA (05:04)
[2019-12-20] MEDS ORDERED: METOPROLOL TARTRATE 1 MG/ML VIAL IV STA (05:05)
[2019-12-20] MEDS ORDERED: ALBUMIN 25% 12.5 GM/50 ML VIAL IV STA (05:38)
--- NOTE | 2019-12-20 05:41 | History & Physical Report ---
Date of Service December 20, 2019 Assessment & Plan (1) Acute and chronic respiratory failure with hypercapnia: hx chronic respiratory failure secondary to COPD on home O2 Multifactorial : Decompensated heart failure, chronic diastolic heart failure ? Secondary to valvular heart disease (moderate to severe aortic stenosis, severe mitral regurgitation) Mild COPD exacerbation secondary to above Abdominal pain secondary to CHF Rule out structural intra-abdominal pathology hypertension, BP low after nitro and diuretic administration at the ER hyperlipidemia on statin Rx A. fib on Coumadin, patient NSR, INR therapeutic history CVA PVD status post surgery DM 2 on oral medications, suboptimal control as of recent hemoglobin A1c of 8.02 June 2019 CRI, creatinine at baseline chronic anemia, hemoglobin at baseline seizure disorder, stable on Keppra past tobacco abuse PCU Continue BiPAP Repeat ABG following new settings Lasix albumin, monitor renal function Solu-Medrol, neb treatment 1 dose now for possible mild COPD exacerbation secondary to CHF Cardiology consult RE decompensated CHF Strict I/Os, daily weights, fluid restriction, CHF education CT abdomen pelvis RE abdominal pain Hold antiplatelet, anticoagulant Rx until CT results known Basal insulin, ISS BG goal [id number], update hemoglobin A1c DVT prophylaxis. Coumadin INR goal between 2 and 3 if no bleeding on CAT scan Full code Total critical care time was 40 minutes. Text document was generated using Ruby Rib[employer] voice recognition software. It may contain grammatical or spelling errors. Kindly contact undersigned for clarification of any documentation item in question. History of Present Illness Chief Complaint: left-sided chest pain, shortness of breath Primary Care Provider: Richar Lopez MD History obtained from patient and records. Medical history significant for chronic respiratory failure secondary to COPD on home O2, chronic diastolic heart failure (EF 50 to 55%, TTE 2019), hypertension, hyperlipidemia, A. fib on Coumadin, valvular heart disease (moderate to severe aortic stenosis, severe mitral regurgitation TTE 2019), history CVA, PVD status post surgery, DM 2 on oral medications, CRI (baseline creatinine 1.4-1.5), chronic anemia (baseline hemoglobin 8-9 ), seizure disorder, past tobacco abuse. Last confinement 2 weeks ago for respiratory failure secondary to decompensated heart failure status post intubation. Yesterday patient noted gassy abdominal discomfort/distention with transient nausea vomiting diarrhea symptoms. Increased l bilateral leg swelling. Patient compliant with home medications. Denies OTC NSAID intake or dietary indiscretion. Hours ago patient noted sudden onset shortness of breath with left-sided chest pain, worsening left-sided achy abdominal pain. Denies cough symptoms. O2 sats noted to be 70s upon arrival by EMS. CPAP place. Nitro spray administered by EMS. At the ER, BiPAP initiated. Lasix given for CHF. IV amiodarone bolus given for multiple PVCs. Patient feeling more comfortable. Medical History as above Surgical History : AAA, left common iliac aneurysm repair, cataract surgery, upper eyelid surgery Family History : Diabetes, heart disease Personal/Social history : Past tobacco abuse, no EtOH intake, war Allergies Allergy/AdvReac Type Severity Reaction Status Date / Time Sulfa (Sulfonamide Allergy Unknown HIVES Verified 12/20/19 04:11 Antibiotics) Home Medications Home Medications Medication Instructions Recorded Confirmed Type Tradjenta 5 mg PO DAILY 12/01/19 12/20/19 History glipizide 5 mg PO DAILY 12/01/19 12/20/19 History levetiracetam 500 mg PO BID 12/01/19 12/20/19 History metoprolol tartrate 25 mg PO DAILY 12/01/19 12/20/19 History omeprazole 20 mg PO DAILY 12/01/19 12/20/19 History warfarin 2.5 mg PO DAILY 12/01/19 12/20/19 History Combivent Respimat 1 puff INHALATION QID PRN #0 g 12/06/19 12/20/19 Rx potassium chloride 20 meq PO DAILY #30 tab 12/06/19 12/20/19 Rx simethicone [Mi-Acid Gas 80 mg PO Q6H PRN #30 tab 12/06/19 12/20/19 Rx Relief(simethicon)] torsemide 40 mg PO BID 20 Days #80 tab 12/06/19 12/20/19 Rx aspirin [Aspirin Low Dose] 81 mg PO DAILY 12/20/19 12/20/19 History cholecalciferol (vitamin D3) 25 mcg PO DAILY 12/20/19 12/20/19 History [Vitamin D3] doxycycline hyclate 100 mg PO BID 12/20/19 12/20/19 History fluticasone furoate-vilanterol 1 inh INHALATION DAILY 12/20/19 12/20/19 History [Breo Ellipta] gabapentin 300 mg PO HS 12/20/19 12/20/19 History umeclidinium [Incruse Ellipta] 1 inh INHALATION DAILY 12/20/19 12/20/19 History Past Med/Surg History Medical History (Updated 12/20/19 @ 06:38 by Nolan Hernandez MD) Acute hypercapnic respiratory failure Asthma exacerbation in COPD CKD (chronic kidney disease), stage III COPD, moderate CVA (cerebral vascular accident) Diabetes mellitus HTN (hypertension) Multifocal pneumonia Pleural effusion, bilateral Supratherapeutic INR Surgical History S/P AAA repair Social History Smoking Status: Former smoker Tobacco Type: Cigarettes Second Hand Exposure: No; Do You Dip or Chew Tobacco: No; Tobacco Cessation Education Requested by Patient: No Hx Alcohol Use: No Hx Substance Use: No Preferred Language: Kyrgyz Communication Ability: Effective Medical Certification Specialist Required: No Beliefs That Will Affect Care: None Current Living Situation: Alone Current Living Situation Comment: Unable to complete patient sedated Other Information That Helps Us Care for You: No Feels Safe at Home: Yes Safety Concerns: Feels Safe At This Time Assistive Devices: Cane, Oxygen - Continuous and Walker Review of Systems Review of Systems: As per HPI, all 10 systems reviewed, all other ROS negative Physical Exam Physical Exam: GENERAL: Slightly uncomfortable, slightly anxious, minimal respiratory distress, obese SKIN: Pallor , warm HEENT: Pale palpebral conjunctivae, no ptosis, dry buccal mucosa, BiPAP in place NECK : Supple, no tenderness CHEST : Decreased breath sounds, occasional expiratory wheezes, no tenderness HEART : Tachycardic, apical holosystolic murmur ABDOMEN: distention, minimal left-sided abdominal tenderness EXTREMITIES : Bilateral LE swelling, no LE tenderness, no other conspicuous deformities noted NEUROLOGIC : Coherent, no facial asymmetry, no other gross focality Results & Data Results & Data ([facility]) Vital Signs (Past 12 Hours) Vital Signs Pulse Resp BP Pulse Ox 12/20/19 05:16 106 H 86/56 L 96 12/20/19 05:01 109 H 106/56 L 97 12/20/19 04:45 116 H 131/60 97 12/20/19 04:42 110 H 33 H 98 12/20/19 04:16 143 H 164/102 H 99 12/20/19 04:15 125 H 35 H 95 12/20/19 04:00 150 H 169/93 H 97 12/20/19 03:56 144 H 177/118 H 95 12/20/19 03:54 149 H 93 12/20/19 03:40 142 H 33 H 96 12/20/19 03:37 143 H 35 H 173/82 H 93 Laboratory Results Laboratory Results WBC 14.96 K/uL (4.8-10.8) H 12/20/19 03:46 RBC 4.43 M/uL (4.7-6.1) L 12/20/19 03:46 Hgb 10.1 g/dL (14.0-18.0) L 12/20/19 03:46 POC Hgb 12.2 g/dl (14.0-18.0) L 12/20/19 04:38 Hct 37.3 % (42-52) L 12/20/19 03:46 POC Hct 36 % (42-52) L 12/20/19 04:38 MCV 84.2 fL (80-100) 12/20/19 03:46 MCH 22.8 pg (25-34) L 12/20/19 03:46 MCHC 27.1 g/dL (32-36) L 12/20/19 03:46 RDW Std Deviation 64.0 fL (36.4-46.3) H 12/20/19 03:46 RDW Coeff of Robert 21.2 % (11.5-14.5) H 12/20/19 03:46 Plt Count 382 K/uL (130-400) 12/20/19 03:46 MPV 9.4 fL (7.4-10.4) 12/20/19 03:46 Immature Gran % (Auto) 0.6 % 12/20/19 03:46 Neut % (Auto) 70.9 % 12/20/19 03:46 Lymph % (Auto) 13.1 % 12/20/19 03:46 Grand % (Auto) 11.4 % 12/20/19 03:46 Eos % (Auto) 3.4 % 12/20/19 03:46 Baso % (Auto) 0.6 % 12/20/19 03:46 Neut # (Auto) 10.60 K/uL (1.4-6.5) H 12/20/19 03:46 Lymph # (Auto) 1.96 K/uL (1.2-3.4) 12/20/19 03:46 Grand # (Auto) 1.71 K/uL (0.11-0.59) H 12/20/19 03:46 Eos # (Auto) 0.51 K/uL (0-0.5) H 12/20/19 03:46 Baso # (Auto) 0.09 K/uL (0-0.2) 12/20/19 03:46 Immature Gran # (Auto) 0.09 K/uL (0.00-0.02) H 12/20/19 03:46 Hypochromasia Present 12/20/19 03:46 PT 26.7 Seconds (9.0-12.0) H 12/20/19 03:46 INR 2.7 (0.9-1.1) H 12/20/19 03:46 APTT 40.2 Seconds (21.0-31.0) H 12/20/19 03:46 PTT Ratio 1.4 12/20/19 03:46 POC pH 7.21 (7.35-7.45) L 12/20/19 04:38 POC pCO2 106 mmHg (35-46) H 12/20/19 04:38 POC pO2 154 mmHg (80-95) H 12/20/19 04:38 POC HCO3 43 ambrose/L (19-24) H 12/20/19 04:38 POC Total CO2 > 40 mmol/L (24-31) H* 12/20/19 04:38 POC Base Excess 15.0 ambrose/L (-9-1.8) H 12/20/19 04:38 POC ABG O2 Sat 99.0 % (90-95) H 12/20/19 04:38 POC Sodium 138 mmol/L (135-144) 12/20/19 04:38 Sodium 138 mmol/L (136-145) 12/20/19 03:46 POC Potassium 4.3 mmol/L (3.3-5.0) 12/20/19 04:38 Potassium 4.3 mmol/L (3.5-5.1) 12/20/19 03:46 Chloride 95 mmol/L (98-107) L 12/20/19 03:46 Carbon Dioxide 42 mmol/L (21-32) H* 12/20/19 03:46 Anion Gap 2.0 (3-11) L 12/20/19 03:46 BUN 33 mg/dl (7-18) H 12/20/19 03:46 Creatinine 1.55 mg/dl (0.6-1.4) H 12/20/19 03:46 Est Cr Clr Drug Dosing 43.5 ml/min 12/20/19 03:46 Est GFR ( Amer) 48.3 12/20/19 03:46 Est GFR (Non-Af Amer) 41.7 12/20/19 03:46 BUN/Creatinine Ratio 21.1 (10-20) H 12/20/19 03:46 Glucose 225 mg/dl (70-99) H 12/20/19 03:46 Lactate 1.9 mmol/L (0.4-2.0) 12/20/19 03:58 Calcium 9.0 mg/dl (8.5-10.1) 12/20/19 03:46 Magnesium 2.2 mg/dl (1.8-2.4) 12/20/19 03:58 Total Bilirubin 0.6 mg/dl (0.2-1) 12/20/19 03:46 AST 15 U/L (15-37) 12/20/19 03:46 ALT 20 U/L (12-78) 12/20/19 03:46 Alkaline Phosphatase 90 U/L (45-117) 12/20/19 03:46 Troponin I 0.034 ng/ml (0-0.045) 12/20/19 03:46 Total Protein 8.1 gm/dl (6.4-8.2) 12/20/19 03:46 Albumin 3.9 gm/dl (3.4-5.0) 12/20/19 03:46 Globulin 4.2 gm/dl (2.5-4.0) H 12/20/19 03:46 Albumin/Globulin Ratio 0.9 (0.9-2) 12/20/19 03:46 Urine Color Yellow 12/20/19 04:15 Urine Appearance Clear (Clear) 12/20/19 04:15 Urine pH 5.0 (4.5-7.5) 12/20/19 04:15 Ur Specific [place] 1.018 (1.000-1.030) 12/20/19 04:15 Urine Protein 2+ (Negative) H 12/20/19 04:15 Urine Glucose (UA) Negative (Negative) 12/20/19 04:15 Urine Ketones Negative (Negative) 12/20/19 04:15 Urine Blood 1+ (Negative) H 12/20/19 04:15 Urine Nitrite Negative (Negative) 12/20/19 04:15 Urine Bilirubin Negative (Negative) 12/20/19 04:15 Urine Urobilinogen Negative (Negative) 12/20/19 04:15 Ur Leukocyte Esterase Negative (Negative) 12/20/19 04:15 Urine WBC (Auto) 1-5 /hpf (0-5) 12/20/19 04:15 Urine RBC (Auto) 5-10 /hpf (0-4) H 12/20/19 04:15 U Hyaline Cast (Auto) 1-5 /lpf (0-5) 12/20/19 04:15 U Epithel Cells (Auto) 5-10 /lpf (0-5) H 12/20/19 04:15 Urine Bacteria (Auto) Negative (Negative) 12/20/19 04:15 COVID-19 Eval Order Covid19 Done at [facility] 12/20/19 04:28 COVID-19 PCR NEGATIVE (Negative) 12/20/19 04:28 Diagnostic Findings Chest x-ray : 1. Cardiomegaly, and bilateral pleural effusions 2. Progressive bilateral pulmonary airspace opacities, likely representing pulmonary edema although a bilateral infectious/inflammatory pneumonitis could appear similar. Clinical and radiographic follow-up is advocated EKG as per my interpretation : Rate 140, SVT, normal axis, ST depression lateral leads
[2019-12-20] MEDS ORDERED: methylPREDNISolone 20 MG in SYRINGE 0 ML IV STA (06:34)
[2019-12-20 07:05] LABS: Thyroid Stimulating Hormone 2.9 uIu/ml (0.300-4.500)
[2019-12-20] MEDS ORDERED: ACETAMINOPHEN 325 MG TAB PO PRN (07:25)
[2019-12-20] MEDS ORDERED: GLUCOSE 40% GEL 15 GM TUBE PO PRN (07:25)
[2019-12-20] MEDS ORDERED: PROMETHAZINE HCL 12.5 MG in SODIUM CHLORIDE 0.9% 50 ML IV PRN (07:25)
[2019-12-20] MEDS ORDERED: oxyCODONE HCL IR 5 MG TAB (IMMEDIATE RELEASE) PO PRN (07:25)
[2019-12-20] MEDS ORDERED: INSULIN GLARGINE SOLOSTAR 100 UNITS/ML 3 ML PEN SC STA (07:25)
[2019-12-20] MEDS ORDERED: GLUCOSE 10 TABS/TUBE PO PRN (07:25)
[2019-12-20] MEDS ORDERED: DEXTROSE 50% 50 ML SYRINGE IV PRN (07:25)
[2019-12-20] MEDS ORDERED: CARBOHYDRATES FOR HYPOGLYCEMIA PO PRN (07:25)
[2019-12-20] MEDS ORDERED: XOPENEX/ATROVENT 1.25mg/0.5MG NEB COMBO NEB PRN (07:25)
[2019-12-20] MEDS ORDERED: NITROGLYCERIN SL 0.4 MG/TAB TAB SL PRN (07:25)
[2019-12-20] MEDS ORDERED: GLUCAGON FOR INJ 1 MG VIAL SQ PRN (07:25)
[2019-12-20 07:26] LABS: Estimated Average Glucose 126 mg/dl
[2019-12-20 07:51] LABS: Ovalocytes 1+; Stomatocytes 1+
[2019-12-20] MEDS: METOPROLOL TARTRATE 25 MG TAB PO SCH ×2 (08:09→20:20)
[2019-12-20] MEDS: levETIRAcetam 500 MG TAB PO SCH ×2 (08:09→20:20)
[2019-12-20] MEDS: INSULIN ASPART 100 UNITS/ML 3 ML PEN SC SCH ×3 (08:13→18:54)
--- NOTE | 2019-12-20 08:46 | Electrocardiogram Report ---
Test Reason : Blood Pressure : / mmHG Vent. Rate : 142 BPM Atrial Rate : 138 BPM P-R Int : 000 ms QRS Dur : 098 ms QT Int : 280 ms P-R-T Axes : 000 013 151 degrees QTc Int : 430 ms Supraventricular tachycardia Minor Non-specific intra-ventricular conduction delay Marked ST abnormality, possible inferolateral subendocardial injury Abnormal ECG When compared with ECG of 01-DEC-2019 19:15, Supraventricular tachycardia has replaced Atrial fibrillation ST depression in multiple leads more pronounced Confirmed by Jaden Alcazar ([id number]) on 12/20/2019 8:46:27 AM Referred By: REFERRED SELF Confirmed By:Jaden Alcazar
[2019-12-20] MEDS ORDERED: ALBUMIN 25% 12.5 GM/50 ML VIAL IV SCH (09:00)
[2019-12-20] MEDS ORDERED: POTASSIUM CHLORIDE 20 MEQ TABCR PO SCH (09:00)
[2019-12-20] MEDS ORDERED: PANTOprazole 40 MG TAB PO SCH (09:00)
[2019-12-20] MEDS ORDERED: FUROSEMIDE 40 MG/4 ML VIAL IV SCH (09:00)
[2019-12-20] MEDS: FUROSEMIDE 60 MG in SYRINGE 0 ML IV SCH ×2 (09:04→21:26)
[2019-12-20] MEDS: LEVALBUTEROL 1.25MG/0.5ML NEB INH PRN ×2 (09:51→14:58)
[2019-12-20] MEDS: IPRATROPIUM BROMIDE NEB SOLN 0.02% 2.5 ML VIAL INH PRN ×2 (09:52→14:58)
--- NOTE | 2019-12-20 10:22 | Cardiology Consultation ---
Date of Consultation December 20, 2019 Assessment & Plan (1) Acute and chronic respiratory failure with hypercapnia: Patient is an 79-year-old male with multiple underlying mixed medical issues as previously outlined with severe chronic obstructive lung disease O2 dependent, valvular heart disease and recurrent respiratory failure with pulmonary edema. He represents with signs symptoms of acute respiratory failure with chest x-ray consistent with pulmonary edema lower extremity edema Overall patient has improved slightly with initiation of BiPAP but with only minimal urinary output We will give additional dose of IV furosemide 60 mg after 5 mg oral metolazone. Continues respiratory support with BiPAP and previously ordered medications. This represents a prompt recurrence patient high risk for further deterioration. CODE STATUS should be readdressed (2) Chronic atrial fibrillation with rapid ventricular response: (3) Valvular heart disease: (4) Pulmonary edema: History of Present Illness Reason for Consultation: Acute respiratory failure, decompensated congestive heart failure Requesting Physician: Dr. Clemente Attending Physician: Erick Clemente MD History of Present Illness Patient is an 79-year-old male with recurrent hospitalization with acute respiratory failure, decompensated congestive heart failure. His underlying medical issues include 1. 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 Atherosclerotic peripheral vascular disease, status post open abdominal aortic aneurysm and left common iliac artery aneurysm repair, left renal thromboendarterectomy 2012 3. Hypertension 4. Type 2 diabetes mellitus with elevated hemoglobin A1c 5. Atherosclerotic cerebrovascular disease with remote stroke 6. Persistent Atrial fibrillation/flutter on chronic anticoagulation, diagnosed 2016 7. Mixed calcific valvular disease with moderately severe aortic stenosis, moderate to severe mitral insufficiency, mild aortic insufficiency 8. Atherosclerotic carotid disease, moderate, right 9. [facility] 10. Shabazz's esophagus, off surveillance 11. Chronic lower extremity edema with past stasis ulcers 12. Hyperlipidemia Patient was recently discharged on 12/06/2019 after hospitalization requiring intubation for acute respiratory failure hypercapnia and pulmonary edema. Patient currently on BiPAP and poor historian due to difficulty verbalizing. Notes worsening acute dyspnea day of admission. Had been aware of abdominal distention and lower edema for several days or more prior to hospitalization. No overt fever or productive cough. Taking medications as prescribed Patient uncertain of any recent weight changes the legs have been more edematous per report On presentation patient in chronic atrial fibrillation with rapid response and marked respiratory distress. He was placed on BiPAP and received IV furosemide still significantly dyspneic on BiPAP Only small amount of response less than 500 cc per Saez to diuretics received. Denies any chest pains or discomfort. Heart rate much improved since initiating BiPAP. Patient did receive single dose of IV amiodarone in the emergency room due to complex ventricular ectopy and tachycardia. Allergies Allergy/AdvReac Type Severity Reaction Status Date / Time Sulfa (Sulfonamide Allergy Unknown HIVES Verified 12/20/19 04:11 Antibiotics) Home Medications Home Medications Medication Instructions Recorded Confirmed Type Tradjenta 5 mg PO DAILY 12/01/19 12/20/19 History glipizide 5 mg PO DAILY 12/01/19 12/20/19 History levetiracetam 500 mg PO BID 12/01/19 12/20/19 History metoprolol tartrate 25 mg PO DAILY 12/01/19 12/20/19 History omeprazole 20 mg PO DAILY 12/01/19 12/20/19 History warfarin 2.5 mg PO DAILY 12/01/19 12/20/19 History Combivent Respimat 1 puff INHALATION QID PRN #0 g 12/06/19 12/20/19 Rx potassium chloride 20 meq PO DAILY #30 tab 12/06/19 12/20/19 Rx simethicone [Mi-Acid Gas 80 mg PO Q6H PRN #30 tab 12/06/19 12/20/19 Rx Relief(simethicon)] torsemide 40 mg PO BID 20 Days #80 tab 12/06/19 12/20/19 Rx aspirin [Aspirin Low Dose] 81 mg PO DAILY 12/20/19 12/20/19 History cholecalciferol (vitamin D3) 25 mcg PO DAILY 12/20/19 12/20/19 History [Vitamin D3] doxycycline hyclate 100 mg PO BID 12/20/19 12/20/19 History fluticasone furoate-vilanterol 1 inh INHALATION DAILY 12/20/19 12/20/19 History [Breo Ellipta] gabapentin 300 mg PO HS 12/20/19 12/20/19 History umeclidinium [Incruse Ellipta] 1 inh INHALATION DAILY 12/20/19 12/20/19 History Patient History Medical History Acute hypercapnic respiratory failure Asthma exacerbation in COPD CKD (chronic kidney disease), stage III COPD, moderate CVA (cerebral vascular accident) Diabetes mellitus HTN (hypertension) Multifocal pneumonia Pleural effusion, bilateral Supratherapeutic INR Surgical History S/P AAA repair Social History Smoking Status: Former smoker Tobacco Type: Cigarettes Second Hand Exposure: No; Do You Dip or Chew Tobacco: No; Tobacco Cessation Education Requested by Patient: No Hx Alcohol Use: No Hx Substance Use: No Preferred Language: Macedonian Communication Ability: Effective Gender Studies Professor Required: No Beliefs That Will Affect Care: None Current Living Situation: Alone Current Living Situation Comment: Unable to complete patient sedated Other Information That Helps Us Care for You: No Feels Safe at Home: Yes Safety Concerns: Feels Safe At This Time Assistive Devices: Cane, Oxygen - Continuous and Walker Physical Exam Constitutional: + acute distress and + ill appearing Eyes: PERRL, conjunctivae normal, anicteric sclerae ENMT: external ear and nose normal, oropharynx normal Neck: trachea midline, no thyromegaly Respiratory: + uses accessory muscles Auscultation: + rales Coarse upper airway sounds present with patient on BiPAP Cardiovascular: Rate/Rhythm: + tachycardic and + irregularly irregular Heart Sounds: normal S1, normal S2 and + murmur (Grade 2/6 systolic) Palpation: normal PMI Vessels: + JVD, normal carotid upstroke and radial pulses present; no carotid bruit Extremities: + edema (2-3+ bilateral lower extremity edema) Gastrointestinal (Abdomen): Percussion/Palpation: abdomen soft; no hepatosplenomegaly Mildly distended Musculoskeletal: Head/Neck/Chest: + head abnormal to inspection and normocephalic Extremities: extremities normal to inspection Skin: no rashes, warm and dry Neurologic: PERRL, EOMI, accommodation nl, no face palsy, no dysarthria Psychiatric: A+Ox3, euthymic affect Results & Data ([facility]) Vital Signs (Past 12 Hours) Vital Signs Temp Pulse Pulse Resp BP BP Pulse Ox 12/20/19 09:52 88 20 93 12/20/19 07:30 67 27 H 95 12/20/19 07:26 36.3 C L 91 H 20 136/78 95 12/20/19 06:45 89 30 H 101/41 L 94 12/20/19 06:39 90 28 H 100/54 L 95 12/20/19 06:15 101 H 31 H 115/65 96 12/20/19 06:01 101 H 124/77 98 12/20/19 05:46 102 H 102 H 33 H 121/54 L 98 12/20/19 05:33 102 H 117/50 L 98 12/20/19 05:16 106 H 86/56 L 96 12/20/19 05:01 109 H 106/56 L 97 12/20/19 04:45 116 H 131/60 97 12/20/19 04:42 110 H 33 H 98 12/20/19 04:16 143 H 164/102 H 99 12/20/19 04:15 125 H 35 H 95 12/20/19 04:00 150 H 169/93 H 97 12/20/19 03:56 144 H 177/118 H 95 12/20/19 03:54 149 H 93 12/20/19 03:40 142 H 33 H 96 12/20/19 03:37 143 H 35 H 173/82 H 93 Laboratory Results Laboratory Results - last 24 hr 12/20/19 12/20/19 12/20/19 03:46 03:46 03:46 WBC 14.96 H RBC 4.43 L Hgb 10.1 L POC Hgb Hct 37.3 L POC Hct MCV 84.2 MCH 22.8 L MCHC 27.1 L RDW Std Deviation 64.0 H RDW Coeff of Robert 21.2 H Plt Count 382 MPV 9.4 Immature Gran % (Auto) 0.6 Neut % (Auto) 70.9 Lymph % (Auto) 13.1 Finney % (Auto) 11.4 Eos % (Auto) 3.4 Baso % (Auto) 0.6 Neut # (Auto) 10.60 H Lymph # (Auto) 1.96 Finney # (Auto) 1.71 H Eos # (Auto) 0.51 H Baso # (Auto) 0.09 Immature Gran # (Auto) 0.09 H Hypochromasia Present Ovalocytes 1+ Stomatocytes 1+ PT 26.7 H INR 2.7 H APTT 40.2 H PTT Ratio 1.4 POC pH POC pCO2 POC pO2 POC HCO3 POC Total CO2 POC Base Excess POC ABG O2 Sat POC Sodium Sodium 138 POC Potassium Potassium 4.3 Chloride 95 L Carbon Dioxide 42 H* Anion Gap 2.0 L BUN 33 H Creatinine 1.55 H Est Cr Clr Drug Dosing 43.5 Est GFR ( Amer) 48.3 Est GFR (Non-Af Amer) 41.7 BUN/Creatinine Ratio 21.1 H Glucose 225 H POC Glucose Estimat Average Glucose Hemoglobin A1c Lactate Calcium 9.0 Magnesium Total Bilirubin 0.6 AST 15 ALT 20 Alkaline Phosphatase 90 Troponin I 0.034 Total Protein 8.1 Albumin 3.9 Globulin 4.2 H Albumin/Globulin Ratio 0.9 Lipase 147 Procalcitonin TSH 2.900 Urine Color Urine Appearance Urine pH Ur Specific [place] Urine Protein Urine Glucose (UA) Urine Ketones Urine Blood Urine Nitrite Urine Bilirubin Urine Urobilinogen Ur Leukocyte Esterase Urine WBC (Auto) Urine RBC (Auto) U Hyaline Cast (Auto) U Epithel Cells (Auto) Urine Bacteria (Auto) COVID-19 Eval Order COVID-19 PCR 12/20/19 12/20/19 12/20/19 03:46 03:58 03:58 WBC RBC Hgb POC Hgb Hct POC Hct MCV MCH MCHC RDW Std Deviation RDW Coeff of Robert Plt Count MPV Immature Gran % (Auto) Neut % (Auto) Lymph % (Auto) [place] % (Auto) Eos % (Auto) Baso % (Auto) Neut # (Auto) Lymph # (Auto) [place] # (Auto) Eos # (Auto) Baso # (Auto) Immature Gran # (Auto) Hypochromasia Ovalocytes Stomatocytes PT INR APTT PTT Ratio POC pH POC pCO2 POC pO2 POC HCO3 POC Total CO2 POC Base Excess POC ABG O2 Sat POC Sodium Sodium POC Potassium Potassium Chloride Carbon Dioxide Anion Gap BUN Creatinine Est Cr Clr Drug Dosing Est GFR ( Amer) Est GFR (Non-Af Amer) BUN/Creatinine Ratio Glucose POC Glucose Estimat Average Glucose 126 Hemoglobin A1c 6.0 H Lactate 1.9 Calcium Magnesium 2.2 Total Bilirubin AST ALT Alkaline Phosphatase Troponin I Total Protein Albumin Globulin Albumin/Globulin Ratio Lipase Procalcitonin TSH Urine Color Urine Appearance Urine pH Ur Specific [place] Urine Protein Urine Glucose (UA) Urine Ketones Urine Blood Urine Nitrite Urine Bilirubin Urine Urobilinogen Ur Leukocyte Esterase Urine WBC (Auto) Urine RBC (Auto) U Hyaline Cast (Auto) U Epithel Cells (Auto) Urine Bacteria (Auto) COVID-19 Eval Order COVID-19 PCR 12/20/19 12/20/19 12/20/19 03:58 04:01 04:15 WBC RBC Hgb POC Hgb 12.6 L Hct POC Hct 37 L MCV MCH MCHC RDW Std Deviation RDW Coeff of Robert Plt Count MPV Immature Gran % (Auto) Neut % (Auto) Lymph % (Auto) [place] % (Auto) Eos % (Auto) Baso % (Auto) Neut # (Auto) Lymph # (Auto) [place] # (Auto) Eos # (Auto) Baso # (Auto) Immature Gran # (Auto) Hypochromasia Ovalocytes Stomatocytes PT INR APTT PTT Ratio POC pH 7.18 L* POC pCO2 114 H POC pO2 84 POC HCO3 43 H POC Total CO2 > 40 H* POC Base Excess 14.0 H POC ABG O2 Sat 92.0 POC Sodium 138 Sodium POC Potassium 4.2 Potassium Chloride Carbon Dioxide Anion Gap BUN Creatinine Est Cr Clr Drug Dosing Est GFR ( Amer) Est GFR (Non-Af Amer) BUN/Creatinine Ratio Glucose POC Glucose Estimat Average Glucose Hemoglobin A1c Lactate Calcium Magnesium Total Bilirubin AST ALT Alkaline Phosphatase Troponin I Total Protein Albumin Globulin Albumin/Globulin Ratio Lipase Procalcitonin 0.05 TSH Urine Color Yellow Urine Appearance Clear Urine pH 5.0 Ur Specific [place] 1.018 Urine Protein 2+ H Urine Glucose (UA) Negative Urine Ketones Negative Urine Blood 1+ H Urine Nitrite Negative Urine Bilirubin Negative Urine Urobilinogen Negative Ur Leukocyte Esterase Negative Urine WBC (Auto) 1-5 Urine RBC (Auto) 5-10 H U Hyaline Cast (Auto) 1-5 U Epithel Cells (Auto) 5-10 H Urine Bacteria (Auto) Negative COVID-19 Eval Order COVID-19 PCR 12/20/19 12/20/19 12/20/19 04:28 04:28 04:38 WBC RBC Hgb POC Hgb 12.2 L Hct POC Hct 36 L MCV MCH MCHC RDW Std Deviation RDW Coeff of Robert Plt Count MPV Immature Gran % (Auto) Neut % (Auto) Lymph % (Auto) [place] % (Auto) Eos % (Auto) Baso % (Auto) Neut # (Auto) Lymph # (Auto) [place] # (Auto) Eos # (Auto) Baso # (Auto) Immature Gran # (Auto) Hypochromasia Ovalocytes Stomatocytes PT INR APTT PTT Ratio POC pH 7.21 L POC pCO2 106 H POC pO2 154 H POC HCO3 43 H POC Total CO2 > 40 H* POC Base Excess 15.0 H POC ABG O2 Sat 99.0 H POC Sodium 138 Sodium POC Potassium 4.3 Potassium Chloride Carbon Dioxide Anion Gap BUN Creatinine Est Cr Clr Drug Dosing Est GFR ( Amer) Est GFR (Non-Af Amer) BUN/Creatinine Ratio Glucose POC Glucose Estimat Average Glucose Hemoglobin A1c Lactate Calcium Magnesium Total Bilirubin AST ALT Alkaline Phosphatase Troponin I Total Protein Albumin Globulin Albumin/Globulin Ratio Lipase Procalcitonin TSH Urine Color Urine Appearance Urine pH Ur Specific [place] Urine Protein Urine Glucose (UA) Urine Ketones Urine Blood Urine Nitrite Urine Bilirubin Urine Urobilinogen Ur Leukocyte Esterase Urine WBC (Auto) Urine RBC (Auto) U Hyaline Cast (Auto) U Epithel Cells (Auto) Urine Bacteria (Auto) COVID-19 Eval Order Covid19 Done at [facility] COVID-19 PCR NEGATIVE 12/20/19 12/20/19 08:12 08:12 WBC RBC Hgb POC Hgb Hct POC Hct MCV MCH MCHC RDW Std Deviation RDW Coeff of Robert Plt Count MPV Immature Gran % (Auto) Neut % (Auto) Lymph % (Auto) [place] % (Auto) Eos % (Auto) Baso % (Auto) Neut # (Auto) Lymph # (Auto) [place] # (Auto) Eos # (Auto) Baso # (Auto) Immature Gran # (Auto) Hypochromasia Ovalocytes Stomatocytes PT INR APTT PTT Ratio POC pH POC pCO2 POC pO2 POC HCO3 POC Total CO2 POC Base Excess POC ABG O2 Sat POC Sodium Sodium POC Potassium Potassium Chloride Carbon Dioxide Anion Gap BUN Creatinine Est Cr Clr Drug Dosing Est GFR ( Amer) Est GFR (Non-Af Amer) BUN/Creatinine Ratio Glucose POC Glucose 301 H* 290 H Estimat Average Glucose Hemoglobin A1c Lactate Calcium Magnesium Total Bilirubin AST ALT Alkaline Phosphatase Troponin I Total Protein Albumin Globulin Albumin/Globulin Ratio Lipase Procalcitonin TSH Urine Color Urine Appearance Urine pH Ur Specific [place] Urine Protein Urine Glucose (UA) Urine Ketones Urine Blood Urine Nitrite Urine Bilirubin Urine Urobilinogen Ur Leukocyte Esterase Urine WBC (Auto) Urine RBC (Auto) U Hyaline Cast (Auto) U Epithel Cells (Auto) Urine Bacteria (Auto) COVID-19 Eval Order COVID-19 PCR
[2019-12-20] MEDS: HYDROmorphone INJ 0.5 MG/0.5 ML SYR IV PRN ×2 (10:32→14:55)
[2019-12-20] MEDS ORDERED: metOLazone 5 MG TABLET PO ONE (10:49)
[2019-12-20 11:38] LABS: Base Excess ABG 8.3 mEq/L (-9-1.8); HCO3 ABG 36 mmol/L (19-24); Oxygen Saturation ABG 93.4 % (90-95); PCO2 ABG 68 mmHg (35-46); PO2 ABG 74 mmHg (80-95); pH ABG 7.34 (7.35-7.45)
[2019-12-20 11:41] LABS: Allen Test Pos (Pos)
[2019-12-20] MEDS ORDERED: FUROSEMIDE 60 MG in SYRINGE 0 ML IV ONE (12:00)
[2019-12-20] MEDS: NITROGLYCERIN 2% OINTMENT 30GM TUBE EXT SCH ×2 (13:53→19:35)
[2019-12-20] MEDS ORDERED: ROCURONIUM BROMIDE 10 MG/ML 10 ML VIAL IV ONE (14:33)
[2019-12-20] MEDS ORDERED: ETOMIDATE 2 MG/ML 20 ML VIAL IV ONE (14:33)
--- NOTE | 2019-12-20 15:13 | Critical Care Consultation ---
Date of Consultation December 20, 2019 Assessment & Plan (1) Acute and chronic respiratory failure with hypercapnia: Patient with evidence of acute hypoxemic and hypercapnic respiratory failure likely secondary to CHF. Continue with IV diuresis. Continue BiPAP. We did try him on high flow nasal cannula and he was very air hungry. He was actually asking for the BiPAP to be placed back on. We will start him on empiric antibiotics with ceftriaxone and doxycycline. Repeat procal tomorrow. If negative, will discontinue abx. I did address CODE STATUS with the patient and he insisted that he would like to be a full code at this time. He is currently anticoagulated with Coumadin. His INR is therapeutic. We will hold Coumadin today with possibility of thoracentesis in the next coming days. His troponin is elevated to 6.9. Likely demand ischemia. Cardiology is on board. 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 Continue Protonix given his history of Shabazz's esophagus. Continue Keppra for his history of seizure. Continue metoprolol. We will hold gabapentin given his CASH and hypercapnic respiratory failure. Continue insulin. He is hyperglycemic. He did receive IV Solu-Medrol earlier today. The nurse placed an NG tube at bedside for decompression of the abdomen. His abdomen was very tense prior to placement of NG tube and improved after NG tube placement. His breathing also improved a bit. CRITICAL CARE TIME - I have personally spent 44 minutes of critical care time in the direct management of this patient. This is a life/limb threatening event. This includes time spent evaluating patient, direct bedside care, chart review, placing orders, interpretation of diagnostic studies, discussion with consultants, patient, and family members, as well as other required patient management activities. This time is exclusive of all separately billable procedures, and teaching time and separate from and in addition to any other critical care service time. (2) Chronic atrial fibrillation with rapid ventricular response: (3) Valvular heart disease: (4) Pulmonary edema: History of Present Illness Reason for Consultation: Acute respiratory failure secondary to CHF Requesting Physician: Dr. 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 He noticed increased swelling in his legs. He also had sudden onset worsening shortness of breath with left-sided chest pain. His troponin is noted to be nearly 7 today. He was getting IV diuretics and placed on BiPAP. He was also given IV amiodarone. This afternoon he started going to worsening respiratory failure with evidence of hypercapnic and hypoxemic respiratory failure. Cardiology was consulted. His saturations are in the low 80s on 100% FiO2 and 16/6 of BiPAP. Notably, he was just discharged from the hospital on 12/05/2021 similar issues and required intubation with mechanical ventilation. Also underwent EGD during that hospitalization due to his hemoglobin dropping. No evidence of upper GI bleeding was noted. Chest x- ray obtained today demonstrates cardiomegaly and bilateral effusions with progressive bilateral pulmonary airspace disease. His creatinine is currently 1.55. Bicarb is 42. BUN is 33. His INR is 2.7. COVID-19 testing was negative today. He also had influenza testing and COVID-19 testing on 12/01/2019 which was negative. Blood gas on arrival was 7.18/114/84. Subsequently his blood gas was 7.21/106/154. Most recently at 11:23 AM it is 7.34/68/74 on BiPAP. Allergies Allergy/AdvReac Type Severity Reaction Status Date / Time Sulfa (Sulfonamide Allergy Unknown HIVES Verified 12/20/19 04:11 Antibiotics) Home Medications Home Medications Medication Instructions Recorded Confirmed Type Tradjenta 5 mg PO DAILY 12/01/19 12/20/19 History glipizide 5 mg PO DAILY 12/01/19 12/20/19 History levetiracetam 500 mg PO BID 12/01/19 12/20/19 History metoprolol tartrate 25 mg PO DAILY 12/01/19 12/20/19 History omeprazole 20 mg PO DAILY 12/01/19 12/20/19 History warfarin 2.5 mg PO DAILY 12/01/19 12/20/19 History Combivent Respimat 1 puff INHALATION QID PRN #0 g 12/06/19 12/20/19 Rx potassium chloride 20 meq PO DAILY #30 tab 12/06/19 12/20/19 Rx simethicone [Mi-Acid Gas 80 mg PO Q6H PRN #30 tab 12/06/19 12/20/19 Rx Relief(simethicon)] torsemide 40 mg PO BID 20 Days #80 tab 12/06/19 12/20/19 Rx aspirin [Aspirin Low Dose] 81 mg PO DAILY 12/20/19 12/20/19 History cholecalciferol (vitamin D3) 25 mcg PO DAILY 12/20/19 12/20/19 History [Vitamin D3] doxycycline hyclate 100 mg PO BID 12/20/19 12/20/19 History fluticasone furoate-vilanterol 1 inh INHALATION DAILY 12/20/19 12/20/19 History [Breo Ellipta] gabapentin 300 mg PO HS 12/20/19 12/20/19 History umeclidinium [Incruse Ellipta] 1 inh INHALATION DAILY 12/20/19 12/20/19 History Patient History Medical History Acute hypercapnic respiratory failure Asthma exacerbation in COPD CKD (chronic kidney disease), stage III COPD, moderate CVA (cerebral vascular accident) Diabetes mellitus HTN (hypertension) Multifocal pneumonia Pleural effusion, bilateral Supratherapeutic INR Surgical History S/P AAA repair Social History Smoking Status: Former smoker Tobacco Type: Cigarettes Second Hand Exposure: No; Do You Dip or Chew Tobacco: No; Tobacco Cessation Education Requested by Patient: No Hx Alcohol Use: No Hx Substance Use: No Preferred Language: [place] Communication Ability: Effective Town Manager Required: No Beliefs That Will Affect Care: None Current Living Situation: Alone Current Living Situation Comment: Unable to complete patient sedated Other Information That Helps Us Care for You: No Feels Safe at Home: Yes Safety Concerns: Feels Safe At This Time Assistive Devices: Cane, Oxygen - Continuous and Walker Review of Systems Review of Systems: All systems reviewed & are unremarkable except as noted in HPI & below Physical Exam Constitutional: + ill appearing and + obese Eyes: PERRL, conjunctivae normal, anicteric sclerae ENMT: BiPAP mask in place Neck: normal visual inspection Respiratory: + respiratory distress and + retractions Auscultation: + crackles and + wheezes Cardiovascular: Rate/Rhythm: + irregularly irregular Heart Sounds: + murmur Extremities: + edema Gastrointestinal (Abdomen): Inspection/Auscultation: + abdomen distended, normal bowel sounds and + abdominal edema Musculoskeletal: no cyanosis or clubbing, extremities motor strength 5/5 Skin: no rashes, warm and dry Neurologic: PERRL, EOMI, accommodation nl, no face palsy, no dysarthria Psychiatric: A+Ox3, euthymic affect Results & Data Results & Data ([facility]) Vital Signs (Past 12 Hours) Vital Signs Temp Pulse Pulse Resp BP BP Pulse Ox 12/20/19 14:58 102 H 30 H 83 L 12/20/19 12:00 96.8 F L 68 18 106/65 94 12/20/19 11:26 65 28 H 93 12/20/19 09:52 88 20 93 12/20/19 07:30 67 27 H 95 12/20/19 07:26 97.3 F L 91 H 20 136/78 95 12/20/19 06:45 89 30 H 101/41 L 94 12/20/19 06:39 90 28 H 100/54 L 95 12/20/19 06:15 101 H 31 H 115/65 96 12/20/19 06:01 101 H 124/77 98 12/20/19 05:46 102 H 102 H 33 H 121/54 L 98 12/20/19 05:33 102 H 117/50 L 98 12/20/19 05:16 106 H 86/56 L 96 12/20/19 05:01 109 H 106/56 L 97 12/20/19 04:45 116 H 131/60 97 12/20/19 04:42 110 H 33 H 98 12/20/19 04:16 143 H 164/102 H 99 12/20/19 04:15 125 H 35 H 95 12/20/19 04:00 150 H 169/93 H 97 12/20/19 03:56 144 H 177/118 H 95 12/20/19 03:54 149 H 93 12/20/19 03:40 142 H 33 H 96 12/20/19 03:37 143 H 35 H 173/82 H 93 I reviewed vital signs, labs and imaging Coding Level of Care Code Critical Care 1st 30-74 mins Diagnoses Acute and chronic respiratory failure with hypercapnia J96.22 Chronic atrial fibrillation with rapid ventricular response I48.20 Valvular heart disease I38 Pulmonary edema J81.1 Time Spent (min) 44
[2019-12-20] MEDS: cefTRIAXone SODIUM 2,000 MG in DEXTROSE 5% 50 ML IV SCH ×2 (15:56→15:58)
[2019-12-20 16:10] LABS: Hematocrit (blood only) 36.1 % (42-52); Hemoglobin 9.8 g/dL (14.0-18.0); Mean Corpuscular Hemoglobin 22.8 pg (25-34); Mean Corpuscular Hgb Conc 27.1 g/dL (32-36); Mean Platelet Volume 9.8 fL (7.4-10.4); Platelet Count 309 K/uL (130-400); RDW Coefficient of Variation 21.3 % (11.5-14.5); RDW Standard Deviation 64.3 fL (36.4-46.3)
--- NOTE | 2019-12-20 16:10 | Electrocardiogram Report ---
Test Reason : Blood Pressure : / mmHG Vent. Rate : 142 BPM Atrial Rate : 147 BPM P-R Int : 136 ms QRS Dur : 096 ms QT Int : 318 ms P-R-T Axes : 000 008 206 degrees QTc Int : 489 ms Supraventricular tachycardia with Premature ventricular complexes Marked ST abnormality, possible inferolateral subendocardial injury Minor Non-specific intra-ventricular conduction delay Abnormal ECG When compared with ECG of 20-DEC-2019 03:36, Premature ventricular complexes are now Present Otherwise no significant change Confirmed by Jaden Alcazar ([id number]) on 12/20/2019 4:09:49 PM Referred By: REFERRED SELF Confirmed By:Jaden Alcazar
--- NOTE | 2019-12-20 16:11 | XRay Report ---
XR chest 1V portable CLINICAL HISTORY: NGT placement COMPARISON STUDY: 12/20/2019 FINDINGS: A single view the abdomen centered on the hemidiaphragms is provided for interpretation. Th ere are calcified pleural diaphragmatic plaques. There is been interval insertion of a nasogastric tu be. The tip projects at the gastric cardia. The heart is enlarged. There are bilateral pleural effusi ons. There are bilateral pulmonary airspace opacities.[ IMPRESSION: The recently placed nasogastric tube is positioned with its tip projected over the gastri c cardia ACT 112: Negative or not required by law. Electronically signed by: Thom Pino M.D. 12/20/2019 4:10 PM
[2019-12-20 16:18] LABS: Albumin Globulin Ratio 0.9 (0.9-2); Albumin Level 3.8 gm/dl (3.4-5.0); BUN Creatinine Ratio 19.6 (10-20); Bilirubin,Total 0.9 mg/dl (0.2-1); Calcium 9.1 mg/dl (8.5-10.1); Creatinine Clr Calc Pharmacy 33.7 ml/min; Est GFR (African American) 35.5; Est GFR (Non-African American) 30.6; Globulin 4.2 gm/dl (2.5-4.0); Potassium 5.3 mmol/L (3.5-5.1)
[2019-12-20 16:19] LABS: Anisocytosis Present; Basophils # (auto) 0.01 K/uL (0-0.2); Basophils % (auto) 0.1 %; Hypochromasia Present; Immature Granulocytes # (auto) 0.05 K/uL (0.00-0.02); Immature Granulocytes % (auto) 0.3 %; Lymphocytes # (auto) 0.48 K/uL (1.2-3.4); Lymphocytes % (auto) 3.1 %; Microcytosis Present; Monocytes % (auto) 4.5 %; Neutrophils # (auto) 14.46 K/uL (1.4-6.5); Ovalocytes 1+; Polychromasia 1+
[2019-12-20] MEDS: DOXYCYCLINE HYCLATE 100 MG in DEXTROSE 5% 100 ML IV SCH (18:49)
[2019-12-20] MEDS ORDERED: MoRPHine SULFATE 2 MG/ML CARP IV PRN (19:23)
--- NOTE | 2019-12-20 19:41 | Hospitalist Progress Note ---
Date of Service December 20, 2019 Assessment & Plan (1) Acute and chronic respiratory failure with hypercapnia: Present on admission with worsening SOB Possible related acute decompensated heart failure/chronic diastolic heart failure CXR showed cardiomegaly, and bilateral pleural effusions Progressive bilateral pulmonary airspace opacities, likely representing pulmonary edema although a bilateral infectious/inflammatory pneumonitis could appear similar. ABG on admission showed pH 7.18, PCO2 114, PO2 84, PHCO3 43 Received IV lasix in the ER Cardiology on board Starting on Lasix 60mg IV BID Continue BIPAP for now Continue duoneb treatment His breathing has been heavy and tachypneic and required more oxygen Case discussed with [employer]ice to transfer to the ICU in case patient continue to decline, might require mechanical intubation since pt wants to remain full code Continue monitor closely Elevated troponin Possible demand ischemia due to acute respiratory distress Troponin peaked to 6.9 Denies any chest pain EKG showed Afib Will monitor troponin On comadin and INR 2.8 Continue metoprolol B/L Pleural effusion CXR showed bilateral pleural effusions [employer] App[employer]ice plan to get a thoracentesis in am Continue lasix IV 60mg BID Will hold coumadin for today Check INR in am Afib with RVR EKG on admission showed Afib with HR 142 Was starting on amiodarone drip, that transition to PO amiodarone Continue Metoprolol Will hold coumadin today for possible thoracentesis in am INR 2.8 today Possible Pneumonia CXR showed bilateral pulmonary airspace opacities Elevated WBC COVID 19 and procalcitonin negative Starting on Rocephin and Doxycycline IV Blood cx pending Abdominal pain Possible related to fluid overload leading to abdominal edema NG tube was placed CT abd pending Continue monitor Anemia of chronic disease Hemoglobin 9.8 Stable Acute kidney injury Creatinine on admission 2.07 Creatinine 2.0 today Will monitor BMP while on Lasix Type 2 diabetes: HgbA1C 6 on 12/20/19 Continue to hold PO diabetes meds Continue Insulin sliding scale Monitor BS DVT px Will hold coumadin tonight INR 2.8 CODE Status FULL CODE Disposition Transfer to ICU Admission and Anticipated Discharge Date Admission Date: December 20, 2019 Subjective Pt was seen and examined Lying in bed with acute respiratory distress Pt said that he is having difficulty to breath He said that he is breathing better while on the BIPAP Denies any chest pain, palpitation, dizziness and fever Physical Exam Physical Exam: General- No acute distress Head- atraumatic Eyes- PERRL, EOMI, ENT- oropharynx clear Neck- supple, no JVD Lungs- + crackles and + wheezes Heart- irregular rhythm; +murmur Abdomen- normal bowel sounds, soft, +distended Extremities- no calf tenderness, +edema Neuro- alert, oriented x 3; PERRL, EOMI; no facial palsy; no dysarthria Skin- warm & dry Results & Data Results & Data ([facility]) Vital Signs (Past 12 Hours) Vital Signs Temp Pulse Pulse Resp BP Pulse Ox Pulse Ox 12/20/19 17:13 92 12/20/19 17:12 81 12/20/19 15:54 90 34 H 91 12/20/19 15:53 94 H 30 H 96 12/20/19 14:58 102 H 30 H 83 L 12/20/19 12:00 36.0 C L 68 18 106/65 94 12/20/19 11:26 65 28 H 93 12/20/19 09:52 88 20 93
[2019-12-20 20:33] LABS: BUN Creatinine Ratio 20.8 (10-20); Creatinine Clr Calc Pharmacy 32.6 ml/min; Est GFR (Non-African American) 29.4; Potassium 5.4 mmol/L (3.5-5.1)
[2019-12-20 20:45] LABS: Troponin I 7.42 ng/ml (0-0.045)
[2019-12-20] MEDS ORDERED: GABAPENTIN 300 MG CAP PO SCH (21:00)
[2019-12-20] MEDS: METOPROLOL TARTRATE 1 MG/ML VIAL IV SCH (21:25)
[2019-12-20] MEDS: levETIRAcetam 500 MG in 0.9 % SODIUM CHLORIDE 100 ML IV SCH (21:25)
[2019-12-20] MEDS ORDERED: STAT IV Infusion **Titration per Protocol STA ×3 (21:43→23:57)
[2019-12-20] MEDS: DEXMEDETOMIDINE HCL 200 MCG in SODIUM CHLORIDE 0.9% 48 ML IV SCH (21:56)
[2019-12-20] MEDS ORDERED: RAPID SEQUENCE INDUCTION BAG ONE (22:39)
[2019-12-20 22:44] LABS: iSTAT Allen Test Pass; iSTAT Arterial Blood Gas HCO3 39 meg/L (19-24); iSTAT Arterial Blood Gas pCO2 93 mmHg (35-46); iSTAT Arterial Blood Gas pH 7.24 (7.35-7.45); iSTAT Arterial Blood Gas pO2 71 mmHg (80-95); iSTAT Carbon Dioxide > 40 mmol/L (24-31); iSTAT FiO2 50 %; iSTAT Site L Radial
[2019-12-20] MEDS ORDERED: PROPOFOL BOLUS FROM BAG IV PRN (23:04)
[2019-12-20] MEDS ORDERED: PROPOFOL IV EMULSION 10 MG/ML 100 ML VIAL IV ONE (23:06)
--- NOTE | 2019-12-20 23:11 | Emergency Department Note ---
ED Visit Note Procedure note Endotracheal intubation: Reason: Acute respiratory failure/hypoxia despite BiPAP on oxygen RSI was performed using 20 mg of IV etomidate and 20 mg of IV rocuronium. The patient was intubated successfully and without difficulty with a glide scope #4 blade. The endotracheal tube was visualized passing through the cords. The patient did briefly have a pulse ox drop into the mid 80s but quickly rebounded after bagging via the endotracheal tube. There was no hypotension. There was no complication. End-tidal CO2 detection was present. Bilateral breath sounds are present with good tube humidification. No epigastric sounds. It was taped at 23 cm at the lip line. Size 7.5 tube. This is an 79-year-old male who was admitted to the ICU early this morning for acute congestive heart failure and pulmonary edema. He also has a history of COPD. I was asked to intubate the patient by the ICU FELICIA James as the patient was failing BiPAP. Endotracheal intubation was performed as noted above. No complications or issues. .
[2019-12-20] MEDS ORDERED: propofoL 1,000 MG/100 ML VIAL IV SCH (23:15)
--- NOTE | 2019-12-20 23:36 | XRay Report ---
XR chest 1V portable HISTORY: Tube placement. COMPARISON: Chest 12/20/2019. FINDINGS: The endotracheal tube terminates approximately 2.3 cm from the rosales. Nasogastric tube ter minates below the diaphragm. The tip is not included on this study. Bilateral hazy airspace opacities and small bilateral pleural effusions persist. Bibasilar pleural calcifications are again noted. The heart remains enlarged. No pneumothorax. IMPRESSION: 1. Satisfactory support line placement. 2. Bilateral hazy airspace opacities and small bilateral pleural effusions persist. This may represen t pulmonary edema or a pneumonia. ACT 112: Negative or not required by law. Electronically signed by: Chris Garcia M.D. 12/20/2019 11:35 PM
--- NOTE | 2019-12-20 23:57 | Communication Note ---
Date of Service: December 20, 2019 Patient had become increasingly hypoxic and hypercapnic and displayed increased work of breathing with worsening tachypnea despite trial of BiPAP, now requiring mechanical ventilation. ER physician was notified and assisted with intubating the patient. Repeat ABG following intubation improved. Prior to intubation I did discuss the procedure with the patient and did readdress CODE STATUS. I explained that the prognosis for the patient was poor, as he is now in acute renal failure and pulmonary congestion continues to worsen despite diuresis. Henny christiansen has elected to proceed with intubation and would like to remain full code. He is now sedated and mechanically ventilated. Chest x-ray did show appropriate tube placement following intubation. We will continue to manage in ICU. CRITICAL CARE TIME - I have personally spent 30 minutes of critical care time in the direct management of this patient. This is a life/limb threatening event. This includes time spent evaluating patient, direct bedside care, chart review, placing orders, interpretation of diagnostic studies, discussion with consultants, patient, and family members, as well as other required patient management activities. This time is exclusive of all separately billable procedures, and teaching time and separate from and in addition to any other critical care service time. Coding Level of Care Code Critical Care carlton addt'l 30 min
[2019-12-21 00:17] LABS: iSTAT Allen Test Pass; iSTAT Art Bld Gas pCO2 Correct 65 mmHg (35-46); iSTAT Art Bld Gas pH Corrected 7.366 (7.35-7.45); iSTAT Arterial Blood Gas HCO3 37 meg/L (19-24); iSTAT Arterial Blood Gas pCO2 65 mmHg (35-46); iSTAT Arterial Blood Gas pH 7.37 (7.35-7.45); iSTAT Arterial Blood Gas pO2 85 mmHg (80-95); iSTAT Arterial Blood Gas pO2 C 85; iSTAT Carbon Dioxide 39 mmol/L (24-31); iSTAT FiO2 60 %; iSTAT Hematocrit 31 % (42-52); iSTAT Hemoglobin 10.5 g/dl (14.0-18.0); iSTAT Potassium 5.4 mmol/L (3.3-5.0); iSTAT Site R Radial; iSTAT Sodium 137 mmol/L (135-144)
[2019-12-21] MEDS: fentaNYL DRIP 1,250 MCG/250 ML BAG IV SCH ×2 (00:23→11:15)
[2019-12-21] MEDS: INSULIN ASPART 100 UNITS/ML 3 ML PEN SC SCH ×4 (00:25→17:58)
[2019-12-21] MEDS: NITROGLYCERIN 2% OINTMENT 30GM TUBE EXT SCH (00:26)
[2019-12-21] MEDS ORDERED: SODIUM CHLORIDE 0.9% 1000ML 1,000 ML IV ONE (00:32)
[2019-12-21] MEDS: DEXMEDETOMIDINE HCL 200 MCG in SODIUM CHLORIDE 0.9% 48 ML IV SCH ×7 (00:38→21:53)
[2019-12-21] MEDS: METOPROLOL TARTRATE 1 MG/ML VIAL IV SCH ×4 (02:04→20:27)
[2019-12-21 04:55] LABS: Prothrombin Time 29.8 Seconds (9.0-12.0)
[2019-12-21 05:05] LABS: Hematocrit (blood only) 33.4 % (42-52); Hemoglobin 9.2 g/dL (14.0-18.0); Mean Corpuscular Hemoglobin 22.6 pg (25-34); Mean Corpuscular Hgb Conc 27.5 g/dL (32-36); Mean Corpuscular Volume 82.1 fL (80-100); Platelet Count 224 K/uL (130-400); RDW Coefficient of Variation 21.4 % (11.5-14.5); RDW Standard Deviation 61.5 fL (36.4-46.3); Red Blood Count 4.07 M/uL (4.7-6.1); White Blood Count 12.88 K/uL (4.8-10.8)
[2019-12-21 05:08] LABS: BUN Creatinine Ratio 23.9 (10-20); Calcium 8.4 mg/dl (8.5-10.1); Creatinine Clr Calc Pharmacy 32.9 ml/min; Est GFR (African American) 34.4; Est GFR (Non-African American) 29.7; Magnesium 2.3 mg/dl (1.8-2.4); Phosphorus 5.2 mg/dl (2.5-4.9); Potassium 5.7 mmol/L (3.5-5.1)
[2019-12-21 05:11] LABS: iSTAT Allen Test Pass; iSTAT Art Bld Gas pCO2 Correct 64 mmHg (35-46); iSTAT Art Bld Gas pH Corrected 7.361 (7.35-7.45); iSTAT Arterial Blood Gas HCO3 36 meg/L (19-24); iSTAT Arterial Blood Gas pCO2 63 mmHg (35-46); iSTAT Arterial Blood Gas pH 7.37 (7.35-7.45); iSTAT Arterial Blood Gas pO2 71 mmHg (80-95); iSTAT Arterial Blood Gas pO2 C 72; iSTAT Carbon Dioxide 38 mmol/L (24-31); iSTAT FiO2 50 %; iSTAT Hematocrit 31 % (42-52); iSTAT Hemoglobin 10.5 g/dl (14.0-18.0); iSTAT Potassium 5.7 mmol/L (3.3-5.0); iSTAT Site L Radial; iSTAT Sodium 138 mmol/L (135-144)
[2019-12-21] MEDS ORDERED: SODIUM POLYSTYRENE SULFONATE 15G/60ML SUSP PO STA (05:13)
[2019-12-21 05:20] LABS: Basophils % (auto) 0.1 %; Immature Granulocytes % (auto) 0.2 %; Lymphocytes # (auto) 0.79 K/uL (1.2-3.4); Lymphocytes % (auto) 6.1 %; Monocytes # (auto) 1.38 K/uL (0.11-0.59); Monocytes % (auto) 10.7 %; Neutrophils # (auto) 10.67 K/uL (1.4-6.5); Neutrophils % (auto) 82.9 %
[2019-12-21 05:21] LABS: Anisocytosis Present; Basophils # (auto) 0.01 K/uL (0-0.2); Hypochromasia Present; Immature Granulocytes # (auto) 0.03 K/uL (0.00-0.02)
[2019-12-21] MEDS: DOXYCYCLINE HYCLATE 100 MG in DEXTROSE 5% 100 ML IV SCH ×2 (05:28→17:58)
[2019-12-21] MEDS: levETIRAcetam 500 MG in 0.9 % SODIUM CHLORIDE 100 ML IV SCH ×2 (08:08→21:07)
[2019-12-21] MEDS: INSULIN GLARGINE SOLOSTAR 100 UNITS/ML 3 ML PEN SC SCH (08:12)
--- NOTE | 2019-12-21 08:54 | Critical Care Progress Note ---
Date of Service December 21, 2019 Assessment & Plan (1) Acute and chronic respiratory failure with hypercapnia: The patient was intubated overnight. He is requiring minimal vent support at this time. He continues to have diffuse interstitial infiltrates with bilateral effusions. His INR is 3 today. Since his vent requirements are minimal, I will hold off on thoracentesis today. We will reevaluate tomorrow. We will leave him on the ventilator today to rest. He has evidence of CASH and hyperkalemia. I will hold on further Lasix at this time and we will repeat a BMP at 10 AM. He received Kayexalate this morning. His lactate is trending upwards. He has not been requiring any pressors as of yet. He did receive a liter of fluid overnight. He may need to be started on pressors to maintain mean arterial pressure above 65. He does have significant valvular heart disease. Cardiology is consulted. His troponin was elevated. We are starting tube feeds today as long as his pressor requirements do not go up. His overall prognosis is very poor. No family available at bedside immediately. I did discuss case with the bedside RN. CRITICAL CARE TIME - I have personally spent 36 minutes of critical care time in the direct management of this patient. This is a life/limb threatening event. This includes time spent evaluating patient, direct bedside care, chart review, placing orders, interpretation of diagnostic studies, discussion with consultants, patient, and family members, as well as other required patient management activities. This time is exclusive of all separately billable procedures, and teaching time and separate from and in addition to any other critical care service time. (2) Chronic atrial fibrillation with rapid ventricular response: (3) Valvular heart disease: (4) Pulmonary edema: Admission and Anticipated Discharge Date Admission Date: December 20, 2019 Subjective Patient is currently intubated and sedated on Precedex and fentanyl. He required Kayexalate this morning for hyperkalemia. He is bradycardic related to the Precedex. Pulse ox is 91%. He does not follow commands as he is deeply sedated. Review of Systems Review of Systems: Unobtainable due to endotracheal tube and Unobtainable due to reduced consciousness Physical Exam Constitutional: + ill appearing Intubated and sedated. Eyes: PERRL, conjunctivae normal, anicteric sclerae ENMT: external ear and nose normal, oropharynx normal Neck: trachea midline, no thyromegaly Respiratory: Bilateral crackles noted with diminished at the bases Cardiovascular: Rate/Rhythm: + irregularly irregular Heart Sounds: + murmur Extremities: + edema Gastrointestinal (Abdomen): normal bowel sounds, soft, nontender, no hepatosplenomegaly Musculoskeletal: no cyanosis or clubbing, extremities motor strength 5/5 Skin: no rashes, warm and dry Neurologic: Unable to assess due to mental status Psychiatric: Unable to assess Results & Data Results & [facility] ([facility]) Vital Signs (Past 12 Hours) Vital Signs Temp Pulse Resp BP Pulse Ox 12/21/19 07:47 54 L 92/54 L 12/21/19 07:10 60 20 93 12/21/19 06:49 59 L 85/44 L 96 12/21/19 06:19 63 85/43 L 96 12/21/19 05:49 61 86/46 L 96 12/21/19 05:19 57 L 81/45 L 96 12/21/19 04:50 60 20 93 12/21/19 04:49 58 L 88/47 L 94 12/21/19 04:19 59 L 90/46 L 91 12/21/19 04:00 98.4 F 12/21/19 03:49 62 85/44 L 93 12/21/19 03:19 67 90/48 L 93 12/21/19 02:49 67 87/47 L 94 12/21/19 02:19 62 89/47 L 92 12/21/19 02:04 67 89/50 L 12/21/19 02:02 67 20 94 12/21/19 01:49 64 89/50 L 96 12/21/19 01:19 59 L 83/43 L 94 12/21/19 00:49 66 94/47 L 92 12/21/19 00:30 63 92 12/21/19 00:20 66 92/46 L 89 L 12/21/19 00:00 98.6 F 69 96 12/20/19 23:48 67 76/44 L 95 12/20/19 23:30 67 95 12/20/19 23:27 68 12/20/19 23:18 68 72/40 L 95 12/20/19 23:13 74 88/49 L 95 12/20/19 23:03 91 H 20 94 12/20/19 23:00 83 96 12/20/19 22:58 82 85/52 L 95 12/20/19 22:55 92 H 93/38 L 95 12/20/19 22:54 91 H 80/49 L 94 12/20/19 22:51 100 H 116/53 L 82 L 12/20/19 22:45 90 37 H 93 12/20/19 22:30 97 H 36 H 92 12/20/19 22:15 97 H 31 H 89 L 12/20/19 22:13 97 H 37 H 122/83 89 L 12/20/19 22:00 89 29 H 88 L 12/20/19 21:45 88 27 H 88 L 12/20/19 21:30 72 32 H 92 12/20/19 21:25 84 126/53 L 12/20/19 21:15 66 23 95 12/20/19 21:13 69 27 H 126/53 L 93 12/20/19 21:00 66 28 H 92 I reviewed vital signs, labs and imaging Coding Level of Care Code Critical Care 1st 30-74 mins Diagnoses Acute and chronic respiratory failure with hypercapnia J96.22 Chronic atrial fibrillation with rapid ventricular response I48.20 Valvular heart disease I38 Pulmonary edema J81.1 Time Spent (min) 36
[2019-12-21] MEDS ORDERED: STAT IV Infusion **Titration per Protocol STA (09:16)
[2019-12-21] MEDS ORDERED: NOREPINEPHRINE BIT INJ 8 MG in DEXTROSE 5% 500 ML IV SCH (09:30)
--- NOTE | 2019-12-21 10:29 | Communication Note ---
Date of Service: December 21, 2019 I had a discussion with the daughter at bedside. She indicated that she spoke with the family and they have elected to make her father DNR in the event that he has a cardiac arrest. She would also like to defer placement of a central line at this time. She is aware that he is on the low-dose of norepinephrine. I indicated to her that central line will be preferable to administering the pressor safely. She did indicate that she would not want to escalate care at this point if he were to require more vasopressors. She also indicated that the family would not want patient to be placed on dialysis. She also indicated that if the patient were to start declining clinically, then we would likely transition to comfort measures only. We will continue care that we are doing at this point and not significantly escalate care any further. Patient's CODE STATUS has been changed to DNR in the chart. Coding Level of Care Code Critical Care 1st 30-74 mins Time Spent (min) 12
[2019-12-21 10:38] LABS: BUN Creatinine Ratio 24.4 (10-20); Calcium 8.8 mg/dl (8.5-10.1); Creatinine Clr Calc Pharmacy 28.3 ml/min; Est GFR (African American) 29.2; Est GFR (Non-African American) 25.2; Potassium 5.5 mmol/L (3.5-5.1)
[2019-12-21] MEDS ORDERED: PANTOprazole 40 MG in SYRINGE 0 ML IV SCH (11:00)
[2019-12-21] MEDS ORDERED: DEXTROSE 50% 50 ML SYRINGE IV STA (11:16)
[2019-12-21] MEDS ORDERED: INSULIN HUMAN REGULAR PER UNIT 10 UNITS in SYRINGE 9.9 ML IV ONE (11:30)
--- NOTE | 2019-12-21 11:33 | Cardiology Progress Note ---
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 He represents with signs symptoms of acute respiratory failure with chest x-ray consistent with pulmonary edema lower extremity edema Symptoms progressed to require intubation and mechanical ventilation. Currently no acute distress however renal function has declined, creatinine increased, elevated troponin present with elevated lactate levels as well Atrial fibrillation rates have improved on intubation Patient well-known to me from outpatient visits and past hospitalizations. Patient in the past has declined any aggressive increase in therapies investigations of valvular or ischemic heart disease to the point of even declining laboratory studies/blood draws. Overall prognosis limited and if no prompt response to therapies would transition to palliative care (2) Chronic atrial fibrillation with rapid ventricular response: (3) Valvular heart disease: (4) Pulmonary edema: Admission and Anticipated Discharge Date Admission Date: December 20, 2019 Subjective Patient was seen and examined, chart, medications, telemetry reviewed Patient currently sedated, intubated on mechanical ventilation with mild pressor support. No acute distress at this time Review of Systems Review of Systems: Unobtainable due to endotracheal tube Physical Exam Constitutional: + frail appearing and + mechanically ventilated; no acute distress Eyes: PERRL, conjunctivae normal, anicteric sclerae ENMT: external ear and nose normal, oropharynx normal Neck: trachea midline, no thyromegaly Respiratory: Auscultation: + bronchial breath sounds Cardiovascular: Rate/Rhythm: + irregularly irregular Heart Sounds: normal S1, normal S2 and + murmur (Grade 2/6 systolic, no diastolic murmur) Palpation: normal PMI Vessels: normal carotid upstroke and radial pulses present; no carotid bruit Extremities: + edema (1-2+) Gastrointestinal (Abdomen): Percussion/Palpation: abdomen soft; no hepatospl enomegaly Musculoskeletal: Head/Neck/Chest: + head abnormal to inspection and normocephalic Extremities: extremities normal to inspection Skin: no rashes, warm and dry Neurologic: Patient sedated Results & Data ([facility]) Vital Signs (Past 12 Hours) Vital Signs Temp Pulse Resp BP Pulse Ox 12/21/19 10:45 96 H 24 93 12/21/19 07:47 54 L 92/54 L 12/21/19 07:10 60 20 93 12/21/19 06:49 59 L 85/44 L 96 12/21/19 06:19 63 85/43 L 96 12/21/19 05:49 61 86/46 L 96 12/21/19 05:19 57 L 81/45 L 96 12/21/19 04:50 60 20 93 12/21/19 04:49 58 L 88/47 L 94 12/21/19 04:19 59 L 90/46 L 91 12/21/19 04:00 36.9 C 12/21/19 03:49 62 85/44 L 93 12/21/19 03:19 67 90/48 L 93 12/21/19 02:49 67 87/47 L 94 12/21/19 02:19 62 89/47 L 92 12/21/19 02:04 67 89/50 L 12/21/19 02:02 67 20 94 12/21/19 01:49 64 89/50 L 96 12/21/19 01:19 59 L 83/43 L 94 12/21/19 00:49 66 94/47 L 92 12/21/19 00:30 63 92 12/21/19 00:20 66 92/46 L 89 L 12/21/19 00:00 37.0 C 69 96 12/20/19 23:48 67 76/44 L 95 12/20/19 23:30 67 95 Laboratory Results Laboratory Results - last 24 hr 12/20/19 12/20/19 12/20/19 11:23 11:23 12:08 WBC RBC Hgb POC Hgb Hct POC Hct MCV MCH MCHC RDW Std Deviation RDW Coeff of Robert Plt Count MPV Immature Gran % (Auto) Neut % (Auto) Lymph % (Auto) [place] % (Auto) Eos % (Auto) Baso % (Auto) Neut # (Auto) Lymph # (Auto) [place] # (Auto) Eos # (Auto) Baso # (Auto) Immature Gran # (Auto) Polychromasia Hypochromasia Anisocytosis Microcytosis Ovalocytes PT INR Sample Site POC pH POC pCO2 POC pO2 POC HCO3 POC Total CO2 POC Base Excess ABG pH 7.34 L ABG pH (Temp Correct) ABG pCO2 68 H ABG pCO2 (Temp Corrct ABG pO2 74 L POC ABG pO2 at Pt Temp ABG HCO3 36 H POC ABG O2 Sat ABG O2 Saturation 93.4 ABG Base Excess 8.3 H Isra Test Pos Barometric Pressure 737.3 Oxygen Given 45% O2 Delivery Device POC O2 Rate Minute Ventilation POC FiO2 Tidal Volume PEEP IPAP POC Sodium Sodium POC Potassium Potassium Chloride Carbon Dioxide Anion Gap BUN Creatinine Est Cr Clr Drug Dosing Est GFR ( Amer) Est GFR (Non-Af Amer) BUN/Creatinine Ratio Glucose POC Glucose 281 H Lactate Calcium Phosphorus Magnesium Total Bilirubin AST ALT Alkaline Phosphatase Troponin I 6.990 H* Total Protein Albumin Globulin Albumin/Globulin Ratio Procalcitonin Nasal Screen MRSA (PCR) 12/20/19 12/20/19 12/20/19 15:33 15:33 15:33 WBC 15.70 H RBC 4.30 L Hgb 9.8 L POC Hgb Hct 36.1 L POC Hct MCV 84.0 MCH 22.8 L MCHC 27.1 L RDW Std Deviation 64.3 H RDW Coeff of Robert 21.3 H Plt Count 309 MPV 9.8 Immature Gran % (Auto) 0.3 Neut % (Auto) 92.0 Lymph % (Auto) 3.1 [place] % (Auto) 4.5 Eos % (Auto) 0.0 Baso % (Auto) 0.1 Neut # (Auto) 14.46 H Lymph # (Auto) 0.48 L [place] # (Auto) 0.70 H Eos # (Auto) 0.00 Baso # (Auto) 0.01 Immature Gran # (Auto) 0.05 H Polychromasia 1+ Hypochromasia Present Anisocytosis Present Microcytosis Present Ovalocytes 1+ PT INR Sample Site POC pH POC pCO2 POC pO2 POC HCO3 POC Total CO2 POC Base Excess ABG pH ABG pH (Temp Correct) ABG pCO2 ABG pCO2 (Temp Corrct ABG pO2 POC ABG pO2 at Pt Temp ABG HCO3 POC ABG O2 Sat ABG O2 Saturation ABG Base Excess Isra Test Barometric Pressure Oxygen Given O2 Delivery Device POC O2 Rate Minute Ventilation POC FiO2 Tidal Volume PEEP IPAP POC Sodium Sodium 136 POC Potassium Potassium 5.3 H D Chloride 95 L Carbon Dioxide 38 H Anion Gap 3.0 BUN 39 H Creatinine 2.00 H D Est Cr Clr Drug Dosing 33.7 Est GFR ( Amer) 35.5 Est GFR (Non-Af Amer) 30.6 BUN/Creatinine Ratio 19.6 Glucose 215 H POC Glucose Lactate 3.5 H* Calcium 9.1 Phosphorus Magnesium Total Bilirubin 0.9 AST 51 H ALT 22 Alkaline Phosphatase 78 Troponin I Total Protein 8.0 Albumin 3.8 Globulin 4.2 H Albumin/Globulin Ratio 0.9 Procalcitonin Nasal Screen MRSA (PCR) 12/20/19 12/20/19 12/20/19 18:52 19:15 19:59 WBC RBC Hgb POC Hgb Hct POC Hct MCV MCH MCHC RDW Std Deviation RDW Coeff of Robert Plt Count MPV Immature Gran % (Auto) Neut % (Auto) Lymph % (Auto) [place] % (Auto) Eos % (Auto) Baso % (Auto) Neut # (Auto) Lymph # (Auto) [place] # (Auto) Eos # (Auto) Baso # (Auto) Immature Gran # (Auto) Polychromasia Hypochromasia Anisocytosis Microcytosis Ovalocytes PT INR Sample Site POC pH POC pCO2 POC pO2 POC HCO3 POC Total CO2 POC Base Excess ABG pH ABG pH (Temp Correct) ABG pCO2 ABG pCO2 (Temp Corrct ABG pO2 POC ABG pO2 at Pt Temp ABG HCO3 POC ABG O2 Sat ABG O2 Saturation ABG Base Excess Isra Test Barometric Pressure Oxygen Given O2 Delivery Device POC O2 Rate Minute Ventilation POC FiO2 Tidal Volume PEEP IPAP POC Sodium Sodium POC Potassium Potassium Chloride Carbon Dioxide Anion Gap BUN Creatinine Est Cr Clr Drug Dosing Est GFR ( Amer) Est GFR (Non-Af Amer) BUN/Creatinine Ratio Glucose POC Glucose 201 H Lactate 3.6 H* Calcium Phosphorus Magnesium Total Bilirubin AST ALT Alkaline Phosphatase Troponin I Total Protein Albumin Globulin Albumin/Globulin Ratio Procalcitonin Nasal Screen MRSA (PCR) Negative 12/20/19 12/20/19 12/20/19 20:01 22:29 23:53 WBC RBC Hgb POC Hgb Hct POC Hct MCV MCH MCHC RDW Std Deviation RDW Coeff of Robert Plt Count MPV Immature Gran % (Auto) Neut % (Auto) Lymph % (Auto) [place] % (Auto) Eos % (Auto) Baso % (Auto) Neut # (Auto) Lymph # (Auto) [place] # (Auto) Eos # (Auto) Baso # (Auto) Immature Gran # (Auto) Polychromasia Hypochromasia Anisocytosis Microcytosis Ovalocytes PT INR Sample Site L Radial POC pH 7.24 L POC pCO2 93 H POC pO2 71 L POC HCO3 39 H POC Total CO2 > 40 H* POC Base Excess 12.0 H ABG pH ABG pH (Temp Correct) ABG pCO2 ABG pCO2 (Temp Corrct ABG pO2 POC ABG pO2 at Pt Temp ABG HCO3 POC ABG O2 Sat 89.0 L ABG O2 Saturation ABG Base Excess Isra Test Pass Barometric Pressure Oxygen Given O2 Delivery Device BIPAP POC O2 Rate 12 Minute Ventilation POC FiO2 50 Tidal Volume PEEP IPAP 16 POC Sodium Sodium 135 L POC Potassium Potassium 5.4 H Chloride 95 L Carbon Dioxide 35 H Anion Gap 5.0 BUN 43 H Creatinine 2.07 H Est Cr Clr Drug Dosing 32.6 Est GFR ( Amer) 34.0 Est GFR (Non-Af Amer) 29.4 BUN/Creatinine Ratio 20.8 H Glucose 188 H POC Glucose 190 H Lactate Calcium 9.0 Phosphorus Magnesium Total Bilirubin AST ALT Alkaline Phosphatase Troponin I 7.420 H* Total Protein Albumin Globulin Albumin/Globulin Ratio Procalcitonin Nasal Screen MRSA (PCR) 12/21/19 12/21/19 12/21/19 00:04 02:10 04:24 WBC RBC Hgb POC Hgb 10.5 L Hct POC Hct 31 L MCV MCH MCHC RDW Std Deviation RDW Coeff of Robert Plt Count MPV Immature Gran % (Auto) Neut % (Auto) Lymph % (Auto) [place] % (Auto) Eos % (Auto) Baso % (Auto) Neut # (Auto) Lymph # (Auto) [place] # (Auto) Eos # (Auto) Baso # (Auto) Immature Gran # (Auto) Polychromasia Hypochromasia Anisocytosis Microcytosis Ovalocytes PT INR Sample Site R Radial POC pH 7.37 POC pCO2 65 H POC pO2 85 POC HCO3 37 H POC Total CO2 39 H POC Base Excess 12.0 H ABG pH ABG pH (Temp Correct) 7.366 ABG pCO2 ABG pCO2 (Temp Corrct 65 H ABG pO2 POC ABG pO2 at Pt Temp 85 ABG HCO3 POC ABG O2 Sat 96.0 H ABG O2 Saturation ABG Base Excess Isra Test Pass Barometric Pressure Oxygen Given O2 Delivery Device Ventilator POC O2 Rate 20 Minute Ventilation 8.3 POC FiO2 60 Tidal Volume 420 PEEP 5 IPAP POC Sodium 137 Sodium POC Potassium 5.4 H Potassium Chloride Carbon Dioxide Anion Gap BUN Creatinine Est Cr Clr Drug Dosing Est GFR ( Amer) Est GFR (Non-Af Amer) BUN/Creatinine Ratio Glucose POC Glucose Lactate Calcium Phosphorus Magnesium Total Bilirubin AST ALT Alkaline Phosphatase Troponin I 6.000 H* Total Protein Albumin Globulin Albumin/Globulin Ratio Procalcitonin 1.74 H Nasal Screen MRSA (PCR) 12/21/19 12/21/19 12/21/19 04:24 04:24 04:24 WBC 12.88 H RBC 4.07 L Hgb 9.2 L POC Hgb Hct 33.4 L POC Hct MCV 82.1 MCH 22.6 L MCHC 27.5 L RDW Std Deviation 61.5 H RDW Coeff of Robert 21.4 H Plt Count 224 MPV 10.0 Immature Gran % (Auto) 0.2 Neut % (Auto) 82.9 Lymph % (Auto) 6.1 [place] % (Auto) 10.7 Eos % (Auto) 0.0 Baso % (Auto) 0.1 Neut # (Auto) 10.67 H Lymph # (Auto) 0.79 L [place] # (Auto) 1.38 H Eos # (Auto) 0.00 Baso # (Auto) 0.01 Immature Gran # (Auto) 0.03 H Polychromasia Hypochromasia Present Anisocytosis Present Microcytosis Ovalocytes PT 29.8 H INR 3.0 H Sample Site POC pH POC pCO2 POC pO2 POC HCO3 POC Total CO2 POC Base Excess ABG pH ABG pH (Temp Correct) ABG pCO2 ABG pCO2 (Temp Corrct ABG pO2 POC ABG pO2 at Pt Temp ABG HCO3 POC ABG O2 Sat ABG O2 Saturation ABG Base Excess Isra Test Barometric Pressure Oxygen Given O2 Delivery Device POC O2 Rate Minute Ventilation POC FiO2 Tidal Volume PEEP IPAP POC Sodium Sodium 137 POC Potassium Potassium 5.7 H Chloride 98 Carbon Dioxide 35 H Anion Gap 4.0 BUN 49 H Creatinine 2.05 H Est Cr Clr Drug Dosing 32.9 Est GFR ( Amer) 34.4 Est GFR (Non-Af Amer) 29.7 BUN/Creatinine Ratio 23.9 H Glucose 166 H POC Glucose Lactate Calcium 8.4 L Phosphorus 5.2 H Magnesium 2.3 Total Bilirubin AST ALT Alkaline Phosphatase Troponin I Total Protein Albumin Globulin Albumin/Globulin Ratio Procalcitonin Nasal Screen MRSA (PCR) 12/21/19 12/21/19 12/21/19 04:24 04:57 05:27 WBC RBC Hgb POC Hgb 10.5 L Hct POC Hct 31 L MCV MCH MCHC RDW Std Deviation RDW Coeff of Robert Plt Count MPV Immature Gran % (Auto) Neut % (Auto) Lymph % (Auto) [place] % (Auto) Eos % (Auto) Baso % (Auto) Neut # (Auto) Lymph # (Auto) [place] # (Auto) Eos # (Auto) Baso # (Auto) Immature Gran # (Auto) Polychromasia Hypochromasia Anisocytosis Microcytosis Ovalocytes PT INR Sample Site L Radial POC pH 7.37 POC pCO2 63 H POC pO2 71 L POC HCO3 36 H POC Total CO2 38 H POC Base Excess 11.0 H ABG pH ABG pH (Temp Correct) 7.361 ABG pCO2 ABG pCO2 (Temp Corrct 64 H ABG pO2 POC ABG pO2 at Pt Temp 72 ABG HCO3 POC ABG O2 Sat 93.0 ABG O2 Saturation ABG Base Excess Isra Test Pass Barometric Pressure Oxygen Given O2 Delivery Device Ventilator POC O2 Rate 20 Minute Ventilation 8.3 POC FiO2 50 Tidal Volume 420 PEEP 5 IPAP POC Sodium 138 Sodium POC Potassium 5.7 H Potassium Chloride Carbon Dioxide Anion Gap BUN Creatinine Est Cr Clr Drug Dosing Est GFR ( Amer) Est GFR (Non-Af Amer) BUN/Creatinine Ratio Glucose POC Glucose 196 H Lactate 3.8 H* Calcium Phosphorus Magnesium Total Bilirubin AST ALT Alkaline Phosphatase Troponin I Total Protein Albumin Globulin Albumin/Globulin Ratio Procalcitonin Nasal Screen MRSA (PCR) 12/21/19 12/21/19 12/21/19 07:44 10:12 10:12 WBC RBC Hgb POC Hgb Hct POC Hct MCV MCH MCHC RDW Std Deviation RDW Coeff of Robert Plt Count MPV Immature Gran % (Auto) Neut % (Auto) Lymph % (Auto) [place] % (Auto) Eos % (Auto) Baso % (Auto) Neut # (Auto) Lymph # (Auto) [place] # (Auto) Eos # (Auto) Baso # (Auto) Immature Gran # (Auto) Polychromasia Hypochromasia Anisocytosis Microcytosis Ovalocytes PT INR Sample Site POC pH POC pCO2 POC pO2 POC HCO3 POC Total CO2 POC Base Excess ABG pH ABG pH (Temp Correct) ABG pCO2 ABG pCO2 (Temp Corrct ABG pO2 POC ABG pO2 at Pt Temp ABG HCO3 POC ABG O2 Sat ABG O2 Saturation ABG Base Excess Isra Test Barometric Pressure Oxygen Given O2 Delivery Device POC O2 Rate Minute Ventilation POC FiO2 Tidal Volume PEEP IPAP POC Sodium Sodium 137 POC Potassium Potassium 5.5 H Chloride 95 L Carbon Dioxide 37 H Anion Gap 5.0 BUN 57 H Creatinine 2.35 H D Est Cr Clr Drug Dosing 28.3 Est GFR ( Amer) 29.2 Est GFR (Non-Af Amer) 25.2 BUN/Creatinine Ratio 24.4 H Glucose 175 H POC Glucose Lactate 4.4 H* Calcium 8.8 Phosphorus Magnesium Total Bilirubin AST ALT Alkaline Phosphatase Troponin I 5.330 H* Total Protein Albumin Globulin Albumin/Globulin Ratio Procalcitonin Nasal Screen MRSA (PCR)
[2019-12-21] MEDS: SODIUM CHLORIDE 0.9% 500 ML IV SCH ×2 (12:45→19:19)
--- NOTE | 2019-12-21 14:20 | Nephrology Consultation ---
Date of Consultation December 21, 2019 Assessment & Plan (1) Acute kidney injury: Mr. Rosario presented to the hospital with progressive lower extremity edema, SOB and chest pain and admitted with hypoxic respiratory failure with volume overload and critical valvular heart disease, requiring intubation and transfer to intensive care unit. Has stage III CKD baseline creatinine 1.4-1 point probably secondary to microvascular disease on admission creatinine was close to baseline however rapidly worsen to creatinine of 2.4 morning. Minimally responding to diuretics. Acute kidney injury most likely secondary to ATN the setting of persistent hypotension with respiratory failure. Hyperkalemia with kidney injury. -- would continue on IV diuretics as needed to maintain negative fluid balance -- no acute indication for dialysis at this however remained suboptimally responsive to diuretic renal function continues to worsen with critical electrolyte abnormality, may need to discuss about potential need for renal replacement therapy. However, with underlying critical valvular disease multiple other comorbidities and repeated hospitalist admission for volume overload, patient may not tolerate dialysis. -- continue hemodynamic support, keep MAP > 65 Will follow Thank you for allowing me to participate in your patient's care. (2) Hyperkalemia: (3) Valvular heart disease: (4) Pulmonary edema: (5) Anemia: History of Present Illness Reason for Consultation: Acute kidney injury and hyperkalemia Attending Physician: Erick Clemente MD History of Present Illness Mr. Joe Rosario is a 79-year-old male with PMH significant for atrial fibrillation, HTN, DM, valvular heart disease with moderate to severe and MR, h/o seizure disorder,, Shabazz's esophagus and hypertension presenting to the hospital on 12/20/2019 due to abdominal discomfort, N/V and LE edema. Nephrology consult was requested she developed CASH and hyperkalemia Mr. Rosario presented with sudden onset of worsening shortness of breath left- sided chest pain and progressive swelling of lower extremity. on admission his troponin was mildly elevated as well. Was significantly hypotensive requiring pressor support blood pressure systolic 1 point was 72 and diastolic 40 and has been staying in 80s to 90s systolic. chest x-ray showed cardiomegaly with bilateral pleural effusion pulmonary congestion, received IV furosemide and metolazone and placed on BiPAP initially. Yesterday afternoon he was intubated and transferred to ICU because of worsening respiratory failure. he had a similar admission recently from 12/01/2019 to 10/924 hypoxic respiratory failure volume overload requiring intubation with mechanical ventilation. renal function stayed relatively stable during that admission. Has stage III CKD with baseline creatinine around 1.4-1.5. On admission creatinine was 1.6 which worsened 2.4 this morning. Urinalysis with low grade proteinuria and microscopic hematuria. Urine output total 860 since admission with high-dose diuretics. Has Saez catheter in place. Was also found to have anemia during last admission, EGD and colonoscopy was unremarkable. Has AFib, has been on warfarin Amiodarone and metoprolol. At home he was on torsemide 40 milligram twice a day. Allergies Allergy/AdvReac Type Severity Reaction Status Date / Time Sulfa (Sulfonamide Allergy Unknown HIVES Verified 12/20/19 04:11 Antibiotics) Home Medications Home Medications Medication Instructions Recorded Confirmed Type Tradjenta 5 mg PO DAILY 12/01/19 12/20/19 History glipizide 5 mg PO DAILY 12/01/19 12/20/19 History levetiracetam 500 mg PO BID 12/01/19 12/20/19 History metoprolol tartrate 25 mg PO DAILY 12/01/19 12/20/19 History omeprazole 20 mg PO DAILY 12/01/19 12/20/19 History warfarin 2.5 mg PO DAILY 12/01/19 12/20/19 History Combivent Respimat 1 puff INHALATION QID PRN #0 g 12/06/19 12/20/19 Rx potassium chloride 20 meq PO DAILY #30 tab 12/06/19 12/20/19 Rx simethicone [Mi-Acid Gas 80 mg PO Q6H PRN #30 tab 12/06/19 12/20/19 Rx Relief(simethicon)] torsemide 40 mg PO BID 20 Days #80 tab 12/06/19 12/20/19 Rx aspirin [Aspirin Low Dose] 81 mg PO DAILY 12/20/19 12/20/19 History cholecalciferol (vitamin D3) 25 mcg PO DAILY 12/20/19 12/20/19 History [Vitamin D3] doxycycline hyclate 100 mg PO BID 12/20/19 12/20/19 History fluticasone furoate-vilanterol 1 inh INHALATION DAILY 12/20/19 12/20/19 History [Breo Ellipta] gabapentin 300 mg PO HS 12/20/19 12/20/19 History umeclidinium [Incruse Ellipta] 1 inh INHALATION DAILY 12/20/19 12/20/19 History Patient History Medical History Acute hypercapnic respiratory failure Asthma exacerbation in COPD CKD (chronic kidney disease), stage III COPD, moderate CVA (cerebral vascular accident) Diabetes mellitus HTN (hypertension) Multifocal pneumonia Pleural effusion, bilateral Supratherapeutic INR Surgical History S/P AAA repair Social History Smoking Status: Former smoker Tobacco Type: Cigarettes Second Hand Exposure: No; Do You Dip or Chew Tobacco: No; Tobacco Cessation Education Requested by Patient: No Hx Alcohol Use: No Hx Substance Use: No Preferred Language: [place] Communication Ability: Effective 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 Beliefs That Will Affect Care: None Current Living Situation: Alone Current Living Situation Comment: Unable to complete patient sedated Other Information That Helps Us Care for You: No Feels Safe at Home: Yes Safety Concerns: Feels Safe At This Time Assistive Devices: BiPap Review of Systems Review of Systems: All systems reviewed & are unremarkable except as noted in HPI & below Physical Exam Constitutional: + ill appearing and + mechanically ventilated; no acute distress Eyes: PERRL, conjunctivae normal, anicteric sclerae ENMT: external ear and nose normal, oropharynx normal Ears: no hearing impairment Neck: trachea midline Respiratory: normal respiratory effort; no cough Auscultation: + diminished lung sounds Intubated Cardiovascular: Rate/Rhythm: regular rate and + irregularly irregular Heart Sounds: normal S1 and normal S2 Extremities: + edema Gastrointestinal (Abdomen): normal bowel sounds, soft, nontender, no hepatosplenomegaly Percussion/Palpation: abdomen nontender, no guarding and abdomen not rigid Musculoskeletal: Extremities: extremities normal to inspection Gait: normal gait Skin: no rashes, warm and dry Neurologic: Intubated and sedated Results & Data ([facility]) Vital Signs (Past 12 Hours) Vital Signs Temp Pulse Resp BP Pulse Ox 12/21/19 13:32 120 H 27 H 93 12/21/19 13:00 97 H 91 12/21/19 12:49 100 H 130/61 92 12/21/19 12:45 85 92 12/21/19 12:30 99 H 92 12/21/19 12:19 100 H 140/59 L 92 12/21/19 12:15 37.6 C H 98 H 93 12/21/19 12:00 99 H 92 12/21/19 11:49 99 H 150/82 H 91 12/21/19 11:45 98 H 91 12/21/19 11:30 103 H 92 12/21/19 11:19 110 H 145/73 H 92 12/21/19 11:15 98 H 92 12/21/19 11:00 92 H 92 12/21/19 10:49 96 H 156/69 H 93 12/21/19 10:45 91 H 24 93 12/21/19 10:30 96 H 92 12/21/19 10:20 85 169/66 H 91 12/21/19 10:15 77 92 12/21/19 10:00 64 90 12/21/19 09:49 66 111/50 L 91 12/21/19 09:45 57 L 92 12/21/19 09:30 54 L 92 12/21/19 09:19 55 L 81/43 L 92 12/21/19 09:15 57 L 92 12/21/19 09:12 55 L 81/43 L 92 12/21/19 09:00 56 L 91 12/21/19 08:49 56 L 80/44 L 91 12/21/19 08:45 57 L 90 12/21/19 08:30 56 L 90 12/21/19 08:19 64 91/46 L 89 L 12/21/19 08:15 55 L 89 L 12/21/19 08:00 55 L 90 12/21/19 07:49 55 L 95/48 L 90 12/21/19 07:47 54 L 92/54 L 12/21/19 07:45 54 L 90 12/21/19 07:30 57 L 89 L 12/21/19 07:19 37.6 C H 57 L 92/54 L 91 12/21/19 07:15 62 92 12/21/19 07:10 60 20 93 12/21/19 07:00 59 L 96 12/21/19 06:49 59 L 85/44 L 96 12/21/19 06:19 63 85/43 L 96 12/21/19 05:49 61 86/46 L 96 12/21/19 05:19 57 L 81/45 L 96 12/21/19 04:50 60 20 93 12/21/19 04:49 58 L 88/47 L 94 12/21/19 04:19 59 L 90/46 L 91 12/21/19 04:00 36.9 C 12/21/19 03:49 62 85/44 L 93 12/21/19 03:19 67 90/48 L 93 12/21/19 02:49 67 87/47 L 94 12/21/19 02:19 62 89/47 L 92 12/21/19 02:04 67 89/50 L 12/21/19 02:02 67 20 94 PG Care Time/CCT Total # of Minutes Spent Total Time Spent with Patient: Total time spent is greater than 50% in coordination of care (as documented) at patient's floor/unit and/or counseling patient: Coding Level of Care Code 12797 Inpt Consult Level 5 Diagnoses Acute kidney injury N17.9 Hyperkalemia E87.5 Valvular heart disease I38 Pulmonary edema J81.1 Anemia D64.9
--- NOTE | 2019-12-21 16:47 | Hospitalist Progress Note ---
Date of Service December 21, 2019 Assessment & Plan (1) Acute and chronic respiratory failure with hypercapnia: Present on admission with worsening SOB Possible related acute decompensated heart failure/chronic diastolic heart failure CXR showed cardiomegaly, and bilateral pleural effusions Progressive bilateral pulmonary airspace opacities, likely representing pulmonary edema although a bilateral infectious/inflammatory pneumonitis could appear similar. Recent CXR showed Bilateral hazy airspace opacities and small bilateral pleural effusions persist. ABG on admission showed pH 7.18, PCO2 114, PO2 84, PHCO3 43 Received IV lasix in the ER His breathing has been heavy and tachypneic and required more oxygen He was sent to the ICU [facility] Sedated on precedex and fentanyl drip Cardiology on board Lasix discontinued due to worsening kidney function Continue duoneb treatment Continue monitor closely Elevated troponin Possible demand ischemia due to acute respiratory distress Troponin peaked to 7.4, then trending down to 5.3 Denies any chest pain EKG showed Afib Will monitor troponin Coumadin on hold, INR 3 today Continue metoprolol B/L Pleural effusion CXR showed bilateral pleural effusions Rigger Up plan to get a thoracentesis but INR elevated Continue to hold coumadin Afib with RVR EKG on admission showed Afib with HR 142 Was starting on amiodarone drip, that transition to PO amiodarone, then D/C Metoprolol discontinued due to low BP Continue hold coumadin for possible thoracentesis INR 3 today Hypotension Possible related to Sepsis Continue requiring Pressor with Levophed Continue monitor BP Possible Pneumonia CXR showed bilateral pulmonary airspace opacities Elevated WBC and Lactate COVID 19 and procalcitonin negative Continue Rocephin and Doxycycline IV Blood cx no growth Abdominal pain Possible related to fluid overload leading to abdominal edema NG tube was placed CT abd pending Continue monitor Anemia of chronic disease Hemoglobin 9.2 Continue monitor CBC Acute kidney injury Creatinine on admission 2.07 Creatinine 1.87 today Continue monitor BMP Type 2 diabetes: HgbA1C 6 on 12/20/19 Continue to hold PO diabetes meds Continue Insulin sliding scale Monitor BS DVT px Continue to hold coumadin INR 3 today CODE Status FULL CODE Disposition Continue monitor in the ICU Admission and Anticipated Discharge Date Admission Date: December 20, 2019 Subjective Pt was seen and examined Lying in bed on vent support with grand daughter at bedside Looks very comfortable Eyes open when called his name and follow commands Denies any chest pain and palpitation Physical Exam Physical Exam: General- on mechanical ventilation Head- atraumatic Eyes- PERRL, EOMI, ENT- intubated Neck- supple, no JVD Lungs- + crackles, +diminished BS Heart- irregular rhythm; +murmur Abdomen- normal bowel sounds, soft, +distended Extremities- no calf tenderness, +edema Neuro- able to follow command, eyes open Skin- warm & dry Results & Data Results & Data ([facility]) Vital Signs (Past 12 Hours) Vital Signs Temp Pulse Resp BP Pulse Ox 12/21/19 16:08 102 H 154/85 H 12/21/19 13:32 120 H 27 H 93 12/21/19 13:00 97 H 91 12/21/19 12:49 100 H 130/61 92 12/21/19 12:45 85 92 12/21/19 12:30 99 H 92 12/21/19 12:19 100 H 140/59 L 92 12/21/19 12:15 37.6 C H 98 H 93 12/21/19 12:00 99 H 92 12/21/19 11:49 99 H 150/82 H 91 12/21/19 11:45 98 H 91 12/21/19 11:30 103 H 92 12/21/19 11:19 110 H 145/73 H 92 12/21/19 11:15 98 H 92 12/21/19 11:00 92 H 92 12/21/19 10:49 96 H 156/69 H 93 12/21/19 10:45 91 H 24 93 12/21/19 10:30 96 H 92 12/21/19 10:20 85 169/66 H 91 12/21/19 10:15 77 92 12/21/19 10:00 64 90 12/21/19 09:49 66 111/50 L 91 12/21/19 09:45 57 L 92 12/21/19 09:30 54 L 92 12/21/19 09:19 55 L 81/43 L 92 12/21/19 09:15 57 L 92 12/21/19 09:12 55 L 81/43 L 92 12/21/19 09:00 56 L 91 12/21/19 08:49 56 L 80/44 L 91 12/21/19 08:45 57 L 90 12/21/19 08:30 56 L 90 12/21/19 08:19 64 91/46 L 89 L 12/21/19 08:15 55 L 89 L 12/21/19 08:00 55 L 90 12/21/19 07:49 55 L 95/48 L 90 12/21/19 07:47 54 L 92/54 L 12/21/19 07:45 54 L 90 12/21/19 07:30 57 L 89 L 12/21/19 07:19 37.6 C H 57 L 92/54 L 91 12/21/19 07:15 62 92 12/21/19 07:10 60 20 93 12/21/19 07:00 59 L 96 12/21/19 06:49 59 L 85/44 L 96 12/21/19 06:19 63 85/43 L 96 12/21/19 05:49 61 86/46 L 96 12/21/19 05:19 57 L 81/45 L 96 12/21/19 04:50 60 20 93 12/21/19 04:49 58 L 88/47 L 94
[2019-12-21 19:45] LABS: BUN Creatinine Ratio 28.3 (10-20); Calcium 8.5 mg/dl (8.5-10.1); Creatinine Clr Calc Pharmacy 35.6 ml/min; Est GFR (African American) 38.5; Est GFR (Non-African American) 33.2; Potassium 4.3 mmol/L (3.5-5.1)
[2019-12-22] MEDS: INSULIN ASPART 100 UNITS/ML 3 ML PEN SC SCH ×4 (00:02→17:50)
[2019-12-22] MEDS: fentaNYL DRIP 1,250 MCG/250 ML BAG IV SCH ×2 (01:24→15:06)
[2019-12-22] MEDS: SODIUM CHLORIDE 0.9% 500 ML IV SCH ×2 (01:54→06:29)
[2019-12-22] MEDS: DEXMEDETOMIDINE HCL 200 MCG in SODIUM CHLORIDE 0.9% 48 ML IV SCH ×9 (01:54→21:29)
[2019-12-22] MEDS: METOPROLOL TARTRATE 1 MG/ML VIAL IV SCH ×4 (02:26→20:33)
[2019-12-22 05:12] LABS: BUN Creatinine Ratio 30.6 (10-20); Calcium 8.6 mg/dl (8.5-10.1); Creatinine Clr Calc Pharmacy 44.1 ml/min; Est GFR (African American) 49.8; Magnesium 2.4 mg/dl (1.8-2.4)
[2019-12-22 05:32] LABS: Hematocrit (blood only) 32.8 % (42-52); Hemoglobin 9.2 g/dL (14.0-18.0); Mean Corpuscular Hemoglobin 23.3 pg (25-34); Mean Platelet Volume 9.6 fL (7.4-10.4); Platelet Count 240 K/uL (130-400); RDW Coefficient of Variation 21.9 % (11.5-14.5); RDW Standard Deviation 64.9 fL (36.4-46.3); Red Blood Count 3.95 M/uL (4.7-6.1); White Blood Count 11.13 K/uL (4.8-10.8)
[2019-12-22 05:34] LABS: Phosphorus 2.1 mg/dl (2.5-4.9)
[2019-12-22 05:48] LABS: Anisocytosis Present; Basophils # (auto) 0.02 K/uL (0-0.2); Basophils % (auto) 0.2 %; Eosinophils # (auto) 0.13 K/uL (0-0.5); Eosinophils % (auto) 1.2 %; Immature Granulocytes # (auto) 0.03 K/uL (0.00-0.02); Immature Granulocytes % (auto) 0.3 %; Lymphocytes # (auto) 0.95 K/uL (1.2-3.4); Lymphocytes % (auto) 8.5 %; Monocytes # (auto) 1.07 K/uL (0.11-0.59); Monocytes % (auto) 9.6 %; Neutrophils # (auto) 8.93 K/uL (1.4-6.5); Neutrophils % (auto) 80.2 %; Polychromasia 1+
[2019-12-22 05:50] LABS: iSTAT Allen Test Pass; iSTAT Art Bld Gas pCO2 Correct 52 mmHg (35-46); iSTAT Art Bld Gas pH Corrected 7.455 (7.35-7.45); iSTAT Arterial Blood Gas HCO3 37 meg/L (19-24); iSTAT Arterial Blood Gas pCO2 52 mmHg (35-46); iSTAT Arterial Blood Gas pH 7.46 (7.35-7.45); iSTAT Arterial Blood Gas pO2 67 mmHg (80-95); iSTAT Arterial Blood Gas pO2 C 67; iSTAT Carbon Dioxide 38 mmol/L (24-31); iSTAT FiO2 40 %; iSTAT Hematocrit 30 % (42-52); iSTAT Hemoglobin 10.2 g/dl (14.0-18.0); iSTAT Potassium 3.8 mmol/L (3.3-5.0); iSTAT Site L Radial; iSTAT Sodium 141 mmol/L (135-144)
[2019-12-22] MEDS: DOXYCYCLINE HYCLATE 100 MG in DEXTROSE 5% 100 ML IV SCH ×2 (06:05→16:48)
--- NOTE | 2019-12-22 07:57 | XRay Report ---
XR chest 1V portable CLINICAL HISTORY: Respiratory failure. COMPARISON STUDY: Chest radiograph December 20, 2019. Chest CT December 01, 2019. FINDINGS: Tip of endotracheal tube is 3.4 cm above the rosales. Tip of nasogastric tube is below the l ower aspect of this image but at least within the proximal stomach. There is no pneumothorax. Interst itial thickening and bilateral opacities slightly improved. Moderate right and small right pleural ef fusions are noted. Left pleural effusion has slightly increased. There are pleural calcifications. IMPRESSION: 1. Satisfactory positioning of the endotracheal tube. 2. Slight decrease in interstitial thickening and bilateral opacities which may reflect edema or pneu monia. 3. Increase in a moderate left pleural effusion. Small right pleural effusion. ACT 112: Negative or not required by law. Electronically signed by: Geo Hayes M.D. 12/22/2019 7:56 AM
[2019-12-22] MEDS: levETIRAcetam 500 MG in 0.9 % SODIUM CHLORIDE 100 ML IV SCH ×2 (08:06→20:32)
[2019-12-22] MEDS: INSULIN GLARGINE SOLOSTAR 100 UNITS/ML 3 ML PEN SC SCH (08:09)
[2019-12-22 08:46] LABS: INR 2.4 (0.9-1.1); Prothrombin Time 24.3 Seconds (9.0-12.0)
[2019-12-22] MEDS ORDERED: SODIUM PHOSPHATE 3 MMOL/1 ML INFUSION IV STA (09:30)
[2019-12-22] MEDS ORDERED: FIBERSOURCE HN 1.2 CAL 1000 ML BAG NG SCH (10:00)
[2019-12-22] MEDS ORDERED: SODIUM PHOSPHATE 30 MMOL in SODIUM CHLORIDE 0.9% 500 ML IV ONE (10:00)
--- NOTE | 2019-12-22 10:01 | Critical Care Progress Note ---
Date of Service December 22, 2019 Assessment & Plan (1) Acute and chronic respiratory failure with hypercapnia: This is day #2 the patient's intubated status. He is requiring minimal vent support at this time. He continues to have diffuse interstitial infiltrates with bilateral effusions. INR still within therapeutic range. Anticipate that we will be able to do a thoracentesis tomorrow of the left hemithorax. Consent is obtained. I discussed this with the patient's daughter. His CASH is improving. This is likely related to ischemic ATN from hypotension. I have stopped the IV fluids. We will hold on diuresis for today and allow his renal function to settle out. Lactate has trended down to normal. Maintain mean arterial pressure above 65. He does have significant valvular heart disease. No significant interventions recommended per cardiology at this time. His troponin was elevated. Tube feeds were ordered yesterday, but not started. This should be started today. His procalcitonin was elevated yesterday. Obtaining a sputum culture. Continue ceftriaxone and doxycycline. Repeat procalcitonin tomorrow. Continue Protonix. Will switch to p.o. Continue Keppra for his history of seizures. His overall prognosis is very poor. I discussed the case with the planned giving officer, bedside RN and the patient's daughter Dianne over the phone. I am consulting palliative care tomorrow. CRITICAL CARE TIME - I have personally spent 38 minutes of critical care time in the direct management of this patient. This is a life/limb threatening event. This includes time spent evaluating patient, direct bedside care, chart review, placing orders, interpretation of diagnostic studies, discussion with consultants, patient, and family members, as well as other required patient management activities. This time is exclusive of all separately billable procedures, and teaching time and separate from and in addition to any other critical care service time. (2) Chronic atrial fibrillation with rapid ventricular response: (3) Valvular heart disease: (4) Pulmonary edema: Admission and Anticipated Discharge Date Admission Date: December 20, 2019 Subjective Patient is currently intubated and sedated on Precedex and fentanyl. No significant issues overnight. He has not required pressors. I spoke with the patient's daughter over the phone and updated her on the status. I also spoke with the planned giving officer at bedside who indicated that the patient has been noncompliant with follow-up visits and laboratory data in the past. Review of Systems Review of Systems: Unobtainable due to endotracheal tube and Unobtainable due to reduced consciousness Physical Exam Constitutional: + ill appearing Intubated and sedated. Eyes: PERRL, conjunctivae normal, anicteric sclerae ENMT: external ear and nose normal, oropharynx normal Neck: trachea midline, no thyromegaly Respiratory: Bilateral crackles noted with diminished at the bases Cardiovascular: Rate/Rhythm: + irregularly irregular Heart Sounds: + murmur Extremities: + edema Gastrointestinal (Abdomen): normal bowel sounds, soft, nontender, no hepatosplenomegaly Musculoskeletal: no cyanosis or clubbing, extremities motor strength 5/5 Skin: no rashes, warm and dry Neurologic: Unable to assess due to mental status Psychiatric: Unable to assess Results & Data Results & Data ([facility]) Vital Signs (Past 12 Hours) Vital Signs Temp Pulse Resp BP Pulse Ox 12/22/19 08:06 75 129/59 L 12/22/19 07:34 74 21 95 12/22/19 06:20 101 H 135/50 L 95 12/22/19 06:15 102 H 95 12/22/19 06:00 124 H 93 12/22/19 05:56 141 H 28 H 154/74 H 89 L 12/22/19 05:50 119 H 151/84 H 92 12/22/19 05:29 90 26 H 93 12/22/19 05:20 82 114/56 L 92 12/22/19 04:50 101 H 110/56 L 90 12/22/19 04:29 99.0 F 12/22/19 04:19 75 133/61 95 12/22/19 03:50 76 111/54 L 94 12/22/19 03:20 75 118/49 L 94 12/22/19 02:49 75 95/47 L 91 12/22/19 02:26 75 95/49 L 12/22/19 02:20 75 95/49 L 93 12/22/19 02:00 87 24 93 12/22/19 01:49 77 112/57 L 96 12/22/19 01:19 75 103/52 L 95 12/22/19 00:50 86 104/51 L 94 12/22/19 00:20 99 H 110/47 L 93 12/21/19 23:50 100 H 126/61 94 12/21/19 23:33 98.8 F 12/21/19 23:30 100 H 21 94 12/21/19 23:20 100 H 132/52 L 97 12/21/19 23:00 100 H 12/21/19 22:50 100 H 111/45 L 97 12/21/19 22:20 100 H 118/50 L 96 12/21/19 22:00 100 H 95 I reviewed the vital signs, labs and chest imaging Coding Level of Care Code Critical Care 1st 30-74 mins Diagnoses Acute and chronic respiratory failure with hypercapnia J96.22 Chronic atrial fibrillation with rapid ventricular response I48.20 Valvular heart disease I38 Pulmonary edema J81.1 Time Spent (min) 38
--- NOTE | 2019-12-22 10:18 | Cardiology Progress Note ---
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 He represents with signs symptoms of acute respiratory failure with chest x-ray consistent with pulmonary edema lower extremity edema Symptoms progressed to require intubation and mechanical ventilation. Currently no acute distress however renal function has declined, creatinine increased, elevated troponin present with elevated lactate levels as well Atrial fibrillation rates have improved on intubation Patient well-known to me from outpatient visits and past hospitalizations. Patient in the past has declined any aggressive increase in therapies investigations of valvular or ischemic heart disease to the point of even declining laboratory studies/blood draws. Would not escalate care Overall prognosis limited and if no prompt response to therapies would transition to palliative care (2) Chronic atrial fibrillation with rapid ventricular response: (3) Valvular heart disease: Multiple valve involvement reflecting high risk surgical intervention likely risk prohibitive (4) Pulmonary edema: Admission and Anticipated Discharge Date Admission Date: December 20, 2019 Subjective Patient seen and examined chart medications telemetry reviewed. Sedated and intubated with mechanical ventilator Review of Systems Review of Systems: Unobtainable due to endotracheal tube Physical Exam Constitutional: + frail appearing and + mechanically ventilated; no acute distress Eyes: PERRL, conjunctivae normal, anicteric sclerae ENMT: external ear and nose normal, oropharynx normal Neck: trachea midline, no thyromegaly Respiratory: Auscultation: + bronchial breath sounds Cardiovascular: Rate/Rhythm: + irregularly irregular Heart Sounds: normal S1, normal S2 and + murmur (Grade 2/6 systolic, no diastolic murmur) Palpation: normal PMI Vessels: normal carotid upstroke and radial pulses present; no carotid bruit Extremities: + edema (1-2+) Gastrointestinal (Abdomen): Percussion/Palpation: abdomen soft; no hepatosplenomegaly Musculoskeletal: Head/Neck/Chest: + head abnormal to inspection and normocephalic Extremities: extremities normal to inspection Skin: no rashes, warm and dry Neurologic: PERRL, EOMI, accommodation nl, no face palsy, no dysarthria Psychiatric: A+Ox3, euthymic affect Results & Data ([facility]) Vital Signs (Past 12 Hours) Vital Signs Temp Pulse Resp BP Pulse Ox 12/22/19 10:00 74 98 12/22/19 09:50 74 94/45 L 98 12/22/19 09:45 74 98 12/22/19 09:30 74 98 12/22/19 09:20 74 92/44 L 97 12/22/19 09:15 74 98 12/22/19 09:00 74 97 12/22/19 08:50 83 111/53 L 99 12/22/19 08:45 74 96 12/22/19 08:30 74 97 12/22/19 08:20 74 110/48 L 99 12/22/19 08:15 74 100 12/22/19 08:06 75 129/59 L 12/22/19 08:00 74 95 12/22/19 07:50 84 129/59 L 97 12/22/19 07:45 37.9 C H 80 98 12/22/19 07:34 74 21 95 12/22/19 07:30 73 96 12/22/19 07:20 75 94/45 L 94 12/22/19 07:15 75 95 12/22/19 07:00 78 92 12/22/19 06:20 101 H 135/50 L 95 12/22/19 06:15 102 H 95 12/22/19 06:00 124 H 93 12/22/19 05:56 141 H 28 H 154/74 H 89 L 12/22/19 05:50 119 H 151/84 H 92 12/22/19 05:29 90 26 H 93 12/22/19 05:20 82 114/56 L 92 12/22/19 04:50 101 H 110/56 L 90 12/22/19 04:29 37.2 C 12/22/19 04:19 75 133/61 95 12/22/19 03:50 76 111/54 L 94 12/22/19 03:20 75 118/49 L 94 12/22/19 02:49 75 95/47 L 91 12/22/19 02:26 75 95/49 L 12/22/19 02:20 75 95/49 L 93 12/22/19 02:00 87 24 93 12/22/19 01:49 77 112/57 L 96 12/22/19 01:19 75 103/52 L 95 12/22/19 00:50 86 104/51 L 94 12/22/19 00:20 99 H 110/47 L 93 12/21/19 23:50 100 H 126/61 94 12/21/19 23:33 37.1 C 12/21/19 23:30 100 H 21 94 12/21/19 23:20 100 H 132/52 L 97 12/21/19 23:00 100 H 12/21/19 22:50 100 H 111/45 L 97 12/21/19 22:20 100 H 118/50 L 96 Laboratory Results Laboratory Results - last 24 hr 12/21/19 12/21/19 12/21/19 10:12 10:12 11:44 WBC RBC Hgb POC Hgb Hct POC Hct MCV MCH MCHC RDW Std Deviation RDW Coeff of Robert Plt Count MPV Immature Gran % (Auto) Neut % (Auto) Lymph % (Auto) [place] % (Auto) Eos % (Auto) Baso % (Auto) Neut # (Auto) Lymph # (Auto) [place] # (Auto) Eos # (Auto) Baso # (Auto) Immature Gran # (Auto) Polychromasia Anisocytosis PT INR Sample Site POC pH POC pCO2 POC pO2 POC HCO3 POC Total CO2 POC Base Excess ABG pH (Temp Correct) ABG pCO2 (Temp Corrct POC ABG pO2 at Pt Temp POC ABG O2 Sat Isra Test O2 Delivery Device POC O2 Rate POC FiO2 Tidal Volume PEEP POC Sodium Sodium 137 POC Potassium Potassium 5.5 H Chloride 95 L Carbon Dioxide 37 H Anion Gap 5.0 BUN 57 H Creatinine 2.35 H D Est Cr Clr Drug Dosing 28.3 Est GFR ( Amer) 29.2 Est GFR (Non-Af Amer) 25.2 BUN/Creatinine Ratio 24.4 H Glucose 175 H POC Glucose 181 H Lactate 4.4 H* Calcium 8.8 Phosphorus Magnesium Albumin 12/21/19 12/21/19 12/21/19 17:50 19:13 19:13 WBC RBC Hgb POC Hgb Hct POC Hct MCV MCH MCHC RDW Std Deviation RDW Coeff of Robert Plt Count MPV Immature Gran % (Auto) Neut % (Auto) Lymph % (Auto) [place] % (Auto) Eos % (Auto) Baso % (Auto) Neut # (Auto) Lymph # (Auto) [place] # (Auto) Eos # (Auto) Baso # (Auto) Immature Gran # (Auto) Polychromasia Anisocytosis PT INR Sample Site POC pH POC pCO2 POC pO2 POC HCO3 POC Total CO2 POC Base Excess ABG pH (Temp Correct) ABG pCO2 (Temp Corrct POC ABG pO2 at Pt Temp POC ABG O2 Sat Isra Test O2 Delivery Device POC O2 Rate POC FiO2 Tidal Volume PEEP POC Sodium Sodium 138 POC Potassium Potassium 4.3 D Chloride 98 Carbon Dioxide 37 H Anion Gap 3.0 BUN 53 H Creatinine 1.87 H D Est Cr Clr Drug Dosing 35.6 Est GFR ( Amer) 38.5 Est GFR (Non-Af Amer) 33.2 BUN/Creatinine Ratio 28.3 H Glucose 161 H POC Glucose 179 H Lactate 1.5 Calcium 8.5 Phosphorus Magnesium Albumin 12/22/19 12/22/19 12/22/19 00:00 04:39 04:39 WBC 11.13 H RBC 3.95 L Hgb 9.2 L POC Hgb Hct 32.8 L POC Hct MCV 83.0 MCH 23.3 L MCHC 28.0 L RDW Std Deviation 64.9 H RDW Coeff of Robert 21.9 H Plt Count 240 MPV 9.6 Immature Gran % (Auto) 0.3 Neut % (Auto) 80.2 Lymph % (Auto) 8.5 [place] % (Auto) 9.6 Eos % (Auto) 1.2 Baso % (Auto) 0.2 Neut # (Auto) 8.93 H Lymph # (Auto) 0.95 L [place] # (Auto) 1.07 H Eos # (Auto) 0.13 Baso # (Auto) 0.02 Immature Gran # (Auto) 0.03 H Polychromasia 1+ Anisocytosis Present PT INR Sample Site POC pH POC pCO2 POC pO2 POC HCO3 POC Total CO2 POC Base Excess ABG pH (Temp Correct) ABG pCO2 (Temp Corrct POC ABG pO2 at Pt Temp POC ABG O2 Sat Isra Test O2 Delivery Device POC O2 Rate POC FiO2 Tidal Volume PEEP POC Sodium Sodium 139 POC Potassium Potassium 4.0 Chloride 99 Carbon Dioxide 39 H Anion Gap 1.0 L BUN 46 H Creatinine 1.51 H D Est Cr Clr Drug Dosing 44.1 Est GFR ( Amer) 49.8 Est GFR (Non-Af Amer) 43.0 BUN/Creatinine Ratio 30.6 H Glucose 146 H POC Glucose 188 H Lactate Calcium 8.6 Phosphorus 2.1 L D Magnesium 2.4 Albumin 3.0 L 12/22/19 12/22/19 12/22/19 05:26 06:03 07:32 WBC RBC Hgb POC Hgb 10.2 L Hct POC Hct 30 L MCV MCH MCHC RDW Std Deviation RDW Coeff of Robert Plt Count MPV Immature Gran % (Auto) Neut % (Auto) Lymph % (Auto) [place] % (Auto) Eos % (Auto) Baso % (Auto) Neut # (Auto) Lymph # (Auto) [place] # (Auto) Eos # (Auto) Baso # (Auto) Immature Gran # (Auto) Polychromasia Anisocytosis PT Cancelled INR Cancelled Sample Site L Radial POC pH 7.46 H POC pCO2 52 H POC pO2 67 L POC HCO3 37 H POC Total CO2 38 H POC Base Excess 13.0 H ABG pH (Temp Correct) 7.455 H ABG pCO2 (Temp Corrct 52 H POC ABG pO2 at Pt Temp 67 POC ABG O2 Sat 93.0 Isra Test Pass O2 Delivery Device Ventilator POC O2 Rate 20 POC FiO2 40 Tidal Volume 420 PEEP 5 POC Sodium 141 Sodium POC Potassium 3.8 Potassium Chloride Carbon Dioxide Anion Gap BUN Creatinine Est Cr Clr Drug Dosing Est GFR ( Amer) Est GFR (Non-Af Amer) BUN/Creatinine Ratio Glucose POC Glucose 160 H Lactate Calcium Phosphorus Magnesium Albumin 12/22/19 08:20 WBC RBC Hgb POC Hgb Hct POC Hct MCV MCH MCHC RDW Std Deviation RDW Coeff of Robert Plt Count MPV Immature Gran % (Auto) Neut % (Auto) Lymph % (Auto) [place] % (Auto) Eos % (Auto) Baso % (Auto) Neut # (Auto) Lymph # (Auto) [place] # (Auto) Eos # (Auto) Baso # (Auto) Immature Gran # (Auto) Polychromasia Anisocytosis PT 24.3 H INR 2.4 H Sample Site POC pH POC pCO2 POC pO2 POC HCO3 POC Total CO2 POC Base Excess ABG pH (Temp Correct) ABG pCO2 (Temp Corrct POC ABG pO2 at Pt Temp POC ABG O2 Sat Isra Test O2 Delivery Device POC O2 Rate POC FiO2 Tidal Volume PEEP POC Sodium Sodium POC Potassium Potassium Chloride Carbon Dioxide Anion Gap BUN Creatinine Est Cr Clr Drug Dosing Est GFR ( Amer) Est GFR (Non-Af Amer) BUN/Creatinine Ratio Glucose POC Glucose Lactate Calcium Phosphorus Magnesium Albumin ECG Additional Comments: EKG 12/21/2019: A. fib flutter with controlled ventricular response rate no acute ST elevation or ischemic change
[2019-12-22] MEDS ORDERED: PEPTAMEN INTENSE VHP 1.0 CAL 1,000 ML BAG OG SCH (11:30)
--- NOTE | 2019-12-22 12:02 | Nephrology Progress Note ---
Date of Service December 22, 2019 Assessment & Plan (1) Acute kidney injury: Mr. Rosario presented to the hospital with progressive lower extremity edema, SOB and chest pain and admitted with hypoxic respiratory failure with volume overload and critical valvular heart disease, requiring intubation and transfer to intensive care unit. Has stage III CKD baseline creatinine 1.4-1 point probably secondary to microvascular disease on admission creatinine was close to baseline however rapidly worsen to creatinine of 2.4 morning. Minimally responding to diuretics. Acute kidney injury most likely secondary to ATN the setting of persistent hypotension with respiratory failure. Hyperkalemia with kidney injury. CASH resolving, creatinine down to 1.5, electrolyte acceptable. Decent urine output. -- expect renal function to continue to improve, as patient made significant clinical improvement -- would continue on IV diuretics as needed to maintain negative fluid balance -- continue hemodynamic support, keep MAP > 65 Will follow (2) Hyperkalemia: (3) Valvular heart disease: (4) Pulmonary edema: (5) Anemia: Admission and Anticipated Discharge Date Admission Date: December 20, 2019 Subjective Mr. Rosario was seen examined in his room this morning. He remains intubated however awake. Oxygen saturation 97% with 40% FiO2. Decent urine output. Blood pressure remained low much improved compared to last 2 days. Renal function improved with creatinine down to 1.5, electrolyte acceptable. Review of Systems Review of Systems: All systems reviewed & are unremarkable except as noted in HPI & below Physical Exam Constitutional: + mechanically ventilated; no acute distress Respiratory: no respiratory distress Auscultation: lungs clear to auscultation bilaterally Intubated Cardiovascular: RRR, no murmur, no edema Skin: no rashes, warm and dry Neurologic: awake Psychiatric: Orientation: alert Results & Data ([facility]) Vital Signs (Past 12 Hours) Vital Signs Temp Pulse Resp BP Pulse Ox 12/22/19 11:14 74 20 94 12/22/19 10:00 74 98 12/22/19 09:50 74 94/45 L 98 12/22/19 09:45 74 98 12/22/19 09:30 74 98 12/22/19 09:20 74 92/44 L 97 12/22/19 09:15 74 98 12/22/19 09:00 74 97 12/22/19 08:50 83 111/53 L 99 12/22/19 08:45 74 96 12/22/19 08:30 74 97 12/22/19 08:20 74 110/48 L 99 12/22/19 08:15 74 100 12/22/19 08:06 75 129/59 L 12/22/19 08:00 74 95 12/22/19 07:50 84 129/59 L 97 12/22/19 07:45 37.9 C H 80 98 12/22/19 07:34 74 21 95 12/22/19 07:30 73 96 12/22/19 07:20 75 94/45 L 94 12/22/19 07:15 75 95 12/22/19 07:00 78 92 12/22/19 06:20 101 H 135/50 L 95 12/22/19 06:15 102 H 95 12/22/19 06:00 124 H 93 12/22/19 05:56 141 H 28 H 154/74 H 89 L 12/22/19 05:50 119 H 151/84 H 92 12/22/19 05:29 90 26 H 93 12/22/19 05:20 82 114/56 L 92 12/22/19 04:50 101 H 110/56 L 90 12/22/19 04:29 37.2 C 12/22/19 04:19 75 133/61 95 12/22/19 03:50 76 111/54 L 94 12/22/19 03:20 75 118/49 L 94 12/22/19 02:49 75 95/47 L 91 12/22/19 02:26 75 95/49 L 12/22/19 02:20 75 95/49 L 93 12/22/19 02:00 87 24 93 12/22/19 01:49 77 112/57 L 96 12/22/19 01:19 75 103/52 L 95 12/22/19 00:50 86 104/51 L 94 12/22/19 00:20 99 H 110/47 L 93 PG Care Time/CCT Total # of Minutes Spent Total Time Spent with Patient: Total time spent is greater than 50% in coordina tion of care (as documented) at patient's floor/unit and/or counseling patient: Coding Level of Care Code 15402 Subseq Hosp Care Lvl 3 Diagnoses Acute kidney injury N17.9 Hyperkalemia E87.5 Valvular heart disease I38 Pulmonary edema J81.1 Anemia D64.9
[2019-12-22] MEDS: PEPTAMEN INTENSE VHP 1.0 CAL 1,000 ML BAG OG SCH (15:06)
--- NOTE | 2019-12-22 15:19 | Hospitalist Progress Note ---
Date of Service December 22, 2019 Assessment & Plan (1) Acute and chronic respiratory failure with hypercapnia: Present on admission with worsening SOB Possible related acute decompensated heart failure/chronic diastolic heart failure CXR showed cardiomegaly, and bilateral pleural effusions Progressive bilateral pulmonary airspace opacities, likely representing pulmonary edema although a bilateral infectious/inflammatory pneumonitis could appear similar. Recent CXR showed Bilateral hazy airspace opacities and small bilateral pleural effusions persist. ABG on admission showed pH 7.18, PCO2 114, PO2 84, PHCO3 43 Received IV lasix in the ER His breathing has been heavy and tachypneic and required more oxygen He was sent to [facility] Sedated on precedex and fentanyl drip Cardiology on board Lasix discontinued due to worsening kidney function Continue duoneb treatment Continue monitor closely Elevated troponin Possible demand ischemia due to acute respiratory distress Troponin peaked to 7.4, then trending down to 5.3 Denies any chest pain EKG showed Afib Will monitor troponin Coumadin on hold, INR 2.4 today Continue metoprolol B/L Pleural effusion CXR showed bilateral pleural effusions [employer] plan to get a thoracentesis but INR elevated Continue to hold coumadin Afib with RVR EKG on admission showed Afib with HR 142 Was starting on amiodarone drip, that transition to PO amiodarone, then D/C Metoprolol discontinued due to low BP Continue hold coumadin for possible thoracentesis INR 2.4 today Hypotension Possible related to Sepsis Continue requiring Pressor with Levophed Continue monitor BP Possible Pneumonia CXR showed bilateral pulmonary airspace opacities Elevated WBC and Lactate COVID 19 and procalcitonin negative Continue Rocephin and Doxycycline IV Blood cx no growth Abdominal pain Possible related to fluid overload leading to abdominal edema NG tube was placed CT abd pending Continue monitor Anemia of chronic disease Hemoglobin 9.2 Continue monitor CBC Acute kidney injury Creatinine on admission 2.07 Creatinine 1.5 today Continue monitor BMP Type 2 diabetes: HgbA1C 6 on 12/20/19 Continue to hold PO diabetes meds Continue Insulin sliding scale Monitor BS DVT px Continue to hold coumadin INR 2.4 today CODE Status FULL CODE Disposition Continue monitor in the ICU Admission and Anticipated Discharge Date Admission Date: December 20, 2019 Subjective Pt was seen and examined Lying in bed sedated and intubated on Mechanical ventilation Able to open eyes when called his name Seems to feel comfortable in bed Physical Exam Physical Exam: General- on mechanical ventilation Head- atraumatic Eyes- PERRL, EOMI, ENT- intubated Neck- supple, no JVD Lungs- + crackles, +diminished BS Heart- irregular rhythm; +murmur Abdomen- normal bowel sounds, soft, +distended Extremities- no calf tenderness, +edema Neuro- able to follow command, eyes open Skin- warm & dry Results & Data Results & Data ([facility]) Vital Signs (Past 12 Hours) Vital Signs Temp Pulse Resp BP Pulse Ox 12/22/19 13:42 74 20 93 12/22/19 13:20 74 93/47 L 93 12/22/19 13:15 75 92 12/22/19 13:00 74 93 12/22/19 12:50 75 90/42 L 92 12/22/19 12:45 75 92 12/22/19 12:30 75 95 12/22/19 12:20 74 98/47 L 95 12/22/19 12:15 74 94 12/22/19 12:00 75 94 12/22/19 11:50 75 94/46 L 94 12/22/19 11:45 74 95 12/22/19 11:30 75 94 12/22/19 11:20 75 95/45 L 94 12/22/19 11:15 74 94 12/22/19 11:14 74 20 94 12/22/19 11:00 74 94 12/22/19 10:50 74 91/48 L 97 12/22/19 10:45 74 97 12/22/19 10:30 74 97 12/22/19 10:20 74 96/46 L 97 12/22/19 10:15 74 98 12/22/19 10:00 74 98 12/22/19 09:50 74 94/45 L 98 12/22/19 09:45 74 98 12/22/19 09:30 74 98 12/22/19 09:20 74 92/44 L 97 12/22/19 09:15 74 98 12/22/19 09:00 74 97 12/22/19 08:50 83 111/53 L 99 12/22/19 08:45 74 96 12/22/19 08:30 74 97 12/22/19 08:20 74 110/48 L 99 12/22/19 08:15 74 100 12/22/19 08:06 75 129/59 L 12/22/19 08:00 74 95 12/22/19 07:50 84 129/59 L 97 12/22/19 07:45 37.9 C H 80 98 12/22/19 07:34 74 21 95 12/22/19 07:30 73 96 12/22/19 07:20 75 94/45 L 94 12/22/19 07:15 75 95 12/22/19 07:00 78 92 12/22/19 06:20 101 H 135/50 L 95 12/22/19 06:15 102 H 95 12/22/19 06:00 124 H 93 12/22/19 05:56 141 H 28 H 154/74 H 89 L 12/22/19 05:50 119 H 151/84 H 92 12/22/19 05:29 90 26 H 93 12/22/19 05:20 82 114/56 L 92 12/22/19 04:50 101 H 110/56 L 90 12/22/19 04:29 37.2 C 12/22/19 04:19 75 133/61 95 12/22/19 03:50 76 111/54 L 94 12/22/19 03:20 75 118/49 L 94
[2019-12-22] MEDS: cefTRIAXone SODIUM 2,000 MG in DEXTROSE 5% 50 ML IV SCH (15:38)
--- NOTE | 2019-12-22 21:28 | Electrocardiogram Report ---
Test Reason : Blood Pressure : / mmHG Vent. Rate : 089 BPM Atrial Rate : 267 BPM P-R Int : 000 ms QRS Dur : 090 ms QT Int : 346 ms P-R-T Axes : 000 -08 025 degrees QTc Int : 420 ms Atrial flutter with variable A-V block Nonspecific ST abnormality Abnormal ECG When compared with ECG of 20-DEC-2019 03:55, Vent. rate has decreased BY [address] less depressed in Lateral leads Nonspecific T wave abnormality, improved in Inferior leads Nonspecific T wave abnormality no longer evident in Lateral leads Confirmed by Freddy Sandoval ([id number]) on 12/22/2019 9:27:53 PM Referred By: REFERRED SELF Confirmed By:Frdedy Sandoval
[2019-12-23] MEDS: INSULIN ASPART 100 UNITS/ML 3 ML PEN SC SCH ×4 (00:30→17:20)
[2019-12-23] MEDS: DEXMEDETOMIDINE HCL 200 MCG in SODIUM CHLORIDE 0.9% 48 ML IV SCH ×5 (01:43→17:18)
[2019-12-23] MEDS: METOPROLOL TARTRATE 1 MG/ML VIAL IV SCH ×3 (02:18→15:40)
[2019-12-23] MEDS: fentaNYL DRIP 1,250 MCG/250 ML BAG IV SCH ×2 (03:54→22:43)
[2019-12-23 05:08] LABS: Hematocrit (blood only) 32.2 % (42-52); Hemoglobin 8.8 g/dL (14.0-18.0); Mean Corpuscular Hemoglobin 23.1 pg (25-34); Mean Corpuscular Hgb Conc 27.3 g/dL (32-36); Mean Corpuscular Volume 84.5 fL (80-100); Mean Platelet Volume 9.9 fL (7.4-10.4); Platelet Count 236 K/uL (130-400); RDW Standard Deviation 66.5 fL (36.4-46.3); Red Blood Count 3.81 M/uL (4.7-6.1); White Blood Count 9.94 K/uL (4.8-10.8)
[2019-12-23 05:27] LABS: Albumin Level 2.8 gm/dl (3.4-5.0); Calcium 8.6 mg/dl (8.5-10.1); Est GFR (African American) 64.5; Est GFR (Non-African American) 55.6; Magnesium 2.3 mg/dl (1.8-2.4); Potassium 3.7 mmol/L (3.5-5.1)
[2019-12-23 05:28] LABS: Anisocytosis Present; Basophils # (auto) 0.02 K/uL (0-0.2); Basophils % (auto) 0.2 %; Eosinophils # (auto) 0.13 K/uL (0-0.5); Eosinophils % (auto) 1.3 %; Hypochromasia Present; Immature Granulocytes # (auto) 0.03 K/uL (0.00-0.02); Immature Granulocytes % (auto) 0.3 %; Lymphocytes # (auto) 0.61 K/uL (1.2-3.4); Lymphocytes % (auto) 6.1 %; Monocytes # (auto) 1.11 K/uL (0.11-0.59); Monocytes % (auto) 11.2 %; Neutrophils # (auto) 8.04 K/uL (1.4-6.5); Neutrophils % (auto) 80.9 %; Ovalocytes 1+; Polychromasia 1+
[2019-12-23 05:30] LABS: Phosphorus 2.9 mg/dl (2.5-4.9)
[2019-12-23] MEDS ORDERED: POTASSIUM CHLORIDE 20 MEQ/15 ML UDC PO STA (05:40)
--- NOTE | 2019-12-23 05:44 | Electrocardiogram Report ---
Test Reason : Blood Pressure : / mmHG Vent. Rate : 096 BPM Atrial Rate : 096 BPM P-R Int : 152 ms QRS Dur : 088 ms QT Int : 322 ms P-R-T Axes : 258 -60 053 degrees QTc Int : 406 ms Atrial flutter Left axis deviation Nonspecific ST abnormality Abnormal ECG When compared with ECG of 20-DEC-2019 18:25, Nonspecific T wave abnormality no longer evident in Inferior leads Confirmed by Freddy Sandoval ([id number]) on 12/23/2019 5:43:46 AM Referred By: REFERRED SELF Confirmed By:Freddy Sandoval
[2019-12-23] MEDS: DOXYCYCLINE HYCLATE 100 MG in DEXTROSE 5% 100 ML IV SCH ×2 (05:54→17:20)
--- NOTE | 2019-12-23 06:16 | Critical Care Progress Note ---
Date of Service December 23, 2019 Assessment & Plan (1) Acute hypercapnic respiratory failure: Reason Critically Ill: 79 yo male admitted with acute respiratory failure requiring intubation and mechanical ventilation. Over the past 24 hours patient has remained on ventilator, requiring only minimal support. Continues to be hemodynamically stable. Anticoagulation has been held in preparation for planned thoracentesis of left hemithorax today. Will attempt SBT today after thoracentesis. Family contacted, code status changed to DNR, without further desire for pressor support and no subsequent intubation. Patient's overall prognosis is poor, recommending involvement of palliative care, family onboard with moving towards comfort centered care. Neuro: CAM ICU: Negative - on sedation * Hx Seizures - continue Keppra Cardiac: * Elevated Troponin - Possible demand ischemia due to acute respiratory distress - Troponin peaked to 7.4, then downtrend to 5.3 - no signs of ischemia on EKG * Atrial Fibrillation - rate controlled on metoprolol - holding anticoagulation for planned thoracentesis today - INR 1.9 today * Valvular heart disease - severe aortic stenosis appreciated on ECHO from 12/02/19 - systolic murmur appreciated on exam - cardiology consulted, recommending no intervention * R hand Swelling - etiology unknown; could represent a DVT in UE, although patient was previously therapeutic on Coumadin - per family, patient desires minimal intervention - continue to monitor Respiratory: * Acute and chronic respiratory failure with hypercapnia - etiology: pulmonary vascular congestion secondary to CHF exacerbation vs. pneumonia - currently on mechanical ventilation, Day 3 - requiring minimal ventilatory support * Pleural Effusions - moderate left effusion, small right effusion - plan for thoracentesis today of left hemithorax - secondary to volume overload, indicative of underlying diastolic dysfunction * Possible Pneumonia - CXR showed bilateral pulmonary airspace opacities - Elevated WBC elevated on admission, now normalized - procalcitonin elevated to 0.52 - Continue antimicrobial therapy with Rocephin and Doxycycline IV GI: - continue NG feeds while NPO; feeds running at goal rate 60mls/hr - hold PPI while NPO (cannot crush and administer through NG tube) RENAL/LYTES: * Acute kidney injury: resolved - likely secondary to ATN from hypotension - underlying stage 3 CKD - Cr on admission 2.07, normalized to 1.22 today - IVF discontinued, restarting bumex today - nephrology following, appreciate recs - Electrolytes WNL. BMP, Mag and Phos, daily : - Saez catheter in place to trend Is/Os ENDO: * Type 2 diabetes: - HgbA1C 6 on 12/20/19, below goal for age - Continue to hold PO diabetes meds; recommend not restarting - Continue Insulin sliding scale - Monitor BS HEME: * Normocytic Anemia - Hgb 8.8. down from 9.2 - MCV 84.5 - secondary to anemia of chronic disease - continue to trend CBC ID: * Possible Pneumonia - Abx as above - blood cultures negative through 48 hours - procal elevated to 0.52 - sputum culture negative LINES/IV ACCESS: PIV x 2 CODE STATUS: Conditional DVT PROPHYLAXIS: SCDs Thank you for allowing us to participate in the care of this patient. Please refer to my attending physician's documentation for any further recommendations. Admission and Anticipated Discharge Date Admission Date: December 20, 2019 Supervising Physician Co-Signing Physician Notes Dr. Silva was the resident-physician during care of patient. I separately evaluated patient for le portions of the history and the exam. I was present during the critical portion of medical decision making, and I discussed the case with the resident. I generally agree with the findings and plan except for any additions/exceptions noted. Patient with CHF and valvular heart disease. Continues to be in acute respiratory distress requiring mechanical ventilation. Will perform a thoracentesis of the left hemithorax today with goal of trying to extubate the patient. Palliative care is on board. It seems that the family is moving towards comfort measures at this point. No escalation of care. We will give him 1 mg of Bumex today. Patient is DO NOT RESUSCITATE DO NOT INTUBATE if in the event he fails extubation. Subjective Family on board with moving towards comfort - centered care approach. They are okay with thoracentesis procedure today, but do not want any additional intervention or life-saving measurse Review of Systems Review of Systems: Unobtainable due to endotracheal tube Physical Exam Constitutional: + mechanically ventilated Eyes: + anicteric sclerae, EOM intact bilaterally and + pinpoint pupils; no nystagmus ENMT: external ear and nose normal, oropharynx normal NG tube in place Neck: trachea midline Respiratory: normal respiratory effort Auscultation: no vesicular breath sounds (coarse breath sounds) Cardiovascular: Rate/Rhythm: regular rate and regular rhythm Heart Sounds: normal S1, normal S2 and + murmur (systolic ejection) Vessels: no JVD Extremities: + pedal edema (trace) Gastrointestinal (Abdomen): Inspection/Auscultation: + abdomen distended and normal bowel sounds Percussion/Palpation: abdomen soft; no guarding, abdomen not rigid, no hepatosplenomegaly and no abdominal mass Musculoskeletal: R hand swelling Skin: no rashes, warm and dry Neurologic: Follows commands Genitourinary: Saez in place draining yellow urine with visible clots Results & Data Results & Data ([facility]) Vital Signs (Past 12 Hours) Vital Signs Temp Pulse Resp BP Pulse Ox 12/23/19 05:15 74 20 94 12/23/19 04:00 37.5 C 12/23/19 03:20 73 120/52 L 96 12/23/19 02:50 73 105/50 L 94 12/23/19 02:20 73 113/52 L 94 12/23/19 02:18 74 113/52 L 12/23/19 01:55 74 20 93 12/23/19 01:50 77 113/52 L 94 12/23/19 01:20 74 119/56 L 94 12/23/19 01:10 75 12/23/19 00:55 75 127/66 94 12/23/19 00:00 37.2 C 12/22/19 23:50 74 103/47 L 92 12/22/19 23:20 74 101/47 L 91 12/22/19 22:58 74 20 96 12/22/19 22:50 74 111/53 L 98 12/22/19 22:20 74 95/63 L 97 12/22/19 21:50 74 104/47 L 96 12/22/19 21:20 74 107/46 L 96 12/22/19 20:50 74 102/49 L 96 12/22/19 20:33 74 101/48 L 12/22/19 20:20 74 20 101/48 L 96 12/22/19 20:00 37.3 C 12/22/19 19:50 74 105/47 L 95 12/22/19 19:20 74 109/51 L 97 12/22/19 19:00 74 96 12/22/19 18:50 74 103/48 L 96 12/22/19 18:45 75 95 12/22/19 18:30 74 95 12/22/19 18:20 74 106/49 L 97 Resident Activity Tracking Resident Involvement: Resident Care Provided Care Provided: Adult [facility] Medicine
[2019-12-23 06:33] LABS: iSTAT Allen Test Pass; iSTAT Art Bld Gas pCO2 Correct 55 mmHg (35-46); iSTAT Arterial Blood Gas HCO3 35 meg/L (19-24); iSTAT Arterial Blood Gas pCO2 54 mmHg (35-46); iSTAT Arterial Blood Gas pH 7.41 (7.35-7.45); iSTAT Arterial Blood Gas pO2 67 mmHg (80-95); iSTAT Arterial Blood Gas pO2 C 68; iSTAT Carbon Dioxide 36 mmol/L (24-31); iSTAT FiO2 40 %; iSTAT Hematocrit 30 % (42-52); iSTAT Hemoglobin 10.2 g/dl (14.0-18.0); iSTAT Potassium 3.7 mmol/L (3.3-5.0); iSTAT Site L Radial; iSTAT Sodium 143 mmol/L (135-144)
--- NOTE | 2019-12-23 07:54 | XRay Report ---
XR chest 1V portable CLINICAL HISTORY: Respiratory failure COMPARISON STUDY: 12/22/2019 FINDINGS: The heart remains enlarged. There is an endotracheal tube 31 mm above the rosales. There jody cified pleural plaques. There are bilateral pleural effusions. There is radiographic evidence of pulm onary edema (a bilateral infectious process could appear similar). There is more focal left lower lob e atelectasis/consolidation. IMPRESSION: 1. Cardiomegaly and pulmonary edema pattern (Clinical correlation will be necessary as a bilateral in fectious process could appear similar) 2. Bilateral pleural effusions 3. Persistent left basilar atelectasis/consolidation ACT 112: Negative or not required by law. Electronically signed by: Thom Pino M.D. 12/23/2019 7:52 AM
[2019-12-23] MEDS: INSULIN GLARGINE SOLOSTAR 100 UNITS/ML 3 ML PEN SC SCH (08:08)
[2019-12-23] MEDS ORDERED: BUMETANIDE 1 MG in SYRINGE 0 ML IV ONE (08:15)
[2019-12-23] MEDS: levETIRAcetam 500 MG in 0.9 % SODIUM CHLORIDE 100 ML IV SCH (08:18)
[2019-12-23 08:30] LABS: INR 1.9 (0.9-1.1); Prothrombin Time 19.3 Seconds (9.0-12.0)
[2019-12-23] MEDS ORDERED: PANTOprazole 40 MG TAB PO SCH (09:00)
--- NOTE | 2019-12-23 09:03 | Palliative Care Consultation ---
Date of Consultation December 23, 2019 Assessment & Plan (1) Palliative care encounter: This is an 79 year old male who presented to the [facility] with abdominal pain, nausea and vomiting. Upon arrival, he started to complain of left-sided chest pain. His SPO2 on arrival was 70% and he was subsequently placed on BiPAP and eventually intubated on Tuesday 12/19. Past medical history is significant for COPD (O2 dependent), CHF (EF50-55% SARAHI 2019), HTN, HLD, Afib (on Coumadin), Aortic Stenosis, severe mitral regurgitation, CVA, PVD, anemia of chronic disease (baseline Hgb 8.0-9.0). He has been recently hospitalized two weeks ago with acute on chronic respiratory failure secondary to a CHF exacerbation. Conversations have been held regarding his poor prognosis throughout this hospital stay by various providers. His Chest Xrays revealed infiltrates with bilateral pleural effusions. A bedside thoracentesis is planned for today. He has been on IV antibiotics and his WBC is 11.13. His renal function is showing improvement. He was receiving Lasix, but since this has been discontinued his creatinine has shown improvement from 2.35 > 1.51. Tube feedings started today, but his overall prognosis appears to be poor. Palliative Care was consulted to discuss goals of care. I met with the patient in room 103. The patient is intubated, but not restrained and able to open his eyes and follow simple commands and nod yes appropriately. The patient was discussed at ICU rounds this morning. He was consented to a Thoracentesis today but after further discussion Dr. Meadows did not feel the volume present would make a significant difference. The patients current ventilator settings are: A/C FiO2 0.40%, RR 20, PEEP 5, Tv 420. He is breathing a RR of 21. I did reach out to the patients daughter, Marco and discussed his poor prognosis at length. I spoke with her on the phone and also in person. Per Marco, he would not wish to remain intubated and would not want aggressive measures. I confirmed that the patient would not want any additional inotropic support or hemodialysis should he require this I discussed code status and she confirmed he would not want any CPR, cardioversion/shocking, or re-intubation once extubated. Confirmed that we could try the thoracentesis and see if we would be able to wean him. She did discuss with her siblings and they decided to forgo further treatment and extubate him compassionately. I also discussed this with Dr. Gupta, the patients Php Wordpress Developer, who confirmed he was very adamant on an outpatient basis that he would never want aggressive measures taken. Family all in agreement with compassionate extubate to honor patients wishes. I did discuss with the patient directly, who agrees to remove the breathing tube. I did offer confidence that we would medicate him to eliminate air hunger so he would not feel as though he was struggling to breathe. Unfortunately, I set the expectation that he likely would pass within a few days depending on how he tolerated the extubation. He was extubated and remained on the Fentanyl gtt, which I did order Morphine IV PRN to transition him off of the drip in case they do move the patient out of the ICU. Encouraged family to call in if unable to be present, but did stress limited visitors at one time. Upon extubation, patients SpO2 did drop to the 70's, but has stabilized in the low 90's. Robinul and Ativan ordered in addition to IV Morphine PRN. Will continue to offer support to family throughout this terminal transition. Likely anticipate life expectancy to be hours to a few days. Patient has controlled symptoms and likely will pass away in the hospital. Not a GIP candidate at this time as he is comfortable. PPS: 10% (2) Goals of care, counseling/discussion: (3) Acute hypercapnic respiratory failure: (4) Acute kidney injury: (5) CVA (cerebral vascular accident): (6) Seizure: History of Present Illness Reason for Consultation: Goals of care Requesting Physician: Dr. Meadows Attending Physician: Erick Clemente MD History of Present Illness This is an 79 year old male who presented to the [facility] with abdominal pain, nausea and vomiting. Upon arrival, he started to complain of left-sided chest pain. His SPO2 on arrival was 70% and he was subsequently placed on BiPAP and eventually intubated on Tuesday 12/19. Past medical history is significant for COPD (O2 dependent), CHF (EF50-55% SARAHI 2019), HTN, HLD, Afib (on Coumadin), Aortic Stenosis, severe mitral regurgitation, CVA, PVD, anemia of chronic disease (baseline Hgb 8.0-9.0). He has been recently hospitalized two weeks ago with acute on chronic respiratory failure secondary to a CHF exacerbation. Conversations have been held regarding his poor prognosis throughout this hospital stay by various providers. His Chest Xrays revealed infiltrates with bilateral pleural effusions. A bedside thoracentesis is planned for today. He has been on IV antibiotics and his WBC is 11.13. His renal function is showing improvement. He was receiving Lasix, but since this has been discontinued his creatinine has shown improvement from 2.35 > 1.51. Tube feedings started today, but his overall prognosis appears to be poor. Palliative Care was consulted to discuss goals of care. Please see A/P for further details. Thank you kindly for involving the palliative care consultation service in the care of this patient. Allergies Allergy/AdvReac Type Severity Reaction Status Date / Time Sulfa (Sulfonamide Allergy Unknown HIVES Verified 12/20/19 04:11 Antibiotics) Home Medications Home Medications Medication Instructions Recorded Confirmed Type Tradjenta 5 mg PO DAILY 12/01/19 12/20/19 History glipizide 5 mg PO DAILY 12/01/19 12/20/19 History levetiracetam 500 mg PO BID 12/01/19 12/20/19 History metoprolol tartrate 25 mg PO DAILY 12/01/19 12/20/19 History omeprazole 20 mg PO DAILY 12/01/19 12/20/19 History warfarin 2.5 mg PO DAILY 12/01/19 12/20/19 History Combivent Respimat 1 puff INHALATION QID PRN #0 g 12/06/19 12/20/19 Rx potassium chloride 20 meq PO DAILY #30 tab 12/06/19 12/20/19 Rx simethicone [Mi-Acid Gas 80 mg PO Q6H PRN #30 tab 12/06/19 12/20/19 Rx Relief(simethicon)] torsemide 40 mg PO BID 20 Days #80 tab 12/06/19 12/20/19 Rx aspirin [Aspirin Low Dose] 81 mg PO DAILY 12/20/19 12/20/19 History cholecalciferol (vitamin D3) 25 mcg PO DAILY 12/20/19 12/20/19 History [Vitamin D3] doxycycline hyclate 100 mg PO BID 12/20/19 12/20/19 History fluticasone furoate-vilanterol 1 inh INHALATION DAILY 12/20/19 12/20/19 History [Breo Ellipta] gabapentin 300 mg PO HS 12/20/19 12/20/19 History umeclidinium [Incruse Ellipta] 1 inh INHALATION DAILY 12/20/19 12/20/19 History Patient History Medical History (Updated 12/23/19 @ 09:04 by TEODORO Alicia) Acute hypercapnic respiratory failure Acute kidney injury Anemia Asthma exacerbation in COPD CKD (chronic kidney disease), stage III COPD, moderate CVA (cerebral vascular accident) Diabetes mellitus Goals of care, counseling/discussion HTN (hypertension) Hyperkalemia Multifocal pneumonia Palliative care encounter Pleural effusion, bilateral Supratherapeutic INR Surgical History S/P AAA repair Social History Smoking Status: Former smoker Tobacco Type: Cigarettes Second Hand Exposure: No; Do You Dip or Chew Tobacco: No; Tobacco Cessation Education Requested by Patient: No Hx Alcohol Use: No Hx Substance Use: No Preferred Language: Georgian Communication Ability: Effective Coping Machine Operator Required: No Beliefs That Will Affect Care: None Current Living Situation: Alone Current Living Situation Comment: Unable to complete patient sedated Other Information That Helps Us Care for You: No Feels Safe at Home: Yes Safety Concerns: Feels Safe At This Time Review of Systems Review of Systems: Unobtainable due to endotracheal tube (Pt does nod and shake his head appropriately ) Physical Exam Constitutional: + frail appearing, cooperative and + lethargic Neck: trachea midline, no thyromegaly Respiratory: Auscultation: + diminished lung sounds and + rhonchi on the ventilator Cardiovascular: RRR, no murmur, no edema Gastrointestinal (Abdomen): normal bowel sounds, soft, nontender, no hepatosplenomegaly Skin: + pallor Psychiatric: Orientation: alert, oriented to person, oriented to place and cooperative Insight: + limited insight Judgement: + limited judgement Results & Data ([facility]) Vital Signs (Past 12 Hours) Vital Signs Temp Pulse Resp BP Pulse Ox 12/23/19 08:05 75 115/53 L 12/23/19 07:40 75 22 97 12/23/19 05:51 74 112/50 L 94 12/23/19 05:20 74 119/49 L 96 12/23/19 05:15 74 20 94 12/23/19 04:50 74 109/46 L 94 12/23/19 04:20 73 114/50 L 93 12/23/19 04:00 37.5 C 12/23/19 03:50 73 113/50 L 94 12/23/19 03:20 73 120/52 L 96 12/23/19 02:50 73 105/50 L 94 12/23/19 02:20 73 113/52 L 94 12/23/19 02:18 74 113/52 L 12/23/19 01:55 74 20 93 12/23/19 01:50 77 113/52 L 94 12/23/19 01:20 74 119/56 L 94 12/23/19 01:10 75 12/23/19 00:55 75 127/66 94 12/23/19 00:00 37.2 C 12/22/19 23:50 74 103/47 L 92 12/22/19 23:20 74 101/47 L 91 12/22/19 22:58 74 20 96 12/22/19 22:50 74 111/53 L 98 12/22/19 22:20 74 95/63 L 97 12/22/19 21:50 74 104/47 L 96 12/22/19 21:20 74 107/46 L 96 PG Care Time/CCT Total # of Minutes Spent Total Time Spent with Patient: Total time spent is greater than 50% in coordination of care (as documented) at patient's floor/unit and/or counseling patient: 125 Coding Level of Care Code 92309 Inpt Consult Level 4 Diagnoses Palliative care encounter Z51.5 Goals of care, counseling/discussion Z71.89 Acute hypercapnic respiratory failure J96.02 Acute kidney injury N17.9 CVA (cerebral vascular accident) I63.9 Seizure R56.9 Time Spent (min) 125 Time Spent Midlevel Total time spent 125 minutes with > 50% of that time spent assessing the patient, discussing goals of care wtih the family, and collaborating with the IDT
--- NOTE | 2019-12-23 10:34 | Nephrology Progress Note ---
Date of Service December 23, 2019 Assessment & Plan (1) Acute kidney injury: Mr. Rosario presented to the hospital with progressive lower extremity edema, SOB and chest pain and admitted with hypoxic respiratory failure with volume overload and critical valvular heart disease, requiring intubation and transfer to intensive care unit. Has stage III CKD baseline creatinine 1.4-1 point probably secondary to microvascular disease on admission creatinine was close to baseline however rapidly worsen to creatinine of 2.4 morning. Minimally responding to diuretics. Acute kidney injury secondary to ATN the setting of persistent hypotension with respiratory failure. Hyperkalemia with kidney injury. --CASH resolving, creatinine down to 1.2, electrolyte acceptable. Decent urine output. -- continue on IV diuretics as needed to maintain negative fluid balance -- continue hemodynamic support, keep MAP > 65 Will sign off. (2) Hyperkalemia: (3) Valvular heart disease: (4) Pulmonary edema: (5) Anemia: Admission and Anticipated Discharge Date Admission Date: December 20, 2019 Subjective Mr. Rosario was seen examined in his room this morning. He remains intubated however awake. Oxygen saturation 97% with 40% FiO2. Decent urine output. Blood pressure improved. Renal function improved with creatinine down to 1.2, electrolyte acceptable. Review of Systems Review of Systems: Unobtainable due to endotracheal tube Physical Exam Constitutional: + ill appearing and + mechanically ventilated; no acute distress Respiratory: normal respiratory effort; no respiratory distress and no cough Auscultation: lungs clear to auscultation bilaterally and + diminished lung sounds Cardiovascular: Rate/Rhythm: regular rate and + irregularly irregular Heart Sounds: normal S1 and normal S2 Extremities: no edema Skin: no rashes, warm and dry Neurologic: awake Psychiatric: Orientation: alert Results & Data ([facility]) Vital Signs (Past 12 Hours) Vital Signs Temp Pulse Pulse Resp BP BP Pulse Ox 12/23/19 10:00 74 38 H 111/51 L 12/23/19 08:05 75 115/53 L 12/23/19 08:00 36.7 C 75 106 H 18 115/54 L 95 12/23/19 07:40 75 22 97 12/23/19 05:51 74 112/50 L 94 12/23/19 05:20 74 119/49 L 96 12/23/19 05:15 74 20 94 12/23/19 04:50 74 109/46 L 94 12/23/19 04:20 73 114/50 L 93 12/23/19 04:00 37.5 C 12/23/19 03:50 73 113/50 L 94 12/23/19 03:20 73 120/52 L 96 12/23/19 02:50 73 105/50 L 94 12/23/19 02:20 73 113/52 L 94 12/23/19 02:18 74 113/52 L 12/23/19 01:55 74 20 93 12/23/19 01:50 77 113/52 L 94 12/23/19 01:20 74 119/56 L 94 12/23/19 01:10 75 12/23/19 00:55 75 127/66 94 12/23/19 00:00 37.2 C 12/22/19 23:50 74 103/47 L 92 12/22/19 23:20 74 101/47 L 91 12/22/19 22:58 74 20 96 12/22/19 22:50 74 111/53 L 98 PG Care Time/CCT Total # of Minutes Spent Total Time Spent with Patient: Total time spent is greater than 50% in coordination of care (as documented) at patient's floor/unit and/or counseling patient: Coding Level of Care Code 26813 Subseq Hosp Care Lvl 2 Diagnoses Acute kidney injury N17.9 Hyperkalemia E87.5 Valvular heart disease I38 Pulmonary edema J81.1 Anemia D64.9
--- NOTE | 2019-12-23 10:54 | Cardiology Progress Note ---
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 He represents with signs symptoms of acute respiratory failure with chest x-ray consistent with pulmonary edema lower extremity edema Symptoms progressed to require intubation and mechanical ventilation. Currently no acute distress, intubated Atrial fibrillation rates have improved on intubation Chest x-ray however continues to demonstrate diffuse pulmonary edema and bilateral pleural effusions Patient well-known to me from outpatient visits and past hospitalizations. Patient in the past has declined any aggressive increase in therapies investigations of valvular or ischemic heart disease to the point of even declining laboratory studies/blood draws. Would not escalate care If continued therapy is planned would increase diuretics Overall prognosis limited and if no prompt response to therapies would transition to palliative care (2) Chronic atrial fibrillation with rapid ventricular response: (3) Valvular heart disease: Multiple valve involvement reflecting high risk surgical intervention likely risk prohibitive (4) Pulmonary edema: Admission and Anticipated Discharge Date Admission Date: December 20, 2019 Subjective Patient seen and examined, chart, medications, telemetry reviewed. Remains sedated and intubated, hemodynamically stable. No arrhythmias Oxygenating well however chest x-ray continues to demonstrate diffuse pulmonary edema and bilateral pleural effusion Physical Exam Constitutional: + frail appearing and + mechanically ventilated; no acute distress Eyes: PERRL, conjunctivae normal, anicteric sclerae ENMT: external ear and nose normal, oropharynx normal Neck: trachea midline, no thyromegaly Respiratory: + uses accessory muscles Auscultation: + bronchial breath sounds Cardiovascular: Rate/Rhythm: + irregularly irregular Heart Sounds: normal S1, normal S2 and + murmur (Grade 23/6 systolic, no diastolic murmur) Palpation: normal PMI Vessels: normal carotid upstroke and radial pulses present; no carotid bruit Extremities: + edema (1-2+) Gastrointestinal (Abdomen): Percussion/Palpation: abdomen soft; no hepatosplenomegaly Musculoskeletal: Head/Neck/Chest: + head abnormal to inspection and normocephalic Extremities: extremities normal to inspection Skin: no rashes, warm and dry Neurologic: PERRL, EOMI, accommodation nl, no face palsy, no dysarthria Results & Data ([facility]) Vital Signs (Past 12 Hours) Vital Signs Temp Pulse Pulse Resp BP BP Pulse Ox 12/23/19 10:35 75 24 98 12/23/19 10:00 74 38 H 111/51 L 12/23/19 08:05 75 115/53 L 12/23/19 08:00 36.7 C 75 106 H 18 115/54 L 95 12/23/19 07:40 75 22 97 12/23/19 05:51 74 112/50 L 94 12/23/19 05:20 74 119/49 L 96 12/23/19 05:15 74 20 94 12/23/19 04:50 74 109/46 L 94 12/23/19 04:20 73 114/50 L 93 12/23/19 04:00 37.5 C 12/23/19 03:50 73 113/50 L 94 12/23/19 03:20 73 120/52 L 96 12/23/19 02:50 73 105/50 L 94 12/23/19 02:20 73 113/52 L 94 12/23/19 02:18 74 113/52 L 12/23/19 01:55 74 20 93 12/23/19 01:50 77 113/52 L 94 12/23/19 01:20 74 119/56 L 94 12/23/19 01:10 75 12/23/19 00:55 75 127/66 94 12/23/19 00:00 37.2 C 12/22/19 23:50 74 103/47 L 92 12/22/19 23:20 74 101/47 L 91 12/22/19 22:58 74 20 96
--- NOTE | 2019-12-23 11:35 | Billing Data ---
Date of Service December 23, 2019 Coding Level of Care Code 26598 Subseq Hosp Care Lvl 3
[2019-12-23] MEDS ORDERED: GLYCOPYRROLATE 0.2 MG/ML VIAL IV PRN ×2 (12:31→13:14)
[2019-12-23] MEDS ORDERED: MoRPHine SULFATE 2 MG/ML CARP IV PRN ×2 (12:31→13:28)
[2019-12-23] MEDS ORDERED: LORazepam 0.5 MG/1 ML VIAL IV PRN (12:31)
--- NOTE | 2019-12-23 12:47 | Communication Note ---
Date of Service: December 23, 2019 I had a lengthy discussion with the patient's daughter who indicated that we should proceed with comfort measures only at this point. This would be in line with the patient's wishes. We will go ahead and palliatively extubate the patient on fentanyl and Precedex. This was discussed with the palliative care team and the primary team as well. Coding Level of Care Code Critical Care 1st 30-74 mins Time Spent (min) 10
[2019-12-23] MEDS: PEPTAMEN INTENSE VHP 1.0 CAL 1,000 ML BAG OG SCH (13:08)
[2019-12-23] MEDS: cefTRIAXone SODIUM 2,000 MG in DEXTROSE 5% 50 ML IV SCH (15:41)
--- NOTE | 2019-12-23 17:12 | Hospitalist Progress Note ---
Date of Service December 23, 2019 Assessment & Plan (1) Acute and chronic respiratory failure with hypercapnia: Present on admission with worsening SOB Possible related acute decompensated heart failure/chronic diastolic heart failure CXR showed cardiomegaly, and bilateral pleural effusions Progressive bilateral pulmonary airspace opacities, likely representing pulmonary edema although a bilateral infectious/inflammatory pneumonitis could appear similar. Recent CXR showed Bilateral hazy airspace opacities and small bilateral pleural effusions persist. ABG on admission showed pH 7.18, PCO2 114, PO2 84, PHCO3 43 Received IV lasix in the ER His breathing has been heavy and tachypneic and required more oxygen He was sent to the ICU [facility] Sedated on precedex and fentanyl drip Cardiology on board Lasix discontinued due to worsening kidney function Continue duoneb treatment 12/22 Palliative care on board due to very poor prognosis Nelia from palliative care met with family and he was made comfort care only s/p extubated as per patient wishes Continue oxygen supplement No heroic management Will talk to case management for hospice Elevated troponin Possible demand ischemia due to acute respiratory distress Troponin peaked to 7.4, then trending down to 5.3 Denies any chest pain EKG showed Afib Will monitor troponin Coumadin on hold, INR 1.9 today Transition to comfort care only B/L Pleural effusion CXR showed bilateral pleural effusions [employer] plan to get a thoracentesis but INR elevated Continue to hold coumadin [employer] did not feel thoracentesis would make a significantly difference since there is not enough fluid to tap family does not want any aggressive management Pt was made comfort care only Afib with RVR EKG on admission showed Afib with HR 142 Was starting on amiodarone drip, that transition to PO amiodarone, then D/C Metoprolol discontinued due to low BP Continue hold coumadin for possible thoracentesis INR 1.9 today Hypotension Possible related to Sepsis Continue requiring Pressor with Levophed Pressor was discontinued Possible Pneumonia CXR showed bilateral pulmonary airspace opacities Elevated WBC and Lactate COVID 19 and procalcitonin negative Continue Rocephin and Doxycycline IV Blood cx no growth Will discontinue IV abx, family agreed Transition to comfort care only Abdominal pain Possible related to fluid overload leading to abdominal edema NG tube was placed Never get CT abd since pt was unstable, will cancel it since pt was made comfort care only Anemia of chronic disease Hemoglobin 10.2 Continue monitor CBC Acute kidney injury Creatinine on admission 2.07 Creatinine 1.2 today Continue monitor BMP Type 2 diabetes: HgbA1C 6 on 12/20/19 Continue to hold PO diabetes meds Continue Insulin sliding scale Monitor BS DVT px Continue to hold coumadin INR 1.9 today CODE Status DNR/Comfort care only Disposition Will transfer out of the ICU Admission and Anticipated Discharge Date Admission Date: December 20, 2019 Subjective Pt was seen and examined Lying in bed with family at bedside Pt just got extubated after he was made comfort care by family and pt wishes Pt said that he is having difficulty to breath Denies any chest pain and palpitation Physical Exam Physical Exam: General- on mechanical ventilation Head- atraumatic Eyes- PERRL, EOMI, ENT- extubated today Neck- supple, no JVD Lungs- + crackles, +diminished BS Heart- irregular rhythm; +murmur Abdomen- normal bowel sounds, soft, +distended Extremities- no calf tenderness, +edema Neuro- able to follow command, eyes open, move extremities Skin- warm & dry Results & Data Results & Data ([facility]) Vital Signs (Past 12 Hours) Vital Signs Temp Pulse Pulse Resp BP BP Pulse Ox 12/23/19 16:00 97 H 20 116/59 L 12/23/19 12:00 100 H 28 H 166/55 H 95 12/23/19 10:35 75 24 98 12/23/19 10:00 74 38 H 111/51 L 12/23/19 08:05 75 115/53 L 12/23/19 08:00 36.7 C 75 106 H 18 115/54 L 95 12/23/19 07:40 75 22 97 12/23/19 05:51 74 112/50 L 94 12/23/19 05:20 74 119/49 L 96 12/23/19 05:15 74 20 94
[2019-12-23] MEDS: ONDANSETRON INJ 2 MG/ML 2 ML VIAL IV PRN (19:15)
[2019-12-24] MEDS: ONDANSETRON INJ 2 MG/ML 2 ML VIAL IV PRN ×2 (05:18→10:30)
[2019-12-24] MEDS: ONDANSETRON 4 MG OD TAB SL PRN (10:35)
[2019-12-24] MEDS: LORazepam 0.5 MG TAB PO PRN (12:14)
[2019-12-24] MEDS ORDERED: haloperidoL 0.5 MG TAB PO PRN (15:53)
--- NOTE | 2019-12-24 16:07 | Palliative Care Progress Note ---
Date of Service December 24, 2019 Assessment & Plan (1) Palliative care encounter: I met with Mr. Rosario and his granddaughter at bedside. He is troubled by flashbacks and is very descriptive. This is his most troublesome symptom at this time. We discussed his understanding of his care and his reply was "we're trying to decide whether I or not". He denies anxiety about but is anxious about flashbacks and nightmares. I subsequently had a discussion with his daughter and granddaughter who are trying to understand his prognosis. While the vast majority of people with respiratory failure on vent support who have compassionate withdrawl of support within hours to a day, he has actually been doing better than expected. This is confusing for his family and we talked about what to expect. This may be a matter of days to weeks at this point. Their goal is comfort and they would like him to have medication for his nightmares. We also discussed plan for home vs [facility] facility with hospice to support his needs and manage his symptoms. His daughter does not want home with hospice and prefers SNF. I discussed this with case management. (2) PTSD (post-traumatic stress disorder): Related to prior service. 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 Continue ativan as needed and add haldol at HS and prn for agitation and nightmares. Admission and Anticipated Discharge Date Admission Date: December 20, 2019 Subjective Awake and alert. Having periods of agitation and is restless. He c/o vivid nightmares and unpleasant images as flashbacks to his service. He has c/o being hungry and ate dinner last night and some breakfast this morning. He denies pain or dyspnea. Review of Systems Constitutional: no fever and no body aches Respiratory: no dyspnea Cardiovascular: no chest pain Gastrointestinal: + nausea Genitourinary: no problem reported Musculoskeletal: no joint pain Integumentary: no urticaria Psychiatric: as per Subjective / HPI Physical Exam Constitutional: no acute distress Neck: normal visual inspection Respiratory: no labored breathing Musculoskeletal: moving all extremities Skin: warm and dry Psychiatric: Orientation: alert and oriented x 3 Results & Data ([facility]) Vital Signs (Past 12 Hours) Vital Signs Pulse BP 12/24/19 05:18 102 H 155/60 H PG Care Time/CCT Total # of Minutes Spent Total Time Spent with Patient: Total time spent is greater than 50% in coordination of care (as documented) at patient's floor/unit and/or counseling patient:45 min with 25 minutes spent on discussing prognosis, symptom management and goals of care. Coding Level of Care Code 48430 Subseq Hosp Care Lvl 3 Diagnoses Palliative care encounter Z51.5 PTSD (post-traumatic stress disorder) F43.10
--- NOTE | 2019-12-24 19:41 | Hospitalist Progress Note ---
Date of Service December 24, 2019 Assessment & Plan (1) Acute and chronic respiratory failure with hypercapnia: Present on admission with worsening SOB Possible related acute decompensated heart failure/chronic diastolic heart failure CXR showed cardiomegaly, and bilateral pleural effusions Progressive bilateral pulmonary airspace opacities, likely representing pulmonary edema although a bilateral infectious/inflammatory pneumonitis could appear similar. Recent CXR showed Bilateral hazy airspace opacities and small bilateral pleural effusions persist. ABG on admission showed pH 7.18, PCO2 114, PO2 84, PHCO3 43 Received IV lasix in the ER His breathing has been heavy and tachypneic and required more oxygen He was sent to the [facility] Sedated on precedex and fentanyl drip Cardiology on board Lasix discontinued due to worsening kidney function Continue duoneb treatment 12/23 Palliative care on board due to very poor prognosis Nelia from palliative care met with family and he was made comfort care only S/P day 2 extubation Continue oxygen supplement No heroic management Case management notified Plan to discharge to inpatient hospice Elevated troponin Possible demand ischemia due to acute respiratory distress Troponin peaked to 7.4, then trending down to 5.3 Denies any chest pain EKG showed Afib Will monitor troponin Coumadin on hold Transition to comfort care only B/L Pleural effusion CXR showed bilateral pleural effusions [employer] plan to get a thoracentesis but INR elevated Continue to hold coumadin [employer] did not feel thoracentesis would make a significantly difference since there is not enough fluid to tap family does not want any aggressive management Pt was made comfort care only Afib with RVR EKG on admission showed Afib with HR 142 Was starting on amiodarone drip, that transition to PO amiodarone, then D/C Metoprolol discontinued due to low BP Continue hold coumadin for possible thoracentesis INR 1.9 today Hypotension Possible related to Sepsis Continue requiring Pressor with Levophed Pressor was discontinued Possible Pneumonia CXR showed bilateral pulmonary airspace opacities Elevated WBC and Lactate COVID 19 and procalcitonin negative Continue Rocephin and Doxycycline IV Blood cx no growth Will discontinue IV abx, family agreed Transition to comfort care only Abdominal pain Possible related to fluid overload leading to abdominal edema NG tube was placed Never get CT abd since pt was unstable, will cancel it since pt was made comfort care only Anemia of chronic disease Hemoglobin 10.2 Continue monitor CBC Acute kidney injury Creatinine on admission 2.07 Creatinine 1.2 today Continue monitor BMP Type 2 diabetes: HgbA1C 6 on 12/20/19 Continue to hold PO diabetes meds Continue Insulin sliding scale Monitor BS DVT px Continue to hold coumadin INR 1.9 today CODE Status DNR/Comfort care only Disposition Waiting for placement for inpatient hospice Admission and Anticipated Discharge Date Admission Date: December 20, 2019 Subjective Pt was seen and examined Lying in bed with no distress with family member at bedside Pt said that his breathing is getting better He said that he does not want to go to a facility for hospice He said that he will go home once he feels much better Physical Exam Physical Exam: General- on mechanical ventilation Head- atraumatic Eyes- PERRL, EOMI, ENT- diminished bs Neck- supple, no JVD Lungs- + crackles, +diminished BS Heart- irregular rhythm; +murmur Abdomen- normal bowel sounds, soft, +distended Extremities- no calf tenderness, +edema Neuro- able to follow command, eyes open, move extremities Skin- warm & dry
[2019-12-24] MEDS: haloperidoL 0.5 MG TAB PO SCH (20:45)
[2019-12-25] MEDS: MoRPHine SULFATE 5 MG/0.25 ML UDP PO PRN (00:04)
[2019-12-25] MEDS ORDERED: ACETAMINOPHEN 325 MG TAB PO PRN (00:13)
--- NOTE | 2019-12-25 14:16 | Hospitalist Progress Note ---
Date of Service December 25, 2019 Assessment & Plan (1) Acute and chronic respiratory failure with hypercapnia: Presented on admission with worsening SOB Acute decompensated heart failure/chronic diastolic heart failure CXR showed cardiomegaly, and bilateral pleural effusions Progressive bilateral pulmonary airspace opacities, likely representing pulmonary edema although a bilateral infectious/inflammatory pneumonitis could appear similar. Recent CXR showed Bilateral hazy airspace opacities and small bilateral pleural effusions persist. ABG on admission showed pH 7.18, PCO2 114, PO2 84, PHCO3 43 Received IV lasix in the ER His breathing has been heavy and tachypneic and required more oxygen He was sent to the ICU Intubated on [facility] Ventilation Sedated on precedex and fentanyl drip Cardiology on board Lasix discontinued due to worsening kidney function Continued duoneb treatment Palliative care on board due to very poor prognosis Nelia from palliative care met with family and he was made comfort care only S/P extubation Continue oxygen supplement No heroic management Per patient's daughter and granddaughter, he was more awake yesterday but has been drowsy since morning I discussed the progression of his chronic COPD/heart failure and how worsening hypercapnea could make him more drowsy in addition to comfort med effect. They are worried about disposition. They are still deciding between infacility vs home hospice They are concerned about family's ability to visit in a facility and exposure to covid They are also concerned that he will not have 24h care at home with home hospice since they all work during the day Discussed their concerns with CM who will explore options later with them They are ok with keeping him comfortable for now with comfort care meds Elevated troponin Possible demand ischemia due to acute respiratory distress Troponin peaked to 7.4, then trending down to 5.3 EKG showed Afib Coumadin stopped Transition to comfort care only B/L Pleural effusion CXR showed bilateral pleural effusions Per Dr Clemente, Animal Care Giver planned to get a thoracentesis but INR elevated. Animal Care Giver did not feel thoracentesis would make a significantly difference since there is not enough fluid to tap family does not want any aggressive management Afib with RVR EKG on admission showed Afib with HR 142 Was starting on amiodarone drip, that transition to PO amiodarone, then D/C Metoprolol discontinued due to low BP Hypotension Possible related to Sepsis Required pressor briefly Pressor was discontinued BP currently normal Possible Pneumonia CXR showed bilateral pulmonary airspace opacities Elevated WBC and Lactate COVID 19 and procalcitonin negative Initially got Rocephin and Doxycycline IV Blood cx no growth Anemia of chronic disease Acute kidney injury Creatinine on admission 2.07, improved to 1.22 prior to discontinuing routine labs with comfort measures Continue monitor BMP Type 2 diabetes: HgbA1C 6 on 12/20/19 Routine accuchecks and antidiabetics discontinued CODE Status DNR/Comfort care only Disposition CM will discuss options with family Admission and Anticipated Discharge Date Admission Date: December 20, 2019 Subjective Patient seen and examined. Patient lying calmly in bed, drowsy. Patient's daughter and granddaughter were at bedside No events overnight Review of Systems Review of Systems: Unobtainable due to reduced consciousness Physical Exam Constitutional: no acute distress Drowsy. Moves extremities and grunts to noxious stimuli Respiratory: no respiratory distress Auscultation: + diminished lung sounds Cardiovascular: Rate/Rhythm: + irregularly irregular Heart Sounds: + murmur Extremities: + pedal edema (Trace) S1 S2 Gastrointestinal (Abdomen): normal bowel sounds, soft, nontender, no hepatosplenomegaly Neurologic: Drowsy, moves extremities and grunts to noxious stimuli Results & Data Results & Data ([facility]) Vital Signs (Past 12 Hours) Vital Signs Pulse Resp BP Pulse Ox 12/25/19 11:47 75 24 136/71 100 12/25/19 04:29 102 H 28 H 96
[2019-12-25] MEDS: haloperidoL 0.5 MG TAB PO SCH (22:03)
[2019-12-26] MEDS: MoRPHine SULFATE 5 MG/0.25 ML UDP PO PRN ×3 (04:21→22:49)
[2019-12-26] MEDS: ONDANSETRON 4 MG OD TAB SL PRN (09:15)
[2019-12-26] MEDS ORDERED: SIMETHICONE 80 MG CHEW PO PRN (12:17)
--- NOTE | 2019-12-26 12:17 | Hospitalist Progress Note ---
Date of Service December 26, 2019 Assessment & Plan (1) Acute and chronic respiratory failure with hypercapnia: Presented on admission with worsening SOB Acute decompensated heart failure/chronic diastolic heart failure CXR showed cardiomegaly, and bilateral pleural effusions Progressive bilateral pulmonary airspace opacities, likely representing pulmonary edema although a bilateral infectious/inflammatory pneumonitis could appear similar. Recent CXR showed Bilateral hazy airspace opacities and small bilateral pleural effusions persist. ABG on admission showed pH 7.18, PCO2 114, PO2 84, PHCO3 43 Received IV lasix in the ER His breathing has been heavy and tachypneic and required more oxygen He was sent to the ICU Intubated on Mech Ventilation Sedated on precedex and fentanyl drip Cardiology on board Lasix discontinued due to worsening kidney function Continued duoneb treatment Palliative care on board due to very poor prognosis Nelia from palliative care met with family and he was made comfort care only S/P extubation Continue oxygen supplement No heroic management Patient stated today that he does not want to be put back on the ventilator He has limited insight into his current medical status. He stated he will eventually want to go home and was worried about cost of paying people to come and clean the house. Daughter was at bedside. She did not want to discuss home hospice in the room with patient. Patient is open to care at home. I discussed with patient's daughter outside the room. She reported that their mom passed via hospice, hence the patient is usually not great with discussing hospice care. However, patient appears open to care at home with home health services. I informed spring encaser to discuss home hospice and other care options with patient's daughter and provide her with resources Continue comfort care measures while discharge planning is in process Elevated troponin Possible demand ischemia due to acute respiratory distress Troponin peaked to 7.4, then trending down to 5.3 EKG showed Afib Coumadin stopped Transition to comfort care only B/L Pleural effusion CXR showed bilateral pleural effusions Per Dr Clemente, Dictaphone Typist planned to get a thoracentesis but INR elevated. Dictaphone Typist did not feel thoracentesis would make a significantly difference since there is not enough fluid to tap family does not want any aggressive management Afib with RVR EKG on admission showed Afib with HR 142 Was starting on amiodarone drip, that transition to PO amiodarone, then D/C Metoprolol discontinued due to low BP Hypotension Possible related to Sepsis Required pressor briefly Pressor was discontinued BP currently normal Possible Pneumonia CXR showed bilateral pulmonary airspace opacities Elevated WBC and Lactate COVID 19 and procalcitonin negative Initially got Rocephin and Doxycycline IV Blood cx no growth Anemia of chronic disease Acute kidney injury Creatinine on admission 2.07, improved to 1.22 prior to discontinuing routine labs with comfort measures Continue monitor BMP Type 2 diabetes: HgbA1C 6 on 12/20/19 Routine accuchecks and antidiabetics discontinued CODE Status DNR/Comfort care only Admission and Anticipated Discharge Date Admission Date: December 20, 2019 Subjective Patient seen and examined Patient is more awake today. Reports some abdominal discomfort which he ascribed to pain. Denied any other complaints Physical Exam Constitutional: + well hydrated; no acute distress Eyes: PERRL, conjunctivae normal, anicteric sclerae ENMT: external ear and nose normal, oropharynx normal Respiratory: + tachypneic; no respiratory distress Auscultation: + diminished lung sounds; no crackles Cardiovascular: Rate/Rhythm: + irregularly irregular Heart Sounds: + murmur Extremities: + pedal edema (Trace) Gastrointestinal (Abdomen): normal bowel sounds, soft, nontender, no hepatosplenomegaly Neurologic: Awake, alert to person, place and year only. Follows simple commands. Moves extremities
--- NOTE | 2019-12-26 15:47 | Palliative Care Progress Note ---
Date of Service December 26, 2019 Assessment & Plan (1) Palliative care encounter: Met with daughter at bedside. They are not able to take him home, even with hospice as they are unable to provide 24/7 care. Discussed transfer to SNF with hospice and comfort directed care. They are reluctant to consider SNF due to covid restrictions for visitation which is understandable, however, we did discuss that he may survive for days to weeks as he has been hemodynamically stable, without hypoxia. They want to consider the extended care unit at [facility]. Will discuss with case managment. As he has been less restless and family is taking advantage of more awake time to be with him, will d/c hs haldol and continue prn. (2) Acute hypercapnic respiratory failure: (3) PTSD (post-traumatic stress disorder): Admission and Anticipated Discharge Date Admission Date: December 20, 2019 Subjective Resting comfortably in bed. Does not respond during exam. He had been restless earlier and c/o leg pain. He was out of bed to chair earlier. He has had roxanol x 1 last 24 hours. Haldol held last night due to lethargy. Review of Systems Review of Systems: Unobtainable due to reduced consciousness Physical Exam Constitutional: + lethargic; no acute distress Respiratory: normal respiratory effort; no labored breathing Cardiovascular: Rate/Rhythm: regular rate and regular rhythm Skin: warm and dry PG Care Time/CCT Total # of Minutes Spent Total Time Spent with Patient: Total time spent is greater than 50% in coordination of care (as documented) at patient's floor/unit and/or counseling patient: 44 minutes with 30 minutes spent with family discussing medications, prognosis, symptom management and plan of care. Coding Level of Care Code 32809 Subseq Hosp Care Lvl 3 Diagnoses Palliative care encounter Z51.5 Acute hypercapnic respiratory failure J96.02 PTSD (post-traumatic stress disorder) F43.10 Time Spent (min) 44 Comment [id number]
[2019-12-26] MEDS: LORazepam 0.5 MG TAB PO PRN (18:05)
[2019-12-27] MEDS: MoRPHine SULFATE 5 MG/0.25 ML UDP PO PRN ×6 (01:54→22:16)
--- NOTE | 2019-12-27 08:31 | Palliative Care Progress Note ---
Date of Service December 27, 2019 Assessment & Plan (1) Palliative care encounter: He is more lethargic today, BP stable. He has had little po intake with UOP of 325cc. Will increase frequency of roxanol to every two hours as needed. Continue as prn. Family absolutely wants him to be comfortable but is hopeful for some cogent times to talk with him. Atropine drops available as needed for tracheal secretions. I spoke with Myrna to update her. (2) Acute hypercapnic respiratory failure: (3) PTSD (post-traumatic stress disorder): Admission and Anticipated Discharge Date Admission Date: December 20, 2019 Subjective Does not respond to voice or touch. Appears comfortable. He has had roxanol x 3 since yesterday afternoon for dyspnea. RN noted course breath sounds earlier. Review of Systems Review of Systems: Unobtainable due to cognitive status Physical Exam Constitutional: + lethargic Neck: normal visual inspection Respiratory: shallow respirations, no rales, rhonchi or wheezing Cardiovascular: Rate/Rhythm: regular rhythm (occassional premature contraction) and + tachycardic Gastrointestinal (Abdomen): Percussion/Palpation: abdomen nontender Musculoskeletal: warm, no mottling Skin: skin breakdown on feet Neurologic: + obtunded Results & Data ([facility]) Vital Signs (Past 12 Hours) Vital Signs Pulse Pulse Ox 12/27/19 00:35 140 H 96 12/27/19 00:00 150 H 92 PG Care Time/CCT Total # of Minutes Spent Total Time Spent with Patient: Total time spent is greater than 50% in coord ination of care (as documented) at patient's floor/unit and/or counseling patient:44 min with 30 min spent on coordination of care with RN and family update on status. Coding Level of Care Code 17784 Subseq Hosp Care Lvl 3 Diagnoses Palliative care encounter Z51.5 Acute hypercapnic respiratory failure J96.02 PTSD (post-traumatic stress disorder) F43.10 Time Spent (min) 44 Comment [id number]
--- NOTE | 2019-12-27 10:09 | Hospitalist Progress Note ---
Date of Service December 27, 2019 Assessment & Plan (1) Acute and chronic respiratory failure with hypercapnia: Presented on admission with worsening SOB Acute decompensated heart failure/chronic diastolic heart failure CXR showed cardiomegaly, and bilateral pleural effusions Progressive bilateral pulmonary airspace opacities, likely representing pulmonary edema although a bilateral infectious/inflammatory pneumonitis could appear similar. Recent CXR showed Bilateral hazy airspace opacities and small bilateral pleural effusions persist. ABG on admission showed pH 7.18, PCO2 114, PO2 84, PHCO3 43 Received IV lasix in the ER His breathing has been heavy and tachypneic and required more oxygen He was sent to the ICU Intubated on Mech Ventilation Sedated on precedex and fentanyl drip Cardiology on board Lasix discontinued due to worsening kidney function Continued duoneb treatment Palliative care on board due to very poor prognosis Nelia from palliative care met with family and he was made comfort care only S/P extubation Continue oxygen supplement No heroic management Discussed with Palliative care Dr Grimes yesterday. She had furtehr discussions with family and they want infacility hospice referral which CM has done Awaiting outcome Continue comfort care measures for now Elevated troponin Possible demand ischemia due to acute respiratory distress Troponin peaked to 7.4, then trended down to 5.3 EKG showed Afib Coumadin stopped Transition to comfort care only B/L Pleural effusion CXR showed bilateral pleural effusions Per Dr Clemente, Web Development Instructor planned to get a thoracentesis but INR elevated. Web Development Instructor did not feel thoracentesis would make a significantly difference since there is not enough fluid to tap family does not want any aggressive management Afib with RVR EKG on admission showed Afib with HR 142 Was starting on amiodarone drip, that transition to PO amiodarone, then D/C Metoprolol discontinued due to low BP Hypotension Possible related to Sepsis Required pressor briefly Pressor was discontinued BP currently normal Possible Pneumonia CXR showed bilateral pulmonary airspace opacities Elevated WBC and Lactate COVID 19 and procalcitonin negative Initially got Rocephin and Doxycycline IV Blood cx no growth Anemia of chronic disease Acute kidney injury Creatinine on admission 2.07, improved to 1.22 prior to discontinuing routine labs with comfort measures Continue monitor BMP Type 2 diabetes: HgbA1C 6 on 12/20/19 Routine accuchecks and antidiabetics discontinued CODE Status DNR/Comfort care only Admission and Anticipated Discharge Date Admission Date: December 20, 2019 Subjective Patient seen and examined Drowsy but arousable Review of Systems Review of Systems: Unobtainable due to reduced consciousness Physical Exam Constitutional: + acute distress (mild respiratory distress with tachypnea) and + well hydrated Eyes: PERRL, conjunctivae normal, anicteric sclerae ENMT: external ear and nose normal, oropharynx normal Respiratory: + respiratory distress (mild) and + tachypneic Auscultation: + diminished lung sounds; no crackles Cardiovascular: Rate/Rhythm: + tachycardic and + irregularly irregular Heart Sounds: + murmur Extremities: + pedal edema (Trace) Gastrointestinal (Abdomen): normal bowel sounds, soft, nontender, no hepatosplenomegaly Neurologic: Drowsy but arousable.Able to answer his name and where he is and quickly falls back to sleep. Results & Data Results & Data ([facility]) Vital Signs (Past 12 Hours) Vital Signs Pulse Pulse Ox 12/27/19 00:35 140 H 96 12/27/19 00:00 150 H 92
[2019-12-27] MEDS: ATROPINE SULFATE 1% OP SOLN 2 ML BTL SL PRN ×4 (10:38→22:16)
[2019-12-28] MEDS: MoRPHine SULFATE 5 MG/0.25 ML UDP PO PRN ×5 (02:07→11:07)
[2019-12-28] MEDS: ATROPINE SULFATE 1% OP SOLN 2 ML BTL SL PRN ×4 (04:13→11:07)
--- NOTE | 2019-12-28 13:04 | Hospitalist Progress Note ---
Date of Service December 28, 2019 Assessment & Plan (1) Acute and chronic respiratory failure with hypercapnia: Presented on admission with worsening SOB Acute decompensated heart failure/chronic diastolic heart failure CXR showed cardiomegaly, and bilateral pleural effusions Progressive bilateral pulmonary airspace opacities, likely representing pulmonary edema although a bilateral infectious/inflammatory pneumonitis could appear similar. Recent CXR showed Bilateral hazy airspace opacities and small bilateral pleural effusions persist. ABG on admission showed pH 7.18, PCO2 114, PO2 84, PHCO3 43 Received IV lasix in the ER His breathing has been heavy and tachypneic and required more oxygen He was sent to the ICU Intubated on Mech Ventilation Sedated on precedex and fentanyl drip Cardiology on board Lasix discontinued due to worsening kidney function Continued duoneb treatment Palliative care on board due to very poor prognosis Nelia from palliative care met with family and he was made comfort care only S/P extubation Continue oxygen supplement No heroic management Family in the room reports feeling frustrated. They are concerned about plans for disposition. They express they prefer patient to stay in the hospital till he dies. I explained that some people may last days to weeks or more even on comfort measures and that comfort measures can also be continued outside the hospital setting. They reported that they do no want in-facility hospice as they are not allowed to visit due to the pandemic and they cannot do home hospice as he will not have 24h care. I explained we will continue to take care of him while in the hospital. Will monitor over the weekend and reassess disposition by monday I updated CM and RN about family's concerns Elevated troponin Possible demand ischemia due to acute respiratory distress Troponin peaked to 7.4, then trended down to 5.3 EKG showed Afib Coumadin stopped Transition to comfort care only B/L Pleural effusion CXR showed bilateral pleural effusions Per Dr Clemente, Perinatal Social Worker planned to get a thoracentesis but INR elevated. Perinatal Social Worker did not feel thoracentesis would make a significantly difference since there is not enough fluid to tap family does not want any aggressive management Afib with RVR EKG on admission showed Afib with HR 142 Was starting on amiodarone drip, that transition to PO amiodarone, then D/C Metoprolol discontinued due to low BP Hypotension Possible related to Sepsis Required pressor briefly Pressor was discontinued BP currently normal Possible Pneumonia CXR showed bilateral pulmonary airspace opacities Elevated WBC and Lactate COVID 19 and procalcitonin negative Initially got Rocephin and Doxycycline IV Blood cx no growth Anemia of chronic disease Acute kidney injury Creatinine on admission 2.07, improved to 1.22 prior to discontinuing routine labs with comfort measures Continue monitor BMP Type 2 diabetes: HgbA1C 6 on 12/20/19 Routine accuchecks and antidiabetics discontinued CODE Status DNR/Comfort care only Admission and Anticipated Discharge Date Admission Date: December 20, 2019 Subjective Patient seen and examined Patient is unconscious Family in the room include 2 daughters and 2 grand daughters Review of Systems Review of Systems: Unobtainable due to reduced consciousness Physical Exam Constitutional: + acute distress (tachypnea + use of accessory muscles) Unconscious Eyes: PERRL, conjunctivae normal, anicteric sclerae ENMT: external ear and nose normal, oropharynx normal Respiratory: + respiratory distress (mild) and + tachypneic Auscultation: + diminished lung sounds; no crackles Cardiovascular: Rate/Rhythm: + tachycardic and + irregularly irregular Heart Sounds: + murmur Extremities: + pedal edema (Trace) Gastrointestinal (Abdomen): normal bowel sounds, soft, nontender, no hepatosplenomegaly Neurologic: Unconscious, no movement to noxious stimuli
--- NOTE | 2019-12-28 13:50 | Death Pronouncement Note ---
Date of Service December 28, 2019 Pronouncement Note Admission Date Admission Date: December 20, 2019 Called by RN that patient . On evaluation, No breathing movement noted Pupils were fixed and dilated No palpable carotid pulse No heart sounds or breath sounds on auscultation. TIME OF PRONOUNCED AT 1:25PM Family were present in the room. Offered back maker and supportive services. They do not want autopsy certificate completed Contributing Factors (1) Acute and chronic respiratory failure with hypercapnia: Contributing factors: COPD Acute on chronic diastolic heart failure Additional Data Attending physician: Shanique Turk MD
--- NOTE | 2019-12-28 15:21 | Discharge Summary ---
Date of Service December 28, 2019 Admission HPI Per Admitting Provider History obtained from patient and records. Medical history significant for chronic respiratory failure secondary to COPD on home O2, chronic diastolic heart failure (EF 50 to 55%, TTE 2019), hypertension, hyperlipidemia, A. fib on Coumadin, valvular heart disease (moderate to severe aortic stenosis, severe mitral regurgitation TTE 2019), history CVA, PVD status post surgery, DM 2 on oral medications, CRI (baseline creatinine 1.4-1.5), chronic anemia (baseline hemoglobin 8-9 ), seizure disorder, past tobacco abuse. Last confinement 2 weeks ago for respiratory failure secondary to decompensated heart failure status post intubation. Yesterday patient noted gassy abdominal discomfort/distention with transient nausea vomiting diarrhea symptoms. Increased l bilateral leg swelling. Patient compliant with home medications. Denies OTC NSAID intake or dietary indiscretion. Hours ago patient noted sudden onset shortness of breath with left-sided chest pain, worsening left-sided achy abdominal pain. Denies cough symptoms. O2 sats noted to be 70s upon arrival by EMS. CPAP place. Nitro spray administered by EMS. At the ER, BiPAP initiated. Lasix given for CHF. IV amiodarone bolus given for multiple PVCs. Patient feeling more comfortable. Medical History as above Surgical History : AAA, left common iliac aneurysm repair, cataract surgery, upper eyelid surgery Family History : Diabetes, heart disease Personal/Social history : Past tobacco abuse, no EtOH intake, war Admission Exam Per Admitting Provider GENERAL: Slightly uncomfortable, slightly anxious, minimal respiratory distress, obese SKIN: Pallor , warm HEENT: Pale palpebral conjunctivae, no ptosis, dry buccal mucosa, BiPAP in place NECK : Supple, no tenderness CHEST : Decreased breath sounds, occasional expiratory wheezes, no tenderness HEART : Tachycardic, apical holosystolic murmur ABDOMEN: distention, minimal left-sided abdominal tenderness EXTREMITIES : Bilateral LE swelling, no LE tenderness, no other conspicuous deformities noted NEUROLOGIC : Coherent, no facial asymmetry, no other gross focality Principal Diagnosis Acute on chronic hypercapneic hypoxic respiratory failure Discharge Exam Patient Discharge Data Allergies Allergy/AdvReac Type Severity Reaction Status Date / Time Sulfa (Sulfonamide Allergy Unknown HIVES Verified 12/20/19 04:11 Antibiotics) Consultations 12/20/19 04:54 ED Decision to Admit Stat 12/20/19 07:25 Consult Cardiology Routine Consult Case Management - Discharge Planning Routine 12/20/19 17:32 Consult Inner Diameter Grinder Tool Routine 12/20/19 19:54 Consult Nephrology Routine 12/22/19 10:05 Consult Palliative Care Routine 12/23/19 12:31 Consult Case Management - Discharge Planning Routine Consult Palliative Care Routine Ordered Studies 12/23/19 11:57 US point of care ultrasound Stat Hospital Course (1) Acute and chronic respiratory failure with hypercapnia: Presented on admission with worsening SOB Acute decompensated heart failure/chronic diastolic heart failure CXR showed cardiomegaly, and bilateral pleural effusions Progressive bilateral pulmonary airspace opacities, likely representing pulmonary edema although a bilateral infectious/inflammatory pneumonitis could appear similar. ABG on admission showed pH 7.18, PCO2 114, PO2 84, PHCO3 43 Received IV lasix in the ER He was sent to the ICU Intubated on Mech Ventilation Sedated on precedex and fentanyl drip Lasix discontinued due to worsening kidney function Continued duoneb treatment Palliative care on board due to very poor prognosis After family meetings with family, they wanted to institute comfort measures Patient was started on comfort care measures and medications Routine meds and lab work were discontinued. Other medical problems managed while in the hospital include: Elevated troponin B/L Pleural effusion Afib with RVR Possible Pneumonia Anemia of chronic disease Acute kidney injury Type 2 diabetes Patient on 12/28/19. Time of 1:25PM Family was at bedside Total Time Total Time Spent Total Time Spent (In Minutes): 25 Total Time Includes: Examination of the Patient and Discharge Planning Discharge Plan Discharge Items Patient Disposition: Discharge Diagnosis: Acute on chronic hypercapnic, hypoxic respiratory failure Addtl Attending Provider Instructions:
== END 2019-12-28 14:53 | disposition expired | DRG 208 ==
LOC: ED 03:32 → SUATTDRO 05:45 → 2S 05:45 → 1E 15:20 → 3W 12-23 20:39